=== PATIENT | female | born 1980 | race Caucasian/White ===

== ENCOUNTER 2020-11-10 01:31 | Inpatient (IN) | payer MEDICAID, SELFPAY ==
[2020-11-10] VITALS (44 sets, daily range): BP systolic 66–133; BP diastolic 34–83; PULSE 57–78; RESP 12–21; TEMP 36.4–36.9; O2SAT 93–100; BMI 47.7; BMI 24.9
--- NOTE | 2020-11-10 | ECG_ITS ---
Test Reason : CP Blood Pressure : / mmHG Vent. Rate : 064 BPM Atrial Rate : 064 BPM P-R Int : 186 ms QRS Dur : 074 ms QT Int : 442 ms P-R-T Axes : 037 024 035 degrees QTc Int : 455 ms Normal sinus rhythm Normal ECG When compared with ECG of 10-NOV-2020 02:50, No significant change was found Referred By: Ciaran Mcconnell Electronically Signed By:Marcos Maya
--- NOTE | 2020-11-10 02:46 | ECG_ITS ---
Test Reason : ETOH Blood Pressure : / mmHG Vent. Rate : 070 BPM Atrial Rate : 070 BPM P-R Int : 190 ms QRS Dur : 068 ms QT Int : 414 ms P-R-T Axes : 058 047 053 degrees QTc Int : 447 ms Normal sinus rhythm Normal ECG No previous ECGs available Referred By: Ciaran Mcconnell Electronically Signed By:WALTER REMY
--- NOTE | 2020-11-10 02:49 | ED_ITS ---
HPI - Psych General Chief Complaint: Psychiatric Symptoms Stated Complaint: ETOH Time Seen by Provider: 11/10/20 02:45 Source: patient and EMS Mode of arrival: EMS History of Present Illness HPI Narrative: Patient alcohol intoxication and made suicidal statements with questionable overdose on clonidine unknown dose unknown amount patient drowsy and sleepy on arrival very intoxicated MD complaint: suicidal ideation and feels depressed Related Data Allergies Allergy/AdvReac Type Severity Reaction Status Date / Time kj [KJ] Allergy Severe SWELLING Verified 11/10/20 03:07 Review of Systems Review of Systems: Yes Unobtainable due to mental status (Intoxicated) [facility] Social History Social History Alcohol intake: never Smoked in Last 30 Days: No Use of substances other than those prescribed or required for medical reasons: No Advance Directives: No Physical Exam Vital Signs: Vital Signs: Last Vital Signs Temp 98.1 F 11/10/20 02:00 Pulse 73 11/10/20 06:25 Resp 18 11/10/20 06:25 BP 109/63 11/10/20 06:25 Pulse Ox 96 11/10/20 06:25 Body Mass Index 24.9 Appearance: Alert. Oriented X2. No acute distress. Intoxicated crying in between Eyes: Pupils equal, round and reactive to light. ENT: Pharynx normal. Neck: Normal inspection. Neck supple. CVS: Normal heart rate and rhythm. Pulses normal. Respiratory: No respiratory distress. Breath sounds normal. Abdomen: Soft and nontender. Bowel sounds are present, no mass palpable, Skin: Skin warm and dry. Normal skin color. Normal skin turgor. Extremities: No lower extremity edema. Neuro: Oriented x2. No motor deficit. No sensory deficit. Psych: Alert but falling sleep often, crying in between feel depressed Course Reevaluation(s) Reevaluation #1: Patient on dopamine 10 mcg per minute blood pressure 125/71 heart rate 68 Time: 05:49 Reevaluation #2: Patient maintaining her blood pressure on 5 mcg of dopamine at 109/63 pulse rate 73 with slowly taper it off will get BHN consult Time: 06:29 MDM - Psych MDM Narrative Medical decision making narrative: Patient with alcohol intoxication overdosed on clonidine unknown amount patient alert awake following sleep often blood pressure still low last blood pressure was 84/37 mild in 10 mg was given and patient received 3 L of normal saline transient improvement placed on T rendelenburg position. Will start her on dopamine her heart rate is 68. Restraints Face to Face Assessment: Face to Face Assessment: Current Situation: After assessment of the patient, a review of the pertinent medical record and a discussion with nursing staff, I feel the patient requires a restrain intervention. Reaction To: [] Medical Condition: [] Behavioral State: [] Continued Need: [] Lab Data Attestation: I reviewed the patient's lab results. Result diagrams: 11/10/20 03:06 11/10/20 03:06 Labs: Lab Results 11/10/20 11/10/20 11/10/20 Range/Units 03:06 03:06 03:06 WBC 7.1 (4.8-10.8) X10*3/uL RBC 4.26 (4.20-5.50) X10*6/uL Hgb 13.1 (12.0-16.0) g/dl Hct 39.5 (37-47) % MCV 92.7 (80-98) fL MCH 30.8 (27.0-33.0) pg MCHC 33.2 (31.0-35.0) g/dl RDW 13.2 (11.0-16.0) % Plt Count 261 (160-400) X10*3/uL MPV 9.2 L (9.4-12.3) fL Immature Gran % (Auto) 0.3 (0.0-0.4) % Neut % (Auto) 43.6 L (45-73) % Lymph % (Auto) 48.7 H (20-40) % Mathews % (Auto) 6.3 (2-11) % Eos % (Auto) 0.8 (0-4) % Baso % (Auto) 0.3 (0-2) % Lymph # (Auto) 3.5 (1.2-4.9) X10*3/uL [place] # (Auto) 0.5 (0.1-1.2) X10*3/uL Eos # (Auto) 0.1 (0.0-0.4) X10*3/uL Baso # (Auto) 0.0 (0.0-0.2) X10*3/uL Abs Immat Gran (auto) 0.02 (0.00-0.03) X10*3/uL Absolute Neuts (auto) 3.1 (2.0-8.3) X10*3/uL Absolute Nucleated RBC 0.000 (0.0-0.012) X10*3/uL Nucleated RBC % (auto) 0.0 (0.0-0.2) /100WBC Sodium 143 (135-145) mmol/L Potassium 4.1 (3.3-5.1) mmol/l Chloride 114 H (96-108) mmol/L Carbon Dioxide 18 L (22-29) mmol/L Anion Gap 15 (12-20) BUN 6 L (9-16) mg/dL Creatinine 0.87 (0.5-1.4) mg/dL Estim Creat Clear Calc 118.1 Estimated GFR > 60 Random Glucose 120 H (60-115) mg/dL Calcium 8.2 L (8.4-10.2) mg/dL Magnesium (1.6-2.6) mg/dL Total Bilirubin 0.2 (0.0-1.0) mg/dL Direct Bilirubin < 0.2 (0.0-0.5) mg/dL AST 17 (5-31) U/L ALT 16 (0-31) U/L Alkaline Phosphatase 47 (39-117) U/L Total Protein 6.8 (6.5-8.0) g/dL Albumin 4.2 (3.5-5.0) g/dL Urine Color Urine Appearance Urine pH (5.0-8.0) Ur Specific [place] (1.005-1.025) Urine Protein (NEG-TRACE) MG/DL Urine Glucose (UA) (NEG) MG/DL Urine Ketones (NEG) MG/DL Urine Blood (NEG) Urine Nitrite (NEG) Ur Leukocyte Esterase (NEG) Urine RBC (0) /HPF Urine WBC (0-4) /HPF Ur Squamous Epith Cells /LPF Urine Bacteria /LPF Urine Test (NEGATIVE) Salicylates (15-30) mg/dL Urine Opiates Screen (Not Detect) Acetaminophen (<30) mcg/mL Ur Barbiturates Screen (Not Detect) Ur Phencyclidine Scrn (Not Detect) Ur Amphetamines Screen (Not Detect) U Benzodiazepines Scrn (Not Detect) Urine Cocaine Screen (Not Detect) U Marijuana (THC) Screen (Not Detect) Ethyl Alcohol 219 mg/dL 11/10/20 11/10/20 11/10/20 Range/Units 03:06 03:07 04:31 WBC (4.8-10.8) X10*3/uL RBC (4.20-5.50) X10*6/uL Hgb (12.0-16.0) g/dl Hct (37-47) % MCV (80-98) fL MCH (27.0-33.0) pg MCHC (31.0-35.0) g/dl RDW (11.0-16.0) % Plt Count (160-400) X10*3/uL MPV (9.4-12.3) fL Immature Gran % (Auto) (0.0-0.4) % Neut % (Auto) (45-73) % Lymph % (Auto) (20-40) % [place] % (Auto) (2-11) % Eos % (Auto) (0-4) % Baso % (Auto) (0-2) % Lymph # (Auto) (1.2-4.9) X10*3/uL [place] # (Auto) (0.1-1.2) X10*3/uL Eos # (Auto) (0.0-0.4) X10*3/uL Baso # (Auto) (0.0-0.2) X10*3/uL Abs Immat Gran (auto) (0.00-0.03) X10*3/uL Absolute Neuts (auto) (2.0-8.3) X10*3/uL Absolute Nucleated RBC (0.0-0.012) X10*3/uL Nucleated RBC % (auto) (0.0-0.2) /100WBC Sodium (135-145) mmol/L Potassium (3.3-5.1) mmol/l Chloride (96-108) mmol/L Carbon Dioxide (22-29) mmol/L Anion Gap (12-20) BUN (9-16) mg/dL Creatinine (0.5-1.4) mg/dL Estim Creat Clear Calc Estimated GFR Random Glucose (60-115) mg/dL Calcium (8.4-10.2) mg/dL Magnesium 2.2 (1.6-2.6) mg/dL Total Bilirubin (0.0-1.0) mg/dL Direct Bilirubin (0.0-0.5) mg/dL AST (5-31) U/L ALT (0-31) U/L Alkaline Phosphatase (39-117) U/L Total Protein (6.5-8.0) g/dL Albumin (3.5-5.0) g/dL Urine Color YELLOW Urine Appearance HAZY Urine pH 6.0 (5.0-8.0) Ur Specific [place] <= 1.005 (1.005-1.025) Urine Protein NEG (NEG-TRACE) MG/DL Urine Glucose (UA) NEG (NEG) MG/DL Urine Ketones NEG (NEG) MG/DL Urine Blood NEG (NEG) Urine Nitrite NEG (NEG) Ur Leukocyte Esterase TRACE H (NEG) Urine RBC 1-4 (0) /HPF Urine WBC 5-9 H (0-4) /HPF Ur Squamous Epith Cells 2+ /LPF Urine Bacteria 3+ /LPF Urine Test NEGATIVE (NEGATIVE) Salicylates < 5.0 L (15-30) mg/dL Urine Opiates Screen (Not Detect) Acetaminophen < 1 (<30) mcg/mL Ur Barbiturates Screen (Not Detect) Ur Phencyclidine Scrn (Not Detect) Ur Amphetamines Screen (Not Detect) U Benzodiazepines Scrn (Not Detect) Urine Cocaine Screen (Not Detect) U Marijuana (THC) Screen (Not Detect) Ethyl Alcohol mg/dL 11/10/20 Range/Units 04:31 WBC (4.8-10.8) X10*3/uL RBC (4.20-5.50) X10*6/uL Hgb (12.0-16.0) g/dl Hct (37-47) % MCV (80-98) fL MCH (27.0-33.0) pg MCHC (31.0-35.0) g/dl RDW (11.0-16.0) % Plt Count (160-400) X10*3/uL MPV (9.4-12.3) fL Immature Gran % (Auto) (0.0-0.4) % Neut % (Auto) (45-73) % Lymph % (Auto) (20-40) % [place] % (Auto) (2-11) % Eos % (Auto) (0-4) % Baso % (Auto) (0-2) % Lymph # (Auto) (1.2-4.9) X10*3/uL [place] # (Auto) (0.1-1.2) X10*3/uL Eos # (Auto) (0.0-0.4) X10*3/uL Baso # (Auto) (0.0-0.2) X10*3/uL Abs Immat Gran (auto) (0.00-0.03) X10*3/uL Absolute Neuts (auto) (2.0-8.3) X10*3/uL Absolute Nucleated RBC (0.0-0.012) X10*3/uL Nucleated RBC % (auto) (0.0-0.2) /100WBC Sodium (135-145) mmol/L Potassium (3.3-5.1) mmol/l Chloride (96-108) mmol/L Carbon Dioxide (22-29) mmol/L Anion Gap (12-20) BUN (9-16) mg/dL Creatinine (0.5-1.4) mg/dL Estim Creat Clear Calc Estimated GFR Random Glucose (60-115) mg/dL Calcium (8.4-10.2) mg/dL Magnesium (1.6-2.6) mg/dL Total Bilirubin (0.0-1.0) mg/dL Direct Bilirubin (0.0-0.5) mg/dL AST (5-31) U/L ALT (0-31) U/L Alkaline Phosphatase (39-117) U/L Total Protein (6.5-8.0) g/dL Albumin (3.5-5.0) g/dL Urine Color Urine Appearance Urine pH (5.0-8.0) Ur Specific [place] (1.005-1.025) Urine Protein (NEG-TRACE) MG/DL Urine Glucose (UA) (NEG) MG/DL Urine Ketones (NEG) MG/DL Urine Blood (NEG) Urine Nitrite (NEG) Ur Leukocyte Esterase (NEG) Urine RBC (0) /HPF Urine WBC (0-4) /HPF Ur Squamous Epith Cells /LPF Urine Bacteria /LPF Urine Test (NEGATIVE) Salicylates (15-30) mg/dL Urine Opiates Screen Not Detected (Not Detect) Acetaminophen (<30) mcg/mL Ur Barbiturates Screen POSITIVE H (Not Detect) Ur Phencyclidine Scrn Not Detected (Not Detect) Ur Amphetamines Screen Not Detected (Not Detect) U Benzodiazepines Scrn Not Detected (Not Detect) Urine Cocaine Screen Not Detected (Not Detect) U Marijuana (THC) Screen Not Detected (Not Detect) Ethyl Alcohol mg/dL ECG Data Attestation: I personally reviewed and interpreted this ECG as follows: Interpretation: Normal sinus rhythm heart rate 70 normal axis normal intervals normal QT interval no acute ST T wave changes impression normal EKG Critical Care Time Critical Care Time Critical Care Time: Yes Total Critical Care Time: 40 Attestation: Medical management Discharge Plan Discharge Clinical Impression: Depression Qualifiers: Depression Type: major depressive disorder Major depression recurrence: recurrent Active/Remission status: currently active Major depression episode severity: moderate Qualified Code(s): F33.1 - Major depressive disorder, recurrent, moderate Alcohol intoxication Qualifiers: Complication of substance-induced condition: uncomplicated Qualified Code(s): F10.920 - Alcohol use, unspecified with intoxication, uncomplicated Overdose Qualifiers: Encounter type: initial encounter Injury intent: undetermined intent Qualified Code(s): T50.904A - Poisoning by unspecified drugs, medicaments and biological substances, undetermined, initial encounter
[2020-11-10] MEDS: 0.9 % Sodium Chloride 1,000 ML 999 ML IVCONT ×3 (03:09→04:25)
--- NOTE | 2020-11-10 03:17 | PC.NURSE ---
Report received from Raj RN from pod. Pt transfferd from pod to main ed for cardiac monitoring via wc. Upon arrival to bed 8, pt wanted to use bathroom. unsteady gait on feet. Assisted pt to bed safely. VS taken. Hypotensive noted. SBP 80's. made aware. EKG, IV access, blood drawn for lab, and IVF started. NSR on the monitor. Pt crying, and stating that depressed. Denies SI/HI. Stated, Never drank before, today i drank apple vodka and had clonidine. Pt unsure how many pills she had. Pt keep asking to have clonidine. Called to family member for more story, but unable to reach. Left a voice mail for return call. safety measures in place.
[2020-11-10 03:27] LABS: Basophils Percent Auto 0.3 % (0-2); Eosinophils Absolute Auto 0.1 X10*3/uL (0.0-0.4); Eosinophils Percent Auto 0.8 % (0-4); Hematocrit 39.5 % (37-47); Hemoglobin 13.1 g/dl (12.0-16.0); Imm Gran Abs Auto 0.02 X10*3/uL (0.00-0.03); Imm Gran Pct Auto 0.3 % (0.0-0.4); Lymphocytes Absolute Auto 3.5 X10*3/uL (1.2-4.9); Lymphocytes Percent Auto 48.7 % (20-40); MANUAL DIFF FLAG NO; Mean Corpuscular HGB Conc 33.2 g/dl (31.0-35.0); Mean Corpuscular Hemoglobin 30.8 pg (27.0-33.0); Mean Corpuscular Volume 92.7 fL (80-98); Mean Platelet Volume 9.2 fL (9.4-12.3); Monocytes Absolute Auto 0.5 X10*3/uL (0.1-1.2); Monocytes Percent Auto 6.3 % (2-11); Neutrophils Absolute Auto 3.1 X10*3/uL (2.0-8.3); Neutrophils Percent Auto 43.6 % (45-73); Platelet Count 261 X10*3/uL (160-400); Red Blood Count 4.26 X10*6/uL (4.20-5.50); Red Cell Distribution Width 13.2 % (11.0-16.0); White Blood Count 7.1 X10*3/uL (4.8-10.8)
--- NOTE | 2020-11-10 03:34 | MHC.PIE ---
Hypotensive despite of 1 L of NS. BP 89/57. made aware. 2nd bag of NS started. pt currently sleeping well. skin wpd. rr even and unlabored. will continue to monitor.
[2020-11-10 03:48] LABS: Ethanol 219 mg/dL
[2020-11-10 03:52] LABS: Alanine Aminotransferase 16 U/L (0-31); Albumin Level 4.2 g/dL (3.5-5.0); Alkaline Phosphatase 47 U/L (39-117); Anion Gap 15 (12-20); Aspartate Amino Transferase 17 U/L (5-31); Bilirubin Direct < 0.2 mg/dL (0.0-0.5); Bilirubin Total 0.2 mg/dL (0.0-1.0); Blood Urea Nitrogen 6 mg/dL (9-16); Calcium 8.2 mg/dL (8.4-10.2); Carbon Dioxide 18 mmol/L (22-29); Chloride 114 mmol/L (96-108); Creatinine Clr Calc Pharmacy 118.1; Estimated Glomerular Filt Rate > 60; Glucose Random 120 mg/dL (60-115); Potassium 4.1 mmol/l (3.3-5.1); Sodium 143 mmol/L (135-145); Total Protein 6.8 g/dL (6.5-8.0)
[2020-11-10 03:53] LABS: Magnesium 2.2 mg/dL (1.6-2.6)
[2020-11-10 03:53] LABS: Acetaminophen LAB < 1 mcg/mL (<30)
[2020-11-10 03:58] LABS: Salicylate < 5.0 mg/dL (15-30)
--- NOTE | 2020-11-10 04:10 | PC.NURSE ---
Addendum entered by Kam uLna RN 11/10/20 04:23: per md, give 3 rd bag of iv fluid. Original Note: Hypotensive noted again. the lowest bp 80/47. md at bedside to assess pt.
--- NOTE | 2020-11-10 04:23 | PC.NURSE ---
ambulated to bathroom to collect urine sample via wc d/t unsteady gait, and 1 person assistance.
[2020-11-10] MEDS: Midodrine HCl 10 MG TABLET PO (04:27)
[2020-11-10 04:38] LABS: Glucose Urine UA NEG (NEG); Leukocyte Esterase Urine TRACE (NEG); Nitrite Urine NEG (NEG); Specific Gravity - Urine <= 1.005 (1.005-1.025); Urine Blood NEG (NEG); Urine Ketones NEG (NEG); Urine Protein NEG (NEG-TRACE)
[2020-11-10 04:40] LABS: Appearance Urine HAZY; Color Urine YELLOW
[2020-11-10 04:41] LABS: UPreg QC Valid YES; Urine Pregnancy NEGATIVE (NEGATIVE)
[2020-11-10 04:45] LABS: Bacteria Urine 3+ /LPF; Squamous Epithelial Cell Urine 2+ /LPF
[2020-11-10 05:00] LABS: Amphetamine Screen Urine Not Detected (Not Detect); Barbiturates, Urine POSITIVE (Not Detect); Benzodiazepines Screen Urine Not Detected (Not Detect); Cannabinoid Screen Urine Not Detected (Not Detect); Cocaine Screen Urine Not Detected (Not Detect); Opiate Screen Urine Not Detected (Not Detect); Phencyclidine Screen Urine Not Detected (Not Detect)
[2020-11-10] MEDS: DOPamine HCL/D5W 400 MG/250 ML PLAST..BAG 12.75 MG IVCONT ×2 (05:02→23:08)
[2020-11-10] MEDS: DOPamine HCL/D5W 400 MG/250 ML PLAST..BAG 24.38 MG IVCONT (05:02)
--- NOTE | 2020-11-10 05:08 | PC.NURSE ---
Addendum entered by Kam Luna RN 11/10/20 05:11: titrated to 10 mcg/kg/min at 0510. Original Note: Dopamine 400mg/250 ml hung at 0502 for hypotension. bp at 69/42 time of med started.
--- NOTE | 2020-11-10 05:32 | PC.NURSE ---
pt ambulated to bathroom to urinate. steady gait on feet. pt follows commands. DARSHANA. Called to poison control for guideline. per poison control. give narcan iv 1 mg then wait for 10 min. if pt still drowsy after 1st dose of narcan, increase dose x2 for every 10 min. md made aware. at this time dopamine rate is 15 mcg/kg/min. bp maintaining 117/58. will continue to monitor.
[2020-11-10 07:19] LABS: COVID-19 Test Negative (Negative)
--- NOTE | 2020-11-10 07:20 | PC.NURSE ---
pt insisntent and argumentative about walking the 10 feet to the bathroom, refused commode, staf w pt into the bathroom, c/o dizziness and sat on the floor, assisted back to bed now w nad
--- NOTE | 2020-11-10 11:38 | MHC.CARE ---
Pt will need BHN CRISIS Evaluation once medically stable.
--- NOTE | 2020-11-10 12:45 | P.HPCC_ITS ---
History of Present Illness Date of Service: 11/10/20 Chief Complaint: Suicide attempt with clonidine and alcohol 40-year-old female with history of major depression with suicide attempt now approaching greater than 12 hours utilizing clonidine and alcohol with a greater than 200 mg % alcohol level on arrival and persistent bradycardia and orthostatic hypotension requiring IV dopamine drip to maintain blood pressure and heart rate No history of withdrawal and the patient other than lethargy does not display any other [place]O[employer] [place] [employer] toxicity and both EKGs are within normal limits including normal QRS duration and QT intervals She has history of migraines and she thinks she has a history of seizure disorder takes Topamax and buspirone and bupropion but urine toxicology was positive for phenyl barbital that was neither given here in the hospital noted she admit to it at home But she fails to display any particular toxidrome other than what you would expect from clonidine She claims to have lost her Klonopin and not taken it for several days Review of Systems Review of Systems: Yes Unobtainable due to mental status PMFSH Past Medical History Medical History (Updated 11/10/20 @ 12:55 by Mina Galo MD) Seizure disorder Social History Social History Alcohol intake: never Smoked in Last 30 Days: No Use of substances other than those prescribed or required for medical reasons: No Advance Directives: No Meds Allergies Allergy/AdvReac Type Severity Reaction Status Date / Time kj [KJ] Allergy Severe SWELLING Verified 11/10/20 03:07 Home Medications Medication Instructions Recorded Confirmed Type Wellbutrin XL 450 mg PO DAILY 11/10/20 11/10/20 History buspirone mg PO BID 11/10/20 History [id number] cap PO QID PRN 11/10/20 History [Fioricet] clonazepam [Klonopin] 1 mg PO BID PRN 11/10/20 11/10/20 History fluoxetine 60 mg PO DAILY 11/10/20 11/10/20 History norethindrone (contraceptive) 0.35 mg PO DAILY 11/10/20 11/10/20 History pantoprazole 40 mg PO 11/10/20 History topiramate [Topamax] 11/10/20 History Physical Exam Vital Signs: Vital Signs: Last Vital Signs Temp 98.1 F 11/10/20 02:00 Pulse 72 11/10/20 11:01 Resp 18 11/10/20 08:00 BP 79/34 L 11/10/20 11:01 Pulse Ox 98 11/10/20 11:01 Body Mass Index 24.9 Very lethargic but easily arousable and appropriate and oriented and nonfocal neurologically and pupils are mid size and reactive to light bilaterally and muscular tone is normal bilaterally as well no evidence of dystonia Cardiac exam normal sinus rhythm with no neck vein distension and has good bilateral carotid upstrokes no murmurs and no gallops Chest is clear without adventitious sounds Abdomen is benign with good bowel sounds soft and nondistended and no organomegaly Skin is intact no peripheral edema no livedo Results Labs CBC and Chem 7: 11/10/20 03:06 11/10/20 03:06 Labs: Laboratory Results - last 24 hr 11/10/20 11/10/20 11/10/20 03:06 03:06 03:06 MCV 92.7 MCH 30.8 MCHC 33.2 RDW 13.2 Plt Count 261 MPV 9.2 L Immature Gran % (Auto) 0.3 Neut % (Auto) 43.6 L Lymph % (Auto) 48.7 H [place] % (Auto) 6.3 Eos % (Auto) 0.8 Baso % (Auto) 0.3 Lymph # (Auto) 3.5 [place] # (Auto) 0.5 Eos # (Auto) 0.1 Baso # (Auto) 0.0 Abs Immat Gran (auto) 0.02 Absolute Neuts (auto) 3.1 Absolute Nucleated RBC 0.000 Nucleated RBC % (auto) 0.0 Anion Gap 15 Estim Creat Clear Calc 118.1 Estimated GFR > 60 Random Glucose 120 H Calcium 8.2 L Magnesium Total Bilirubin 0.2 Direct Bilirubin < 0.2 AST 17 ALT 16 Alkaline Phosphatase 47 Total Protein 6.8 Albumin 4.2 Urine Color Urine Appearance Urine pH Ur Specific [place] Urine Protein Urine Glucose (UA) Urine Ketones Urine Blood Urine Nitrite Ur Leukocyte Esterase Urine RBC Urine WBC Ur Squamous Epith Cells Urine Bacteria Urine Test Salicylates Urine Opiates Screen Acetaminophen Ur Barbiturates Screen Ur Phencyclidine Scrn Ur Amphetamines Screen U Benzodiazepines Scrn Urine Cocaine Screen U Marijuana (THC) Screen Ethyl Alcohol 219 COVID-19 (ROSALINDA) COVID-19 Clin Com 11/10/20 11/10/20 11/10/20 03:06 03:07 04:31 MCV MCH MCHC RDW Plt Count MPV Immature Gran % (Auto) Neut % (Auto) Lymph % (Auto) [place] % (Auto) Eos % (Auto) Baso % (Auto) Lymph # (Auto) [place] # (Auto) Eos # (Auto) Baso # (Auto) Abs Immat Gran (auto) Absolute Neuts (auto) Absolute Nucleated RBC Nucleated RBC % (auto) Anion Gap Estim Creat Clear Calc Estimated GFR Random Glucose Calcium Magnesium 2.2 Total Bilirubin Direct Bilirubin AST ALT Alkaline Phosphatase Total Protein Albumin Urine Color YELLOW Urine Appearance HAZY Urine pH 6.0 Ur Specific [place] <= 1.005 Urine Protein NEG Urine Glucose (UA) NEG Urine Ketones NEG Urine Blood NEG Urine Nitrite NEG Ur Leukocyte Esterase TRACE H Urine RBC 1-4 Urine WBC 5-9 H Ur Squamous Epith Cells 2+ Urine Bacteria 3+ Urine Test NEGATIVE Salicylates < 5.0 L Urine Opiates Screen Acetaminophen < 1 Ur Barbiturates Screen Ur Phencyclidine Scrn Ur Amphetamines Screen U Benzodiazepines Scrn Urine Cocaine Screen U Marijuana (THC) Screen Ethyl Alcohol COVID-19 (ROSALINDA) COVID-[facility] 11/10/20 11/10/20 04:31 06:55 MCV MCH MCHC RDW Plt Count MPV Immature Gran % (Auto) Neut % (Auto) Lymph % (Auto) [place] % (Auto) Eos % (Auto) Baso % (Auto) Lymph # (Auto) [place] # (Auto) Eos # (Auto) Baso # (Auto) Abs Immat Gran (auto) Absolute Neuts (auto) Absolute Nucleated RBC Nucleated RBC % (auto) Anion Gap Estim Creat Clear Calc Estimated GFR Random Glucose Calcium Magnesium Total Bilirubin Direct Bilirubin AST ALT Alkaline Phosphatase Total Protein Albumin Urine Color Urine Appearance Urine pH Ur Specific [place] Urine Protein Urine Glucose (UA) Urine Ketones Urine Blood Urine Nitrite Ur Leukocyte Esterase Urine RBC Urine WBC Ur Squamous Epith Cells Urine Bacteria Urine Test Salicylates Urine Opiates Screen Not Detected Acetaminophen Ur Barbiturates Screen POSITIVE H Ur Phencyclidine Scrn Not Detected Ur Amphetamines Screen Not Detected U Benzodiazepines Scrn Not Detected Urine Cocaine Screen Not Detected U Marijuana (THC) Screen Not Detected Ethyl Alcohol COVID-19 (ROSALINDA) Negative COVID-[facility] See Note Assessment and Plan (1) Depression: Qualifiers: Active/Remission status: currently active Depression Type: major depressive disorder Major depression episode severity: moderate Major depression recurrence: recurrent Qualified Code(s): F33.1 - Major depressive disorder, recurrent, moderate Problem details: Continue to hydrate but due to the hyperchloremic affect which is iatrogenic from the saline I will switch her to Ringer's lactate Status: Acute (2) Alcohol intoxication: Qualifiers: Complication of substance-induced condition: uncomplicated Qualified Code(s): F10.920 - Alcohol use, unspecified with intoxication, uncomplicated Problem details: No history of withdrawal and I will place her on a very small dose of Ativan and watch for any signs of increased sympathetic activity or agitation Status: Acute (3) Overdose: Qualifiers: Encounter type: initial encounter Injury intent: undetermined intent Qualified Code(s): T50.904A - Poisoning by unspecified drugs, medicaments and biological substances, undetermined, initial encounter Problem details: She will need a 1 on 1 and because of suicide attempt Status: Acute Will continue on dopamine and will slowly try to wean as we now get into a time frame towards the end of the expected clonidine half life
--- NOTE | 2020-11-10 13:12 | MHC.CARE ---
51A CARE Team completed 51A . CARE Team contacted Zeferino BULLARD who reported during the incident Pts 3 yearold and 13 year old were home.
[2020-11-10] MEDS: Butalb/Acetamin/Caff 50/325/40 TABLET 1 TAB PO (13:29)
[2020-11-10] MEDS: Dextrose 5 % and Lactated Ring 1,000 ML 100 ML IVCONT ×2 (13:31→23:08)
--- NOTE | 2020-11-10 16:55 | MHC.CARE ---
CARE Team received phone call from [facility] regarding Analy 82 - CARE Team confirmed Mirian Treviño and Analy have the same demographics. CARE Team transferred call to ICU
[2020-11-10] MEDS: LORazepam 2 MG/ML VIAL 0.25 MG IVPUSH ×2 (17:59→20:54)
[2020-11-10] MEDS: ondansetron HCL 4 MG/2 ML VIAL IVPUSH (19:45)
[2020-11-11] VITALS (25 sets, daily range): BP systolic 92–115; BP diastolic 23–76; PULSE 55–79; RESP 11–20; TEMP 36.7–36.9; O2SAT 94–100; BMI 26.7
[2020-11-11 00:47] LABS: Glucose Urine UA NEG (NEG); Leukocyte Esterase Urine NEG (NEG); Nitrite Urine NEG (NEG); PH 7.5 (5.0-8.0); Specific Gravity - Urine 1.015 (1.005-1.025); Urine Blood NEG (NEG); Urine Ketones NEG (NEG); Urine Protein NEG (NEG-TRACE)
[2020-11-11 00:49] LABS: Appearance Urine CLEAR; Color Urine YELLOW
[2020-11-11] MEDS: ondansetron HCL 4 MG/2 ML VIAL IVPUSH ×3 (03:22→20:59)
[2020-11-11] MEDS: LORazepam 2 MG/ML VIAL 0.25 MG IVPUSH ×3 (03:24→17:47)
--- NOTE | 2020-11-11 05:20 | PC.NURSE ---
CARE ASSUMED 01:30...NAPPING INTERMITTANTLY...OOB TO COMMODE 1 ASSIST TO VOID...O3:30...AWAKE..ALERT...ORIENTED X3...FLAT AFFECT...C/O NAUSEA AND ANXIOUS...REQUESTED PRN ZOFRAN & ATIVAN...ZOFRAN GIVEN WITH RELIEF OF NAUSEA...ICU DEVOPS SOLUTIONS ARCHITECT VERBALLY STATED TO GIVE 6AM SCHEDULED ATIVAN DOSE EARLY SINCE 12AM DOSE ALSO GIVEN EARLIER PER HER PREVIOUS REQUEST ON 3-11 SHIFT...DOZING AFTERWARDS...CONTINUES DOPAMINE 5 MCG/KG/MIN...SBP >100...NSR/S.JULIO HR 54-60 ON DOPAMINE...RARE TRANSIENT DROPS OF HR TO 48 PER REPORT...1:1 SITTER REMAINS BEDSIDE
[2020-11-11 06:00] LABS: MANUAL DIFF FLAG NO
[2020-11-11 06:10] LABS: Basophils Percent Auto 0.3 % (0-2); Eosinophils Absolute Auto 0.2 X10*3/uL (0.0-0.4); Eosinophils Percent Auto 2.3 % (0-4); Hemoglobin 12.4 g/dl (12.0-16.0); Imm Gran Abs Auto 0.02 X10*3/uL (0.00-0.03); Imm Gran Pct Auto 0.3 % (0.0-0.4); Lymphocytes Absolute Auto 2.8 X10*3/uL (1.2-4.9); Lymphocytes Percent Auto 43.8 % (20-40); Mean Corpuscular HGB Conc 32.6 g/dl (31.0-35.0); Mean Corpuscular Hemoglobin 30.3 pg (27.0-33.0); Mean Corpuscular Volume 92.9 fL (80-98); Mean Platelet Volume 9.2 fL (9.4-12.3); Monocytes Absolute Auto 0.5 X10*3/uL (0.1-1.2); Monocytes Percent Auto 7.1 % (2-11); Neutrophils Percent Auto 46.2 % (45-73); Platelet Count 234 X10*3/uL (160-400); Red Blood Count 4.09 X10*6/uL (4.20-5.50); Red Cell Distribution Width 13.1 % (11.0-16.0); White Blood Count 6.5 X10*3/uL (4.8-10.8)
[2020-11-11 06:17] LABS: Base Excess VBG -5.1 mmol/L; HCO3 VBG 20 mmol/L; Oxygen Saturation VBG 84.3 %; PCO2 VBG 36 mmhg; PO2 VBG 47 mmhg; pH VBG 7.36 (7.32-7.43)
[2020-11-11 06:27] LABS: Anion Gap 12 (12-20); Blood Urea Nitrogen 5 mg/dL (9-16); Calcium 7.9 mg/dL (8.4-10.2); Carbon Dioxide 18 mmol/L (22-29); Chloride 112 mmol/L (96-108); Creatinine Clr Calc Pharmacy 104.6; Estimated Glomerular Filt Rate > 60; Glucose Random 120 mg/dL (60-115); Magnesium 1.9 mg/dL (1.6-2.6); Phosphorus 2.4 mg/dL (2.7-4.5); Potassium 3.6 mmol/l (3.3-5.1); Sodium 138 mmol/L (135-145)
[2020-11-11] MEDS: Dextrose 5 % and Lactated Ring 1,000 ML 100 ML IVCONT ×2 (09:45→20:16)
[2020-11-11] MEDS: Butalb/Acetamin/Caff 50/325/40 TABLET 1 TAB PO ×3 (12:22→21:03)
--- NOTE | 2020-11-11 13:02 | PC.NURSE ---
Per patient request, patient father (meliton) called by this RN and updated that patient was hospitalized and in the ICU. Patient wishes that Meliton could notify family in the area that patient is hospialized. Meliton to attempt to notify local family per patient request.
--- NOTE | 2020-11-11 14:42 | PC.NURSE ---
Pt drowsy, oriented to person, place, time, mildly weak, pupils 3mm PERRLA. 1:1 sitter remains at bedside. Dopamine running at 4mcg/kg/min, HR mostly 50-70 SBRAD/NSR, does occasionally dip down to 44bpm, usually with repositioning, SBP 89-111/ DBP 49-68, does complain of dizziness. MD aware and states to keep dopamine drip at current rate. Assisting pt when ambulating to commode, encouraged to sit and wait for a minute at edge of bed. Ferocet given for 8/10 headache, hot pack given. RR WNL SaO2 WNL on RA.
--- NOTE | 2020-11-11 15:02 | P.PNCC_ITS ---
Subjective Subjective Date of Service: 11/11/20 Interval History: Remains perfectly stable but still requires 4 micrograms/kilogram of IV dopamine to maintain pressure of 103/59 with mean of 72 and normal sinus rhythm at a rate of 70 Awake and alert and neurologically nonfocal Cardiac exam normal with normal S1 normal S2 normal QT interval and no neck vein distension Chest percusses equally it is clear with no adventitious sounds Abdomen benign with no organomegaly and good bowel sounds Skin intact Physical Exam Vital Signs: Vital Signs: Last Vital Signs Temp 98.1 F 11/11/20 12:00 Pulse 62 11/11/20 14:00 Resp 12 11/11/20 14:00 BP 102/60 11/11/20 14:00 Pulse Ox 97 11/11/20 14:00 Body Mass Index 26.7 Const: Other: Awakens easily and oriented x3 Nonfocal neurologic Cardiac exam normal with normal QT interval Metabolically normal Abdomen benign and now eating because she is more alert Chest clear Skin intact Objective Data Labs CBC & Chem 7: 11/11/20 05:30 11/11/20 05:30 Labs: Laboratory Results - last 24 hr 11/11/20 11/11/20 11/11/20 00:33 05:30 05:30 WBC 6.5 RBC 4.09 L Hgb 12.4 Hct 38.0 MCV 92.9 MCH 30.3 MCHC 32.6 RDW 13.1 Plt Count 234 MPV 9.2 L Immature Gran % (Auto) 0.3 Neut % (Auto) 46.2 Lymph % (Auto) 43.8 H [place] % (Auto) 7.1 Eos % (Auto) 2.3 Baso % (Auto) 0.3 Lymph # (Auto) 2.8 [place] # (Auto) 0.5 Eos # (Auto) 0.2 Baso # (Auto) 0.0 Abs Immat Gran (auto) 0.02 Absolute Neuts (auto) 3.0 Absolute Nucleated RBC 0.000 Nucleated RBC % (auto) 0.0 VBG pH VBG pCO2 VBG pO2 VBG HCO3 VBG O2 Saturation VBG Base Excess Sodium 138 Potassium 3.6 Chloride 112 H Carbon Dioxide 18 L Anion Gap 12 BUN 5 L Creatinine 0.65 Estim Creat Clear Calc 104.6 Estimated GFR > 60 Random Glucose 120 H Calcium 7.9 L Phosphorus 2.4 L Magnesium 1.9 Urine Color YELLOW Urine Appearance CLEAR Urine pH 7.5 Ur Specific [place] 1.015 Urine Protein NEG Urine Glucose (UA) NEG Urine Ketones NEG Urine Blood NEG Urine Nitrite NEG Ur Leukocyte Esterase NEG 11/11/20 05:30 WBC RBC Hgb Hct MCV MCH MCHC RDW Plt Count MPV Immature Gran % (Auto) Neut % (Auto) Lymph % (Auto) [place] % (Auto) Eos % (Auto) Baso % (Auto) Lymph # (Auto) [place] # (Auto) Eos # (Auto) Baso # (Auto) Abs Immat Gran (auto) Absolute Neuts (auto) Absolute Nucleated RBC Nucleated RBC % (auto) VBG pH 7.36 VBG pCO2 36 VBG pO2 47 VBG HCO3 20 VBG O2 Saturation 84.3 VBG Base Excess -5.1 Sodium Potassium Chloride Carbon Dioxide Anion Gap BUN Creatinine Estim Creat Clear Calc Estimated GFR Random Glucose Calcium Phosphorus Magnesium Urine Color Urine Appearance Urine pH Ur Specific [place] Urine Protein Urine Glucose (UA) Urine Ketones Urine Blood Urine Nitrite Ur Leukocyte Esterase Microbiology Microbiology Results: Microbiology 11/10/20 00:00 Urine clean catch - Clean Catch Midstream Urine Culture - Final Progress Note: A&P Assessment and plan (1) Depression: Problem details: Continue to hydrate but due to the hyperchloremic affect which is iatrogenic from the saline I will switch her to Ringer's lactate Status: Acute (2) Alcohol intoxication: Problem details: No history of withdrawal and I will place her on a very small dose of Ativan and watch for any signs of increased sympathetic activity or agitation Status: Acute (3) Overdose: Problem details: She will need a 1 on 1 and because of suicide attempt Status: Acute Assessment and Plan: Doing very well but not held here only because of continued dependence on dopamine and we may have an extended half life effect of clonidine up to 36 hours Time Spent With Patient Time: Total time spent is greater than 50% in coordination of care (as documented) at patient's floor/unit and/or counseling patient: Total time spent with greater than 50% in coordination of care (as documented) at patient's floor/unit and/or counseling patient:: 30
[2020-11-11] MEDS: DOPamine HCL/D5W 400 MG/250 ML PLAST..BAG 10.2 MG IVCONT (20:17)
[2020-11-11] MEDS: LORazepam 2 MG/ML VIAL 0.5 MG IVPUSH (23:04)
--- NOTE | 2020-11-11 23:40 | PC.NURSE ---
Dopamine titrated down as tolerated. Currently at 2 mcg/kg/min. Patient c/o anxiety refractory to scheduled ativan. Ativan dose increased by BASIN OPERATOR. PRN fioricet for migraine and zofran for nausea.
[2020-11-12] VITALS (16 sets, daily range): BP systolic 94–117; BP diastolic 52–85; PULSE 58–81; RESP 11–20; TEMP 36.1–36.9; O2SAT 95–100; BMI 30.8
[2020-11-12] MEDS: LORazepam 2 MG/ML VIAL 0.5 MG IVPUSH ×3 (05:46→17:55)
[2020-11-12] MEDS: Dextrose 5 % and Lactated Ring 1,000 ML 100 ML IVCONT ×3 (05:46→20:34)
[2020-11-12] MEDS: ondansetron HCL 4 MG/2 ML VIAL IVPUSH ×2 (05:46→11:15)
[2020-11-12 06:10] LABS: MANUAL DIFF FLAG NO
[2020-11-12 06:12] LABS: Basophils Percent Auto 0.3 % (0-2); Eosinophils Absolute Auto 0.1 X10*3/uL (0.0-0.4); Hemoglobin 12.6 g/dl (12.0-16.0); Imm Gran Abs Auto 0.01 X10*3/uL (0.00-0.03); Imm Gran Pct Auto 0.2 % (0.0-0.4); Lymphocytes Percent Auto 48.9 % (20-40); Mean Corpuscular HGB Conc 33.2 g/dl (31.0-35.0); Mean Corpuscular Hemoglobin 30.7 pg (27.0-33.0); Mean Corpuscular Volume 92.5 fL (80-98); Monocytes Absolute Auto 0.4 X10*3/uL (0.1-1.2); Neutrophils Absolute Auto 2.5 X10*3/uL (2.0-8.3); Neutrophils Percent Auto 41.6 % (45-73); Platelet Count 214 X10*3/uL (160-400); Red Blood Count 4.11 X10*6/uL (4.20-5.50); Red Cell Distribution Width 12.9 % (11.0-16.0); White Blood Count 6.1 X10*3/uL (4.8-10.8)
[2020-11-12 06:30] LABS: Base Excess VBG -2.2 mmol/L; HCO3 VBG 23 mmol/L; Oxygen Saturation VBG 83.3 %; PCO2 VBG 40 mmhg; PO2 VBG 45 mmhg; pH VBG 7.38 (7.32-7.43)
[2020-11-12 06:32] LABS: Albumin Level 3.6 g/dL (3.5-5.0)
[2020-11-12 06:40] LABS: Anion Gap 10 (12-20); Blood Urea Nitrogen 5 mg/dL (9-16); Calcium 7.8 mg/dL (8.4-10.2); Carbon Dioxide 22 mmol/L (22-29); Chloride 113 mmol/L (96-108); Creatinine Clr Calc Pharmacy 110.2; Estimated Glomerular Filt Rate > 60; Glucose Random 104 mg/dL (60-115); Magnesium 1.9 mg/dL (1.6-2.6); Phosphorus 2.3 mg/dL (2.7-4.5); Potassium 3.6 mmol/l (3.3-5.1); Sodium 141 mmol/L (135-145)
[2020-11-12] MEDS: Butalb/Acetamin/Caff 50/325/40 TABLET 1 TAB PO ×2 (09:50→17:58)
[2020-11-12] MEDS: Topiramate 25 MG TABLET PO (10:00)
[2020-11-12] MEDS: Topiramate 25 MG TABLET 50 MG PO (11:15)
--- NOTE | 2020-11-12 13:05 | P.PNCC_ITS ---
Subjective Subjective Date of Service: 11/12/20 Interval History: 40-year-old female major depression and suicidal ideation made a suicide attempt came in with alcohol level of 250 mg % and took an unknown quantity of clonidine had persistent hypotension and bradycardia and was dopamine dependent until about 2 hours ago when she was weaned off completely sustaining blood pressures of 100 systolic in means of 70 and metabolically has a mild hyperchloremic metabolic acidosis and that is iatrogenic from the saline that she received Background of seizure disorder and migraines and she uses Topamax for that currently on 50 mg but no signs of withdrawal issues she is completely off alcoh ol and her Xanax Physical Exam Vital Signs: Vital Signs: Last Vital Signs Temp 97.3 F 11/12/20 12:00 Pulse 65 11/12/20 12:00 Resp 14 11/12/20 12:00 BP 116/69 11/12/20 12:00 Pulse Ox 98 11/12/20 12:00 Body Mass Index 30.8 Const: Other: By exam oriented x3 and neurologically nonfocal Skin is intact no acrocyanosis no livedo Cardiac exam with no neck vein distension and good bilateral carotid upstrokes and no gallops or murmurs Chest clear with no adventitious sounds Abdomen benign no bruits no tenderness and no organomegaly Objective Data Labs CBC & Chem 7: 11/12/20 05:39 11/12/20 05:39 Labs: Laboratory Results - last 24 hr 11/12/20 11/12/20 11/12/20 05:39 05:39 05:39 WBC 6.1 RBC 4.11 L Hgb 12.6 Hct 38.0 MCV 92.5 MCH 30.7 MCHC 33.2 RDW 12.9 Plt Count 214 MPV 9.0 L Immature Gran % (Auto) 0.2 Neut % (Auto) 41.6 L Lymph % (Auto) 48.9 H [place] % (Auto) 7.0 Eos % (Auto) 2.0 Baso % (Auto) 0.3 Lymph # (Auto) 3.0 [place] # (Auto) 0.4 Eos # (Auto) 0.1 Baso # (Auto) 0.0 Abs Immat Gran (auto) 0.01 Absolute Neuts (auto) 2.5 Absolute Nucleated RBC 0.000 Nucleated RBC % (auto) 0.0 VBG pH 7.38 VBG pCO2 40 VBG pO2 45 VBG HCO3 23 VBG O2 Saturation 83.3 VBG Base Excess -2.2 Sodium Potassium Chloride Carbon Dioxide Anion Gap BUN Creatinine Estim Creat Clear Calc Estimated GFR Random Glucose Calcium Phosphorus Magnesium Albumin 3.6 11/12/20 05:39 WBC RBC Hgb Hct MCV MCH MCHC RDW Plt Count MPV Immature Gran % (Auto) Neut % (Auto) Lymph % (Auto) [place] % (Auto) Eos % (Auto) Baso % (Auto) Lymph # (Auto) [place] # (Auto) Eos # (Auto) Baso # (Auto) Abs Immat Gran (auto) Absolute Neuts (auto) Absolute Nucleated RBC Nucleated RBC % (auto) VBG pH VBG pCO2 VBG pO2 VBG HCO3 VBG O2 Saturation VBG Base Excess Sodium 141 Potassium 3.6 Chloride 113 H Carbon Dioxide 22 Anion Gap 10 L BUN 5 L Creatinine 0.63 Estim Creat Clear Calc 110.2 Estimated GFR > 60 Random Glucose 104 Calcium 7.8 L Phosphorus 2.3 L Magnesium 1.9 Albumin Microbiology Microbiology Results: Microbiology 11/10/20 00:00 Urine clean catch - Clean Catch Midstream Urine Culture - Final Progress Note: A&P Assessment and plan (1) Depression: Problem details: Continue to hydrate but due to the hyperchloremic affect which is iatrogenic from the saline I will switch her to Ringer's lactate Status: Acute (2) Alcohol intoxication: Problem details: No history of withdrawal and I will place her on a very small dose of Ativan and watch for any signs of increased sympathetic activity or agitation Status: Acute (3) Overdose: Problem details: She will need a 1 on 1 and because of suicide attempt Status: Acute (4) Hyperchloremic metabolic acidosis: Status: Acute Assessment and Plan: So finally off of dopamine and will maintain Ringer's lactate as her fluid as her hyperchloremic metabolic acidosis resolves in and if she sustains comfortable blood pressure and heart rate by tomorrow she should be medically cleared to go to Behavioral Health Time Spent With Patient Time: Total time spent is greater than 50% in coordination of care (as documented) at patient's floor/unit and/or counseling patient: Total time spent with greater than 50% in coordination of care (as documented) at patient's floor/unit and/or counseling patient:: 30
[2020-11-12] MEDS: 0.9 % Sodium Chloride Flush 3 ML SYRINGE IVFLUSH ×2 (16:22)
--- NOTE | 2020-11-12 19:26 | PC.NURSE ---
AFEBRILE, VSS. N BEDSIDE FOR EVAL SINCE PT IS MEDICALLY CLEARED. BED SEARCH IN PROGRESS PER N. PT CALLED FAMILY AND AFTER PHONE CALL PT WAS NOTICEABLY UPSET, [facility] CALLED BY THIS RN FOR PT TO SPEAK WITH N. PT APPEARED MORE CALM AFTER SPEAKING TO N. SITTER CONTINUES TO BE BEDSIDE. PERSON TO DROP OFF PHONE TO SECURITY FOR PT USE.
[2020-11-12] MEDS: clonazePAM 1 MG TABLET PO (19:55)
--- NOTE | 2020-11-12 21:36 | PC.NURSE ---
PT TRANSFERRED TO M/[facility] AT APPROX 1999 VIA WHEELCHAIR. PT A&OX4. VSS. SKIN INTACT. MEDICATED PER EMAR. AWARE OF PLAN OF CARE. 1:1 SITTER AT BEDSIDE FOR SAFETY. DENIES CONCERNS ATT.
[2020-11-13] MEDS: LORazepam 2 MG/ML VIAL 0.5 MG IVPUSH ×2 (00:55→06:23)
[2020-11-13 03:10] VITALS: RESP 16
[2020-11-13] MEDS: Dextrose 5 % and Lactated Ring 1,000 ML 100 ML IVCONT (06:24)
[2020-11-13 06:53] VITALS: BP 111/68; PULSE 65; RESP 18; TEMP 36.4; O2SAT 96
[2020-11-13 07:13] LABS: Anion Gap 11 (12-20); Blood Urea Nitrogen 5 mg/dL (9-16); Calcium 7.8 mg/dL (8.4-10.2); Carbon Dioxide 23 mmol/L (22-29); Chloride 112 mmol/L (96-108); Estimated Glomerular Filt Rate > 60; Glucose Random 94 mg/dL (60-115); Magnesium 1.9 mg/dL (1.6-2.6); Potassium 3.6 mmol/l (3.3-5.1); Sodium 142 mmol/L (135-145)
[2020-11-13] MEDS: 0.9 % Sodium Chloride Flush 3 ML SYRINGE IVFLUSH ×2 (08:02→17:09)
--- NOTE | 2020-11-13 09:34 | MHC.CM.PN ---
CASE MANAGEMENT ATTEMPTED TO MEET WITH PATIENT WHO IS ASLEEP AND NOT EASILY AROUSABLE SITTER STATES THAT PATIENT ATE BREAKFAST ABOUT AN HOUR AGO AND THEN FELL ASLEEP. CASE MANAGEMENT NAMES ON WHITE BOARD. CONTACT CARD FOR THIS GRAIN ORIGINATION SPECIALIST LEFT ON BEDSIDE TABLE CALL TO ROHINI FITCH ([phone]) TO ATTEMPT DEMOGRAPHIC AND PCP INFO; HOWEVER, NO ANSWER THIS GRAIN ORIGINATION SPECIALIST TO REVISIT TODAY
[2020-11-13] MEDS: Topiramate 25 MG TABLET 50 MG PO (10:43)
[2020-11-13] MEDS: FLUoxetine HCl 20 MG CAPSULE 60 MG PO (10:43)
[2020-11-13] MEDS: clonazePAM 1 MG TABLET PO ×3 (10:45→18:55)
[2020-11-13 11:04] VITALS: BP 112/64; PULSE 82; RESP 19; TEMP 36.5; O2SAT 99
--- NOTE | 2020-11-13 11:21 | MHC.CM.PN ---
PER PHYSICIAN ROUNDS, PATIENT IS MEDICALLY CLEARED AND READY FOR INPATIENT PSYCH EVALUATION. UNIT AND PATIENT AWARE.
--- NOTE | 2020-11-13 11:41 | MHC.CM.PN ---
CALL TO [facility] ([phone]) ACCORDING TO RYAN, PATIENT IS CURRENTLY AN INPATIENT PSYCHIATRIC BED SEARCH ( OF 11/12/2020) RYAN GIVES THIS SMOOTH STUCCO RESURFACER THE INPATIENT BED SEARCH CONTACT NUMBER OF [phone] ACCORDING TO ROLAND, PATIENT IS STILL A BED SEARCH. PATIENT AND HOSPITALIST MADE AWARE.
--- NOTE | 2020-11-13 11:47 | MHC.CM.PN ---
PATIENT WAS LIVING WITH HER BOYFRIEND/FATHER OF 2 YEAR OLD SON. SHE IS ACTIVE WITH DCF. PATIENT IS WILLING TO GO TO INPATIENT PSYCH TREATMENT AND IS AWARE OF THE BED SEARCH. SHE IS INDEPENDENT WITH AMBULATION AND ADLS. SHE DOES HAVE MENTAL HEALTH COUNSELING SERVICES. PCP IS DR BOYER IN [place], [place]. UPDATE MADE IN QUICK TASK OF [employer].
[2020-11-13 15:01] VITALS: BMI 30.8
--- NOTE | 2020-11-13 15:13 | HO.PM.IMPN ---
Subjective Subjective Date of Service: 11/13/20 Interval History: Denies dizziness or chest pain. Denies anxiety. Constitutional Constitutional: Denies fever(s) Cardiovascular Cardiovascular: Reports no additional cardiovascular complaints Physical Exam Vital Signs: Vital Signs: Last Vital Signs Temp 97.7 F 11/13/20 11:04 Pulse 82 11/13/20 11:04 Resp 19 11/13/20 11:04 BP 112/64 11/13/20 11:04 Pulse Ox 99 11/13/20 11:04 Body Mass Index 30.8 Gen: in no acute distress HEENT: sclera anicteric, moist mucus membranes Neck: supple Lungs: clear to auscultation bilaterally Heart: regular rate and rhythm, no murmurs Abd: soft, non-tender, non-distended Ext: no edema Skin: warm/well-perfused Neuro: alert and oriented x3, no focal findings Psych: appropriate affect Objective Data Current Medications Generic Name Dose Route Start Last Admin Trade Name Freq PRN Reason Stop Dose Admin Acetaminophen/Butalbital/Caffeine 1 tab 11/11/20 11:54 11/12/20 17:58 Butalb/Acetamin/Caff 50/325/40 Tablet PO 1 tab Q4H PRN Administration Headache Clonazepam 1 mg 11/12/20 18:43 11/13/20 10:45 Clonazepam 1 Mg Tablet PO 1 mg BID PRN Administration Anxiety Fluoxetine HCl 60 mg 11/13/20 09:00 11/13/20 10:43 Fluoxetine Hcl 20 Mg Capsule PO 60 mg DAILY SAÚL Administration Sodium Chloride 3 ml 11/12/20 16:00 11/13/20 08:02 0.9 % Sodium Chloride Flush 3 Ml Syringe IVFLUSH 3 ml QSHIFT SAÚL Administration Sodium Chloride 3 ml 11/12/20 16:00 11/13/20 08:02 0.9 % Sodium Chloride Flush 3 Ml Syringe IVFLUSH Not Given QSHIFT SAÚL Topiramate 50 mg 11/12/20 10:15 11/13/20 10:43 Topiramate 25 Mg Tablet PO 50 mg DAILY ASÚL Administration Labs CBC & Chem 7: 11/12/20 05:39 11/13/20 06:16 Labs: Laboratory Results - last 24 hr 11/13/20 06:16 Sodium 142 Potassium 3.6 Chloride 112 H Carbon Dioxide 23 Anion Gap 11 L BUN 5 L Creatinine 0.62 Estim Creat Clear Calc 112.0 Estimated GFR > 60 Random Glucose 94 Calcium 7.8 L Phosphorus 3.0 Magnesium 1.9 Microbiology Microbiology Results: Microbiology 11/10/20 00:00 Urine clean catch - Clean Catch Midstream Urine Culture - Final Assessment and Plan (1) Overdose: Problem details: She will need a 1 on 1 and because of suicide attempt Status: Acute (2) Hyperchloremic metabolic acidosis: Status: Acute Assessment and Plan: hospital d#4 40yo F admitted to ICU for dopamine infusion after intentional clonidine overdose, EtOH intoxication - continue 1:1 - medically cleared for [facility]- currently bed search - continue clonazepam, fluoxetine - no signs of EtOH withdrawal - d/c IV fluids
[2020-11-13 16:00] VITALS: BP 110/73; PULSE 68; RESP 20; TEMP 36.1; O2SAT 98
[2020-11-13 16:25] LABS: COVID-19 Test Negative (Negative); IDNOW Serial# 9DD0AD1C
[2020-11-13] MEDS: Butalb/Acetamin/Caff 50/325/40 TABLET 1 TAB PO (17:08)
[2020-11-13 20:00] VITALS: BP 105/68; PULSE 81; RESP 18; TEMP 36.4; O2SAT 97
[2020-11-13] MEDS: Melatonin 3 MG TABLET PO (20:06)
[2020-11-13] MEDS: busPIRone HCl 10 MG TABLET 30 MG PO (20:06)
[2020-11-13] MEDS: Topiramate 100 MG TABLET 150 MG PO (20:06)
[2020-11-13] MEDS: ondansetron HCL 4 MG/2 ML VIAL IVPUSH (21:48)
[2020-11-13 23:58] VITALS: BP 99/45; PULSE 77; RESP 18; TEMP 36.8; O2SAT 99
[2020-11-14] MEDS: 0.9 % Sodium Chloride Flush 3 ML SYRINGE IVFLUSH ×4 (00:34→15:20)
[2020-11-14 04:00] VITALS: BP 96/57; PULSE 72; RESP 20; TEMP 35.9
[2020-11-14 05:11] VITALS: BMI 30.7
[2020-11-14] MEDS: ondansetron HCL 4 MG/2 ML VIAL IVPUSH (05:26)
[2020-11-14 07:20] VITALS: BP 111/65; PULSE 64; RESP 15; TEMP 36.1; O2SAT 98
[2020-11-14] MEDS: FLUoxetine HCl 20 MG CAPSULE 60 MG PO (08:51)
[2020-11-14] MEDS: buPROPion HCl XL 300 MG TAB.ER.24H PO (08:51)
[2020-11-14] MEDS: Topiramate 100 MG TABLET PO (08:51)
[2020-11-14] MEDS: busPIRone HCl 10 MG TABLET 30 MG PO (08:51)
--- NOTE | 2020-11-14 10:47 | P.DS_ITS ---
DS: Providers Provider Date of admission: 11/10/20 12:36 Primary care physician: Ariana Child MD, [facility], [address] [place] [address], [place] [address] Consults: 11/10/20 06:32 Consult to Crisis Stat Reason for consultation: Overdose Has provider been notified: Yes DS: Diagnosis Discharge Diagnosis (1) Clonidine overdose: Status: Acute (2) Suicidal overdose: Status: Acute (3) Alcohol intoxication: Status: Acute (4) Depression: Status: Acute DS: Medications Discharge Medications Home Medications: Home Medications Medication Instructions Recorded Confirmed Wellbutrin XL 300 mg PO DAILY 11/10/20 11/13/20 buspirone 30 mg PO BID 11/10/20 11/13/20 [id number] 1 cap PO QID PRN 11/10/20 11/13/20 [Fioricet] clonazepam [Klonopin] 1 mg PO BID PRN 11/10/20 11/10/20 fluoxetine 60 mg PO DAILY 11/10/20 11/13/20 pantoprazole 40 mg PO DAILY 11/10/20 11/13/20 topiramate [Topamax] 100 mg PO DAILY 11/10/20 11/13/20 acyclovir 400 mg PO BEDTIME 11/13/20 11/13/20 selenium 200 mcg PO BID 11/13/20 11/13/20 topiramate [Topamax] 150 mg PO BEDTIME 11/13/20 11/13/20 DS: Summary Hospital Course Hospital Course: from admission history and physical by tank charger Mina Galo, 11/10/20: 40-year-old female with history of major depression with suicide attempt now approaching greater than 12 hours utilizing clonidine and alcohol with a greater than 200 mg % alcohol level on arrival and persistent bradycardia and orthostatic hypotension requiring IV dopamine drip to maintain blood pressure a nd heart rate No history of withdrawal and the patient other than lethargy does not display any other RA[employer]ROAD [employer] toxicity and both EKGs are within normal limits including normal QRS duration and QT intervals She has history of migraines and she thinks she has a history of seizure disorder takes Topamax and buspirone and bupropion but urine toxicology was positive for phenyl barbital that was neither given here in the hospital noted she admit to it at home But she fails to display any particular toxidrome other than what you would expect from clonidine She claims to have lost her Klonopin and not taken it for several days The patient was admitted to the ICU for dopamine infusion. She was weaned off of the dopamine infusion and stepped down to the medical-surgical floor with 1:1 sitter. She did not have any signs of alcohol withdrawal. She was medically cleared for transfer to inpatient psychiatry to address her underlying mood disorder. Time Spent with Patient Time attestation: Total time spent providing and/or coordinating discharge services: 35 Physical Exam Vital Signs: Vital Signs: Last Vital Signs Temp 97.0 F 11/14/20 07:20 Pulse 64 11/14/20 07:20 Resp 15 11/14/20 07:20 BP 111/65 11/14/20 07:20 Pulse Ox 98 11/14/20 07:20 Body Mass Index 30.7 Gen: in no acute distress HEENT: sclera anicteric, moist mucus membranes Neck: supple Lungs: clear to auscultation bilaterally Heart: regular rate and rhythm, no murmurs Abd: soft, non-tender, non-distended Ext: no edema Skin: warm/well-perfused Neuro: alert and oriented x3, no focal findings Psych: restricted affect DS: Data Data Completed and Pending Labs on day of discharge: Laboratory Results WBC 6.1 X10*3/uL (4.8-10.8) 11/12/20 05:39 RBC 4.11 X10*6/uL (4.20-5.50) L 11/12/20 05:39 Hgb 12.6 g/dl (12.0-16.0) 11/12/20 05:39 Hct 38.0 % (37-47) 11/12/20 05:39 MCV 92.5 fL (80-98) 11/12/20 05:39 MCH 30.7 pg (27.0-33.0) 11/12/20 05:39 MCHC 33.2 g/dl (31.0-35.0) 11/12/20 05:39 RDW 12.9 % (11.0-16.0) 11/12/20 05:39 Plt Count 214 X10*3/uL (160-400) 11/12/20 05:39 MPV 9.0 fL (9.4-12.3) L 11/12/20 05:39 Immature Gran % (Auto) 0.2 % (0.0-0.4) 11/12/20 05:39 Neut % (Auto) 41.6 % (45-73) L 11/12/20 05:39 Lymph % (Auto) 48.9 % (20-40) H 11/12/20 05:39 [place] % (Auto) 7.0 % (2-11) 11/12/20 05:39 Eos % (Auto) 2.0 % (0-4) 11/12/20 05:39 Baso % (Auto) 0.3 % (0-2) 11/12/20 05:39 Lymph # (Auto) 3.0 X10*3/uL (1.2-4.9) 11/12/20 05:39 [place] # (Auto) 0.4 X10*3/uL (0.1-1.2) 11/12/20 05:39 Eos # (Auto) 0.1 X10*3/uL (0.0-0.4) 11/12/20 05:39 Baso # (Auto) 0.0 X10*3/uL (0.0-0.2) 11/12/20 05:39 Abs Immat Gran (auto) 0.01 X10*3/uL (0.00-0.03) 11/12/20 05:39 Absolute Neuts (auto) 2.5 X10*3/uL (2.0-8.3) 11/12/20 05:39 Absolute Nucleated RBC 0.000 X10*3/uL (0.0-0.012) 11/12/20 05:39 Nucleated RBC % (auto) 0.0 /100WBC (0.0-0.2) 11/12/20 05:39 VBG pH 7.38 (7.32-7.43) 11/12/20 05:39 VBG pCO2 40 mmhg 11/12/20 05:39 VBG pO2 45 mmhg 11/12/20 05:39 VBG HCO3 23 mmol/L 11/12/20 05:39 VBG O2 Saturation 83.3 % 11/12/20 05:39 VBG Base Excess -2.2 mmol/L 11/12/20 05:39 Sodium 142 mmol/L (135-145) 11/13/20 06:16 Potassium 3.6 mmol/l (3.3-5.1) 11/13/20 06:16 Chloride 112 mmol/L (96-108) H 11/13/20 06:16 Carbon Dioxide 23 mmol/L (22-29) 11/13/20 06:16 Anion Gap 11 (12-20) L 11/13/20 06:16 BUN 5 mg/dL (9-16) L 11/13/20 06:16 Creatinine 0.62 mg/dL (0.5-1.4) 11/13/20 06:16 Estim Creat Clear Calc 112.0 11/13/20 06:16 Estimated GFR > 60 11/13/20 06:16 Random Glucose 94 mg/dL (60-115) 11/13/20 06:16 Calcium 7.8 mg/dL (8.4-10.2) L 11/13/20 06:16 Phosphorus 3.0 mg/dL (2.7-4.5) 11/13/20 06:16 Magnesium 1.9 mg/dL (1.6-2.6) 11/13/20 06:16 Total Bilirubin 0.2 mg/dL (0.0-1.0) 11/10/20 03:06 Direct Bilirubin < 0.2 mg/dL (0.0-0.5) 11/10/20 03:06 AST 17 U/L (5-31) 11/10/20 03:06 ALT 16 U/L (0-31) 11/10/20 03:06 Alkaline Phosphatase 47 U/L (39-117) 11/10/20 03:06 Total Protein 6.8 g/dL (6.5-8.0) 11/10/20 03:06 Albumin 3.6 g/dL (3.5-5.0) 11/12/20 05:39 Urine Color YELLOW 11/11/20 00:33 Urine Appearance CLEAR 11/11/20 00:33 Urine pH 7.5 (5.0-8.0) 11/11/20 00:33 Ur Specific [place] 1.015 (1.005-1.025) 11/11/20 00:33 Urine Protein NEG MG/DL (NEG-TRACE) 11/11/20 00:33 Urine Glucose (UA) NEG MG/DL (NEG) 11/11/20 00:33 Urine Ketones NEG MG/DL (NEG) 11/11/20 00:33 Urine Blood NEG (NEG) 11/11/20 00:33 Urine Nitrite NEG (NEG) 11/11/20 00:33 Ur Leukocyte Esterase NEG (NEG) 11/11/20 00:33 Urine RBC 1-4 /HPF (0) 11/10/20 04:31 Urine WBC 5-9 /HPF (0-4) H 11/10/20 04:31 Ur Squamous Epith Cells 2+ /LPF 11/10/20 04:31 Urine Bacteria 3+ /LPF 11/10/20 04:31 Urine Test NEGATIVE (NEGATIVE) 11/10/20 04:31 Salicylates < 5.0 mg/dL (15-30) L 11/10/20 03:07 Urine Opiates Screen Not Detected (Not Detect) 11/10/20 04:31 Acetaminophen < 1 mcg/mL (<30) 11/10/20 03:07 Ur Barbiturates Screen POSITIVE (Not Detect) H 11/10/20 04:31 Ur Phencyclidine Scrn Not Detected (Not Detect) 11/10/20 04:31 Ur Amphetamines Screen Not Detected (Not Detect) 11/10/20 04:31 U Benzodiazepines Scrn Not Detected (Not Detect) 11/10/20 04:31 Urine Cocaine Screen Not Detected (Not Detect) 11/10/20 04:31 U Marijuana (THC) Screen Not Detected (Not Detect) 11/10/20 04:31 Ethyl Alcohol 219 mg/dL 11/10/20 03:06 COVID-19 (ROSALINDA) Negative (Negative) 11/13/20 15:56 COVID-19 Clin Com See Note 11/13/20 15:56 Discharge Plan Discharge Anticipated Discharge Date/Time: 11/14/20 10:34 Disposition: Xfer Psychiatric Hosp Referrals: Psychiatry,C [Physician] - Ariana Child MD [Physician] - Discharge Medications: Continued buspirone 30 mg Tablet 30 mg PO BID RF: 0 vehycvuuxl-eksuualwggwfh-wgwr [Fioricet] 50-300-40 mg Capsule 1 cap PO QID PRN (Reason: Headache) RF: 0 Wellbutrin XL 300 mg PO DAILY RF: 0 clonazepam [Klonopin] 1 mg Tablet 1 mg PO BID PRN (Reason: Anxiety) RF: 0 fluoxetine 60 mg Tablet 60 mg PO DAILY RF: 0 pantoprazole 40 mg Tablet,Delayed Release (Dr/Ec) 40 mg PO DAILY RF: 0 topiramate [Topamax] 50 mg Tablet 100 mg PO DAILY RF: 0 acyclovir 400 mg Tablet 400 mg PO BEDTIME RF: 0 topiramate [Topamax] 100 mg Tablet 150 mg PO BEDTIME RF: 0 selenium 200 mcg Capsule 200 mcg PO BID RF: 0 Discharge Orders: Discharge Order (Routine); Ordered 11/14/20 Ordered By: Heriberto Calhoun Patient Instructions: Depression (DC) Visit Report Forms: Patient Portal Discharge page Care Plan Goals: improvement in mood Health Concerns: depression/anxiety/suicidality resulting in intentional clonidine overdose Plan of Treatment: medically cleared for transfer to inpatient psychiatry for further management
--- NOTE | 2020-11-14 10:57 | MHC.CM.PN ---
PATIENT IS DISCHARGED [place] [facility] [place] AWARE OF PLAN
[2020-11-14] MEDS: clonazePAM 1 MG TABLET PO (11:11)
[2020-11-14] MEDS: Butalb/Acetamin/Caff 50/325/40 TABLET 1 TAB PO (14:25)
[2020-11-14 16:00] VITALS: BP 110/69; PULSE 83; RESP 18; TEMP 35.9; O2SAT 99
--- NOTE | 2020-11-14 16:23 | MHC.CARE ---
1300 Spoke to patient about the plan for admission to , she stated she is voluntary and will sign herself in, at this time was eating lunch and said she did not want to do any paperwork
== END 2020-11-14 17:13 | DRG 812 ==
LOC: HO.ED 11:29 → HO.ICU 14:09 → HO.S3 11-12 19:51
PROVIDERS: Physician Assistant; Registered Nurse Community Health; Admitting Provider Internal Medicine Cardiovascular Disease; Emergency Provider Internal Medicine; PCP Internal Medicine; Visit Provider Family Medicine
DX: T46.5X2A Poisoning by other antihypertensive drugs, intentional self-harm, initial encounter (principal); E87.2 Acidosis; R45.851 Suicidal ideations; F10.929 Alcohol use, unspecified with intoxication, unspecified; Y90.8 Blood alcohol level of 240 mg/100 ml or more; F33.1 Major depressive disorder, recurrent, moderate; Y92.9 Unspecified place or not applicable; Z20.828 Contact with and (suspected) exposure to other viral communicable diseases; Z88.5 Allergy status to narcotic agent; Z79.899 Other long term (current) drug therapy
CPT/HCPCS: 36415; 80048; 80076; 80307; 80320; 81001; 81003; 81025; 82040; 82803; 83735; 84100; 85025; 87086; 87635; 93005; 96360; 96361; 99285; 99291; G0480; J1265; J2060; J2405

== ENCOUNTER 2020-11-14 16:55 | Inpatient (IN) | payer OTHER, MEDICAID, SELFPAY ==
[2020-11-14 18:00] VITALS: BP 106/66; PULSE 79; TEMP 36.3
[2020-11-14 18:39] VITALS: BMI 29.0
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
[2020-11-14] MEDS: busPIRone HCl 10 MG TABLET 30 MG PO (21:25)
[2020-11-14] MEDS: clonazePAM 1 MG TABLET PO (21:25)
[2020-11-14] MEDS: hydrOXYzine HCL 25 MG TABLET PO (21:28)
[2020-11-14] MEDS: Topiramate 25 MG TABLET 150 MG PO (21:30)
[2020-11-14] MEDS: traZODone HCL 50 MG TABLET PO (22:27)
--- NOTE | 2020-11-15 | US_ITS ---
EXAMINATION: US VENOUS WITH DOPPLER UPPER EXTREMITY, RIGHT CLINICAL INFORMATION: Right arm edema, swelling and pain COMPARISON: None TECHNIQUE: Ultrasound of the upper extremity is performed using compression sonography and color and pulse Doppler flow with assessment of augmentation of flow. There is also imaging and Doppler assessment of the jugular and subclavian veins. Spectral analysis with color-flow imaging is performed. FINDINGS: There is noncompressible thrombus seen in the right basilic vein in the region of the antecubital fossa presumably the site of a recent IV. Exam is otherwise unremarkable without evidence of DVT. Respiratory variation, normal compression, and augmented flow are noted throughout the upper extremity including the axillary, brachial, cubital, and radial and ulnar veins. There is normal flow in the internal jugular and subclavian veins. There is no visible deep or superficial thrombophlebitis. US/US venous duplex UE RT IMPRESSION: No DVT demonstrated in the right upper extremity. Focal noncompressible thrombus seen in the right basilic vein (a superficial vein) in the region of the antecubital fossa.
[2020-11-15 06:00] VITALS: BP 98/52; PULSE 104; TEMP 36.3
[2020-11-15] MEDS: Omeprazole 20 MG CAPSULE.DR PO (08:33)
[2020-11-15] MEDS: buPROPion HCl XL 300 MG TAB.ER.24H PO (08:34)
[2020-11-15] MEDS: FLUoxetine HCl 20 MG CAPSULE 60 MG PO (08:34)
[2020-11-15] MEDS: busPIRone HCl 10 MG TABLET 30 MG PO ×2 (08:34→21:12)
[2020-11-15] MEDS: Topiramate 25 MG TABLET 50 MG PO (08:35)
[2020-11-15] MEDS: clonazePAM 1 MG TABLET PO ×2 (12:11→19:52)
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
[2020-11-15 18:00] VITALS: BP 117/62; PULSE 85; TEMP 36.3
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
[2020-11-15] MEDS: hydrOXYzine HCL 25 MG TABLET PO (19:54)
[2020-11-15 20:44] LABS: Thyroid Stimulating Hormone 0.52 uIU/mL (0.32-4.0)
[2020-11-15 21:11] LABS: Folate 9.3 ng/mL (> or = 4.0); Vitamin B12 285 pg/mL (200-900)
[2020-11-15] MEDS: Melatonin 3 MG TABLET PO (21:12)
[2020-11-15] MEDS: Topiramate 25 MG TABLET 150 MG PO (21:12)
[2020-11-15] MEDS: Acyclovir 200 MG CAPSULE 400 MG PO (21:12)
[2020-11-15] MEDS: traZODone HCL 50 MG TABLET PO (21:15)
--- NOTE | 2020-11-15 23:22 | PC.NURSE ---
Patient was given the opportunity to leave a voice mail with DCF and the number to return the call to her. Patient also reported that she has a telephone therapy appointment with her therapist 11/16/2020 which was passed on in report.
[2020-11-16] MEDS: FLUoxetine HCl 20 MG CAPSULE 60 MG PO (09:04)
[2020-11-16] MEDS: buPROPion HCl XL 300 MG TAB.ER.24H PO (09:05)
[2020-11-16] MEDS: busPIRone HCl 10 MG TABLET 30 MG PO ×2 (09:05→20:13)
[2020-11-16] MEDS: Topiramate 100 MG TABLET PO (09:06)
[2020-11-16] MEDS: Omeprazole 20 MG CAPSULE.DR PO (09:06)
[2020-11-16] MEDS: clonazePAM 1 MG TABLET PO ×2 (13:41→18:35)
[2020-11-16 16:55] VITALS: BP 116/77; PULSE 87; TEMP 36.8
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
[2020-11-16] MEDS: Topiramate 25 MG TABLET 150 MG PO (20:14)
[2020-11-16] MEDS: Melatonin 3 MG TABLET PO (20:14)
[2020-11-16] MEDS: Acyclovir 200 MG CAPSULE 400 MG PO (20:14)
[2020-11-16] MEDS: traZODone HCL 50 MG TABLET PO (20:19)
[2020-11-17] MEDS: Topiramate 100 MG TABLET PO (08:40)
[2020-11-17] MEDS: Omeprazole 20 MG CAPSULE.DR PO (08:40)
[2020-11-17] MEDS: buPROPion HCl XL 300 MG TAB.ER.24H PO (08:41)
[2020-11-17] MEDS: busPIRone HCl 10 MG TABLET 30 MG PO ×2 (08:41→21:06)
[2020-11-17] MEDS: FLUoxetine HCl 20 MG CAPSULE 60 MG PO (08:41)
[2020-11-17] MEDS: clonazePAM 1 MG TABLET PO ×2 (11:13→18:12)
[2020-11-17] MEDS: risperiDONE 0.25 MG TABLET PO ×3 (13:58→22:08)
--- NOTE | 2020-11-17 19:16 | P.PNPSI_ITS ---
Subjective Subjective Date of Service: 11/17/20 Reason For Visit: clonidine and alcohol overdose/suicide attempt Interim History: Discussed that current med regime was working. She was working on ADHD sx with her team as sx had not been managed. Review of Strattera-pt will consider. Unfortunately [facility] pharmacy does not carry this. Risperdal prn given for grounding when dissociative. Medication Compliance: Yes Side effects from medications: No Attending Groups: Intermittent Review of Systems Review of Systems Yes all other systems are reviewed and are negative Mental Status Exam Mental Status Exam Patient Appearance: Appropriate Patient Orientation: Person, Place, Time and Situation Level of Consciousness: Alert Patient Behavior: Appropriate and Talkative Mood Description: Anxious Affect Description: Anxious Patient Cognition Impaired: No Speech Pattern: Spontaneous Speech Memory Description: Intact Hallucinations: None Delusions: Not Present Thought Process: Intact Thought Content: positive for Intact Depressive Symptoms: Increased Anxiety, Feelings of Worthlessness, Hopelessness, Unhappiness and Increased Fatigue Judgement: Good Diagnostics Vital Signs (24Hr): Body Mass Index 29.0 Labs Labs: Laboratory Results - last 48 hr 11/15/20 11/15/20 19:47 19:48 Vitamin B12 285 25-OH Vitamin D Total 19.0 Folate 9.3 TSH 0.52 Imaging Radiology Impressions: ITS Impressions Venous Duplex 11/15/20 00:00 IMPRESSION: No DVT demonstrated in the right upper extremity. Focal noncompressible thrombus seen in the right basilic vein (a superficial vein) in the region of the antecubital fossa. Medications Medications Current Medications Generic Name Dose Route Start Last Admin Trade Name Freq PRN Reason Stop Dose Admin Acetaminophen 650 mg 11/14/20 19:57 Acetaminophen 325 Mg Tablet PO Q6H PRN Headache/Pain Mild Scale (1-3) Acetaminophen/Butalbital/Caffeine 1 tab 11/14/20 19:57 Butalb/Acetamin/Caff 50/325/40 Tablet PO Q4H PRN Headache Acyclovir 400 mg 11/14/20 21:00 11/16/20 20:14 Acyclovir 200 Mg Capsule PO 400 mg BEDTIME SAÚL Administration Al Hydroxide/Mg Hydroxide 30 ml 11/14/20 19:57 Magnesium Hydrox/Alum Hydrox 30 Ml Oral.Susp PO Q6H PRN Heartburn/Nausea Bupropion HCl 300 mg 11/15/20 09:00 11/17/20 08:41 Bupropion Hcl Xl 300 Mg Tab.Er.24h PO 300 mg DAILY SAÚL Administration Buspirone HCl 30 mg 11/14/20 21:00 11/17/20 08:41 Buspirone Hcl 10 Mg Tablet PO 30 mg BID ASÚL Administration Clonazepam 1 mg 11/14/20 19:57 11/17/20 18:12 Clonazepam 1 Mg Tablet PO 1 mg BID PRN Administration Anxiety Fluoxetine HCl 60 mg 11/15/20 09:00 11/17/20 08:41 Fluoxetine Hcl 20 Mg Capsule PO 60 mg DAILY SAÚL Administration Hydroxyzine HCl 25 mg 11/14/20 19:57 11/15/20 19:54 Hydroxyzine Hcl 25 Mg Tablet PO 25 mg BEDTIME PRN Administration Anxiety Ibuprofen 400 mg 11/15/20 19:17 Ibuprofen 400 Mg Tablet PO Q6H PRN pain Magnesium Hydroxide 30 ml 11/14/20 19:57 Milk Of Magnesia 30 Ml Oral.Susp PO DAILY PRN Constipation Melatonin 3 mg 11/14/20 21:00 11/16/20 20:14 Melatonin 3 Mg Tablet PO 3 mg BEDTIME SAÚL Administration Omeprazole 20 mg 11/15/20 09:00 11/17/20 08:40 Omeprazole 20 Mg Capsule.Dr PO 20 mg DAILY SAÚL Administration Risperidone 0.25 mg 11/17/20 10:59 11/17/20 18:12 Risperidone 0.25 Mg Tablet PO 0.25 mg Q4H PRN Administration ptsd sx,dissociation Topiramate 150 mg 11/14/20 21:00 11/16/20 20:14 Topiramate 25 Mg Tablet PO 150 mg BEDTIME SAÚL Administration Topiramate 100 mg 11/16/20 09:00 11/17/20 08:40 Topiramate 100 Mg Tablet PO 100 mg DAILY SAÚL Administration Trazodone HCl 50 mg 11/14/20 19:57 11/16/20 20:19 Trazodone Hcl 50 Mg Tablet PO 50 mg BEDTIME PRN Administration Insomnia Allergies Allergies Allergy/AdvReac Type Severity Reaction Status Date / Time kj [KJ] Allergy Severe SWELLING Verified 11/10/20 03:07 codeine Allergy Itching Verified 11/14/20 22:21 Assessment & Plan Assessment & Plan (1) PTSD (post-traumatic stress disorder): Status: Acute Code(s): F43.10 - Post-traumatic stress disorder, unspecified Assessment and Plan: Continue current regime Risperdal prn for grounding, dissociative episodes (2) Severe recurrent major depression: Qualifiers: Psychotic features: without psychotic features Qualified Code(s): F33.2 - Major depressive disorder, recurrent severe without psychotic features Status: Acute Code(s): F33.2 - Major depressive disorder, recurrent severe without psychotic features (3) Alcohol abuse: Status: Acute Code(s): F10.10 - Alcohol abuse, uncomplicated Assessment and Plan: Pt willing to work with DCF for a treatment plan acceptable to re-establish custody. Greater than 50% of the session was spent on counseling and/or coordination of care
[2020-11-17] MEDS: Topiramate 25 MG TABLET 150 MG PO (21:06)
[2020-11-17] MEDS: Acyclovir 200 MG CAPSULE 400 MG PO (21:06)
[2020-11-17] MEDS: hydrOXYzine HCL 25 MG TABLET PO (21:09)
[2020-11-17 21:15] VITALS: BP 116/67; PULSE 109; TEMP 36.8
[2020-11-17] MEDS: traZODone HCL 50 MG TABLET PO (22:07)
[2020-11-18 06:00] VITALS: BP 91/55; PULSE 71; TEMP 36.4
[2020-11-18] MEDS: busPIRone HCl 10 MG TABLET 30 MG PO ×2 (09:31→20:31)
[2020-11-18] MEDS: Topiramate 100 MG TABLET PO (09:31)
[2020-11-18] MEDS: buPROPion HCl XL 300 MG TAB.ER.24H PO (09:32)
[2020-11-18] MEDS: FLUoxetine HCl 20 MG CAPSULE 60 MG PO (09:32)
[2020-11-18] MEDS: Omeprazole 20 MG CAPSULE.DR PO (09:32)
[2020-11-18] MEDS: risperiDONE 0.25 MG TABLET PO (12:23)
[2020-11-18] MEDS: clonazePAM 1 MG TABLET PO (14:06)
[2020-11-18 18:00] VITALS: BP 102/67; PULSE 101; RESP 16; TEMP 37.1
[2020-11-18] MEDS: Butalb/Acetamin/Caff 50/325/40 TABLET 1 TAB PO (20:32)
[2020-11-18] MEDS: Topiramate 25 MG TABLET 150 MG PO (20:33)
[2020-11-18] MEDS: Melatonin 3 MG TABLET PO (20:33)
[2020-11-18] MEDS: Acyclovir 200 MG CAPSULE 400 MG PO (20:33)
--- NOTE | 2020-11-18 22:13 | HO.PSYCHPN ---
Subjective Subjective Date of Service: 11/19/20 Reason For Visit: clonidine and alcohol overdose/suicide attempt Interim History: pt reports that she's feeling much better and in better mood; she says all SI has fully resolved and she is very grateful she's alive; she talked of her spiritual beliefs and that she is again hopeful. Pt reports continued struggles with anxiety and is not sure that Rispderal, just added as a prn, is helping much. She agrees to continue with it for now. Medication Compliance: Yes Side effects from medications: No Attending Groups: Yes Mental Status Exam Mental Status Exam Patient Appearance: Well Grooomed Patient Orientation: Person, Place, Time and Situation Level of Consciousness: Awake and Appropriate Patient Behavior: Appropriate Mood Description: Happy and Anxious Affect Description: Calm and Appropriate Ability to Follow Directions: Good Speech Pattern: Clear and Appropriate Hallucinations: None Delusions: Not Present Thought Process: Intact, Goal Oriented and Linear Thought Content: positive for Intact Judgement: Fair Diagnostics Vital Signs (24Hr): Vital Signs - 24 hr 11/18/20 06:00 11/18/20 18:00 Temperature 97.6 F 98.8 F Pulse Rate 71 101 H Respiratory Rate 16 Blood Pressure 91/55 L 102/67 Body Mass Index 29.0 Imaging Radiology Impressions: ITS Impressions Venous Duplex 11/15/20 00:00 IMPRESSION: No DVT demonstrated in the right upper extremity. Focal noncompressible thrombus seen in the right basilic vein (a superficial vein) in the region of the antecubital fossa. Medications Medications Current Medications Generic Name Dose Route Start Last Admin Trade Name Freq PRN Reason Stop Dose Admin Acetaminophen 650 mg 11/14/20 19:57 Acetaminophen 325 Mg Tablet PO Q6H PRN Headache/Pain Mild Scale (1-3) Acetaminophen/Butalbital/Caffeine 1 tab 11/14/20 19:57 11/18/20 20:32 Butalb/Acetamin/Caff 50/325/40 Tablet PO 1 tab Q4H PRN Administration Headache Acyclovir 400 mg 11/14/20 21:00 11/18/20 20:33 Acyclovir 200 Mg Capsule PO 400 mg BEDTIME SAÚL Administration Al Hydroxide/Mg Hydroxide 30 ml 11/14/20 19:57 Magnesium Hydrox/Alum Hydrox 30 Ml Oral.Susp PO Q6H PRN Heartburn/Nausea Bupropion HCl 300 mg 11/15/20 09:00 11/18/20 09:32 Bupropion Hcl Xl 300 Mg Tab.Er.24h PO 300 mg DAILY SAÚL Administration Buspirone HCl 30 mg 11/14/20 21:00 11/18/20 20:31 Buspirone Hcl 10 Mg Tablet PO 30 mg BID SAÚL Administration Clonazepam 1 mg 11/14/20 19:57 11/18/20 14:06 Clonazepam 1 Mg Tablet PO 1 mg BID PRN Administration Anxiety Fluoxetine HCl 60 mg 11/15/20 09:00 11/18/20 09:32 Fluoxetine Hcl 20 Mg Capsule PO 60 mg DAILY SAÚL Administration Hydroxyzine HCl 25 mg 11/14/20 19:57 11/17/20 21:09 Hydroxyzine Hcl 25 Mg Tablet PO 25 mg BEDTIME PRN Administration Anxiety Ibuprofen 400 mg 11/15/20 19:17 Ibuprofen 400 Mg Tablet PO Q6H PRN pain Magnesium Hydroxide 30 ml 11/14/20 19:57 Milk Of Magnesia 30 Ml Oral.Susp PO DAILY PRN Constipation Melatonin 3 mg 11/14/20 21:00 11/18/20 20:33 Melatonin 3 Mg Tablet PO 3 mg BEDTIME SAÚL Administration Omeprazole 20 mg 11/15/20 09:00 11/18/20 09:32 Omeprazole 20 Mg Capsule.Dr PO 20 mg DAILY SAÚL Administration Risperidone 0.25 mg 11/17/20 10:59 11/18/20 12:23 Risperidone 0.25 Mg Tablet PO 0.25 mg Q4H PRN Administration ptsd sx,dissociation Topiramate 150 mg 11/14/20 21:00 11/18/20 20:33 Topiramate 25 Mg Tablet PO 150 mg BEDTIME SAÚL Administration Topiramate 100 mg 11/16/20 09:00 11/18/20 09:31 Topiramate 100 Mg Tablet PO 100 mg DAILY SAÚL Administration Trazodone HCl 50 mg 11/14/20 19:57 11/17/20 22:07 Trazodone Hcl 50 Mg Tablet PO 50 mg BEDTIME PRN Administration Insomnia Allergies Allergies Allergy/AdvReac Type Severity Reaction Status Date / Time kj [KJ] Allergy Severe SWELLING Verified 11/10/20 03:07 codeine Allergy Itching Verified 11/14/20 22:21 Assessment & Plan (1) PTSD (post-traumatic stress disorder): Assessment and Plan: Continue current regime Risperdal prn for grounding, dissociative episodes (2) Severe recurrent major depression: (3) Alcohol abuse: Assessment and Plan: Pt willing to work with DCF for a treatment plan acceptable to re-establish custody. Greater than 50% of the session was spent on counseling and/or coordination of care
[2020-11-18] MEDS: hydrOXYzine HCL 25 MG TABLET PO (23:07)
[2020-11-19] MEDS: traZODone HCL 50 MG TABLET PO (00:29)
[2020-11-19 06:55] VITALS: BP 98/57; PULSE 84; RESP 16; TEMP 36.3; O2SAT 97
[2020-11-19] MEDS: buPROPion HCl XL 300 MG TAB.ER.24H PO (08:59)
[2020-11-19] MEDS: FLUoxetine HCl 20 MG CAPSULE 60 MG PO (08:59)
[2020-11-19] MEDS: Omeprazole 20 MG CAPSULE.DR PO (08:59)
[2020-11-19] MEDS: busPIRone HCl 10 MG TABLET 30 MG PO ×2 (08:59→22:50)
[2020-11-19] MEDS: Topiramate 100 MG TABLET PO (09:00)
[2020-11-19] MEDS: clonazePAM 1 MG TABLET PO ×2 (11:11→19:44)
[2020-11-19] MEDS: Butalb/Acetamin/Caff 50/325/40 TABLET 1 TAB PO ×2 (17:50→22:53)
[2020-11-19] MEDS: risperiDONE 0.25 MG TABLET PO ×2 (17:50→22:51)
[2020-11-19 17:57] VITALS: BP 125/82; PULSE 108; TEMP 37.1
[2020-11-19] MEDS: hydrOXYzine HCL 25 MG TABLET PO (19:44)
[2020-11-19] MEDS: Acyclovir 200 MG CAPSULE 400 MG PO (22:50)
[2020-11-19] MEDS: Topiramate 25 MG TABLET 150 MG PO (22:51)
--- NOTE | 2020-11-19 23:56 | P.PNPSI_ITS ---
Subjective Subjective Date of Service: 11/19/20 Reason For Visit: clonidine and alcohol overdose/suicide attempt Interim History: Pt reports she continues to do well; she took risperdal again and wonders if it should be at a higher dose. Consumer Affairs Manager helped patient understand it would not be he same effect as a benzo to which she was comparing it. Pt was curious about other options for anxiety and filing writer discussed clonidine, propranolol; She agrees to discuss this more with primary team. Medication Compliance: Yes Side effects from medications: No Attending Groups: Yes Mental Status Exam Mental Status Exam Narrative: Patient Appearance: Well Grooomed Patient Orientation: Person, Place, Time and Situation Level of Consciousness: Awake and Appropriate Patient Behavior: Appropriate Mood Description: Happy and Anxious Affect Description: Calm and Appropriate Ability to Follow Directions: Good Speech Pattern: Clear and Appropriate Hallucinations: None Delusions: Not Present Thought Process: Intact, Goal Oriented and Linear Thought Content: positive for Intact Judgement: Fair Diagnostics Vital Signs (24Hr): Vital Signs - 24 hr 11/19/20 06:55 11/19/20 17:57 Temperature 97.4 F 98.7 F Pulse Rate 84 108 H Respiratory Rate 16 Blood Pressure 98/57 L 125/82 Pulse Oximetry 97 Body Mass Index 29.0 Imaging Radiology Impressions: ITS Impressions Venous Duplex 11/15/20 00:00 IMPRESSION: No DVT demonstrated in the right upper extremity. Focal noncompressible thrombus seen in the right basilic vein (a superficial vein) in the region of the antecubital fossa. Medications Medications Current Medications Generic Name Dose Route Start Last Admin Trade Name Freq PRN Reason Stop Dose Admin Acetaminophen 650 mg 11/14/20 19:57 Acetaminophen 325 Mg Tablet PO Q6H PRN Headache/Pain Mild Scale (1-3) Acetaminophen/Butalbital/Caffeine 1 tab 11/14/20 19:57 11/19/20 22:53 Butalb/Acetamin/Caff 50/325/40 Tablet PO 1 tab Q4H PRN Administration Headache Acyclovir 400 mg 11/14/20 21:00 11/19/20 22:50 Acyclovir 200 Mg Capsule PO 400 mg BEDTIME SAÚL Administration Al Hydroxide/Mg Hydroxide 30 ml 11/14/20 19:57 Magnesium Hydrox/Alum Hydrox 30 Ml Oral.Susp PO Q6H PRN Heartburn/Nausea Bupropion HCl 300 mg 11/15/20 09:00 11/19/20 08:59 Bupropion Hcl Xl 300 Mg Tab.Er.24h PO 300 mg DAILY SAÚL Administration Buspirone HCl 30 mg 11/14/20 21:00 11/19/20 22:50 Buspirone Hcl 10 Mg Tablet PO 30 mg BID SAÚL Administration Clonazepam 1 mg 11/19/20 19:56 Clonazepam 1 Mg Tablet PO BID PRN Anxiety Fluoxetine HCl 60 mg 11/15/20 09:00 11/19/20 08:59 Fluoxetine Hcl 20 Mg Capsule PO 60 mg DAILY SAÚL Administration Hydroxyzine HCl 25 mg 11/14/20 19:57 11/19/20 19:44 Hydroxyzine Hcl 25 Mg Tablet PO 25 mg BEDTIME PRN Administration Anxiety Ibuprofen 400 mg 11/15/20 19:17 Ibuprofen 400 Mg Tablet PO Q6H PRN pain Magnesium Hydroxide 30 ml 11/14/20 19:57 Milk Of Magnesia 30 Ml Oral.Susp PO DAILY PRN Constipation Melatonin 3 mg 11/14/20 21:00 11/19/20 22:51 Melatonin 3 Mg Tablet PO Not Given BEDTIME SAÚL Omeprazole 20 mg 11/15/20 09:00 11/19/20 08:59 Omeprazole 20 Mg Capsule.Dr PO 20 mg DAILY SAÚL Administration Risperidone 0.25 mg 11/17/20 10:59 11/19/20 22:51 Risperidone 0.25 Mg Tablet PO 0.25 mg Q4H PRN Administration ptsd sx,dissociation Topiramate 150 mg 11/14/20 21:00 11/19/20 22:51 Topiramate 25 Mg Tablet PO 150 mg BEDTIME SAÚL Administration Topiramate 100 mg 11/16/20 09:00 11/19/20 09:00 Topiramate 100 Mg Tablet PO 100 mg DAILY SAÚL Administration Trazodone HCl 50 mg 11/14/20 19:57 11/19/20 00:29 Trazodone Hcl 50 Mg Tablet PO 50 mg BEDTIME PRN Administration Insomnia Allergies Allergies Allergy/AdvReac Type Severity Reaction Status Date / Time kj [KJ] Allergy Severe SWELLING Verified 11/10/20 03:07 codeine Allergy Itching Verified 11/14/20 22:21 Assessment & Plan (1) PTSD (post-traumatic stress disorder): Assessment and Plan: pt stable; no SI Continue current regime Risperdal prn for grounding, dissociative episodes (2) Severe recurrent major depression: (3) Alcohol abuse: Assessment and Plan: will discuss options for anxiety with primary team Pt willing to work with DCF for a treatment plan acceptable to re-establish custody. Greater than 50% of the session was spent on counseling and/or coordination of care
[2020-11-20] MEDS: Melatonin 3 MG TABLET PO ×2 (00:29→20:56)
[2020-11-20] MEDS: clonazePAM 1 MG TABLET PO ×2 (00:30→21:03)
[2020-11-20 06:30] VITALS: BP 108/59; PULSE 86; RESP 16; TEMP 36.8; O2SAT 95
[2020-11-20] MEDS: busPIRone HCl 10 MG TABLET 30 MG PO ×2 (09:29→20:56)
[2020-11-20] MEDS: FLUoxetine HCl 20 MG CAPSULE 60 MG PO (09:30)
[2020-11-20] MEDS: buPROPion HCl XL 300 MG TAB.ER.24H PO (09:31)
[2020-11-20] MEDS: Topiramate 100 MG TABLET PO (09:31)
[2020-11-20] MEDS: Omeprazole 20 MG CAPSULE.DR PO (09:31)
[2020-11-20] MEDS: Butalb/Acetamin/Caff 50/325/40 TABLET 1 TAB PO ×2 (10:04→16:29)
[2020-11-20] MEDS: risperiDONE 0.25 MG TABLET PO (10:04)
[2020-11-20 18:00] VITALS: BP 147/105; PULSE 97; TEMP 36.5
[2020-11-20] MEDS: QUEtiapine Fumarate 25 MG TABLET PO (18:59)
[2020-11-20] MEDS: Topiramate 25 MG TABLET 150 MG PO (20:55)
[2020-11-20] MEDS: Acyclovir 200 MG CAPSULE 400 MG PO (20:56)
--- NOTE | 2020-11-20 21:41 | P.PNPSI_ITS ---
Subjective Subjective Date of Service: 11/20/20 Reason For Visit: clonidine and alcohol overdose/suicide attempt Subjective Notes: Conditional Voluntary Interim History: Reviewing her suicide attempt. Taking complete responsiblity. Open to learning different coping mechanisms. Reading DBT literature. Discussed alcohol use pattern. She reports 1-2 instances every 4-6 months, usually precipitated by a negative event. Discussed used of prn Risperdal-she feels she needs something with more sedative power but clarifying. Discussed low dose Seroquel. Letter drafted and sent to court requesting extension as pt needs to retain an family law attorney. Medication Compliance: Yes Side effects from medications: No Attending Groups: Intermittent Review of Systems Review of Systems Yes all other systems are reviewed and are negative (denies current issues) Mental Status Exam Mental Status Exam Patient Appearance: Appropriate Patient Orientation: Person, Place, Time and Situation Level of Consciousness: Alert Patient Behavior: Appropriate Affect Description: Depressed Patient Cognition Impaired: No Ability to Follow Directions: Good Speech Pattern: Spontaneous Speech Memory Description: Intact Hallucinations: None Delusions: Not Present Thought Process: Intact Thought Content: positive for Intact Depressive Symptoms: Increased Anxiety and Low Self Esteem (remorse) Judgement: Good Diagnostics Vital Signs (24Hr): Vital Signs - 24 hr 11/20/20 06:30 11/20/20 18:00 Temperature 98.3 F 97.7 F Pulse Rate 86 97 Respiratory Rate 16 Blood Pressure 108/59 L 147/105 H Pulse Oximetry 95 Body Mass Index 29.0 Imaging Radiology Impressions: ITS Impressions Venous Duplex 11/15/20 00:00 IMPRESSION: No DVT demonstrated in the right upper extremity. Focal noncompressible thrombus seen in the right basilic vein (a superficial vein) in the region of the antecubital fossa. Medications Medications Current Medications Generic Name Dose Route Start Last Admin Trade Name Freq PRN Reason Stop Dose Admin Acetaminophen 650 mg 11/14/20 19:57 Acetaminophen 325 Mg Tablet PO Q6H PRN Headache/Pain Mild Scale (1-3) Acetaminophen/Butalbital/Caffeine 1 tab 11/14/20 19:57 11/20/20 16:29 Butalb/Acetamin/Caff 50/325/40 Tablet PO 1 tab Q4H PRN Administration Headache Acyclovir 400 mg 11/14/20 21:00 11/20/20 20:56 Acyclovir 200 Mg Capsule PO 400 mg BEDTIME SAÚL Administration Al Hydroxide/Mg Hydroxide 30 ml 11/14/20 19:57 Magnesium Hydrox/Alum Hydrox 30 Ml Oral.Susp PO Q6H PRN Heartburn/Nausea Bupropion HCl 300 mg 11/15/20 09:00 11/20/20 09:31 Bupropion Hcl Xl 300 Mg Tab.Er.24h PO 300 mg DAILY SAÚL Administration Buspirone HCl 30 mg 11/14/20 21:00 11/20/20 20:56 Buspirone Hcl 10 Mg Tablet PO 30 mg BID SAÚL Administration Clonazepam 1 mg 11/19/20 19:56 11/20/20 21:03 Clonazepam 1 Mg Tablet PO 1 mg BID PRN Administration Anxiety Fluoxetine HCl 60 mg 11/15/20 09:00 11/20/20 09:30 Fluoxetine Hcl 20 Mg Capsule PO 60 mg DAILY SAÚL Administration Hydroxyzine HCl 25 mg 11/14/20 19:57 11/19/20 19:44 Hydroxyzine Hcl 25 Mg Tablet PO 25 mg BEDTIME PRN Administration Anxiety Ibuprofen 400 mg 11/15/20 19:17 Ibuprofen 400 Mg Tablet PO Q6H PRN pain Magnesium Hydroxide 30 ml 11/14/20 19:57 Milk Of Magnesia 30 Ml Oral.Susp PO DAILY PRN Constipation Melatonin 3 mg 11/14/20 21:00 11/20/20 20:56 Melatonin 3 Mg Tablet PO 3 mg BEDTIME SAÚL Administration Omeprazole 20 mg 11/15/20 09:00 11/20/20 09:31 Omeprazole 20 Mg Capsule.Dr PO 20 mg DAILY SAÚL Administration Quetiapine Fumarate 25 mg 11/20/20 18:39 11/20/20 18:59 Quetiapine Fumarate 25 Mg Tablet PO 25 mg BID PRN Administration ptsd, dissociative symptoms Topiramate 150 mg 11/14/20 21:00 11/20/20 20:55 Topiramate 25 Mg Tablet PO 150 mg BEDTIME SAÚL Administration Topiramate 100 mg 11/16/20 09:00 11/20/20 09:31 Topiramate 100 Mg Tablet PO 100 mg DAILY SAÚL Administration Trazodone HCl 50 mg 11/14/20 19:57 11/19/20 00:29 Trazodone Hcl 50 Mg Tablet PO 50 mg BEDTIME PRN Administration Insomnia Allergies Allergies Allergy/AdvReac Type Severity Reaction Status Date / Time kj [KJ] Allergy Severe SWELLING Verified 11/10/20 03:07 codeine Allergy Itching Verified 11/14/20 22:21 Assessment & Plan Assessment & Plan (1) Alcohol abuse: Status: Acute Code(s): F10.10 - Alcohol abuse, uncomplicated (2) Severe recurrent major depression: Qualifiers: Psychotic features: without psychotic features Qualified Code(s): F33.2 - Major depressive disorder, recurrent severe without psychotic features Status: Acute Code(s): F33.2 - Major depressive disorder, recurrent severe without psychotic features (3) PTSD (post-traumatic stress disorder): Status: Acute Code(s): F43.10 - Post-traumatic stress disorder, unspecified Assessment and Plan: -Discontinue Risperdal -Seroquel 25 mg bid prn PTSD sx, dissociative sx. Greater than 50% of the session was spent on counseling and/or coordination of care
[2020-11-21] MEDS: QUEtiapine Fumarate 25 MG TABLET PO ×2 (00:03→13:15)
[2020-11-21] MEDS: Butalb/Acetamin/Caff 50/325/40 TABLET 1 TAB PO ×2 (00:03→15:07)
[2020-11-21] MEDS: hydrOXYzine HCL 25 MG TABLET PO (00:04)
[2020-11-21 06:25] VITALS: BP 106/70; PULSE 86; RESP 18; TEMP 36.4; O2SAT 98
[2020-11-21] MEDS: busPIRone HCl 10 MG TABLET 30 MG PO ×2 (08:38→20:09)
[2020-11-21] MEDS: Omeprazole 20 MG CAPSULE.DR PO (08:38)
[2020-11-21] MEDS: buPROPion HCl XL 300 MG TAB.ER.24H PO (08:38)
[2020-11-21] MEDS: Topiramate 100 MG TABLET PO (08:38)
[2020-11-21] MEDS: FLUoxetine HCl 20 MG CAPSULE 60 MG PO (08:38)
[2020-11-21 08:46] LABS: Estimated Average Glucose 97 mg/dL
[2020-11-21 08:59] LABS: Cholesterol 185 mg/dL; Glucose Fasting 98 mg/dL (60-99); HDL Cholesterol 45 mg/dL; LDL Cholesterol Calculated 122 mg/dl; Triglycerides 91 mg/dL
[2020-11-21] MEDS: clonazePAM 1 MG TABLET PO ×2 (11:06→18:11)
--- NOTE | 2020-11-21 16:01 | HO.PSYCHPN ---
Subjective Subjective Date of Service: 11/22/20 Reason For Visit: clonidine and alcohol overdose/suicide attempt Subjective Notes: Conditional Voluntary Interim History: Pt reviewing court documents delivered by the dye and chemical coordinator's dept last week. Considering [facility] program for follow up. Medication Compliance: Yes Side effects from medications: No Attending Groups: Intermittent Review of Systems Review of Systems Yes all other systems are reviewed and are negative Psychiatric: Reports anxiety, Reports depression and Reports irritability Mental Status Exam Mental Status Exam Patient Appearance: Appropriate Patient Orientation: Person, Place, Time and Situation Level of Consciousness: Alert Patient Behavior: Cooperative Mood Description: Anxious Affect Description: Constricted Patient Cognition Impaired: No Ability to Follow Directions: Good Speech Pattern: Spontaneous Speech Memory Description: Intact Hallucinations: None Delusions: Not Present Thought Process: Intact Thought Content: positive for Intact Depressive Symptoms: Increased Anxiety, Increased Irritability, Feelings of Worthlessness, Feelings of Guilt and Low Self Esteem Judgement: Good Diagnostics Vital Signs (24Hr): Vital Signs - 24 hr 11/20/20 18:00 11/21/20 06:25 Temperature 97.7 F 97.5 F Pulse Rate 97 86 Respiratory Rate 18 Blood Pressure 147/105 H 106/70 Pulse Oximetry 98 Body Mass Index 29.0 Labs Labs: Laboratory Results - last 48 hr 11/21/20 11/21/20 07:51 07:51 Fasting Glucose 98 Estimat Average Glucose 97 Hemoglobin A1c % 5.0 Triglycerides 91 Cholesterol 185 LDL Cholesterol, Calc 122 HDL Cholesterol 45 Imaging Radiology Impressions: ITS Impressions Venous Duplex 11/15/20 00:00 IMPRESSION: No DVT demonstrated in the right upper extremity. Focal noncompressible thrombus seen in the right basilic vein (a superficial vein) in the region of the antecubital fossa. Medications Medications Current Medications Generic Name Dose Route Start Last Admin Trade Name Freq PRN Reason Stop Dose Admin Acetaminophen 650 mg 11/14/20 19:57 Acetaminophen 325 Mg Tablet PO Q6H PRN Headache/Pain Mild Scale (1-3) Acetaminophen/Butalbital/Caffeine 1 tab 11/14/20 19:57 11/21/20 15:07 Butalb/Acetamin/Caff 50/325/40 Tablet PO 1 tab Q4H PRN Administration Headache Acyclovir 400 mg 11/14/20 21:00 11/20/20 20:56 Acyclovir 200 Mg Capsule PO 400 mg BEDTIME SAÚL Administration Al Hydroxide/Mg Hydroxide 30 ml 11/14/20 19:57 Magnesium Hydrox/Alum Hydrox 30 Ml Oral.Susp PO Q6H PRN Heartburn/Nausea Bupropion HCl 300 mg 11/15/20 09:00 11/21/20 08:38 Bupropion Hcl Xl 300 Mg Tab.Er.24h PO 300 mg DAILY SAÚL Administration Buspirone HCl 30 mg 11/14/20 21:00 11/21/20 08:38 Buspirone Hcl 10 Mg Tablet PO 30 mg BID SAÚL Administration Clonazepam 1 mg 11/19/20 19:56 11/21/20 11:06 Clonazepam 1 Mg Tablet PO 1 mg BID PRN Administration Anxiety Fluoxetine HCl 60 mg 11/15/20 09:00 11/21/20 08:38 Fluoxetine Hcl 20 Mg Capsule PO 60 mg DAILY SAÚL Administration Hydroxyzine HCl 25 mg 11/14/20 19:57 11/21/20 00:04 Hydroxyzine Hcl 25 Mg Tablet PO 25 mg BEDTIME PRN Administration Anxiety Ibuprofen 400 mg 11/15/20 19:17 Ibuprofen 400 Mg Tablet PO Q6H PRN pain Magnesium Hydroxide 30 ml 11/14/20 19:57 Milk Of Magnesia 30 Ml Oral.Susp PO DAILY PRN Constipation Melatonin 3 mg 11/14/20 21:00 11/20/20 20:56 Melatonin 3 Mg Tablet PO 3 mg BEDTIME SAÚL Administration Omeprazole 20 mg 11/15/20 09:00 11/21/20 08:38 Omeprazole 20 Mg Capsule.Dr PO 20 mg DAILY SAÚL Administration Quetiapine Fumarate 25 mg 11/20/20 18:39 11/21/20 13:15 Quetiapine Fumarate 25 Mg Tablet PO 25 mg BID PRN Administration ptsd, dissociative symptoms Topiramate 150 mg 11/14/20 21:00 11/20/20 20:55 Topiramate 25 Mg Tablet PO 150 mg BEDTIME SAÚL Administration Topiramate 100 mg 11/16/20 09:00 11/21/20 08:38 Topiramate 100 Mg Tablet PO 100 mg DAILY SAÚL Administration Trazodone HCl 50 mg 11/14/20 19:57 11/19/20 00:29 Trazodone Hcl 50 Mg Tablet PO 50 mg BEDTIME PRN Administration Insomnia Allergies Allergies Allergy/AdvReac Type Severity Reaction Status Date / Time kj [KJ] Allergy Severe SWELLING Verified 11/10/20 03:07 codeine Allergy Itching Verified 11/14/20 22:21 Assessment & Plan Assessment & Plan (1) Alcohol abuse: Status: Acute Code(s): F10.10 - Alcohol abuse, uncomplicated Assessment and Plan: -Pt looking at [facility] for admission to meet [facility] requirements (2) Severe recurrent major depression: Qualifiers: Psychotic features: without psychotic features Qualified Code(s): F33.2 - Major depressive disorder, recurrent severe without psychotic features Status: Acute Code(s): F33.2 - Major depressive disorder, recurrent severe without psychotic features Assessment and Plan: -Continue current regime. (3) PTSD (post-traumatic stress disorder): Status: Acute Code(s): F43.10 - Post-traumatic stress disorder, unspecified Assessment and Plan: -Seroquel prn for grounding -Suggested pt participate in DBT in out patient. Greater than 50% of the session was spent on counseling and/or coordination of care
[2020-11-21 18:00] VITALS: BP 126/70; PULSE 98; TEMP 36.9
[2020-11-21] MEDS: QUEtiapine Fumarate 50 MG TABLET PO (19:30)
[2020-11-21] MEDS: Loperamide HCl 2 MG CAPSULE 4 MG PO (19:30)
[2020-11-21] MEDS: Acyclovir 200 MG CAPSULE 400 MG PO (20:09)
[2020-11-21] MEDS: Topiramate 25 MG TABLET 150 MG PO (20:09)
[2020-11-21] MEDS: Melatonin 3 MG TABLET PO (20:09)
[2020-11-22 06:10] VITALS: BP 105/73; PULSE 109; RESP 18; TEMP 36.1; O2SAT 99
[2020-11-22] MEDS: Loperamide HCl 2 MG CAPSULE 4 MG PO ×2 (06:54→17:54)
[2020-11-22] MEDS: Omeprazole 20 MG CAPSULE.DR PO (08:31)
[2020-11-22] MEDS: busPIRone HCl 10 MG TABLET 30 MG PO ×2 (08:32→20:39)
[2020-11-22] MEDS: FLUoxetine HCl 20 MG CAPSULE 60 MG PO (08:32)
[2020-11-22] MEDS: buPROPion HCl XL 300 MG TAB.ER.24H PO (08:33)
[2020-11-22] MEDS: Topiramate 100 MG TABLET PO (08:33)
[2020-11-22] MEDS: clonazePAM 1 MG TABLET PO ×2 (11:15→18:09)
[2020-11-22] MEDS: QUEtiapine Fumarate 50 MG TABLET PO ×2 (14:17→18:08)
--- NOTE | 2020-11-22 15:25 | HO.PSYCHPN ---
Subjective Subjective Date of Service: 11/22/20 Reason For Visit: clonidine and alcohol overdose/suicide attempt Subjective Notes: Conditional Voluntary Interim History: Pt discussing discharge. She plans to attend program in [place] per [facility] recommendations. Focus for pt is on having her children back together and is willing to work to achieve that as it is the most important for her she states.Several stressors due to conflict with partner, restraining order, custody questions. She reports she has not hired an contracts attorney yet. Focused on mood sx. Anxiety last evening, Seroquel increase. Pt does not want to continue Seroquel after hospitalization. Review of options-Lamictal, Trileptal, Risperdal. Pt wanting to return to Adderall, Vyvanse as it is what she has known to work. 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 Will initiate Lamictal. Discussed how helpful Clonidine was and expresses remorse for OD on Clonidine as it was one of the most helpful agents. Discussed working with out pt team in the future to plan a re-establishment dose with dispensing plan. 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 She will not taper again without out pt team input. Reflecting upon the impact of her traumatic experience, how it has guided her life and decisions. Medication Compliance: Yes Side effects from medications: No Attending Groups: Intermittent Review of Systems Gastrointestinal: Reports diarrhea Comments: using Immodium for IBS sx. Musculoskeletal: Reports neck pain (reports due to stress.) Psychiatric: Reports anxiety, Reports depression and Reports difficulty concentrating Mental Status Exam Mental Status Exam Patient Appearance: Appropriate Patient Orientation: Person, Place, Time and Situation Level of Consciousness: Alert Patient Behavior: Appropriate, Talkative, Cooperative, Anxious and Fearful Mood Description: Anxious, Nervous and Apprehensive Affect Description: Constricted and Anxious Patient Cognition Impaired: No Ability to Follow Directions: Good Speech Pattern: Spontaneous Speech Memory Description: Intact Hallucinations: None Delusions: Not Present Thought Process: Intact Thought Content: positive for Intact Depressive Symptoms: Increased Anxiety, Muscle Tension, Unhappiness and Difficulty Concentrating Judgement: Good Diagnostics Vital Signs (24Hr): Vital Signs - 24 hr 11/21/20 18:00 11/22/20 06:10 Temperature 98.4 F 96.9 F Pulse Rate 98 109 H Respiratory Rate 18 Blood Pressure 126/70 105/73 Pulse Oximetry 99 Body Mass Index 29.0 Labs Labs: Laboratory Results - last 48 hr 11/21/20 11/21/20 07:51 07:51 Fasting Glucose 98 Estimat Average Glucose 97 Hemoglobin A1c % 5.0 Triglycerides 91 Cholesterol 185 LDL Cholesterol, Calc 122 HDL Cholesterol 45 Imaging Radiology Impressions: ITS Impressions Venous Duplex 11/15/20 00:00 IMPRESSION: No DVT demonstrated in the right upper extremity. Focal noncompressible thrombus seen in the right basilic vein (a superficial vein) in the region of the antecubital fossa. Medications Medications Current Medications Generic Name Dose Route Start Last Admin Trade Name Freq PRN Reason Stop Dose Admin Acetaminophen 650 mg 11/14/20 19:57 Acetaminophen 325 Mg Tablet PO Q6H PRN Headache/Pain Mild Scale (1-3) Acetaminophen/Butalbital/Caffeine 1 tab 11/14/20 19:57 11/21/20 15:07 Butalb/Acetamin/Caff 50/325/40 Tablet PO 1 tab Q4H PRN Administration Headache Acyclovir 400 mg 11/14/20 21:00 11/21/20 20:09 Acyclovir 200 Mg Capsule PO 400 mg BEDTIME SAÚL Administration Al Hydroxide/Mg Hydroxide 30 ml 11/14/20 19:57 Magnesium Hydrox/Alum Hydrox 30 Ml Oral.Susp PO Q6H PRN Heartburn/Nausea Bupropion HCl 300 mg 11/15/20 09:00 11/22/20 08:33 Bupropion Hcl Xl 300 Mg Tab.Er.24h PO 300 mg DAILY SAÚL Administration Buspirone HCl 30 mg 11/14/20 21:00 11/22/20 08:32 Buspirone Hcl 10 Mg Tablet PO 30 mg BID SAÚL Administration Clonazepam 1 mg 11/19/20 19:56 11/22/20 11:15 Clonazepam 1 Mg Tablet PO 1 mg BID PRN Administration Anxiety Fluoxetine HCl 60 mg 11/15/20 09:00 11/22/20 08:32 Fluoxetine Hcl 20 Mg Capsule PO 60 mg DAILY SAÚL Administration Hydroxyzine HCl 25 mg 11/14/20 19:57 11/21/20 00:04 Hydroxyzine Hcl 25 Mg Tablet PO 25 mg BEDTIME PRN Administration Anxiety Ibuprofen 400 mg 11/15/20 19:17 Ibuprofen 400 Mg Tablet PO Q6H PRN pain Lamotrigine 25 mg 11/22/20 21:00 Lamotrigine 25 Mg Tablet PO BEDTIME SAÚL Loperamide HCl 4 mg 11/21/20 19:12 11/22/20 06:54 Loperamide Hcl 2 Mg Capsule PO 4 mg Q6H PRN Administration Diarrhea Magnesium Hydroxide 30 ml 11/14/20 19:57 Milk Of Magnesia 30 Ml Oral.Susp PO DAILY PRN Constipation Melatonin 3 mg 11/14/20 21:00 11/21/20 20:09 Melatonin 3 Mg Tablet PO 3 mg BEDTIME SAÚL Administration Omeprazole 20 mg 11/15/20 09:00 11/22/20 08:31 Omeprazole 20 Mg Capsule.Dr PO 20 mg DAILY SAÚL Administration Quetiapine Fumarate 50 mg 11/22/20 13:34 11/22/20 14:17 Quetiapine Fumarate 50 Mg Tablet PO 50 mg BID PRN Administration ptsd, dissociative symptoms Topiramate 150 mg 11/14/20 21:00 11/21/20 20:09 Topiramate 25 Mg Tablet PO 150 mg BEDTIME SAÚL Administration Topiramate 100 mg 11/16/20 09:00 11/22/20 08:33 Topiramate 100 Mg Tablet PO 100 mg DAILY SAÚL Administration Trazodone HCl 50 mg 11/14/20 19:57 11/19/20 00:29 Trazodone Hcl 50 Mg Tablet PO 50 mg BEDTIME PRN Administration Insomnia Trolamine Salicylate 1 appl 11/21/20 19:20 Trolamine Salicylate 10 % Cream 85 Gm Tube TOPICAL BID PRN neck pain Protocol Allergies Allergies Allergy/AdvReac Type Severity Reaction Status Date / Time kj [KJ] Allergy Severe SWELLING Verified 11/10/20 03:07 codeine Allergy Itching Verified 11/14/20 22:21 Assessment & Plan Assessment & Plan (1) Severe recurrent major depression: Qualifiers: Psychotic features: without psychotic features Qualified Code(s): F33.2 - Major depressive disorder, recurrent severe without psychotic features Status: Acute Code(s): F33.2 - Major depressive disorder, recurrent severe without psychotic features Assessment and Plan: -Reports some improvement with Prozac returning to 60 mg along with Wellbutrin. (2) PTSD (post-traumatic stress disorder): Status: Acute Code(s): F43.10 - Post-traumatic stress disorder, unspecified Assessment and Plan: -Increase Seroquel to 50 mg prn -Lamictal 25 mg daily Greater than 50% of the session was spent on counseling and/or coordination of care
[2020-11-22] MEDS: Butalb/Acetamin/Caff 50/325/40 TABLET 1 TAB PO (16:46)
--- NOTE | 2020-11-22 16:50 | PC.NURSE ---
REPORTS RECEIVING A CALL FROM [facility]G [facility]NER, DID NOT ACCEPT CALL STEP SON ,ASHLEY, HAS A RESTRAINING ORDER ON HER. PHONE CALL MADE PATIENT UNCONFORTABLE.
[2020-11-22 17:18] VITALS: BP 112/67; PULSE 88; TEMP 36.4
[2020-11-22] MEDS: Trolamine Salicylate 10 % Cream 85 GM TUBE 1 APPL TOPICAL (17:53)
[2020-11-22] MEDS: Topiramate 25 MG TABLET 150 MG PO (20:39)
[2020-11-22] MEDS: traZODone HCL 50 MG TABLET PO (20:40)
[2020-11-22] MEDS: lamoTRIgine 25 MG TABLET PO (20:40)
[2020-11-22] MEDS: Acyclovir 200 MG CAPSULE 400 MG PO (20:40)
[2020-11-22] MEDS: Melatonin 3 MG TABLET PO (20:40)
[2020-11-23 06:35] VITALS: BP 88/54; PULSE 70; RESP 16; TEMP 36.7; O2SAT 96
[2020-11-23] MEDS: busPIRone HCl 10 MG TABLET 30 MG PO (09:33)
[2020-11-23] MEDS: buPROPion HCl XL 300 MG TAB.ER.24H PO (09:34)
[2020-11-23] MEDS: Omeprazole 20 MG CAPSULE.DR PO (09:34)
[2020-11-23] MEDS: Topiramate 100 MG TABLET PO (09:34)
[2020-11-23] MEDS: FLUoxetine HCl 20 MG CAPSULE 60 MG PO (09:34)
[2020-11-23] MEDS: Cholecalciferol (Vitamin D3) 25 MCG TABLET PO (09:35)
--- NOTE | 2020-11-23 12:48 | PM.EVENT ---
Event Note Date of Service: 11/23/20 Event Note: Compress Engineer was called by pt's pharmacy, [facility] [phone] regarding her Prozac. She has a 40 mg prescription waiting for her and 20 mg prescription is too soon to fill. As a result, we will cancel the prescription TW sent and work with the previous prescription.
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
== END 2020-11-23 11:27 | disposition home or self-care (01) | DRG 751 ==
PROVIDERS: Clinical Nurse Specialist Psychiatric/Mental Health, Adult; Admitting Provider Psychiatry & Neurology Psychiatry; Visit Provider Psychiatry & Neurology Psychiatry
DX: F33.2 Major depressive disorder, recurrent severe without psychotic features (principal); R45.851 Suicidal ideations; I80.9 Phlebitis and thrombophlebitis of unspecified site; F10.10 Alcohol abuse, uncomplicated; G40.909 Epilepsy, unspecified, not intractable, without status epilepticus; F43.10 Post-traumatic stress disorder, unspecified; F90.9 Attention-deficit hyperactivity disorder, unspecified type; Z87.891 Personal history of nicotine dependence; Z79.899 Other long term (current) drug therapy; Z91.5 Personal history of self-harm
CPT/HCPCS: 36415; 80061; 82306; 82607; 82746; 82947; 83036; 84443; 90792; 93971; 99231; 99232; 99238

== ENCOUNTER 2023-07-22 18:44 | Inpatient (IN) | payer OTHER, SELFPAY ==
--- NOTE | ~2023-07-22 | XR_ITS ---
EXAMINATION: Lumbar spine, sacrum and coccyx x-rays CLINICAL INFORMATION: Pain. Fall down stairs. COMPARISON: None. TECHNIQUE: 5 views of the lumbar spine and 3 views of the sacrum and coccyx FINDINGS: Lumbar spine: There is mild curvature of the lower lumbar spine to the right. Bone alignment is otherwise normal. No fracture or dislocation. Disc spaces are normal. There is mild facet arthritis of the lower lumbar spine. Sacrum and coccyx: No fracture or dislocation. The sacroiliac joints are normal. XR/XR lumbar spine 4V min IMPRESSION: No fracture or dislocation. Mild facet arthritis of the lower lumbar spine.
--- NOTE | ~2023-07-22 | XR_ITS ---
EXAMINATION: Lumbar spine, sacrum and coccyx x-rays CLINICAL INFORMATION: Pain. Fall down stairs. COMPARISON: None. TECHNIQUE: 5 views of the lumbar spine and 3 views of the sacrum and coccyx FINDINGS: Lumbar spine: There is mild curvature of the lower lumbar spine to the right. Bone alignment is otherwise normal. No fracture or dislocation. Disc spaces are normal. There is mild facet arthritis of the lower lumbar spine. Sacrum and coccyx: No fracture or dislocation. The sacroiliac joints are normal. XR/XR sacrum coccyx min 2V IMPRESSION: No fracture or dislocation. Mild facet arthritis of the lower lumbar spine.
--- NOTE | 2023-07-22 19:23 | PC.NURSE ---
Skin check completed with this fiction and nonfiction writer prose and Liudmila Pendleton RN. No contraband found or acute skin issues. EKG electrodes removed. Healing rash posterior neck/back in which pt reports completing a course of abx.
[2023-07-22] MEDS: hydrOXYzine HCL 25 MG TABLET PO (20:21)
[2023-07-22] MEDS: clonazePAM 1 MG TABLET PO (20:21)
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
[2023-07-22 21:52] LABS: Troponin-I High Sensitivity < 2.7 ng/L (<3.5-17.0)
[2023-07-22] MEDS: TiZANidine HCL 4 MG TABLET PO (23:10)
[2023-07-22] MEDS: OLANZapine 5 MG TABLET PO (23:11)
[2023-07-22] MEDS: Ketorolac Tromethamine 15 MG/ML VIAL IM (23:12)
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
[2023-07-23 06:00] VITALS: BP 122/78; PULSE 64; RESP 18
[2023-07-23] MEDS: Famotidine 20 MG TABLET PO ×2 (08:23→20:15)
[2023-07-23] MEDS: Lidocaine 4 % Patch ADH..PATCH 1 PATCH TRANSDERMA (08:24)
[2023-07-23] MEDS: FLUoxetine HCl 20 MG CAPSULE 40 MG PO (09:54)
[2023-07-23] MEDS: Gabapentin 300 MG CAPSULE PO ×2 (14:07→20:14)
[2023-07-23] MEDS: clonazePAM 0.5 MG TABLET PO ×2 (14:07→21:39)
[2023-07-23] MEDS: TiZANidine HCL 4 MG TABLET PO ×2 (14:07→21:39)
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
[2023-07-23 18:00] VITALS: BP 124/68; PULSE 68; RESP 16; TEMP 36.4
[2023-07-23] MEDS: Ketorolac Tromethamine 15 MG/ML VIAL IM (21:27)
[2023-07-24 07:45] VITALS: BP 140/77; PULSE 59; RESP 16; TEMP 36.3; O2SAT 97
[2023-07-24] MEDS: FLUoxetine HCl 20 MG CAPSULE 40 MG PO (08:24)
[2023-07-24] MEDS: Famotidine 20 MG TABLET PO (08:24)
[2023-07-24] MEDS: buPROPion HCl XL 300 MG TAB.ER.24H PO (08:24)
[2023-07-24] MEDS: Gabapentin 300 MG CAPSULE PO ×2 (08:25→14:01)
[2023-07-24] MEDS: Lidocaine 4 % Patch ADH..PATCH 1 PATCH TRANSDERMA (08:26)
[2023-07-24] MEDS: TiZANidine HCL 4 MG TABLET PO (08:33)
[2023-07-24 08:59] LABS: Estimated Average Glucose 97 mg/dL
[2023-07-24 09:51] LABS: Alanine Aminotransferase 28 U/L (0-31); Albumin Level 3.7 g/dL (3.5-5.0); Alkaline Phosphatase 66 U/L (39-117); Anion Gap 12 (12-20); Aspartate Amino Transferase 20 U/L (5-31); Bilirubin Total 0.2 mg/dL (0.0-1.0); Blood Urea Nitrogen 10 mg/dL (9-16); Carbon Dioxide 27 mmol/L (22-29); Chloride 107 mmol/L (96-108); Cholesterol 143 mg/dL (<200); Estimated Glomerular Filt Rate > 60; Glucose Random 95 mg/dL (60-115); HDL Cholesterol 32 mg/dL (>40); LDL Cholesterol Calculated 65 mg/dL (<100); Potassium 4.3 mmol/L (3.3-5.1); Sodium 142 mmol/L (135-145); Total Protein 6.3 g/dL (6.5-8.0); Triglycerides 233 mg/dL (<150)
[2023-07-24 10:18] LABS: Thyroid Stimulating Hormone 0.46 uIU/mL (0.32-4.0)
[2023-07-24 10:28] LABS: Folate 5.3 ng/mL (> or = 4.0); Vitamin B12 > 2000 pg/mL (200-900)
[2023-07-24] MEDS: clonazePAM 0.5 MG TABLET PO (12:08)
[2023-07-24] MEDS: Ketorolac Tromethamine 15 MG/ML VIAL IM (12:18)
[2023-07-24] MEDS: OLANZapine 5 MG TABLET PO (14:02)
[2023-07-24 18:00] VITALS: RESP 16
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
[2023-07-25 08:00] VITALS: BP 157/82; PULSE 79; RESP 18; TEMP 36.9; O2SAT 98
[2023-07-25] MEDS: FLUoxetine HCl 20 MG CAPSULE 40 MG PO (09:15)
[2023-07-25] MEDS: Famotidine 20 MG TABLET PO (09:15)
[2023-07-25] MEDS: buPROPion HCl XL 300 MG TAB.ER.24H PO (09:15)
[2023-07-25] MEDS: Lidocaine 4 % Patch ADH..PATCH 1 PATCH TRANSDERMA (09:16)
[2023-07-25] MEDS: Gabapentin 300 MG CAPSULE PO ×3 (09:16→20:34)
[2023-07-25] MEDS: Milk of Magnesia 30 ML ORAL.SUSP PO (09:25)
[2023-07-25] MEDS: clonazePAM 1 MG TABLET PO ×3 (09:25→20:36)
[2023-07-25] MEDS: Ketorolac Tromethamine 15 MG/ML VIAL IM ×2 (11:43→20:42)
[2023-07-25] MEDS: TiZANidine HCL 4 MG TABLET PO ×2 (11:48→20:35)
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
[2023-07-25] MEDS: OLANZapine 5 MG TABLET PO (15:08)
[2023-07-25 18:00] VITALS: BP 139/84; PULSE 98; TEMP 37.1; O2SAT 97
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
[2023-07-26 08:33] VITALS: BP 146/79; PULSE 86; RESP 16; TEMP 36.9; O2SAT 98
[2023-07-26] MEDS: buPROPion HCl XL 300 MG TAB.ER.24H PO (08:44)
[2023-07-26] MEDS: Gabapentin 300 MG CAPSULE PO ×3 (08:44→20:47)
[2023-07-26] MEDS: FLUoxetine HCl 20 MG CAPSULE 40 MG PO (08:44)
[2023-07-26] MEDS: Lidocaine 4 % Patch ADH..PATCH 1 PATCH TRANSDERMA (08:46)
[2023-07-26] MEDS: Nicotine Polacrilex Lozenge 4 MG LOZENGE BUCCAL ×5 (10:22→23:04)
[2023-07-26] MEDS: clonazePAM 1 MG TABLET PO ×3 (11:37→20:47)
[2023-07-26] MEDS: TiZANidine HCL 4 MG TABLET PO ×3 (11:37→20:47)
[2023-07-26] MEDS: Nicotine Polacrilex 2 MG GUM 4 MG BUCCAL ×2 (11:38→14:33)
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
[2023-07-26] MEDS: Amphetamine Mixed Salts 10 MG TABLET PO (14:31)
[2023-07-26] MEDS: Ketorolac Tromethamine 15 MG/ML VIAL IM (17:56)
[2023-07-26] MEDS: OLANZapine 5 MG TABLET PO ×2 (17:59→20:47)
[2023-07-26 20:36] VITALS: BP 109/55; PULSE 84; TEMP 36.1
[2023-07-26] MEDS: hydrOXYzine HCL 25 MG TABLET PO (20:47)
[2023-07-26] MEDS: traZODone HCL 50 MG TABLET PO (23:46)
[2023-07-27] MEDS: Ketorolac Tromethamine 15 MG/ML VIAL IM (03:50)
[2023-07-27] MEDS: TiZANidine HCL 4 MG TABLET PO ×3 (03:51→21:27)
[2023-07-27] MEDS: Nicotine Polacrilex Lozenge 4 MG LOZENGE BUCCAL ×3 (04:37→12:22)
[2023-07-27 07:58] VITALS: BP 114/73; PULSE 92; RESP 16; TEMP 36.4; O2SAT 98
[2023-07-27] MEDS: buPROPion HCl XL 300 MG TAB.ER.24H PO (08:01)
[2023-07-27] MEDS: FLUoxetine HCl 20 MG CAPSULE 40 MG PO (08:01)
[2023-07-27] MEDS: Dextroamphetamine/Amphetamine XR 5 MG CAP.ER.24H 15 MG PO (08:02)
[2023-07-27] MEDS: Nicotine Polacrilex 2 MG GUM 4 MG BUCCAL (09:28)
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
[2023-07-27] MEDS: OLANZapine 5 MG TABLET PO ×2 (12:16→21:27)
[2023-07-27] MEDS: Acetaminophen 325 MG TABLET 650 MG PO (12:16)
[2023-07-27] MEDS: clonazePAM 1 MG TABLET PO ×2 (12:19→21:24)
[2023-07-27] MEDS: Gabapentin 300 MG CAPSULE PO ×2 (15:32→21:21)
[2023-07-27 20:03] VITALS: BP 143/77; PULSE 77; RESP 18; TEMP 36.4; O2SAT 97
[2023-07-27] MEDS: cloNIDine HCL 0.1 MG TABLET PO (23:39)
[2023-07-28] MEDS: Nicotine Polacrilex Lozenge 4 MG LOZENGE BUCCAL ×4 (05:42→15:09)
[2023-07-28 07:50] VITALS: BP 117/64; PULSE 91; RESP 16; TEMP 36.1; O2SAT 100
[2023-07-28] MEDS: buPROPion HCl XL 300 MG TAB.ER.24H PO (08:13)
[2023-07-28] MEDS: Gabapentin 300 MG CAPSULE PO ×3 (08:13→20:36)
[2023-07-28] MEDS: Dextroamphetamine/Amphetamine XR 5 MG CAP.ER.24H 15 MG PO (08:14)
[2023-07-28] MEDS: FLUoxetine HCl 20 MG CAPSULE 40 MG PO (08:18)
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
[2023-07-28] MEDS: Nicotine Polacrilex 2 MG GUM 4 MG BUCCAL ×2 (09:30→13:35)
--- NOTE | 2023-07-28 09:36 | HO.PSYCHPN ---
Subjective Subjective Date of Service: 07/28/23 Reason For Visit: Posttraumatic Stress Disorder, Obsessive Compulsiv Interim History: Met with patient; discussed with team; reviewed notes Patient reports feeling much better. Depression has abated and no SI. She says she feels much more calm, able to articulate her thoughts and even as taking a writing out her feelings again. Patient says that her thoughts are no longer spinning. Patient still struggles with self-deprecating thoughts however is able to challenge them with reality testing and is overall feeling better about her doses and choices. She plans to go to a [facility] tomorrow feeling good about disposition plan. Patient asks if gabapentin can be moved p.r.n. because she does not use it that often but it does help with anxiety and intermittent pain. Says PTSD is much better with clonidine at bedtime and now no nightmares. Patient asked if she can remain on Adderall extended release saying it works better than Vyvanse. Looking for to discharge Discuss troubles with clonazepam and patient says she tries hard to take it sparingly Diagnostics Vital Signs (24Hr): Vital Signs - 24 hr 07/27/23 20:03 07/28/23 07:50 Temperature 97.5 F 97 F Pulse Rate 77 91 Respiratory Rate 18 16 Blood Pressure 143/77 H 117/64 Pulse Oximetry 97 100 Oxygen Delivery Method Room Air Room Air Labs 07/24/23 07:52 Imaging Radiology Impressions: ITS Impressions Lumbar Spine X-Ray 07/25/23 14:46 IMPRESSION: No fracture or dislocation. Mild facet arthritis of the lower lumbar spine. Sacrum and Coccyx X-Ray 07/25/23 14:46 IMPRESSION: No fracture or dislocation. Mild facet arthritis of the lower lumbar spine. Medications Medications Current Medications Acetaminophen (Acetaminophen 325 Mg Tablet) 650 mg PO Q6H PRN PRN Reason: Headache/Pain Mild Scale (1-3) Last Admin: 07/27/23 12:16 Dose: 650 mg Al Hydroxide/Mg Hydroxide (Magnesium Hydrox/Alum Hydrox 30 Ml Oral.Susp) 30 ml PO Q6H PRN PRN Reason: Heartburn/Nausea Amphetamine/Dextroamphetamine (Dextroamphetamine/Amphetamine Xr 5 Mg Cap.Er.24h) 15 mg PO DAILY SAÚL Last Admin: 07/28/23 08:14 Dose: 15 mg Benzocaine (Throat Lozenge, Medicated Lozenge) 1 lozenge MUCOUS MEM Q2H PRN PRN Reason: Sore Throat Bupropion HCl (Bupropion Hcl Xl 300 Mg Tab.Er.24h) [address] [facility] Last Admin: 07/28/23 08:13 Dose: 300 mg Clonazepam (Clonazepam 1 Mg Tablet) 1 mg PO TID PRN PRN Reason: anxiety Last Admin: 07/27/23 21:24 Dose: 1 mg Clonidine HCl (Clonidine Hcl 0.1 Mg Tablet) 0.1 mg PO BEDTIME PRN; Protocol PRN Reason: Sleep Last Admin: 07/27/23 23:39 Dose: 0.1 mg Fluoxetine HCl (Fluoxetine Hcl 20 Mg Capsule) [address] [facility] Last Admin: 07/28/23 08:18 Dose: 40 mg Gabapentin (Gabapentin 300 Mg Capsule) [address] [facility] Last Admin: 07/28/23 08:13 Dose: 300 mg Hydroxyzine HCl (Hydroxyzine Hcl 25 Mg Tablet) 25 mg PO Q6H PRN PRN Reason: Anxiety/rash Last Admin: 07/26/23 20:47 Dose: 25 mg Lidocaine (Lidocaine 4 % Patch Adh..Patch) [address] [facility]; Protocol Last Admin: 07/27/23 08:06 Dose: Not Given Magnesium Hydroxide (Milk Of Magnesia 30 Ml Oral.Susp) 30 ml PO DAILY PRN PRN Reason: Constipation Last Admin: 07/25/23 09:25 Dose: 30 ml Multi-Ingred Medicated Throat [place] (Throat [place], Medicated 177 Ml Bottle) 1 spray MUCOUS MEM Q2H PRN PRN Reason: Sore Throat Nicotine (Nicotine 21 Mg Patch.Td24) 21 mg TRANSDERMA DAILY PRN PRN Reason: smoking cessation Nicotine Polacrilex (Nicotine Polacrilex 2 Mg Gum) 4 mg BUCCAL Q2H PRN PRN Reason: Nicotine Cravings Last Admin: 07/28/23 09:30 Dose: 4 mg Nicotine Polacrilex (Nicotine Polacrilex Lozenge 4 Mg Lozenge) 4 mg BUCCAL Q2H PRN PRN Reason: Nicotine Cravings Last Admin: 07/28/23 08:18 Dose: 4 mg Olanzapine (Olanzapine 5 Mg Tablet) 5 mg PO TID PRN PRN Reason: agitation Last Admin: 07/27/23 21:27 Dose: 5 mg Tizanidine HCl (Tizanidine Hcl 4 Mg Tablet) 4 mg PO TID PRN PRN Reason: muscle spasm Last Admin: 07/27/23 21:27 Dose: 4 mg Trazodone HCl (Trazodone Hcl 50 Mg Tablet) 50 mg PO BEDTIME MRX1 PRN PRN Reason: Insomnia Last Admin: 07/26/23 23:46 Dose: 50 mg Allergies Allergies Allergy/AdvReac Type Severity Reaction Status Date / Time kj [KJ] Allergy Severe SWELLING Verified 12/11/21 11:19 codeine Allergy Itching Verified 12/11/21 11:19 Assessment & Plan Assessment & Plan (1) Screen for STD (sexually transmitted disease): Status: Acute Code(s): Z11.3 - Encounter for screening for infections with a predominantly sexual mode of transmission Assessment and Plan: Urine test done in the office was negative. STD screening tests including BV panel for trichomonas and GC/CT collected, in addition serology for HIV, RPR, Hep b s Ag, HepC Ab ordered. Discussed with the patient the normal findings on pelvic exam with no evidence of abrasions lacerations on any abnormal lesions. Instructions given the patient to schedule a follow-up appointment for repeat serology screen in 6 months for possible false negatives. Plan Hospital course 07/28Patient reports feeling much better. Depression has abated and no SI. She says she feels much more calm, able to articulate her thoughts and even as taking a writing out her feelings again. Patient says that her thoughts are no longer spinning. Patient still struggles with self-deprecating thoughts however is able to challenge them with reality testing and is overall feeling better about her doses and choices. She plans to go to a [facility] tomorrow feeling good about disposition plan. Patient asks if gabapentin can be moved p.r.n. because she does not use it that often but it does help with anxiety and intermittent pain. Says PTSD is much better with clonidine at bedtime and now no nightmares. Patient asked if she can remain on Adderall extended release saying it works better than Vyvanse. Looking for to discharge -team agrees the patient is not in imminent risk for harm to self or others and appropriate for discharge to the community. Plan: Continue current medication regimen (except make gabapentin p.r.n.) STD/hep labs still pending Plan is for discharge to [facility] Patient educated on: diagnosis, medication risk/benefits, substance abuse, therapeutic strategies and medical condition Informed Consent: understands Reason for continued inpatient stay Substantial Risk for: stable for discharge Time Spent With Patient Time: Total time managing care of this patient today ____ minutes.
[2023-07-28 10:41] LABS: CT PCR NOT DETECTED (Not Detect.); NG PCR NOT DETECTED (Not Detect.)
[2023-07-28] MEDS: TiZANidine HCL 4 MG TABLET PO (16:12)
[2023-07-28] MEDS: clonazePAM 1 MG TABLET PO ×2 (16:12→22:07)
[2023-07-28 18:31] VITALS: BP 119/61; PULSE 123; RESP 18; TEMP 36.3; O2SAT 98
[2023-07-28] MEDS: hydrOXYzine HCL 25 MG TABLET PO (20:33)
[2023-07-28] MEDS: OLANZapine 5 MG TABLET PO (20:33)
[2023-07-28] MEDS: traZODone HCL 50 MG TABLET PO (20:34)
[2023-07-28] MEDS: cloNIDine HCL 0.1 MG TABLET PO (20:34)
[2023-07-28] MEDS: Acetaminophen 325 MG TABLET 650 MG PO (22:07)
[2023-07-29] MEDS: TiZANidine HCL 4 MG TABLET PO (01:07)
[2023-07-29] MEDS: Magnesium Hydrox/Alum Hydrox 30 ML ORAL.SUSP PO (01:08)
[2023-07-29] MEDS: hydrOXYzine HCL 25 MG TABLET PO (03:00)
[2023-07-29 04:47] LABS: Syphilis Screen Nonreactive (Nonreactive)
[2023-07-29 04:56] LABS: HBsAGNum1 0.33 S/CO (0.00-0.99); HIV AB/AG Nonreactive (Nonreactive); HIV Num 1 0.05 S/CO (0.00-0.99); Hepatitis B Surface Antigen Negative (Negative)
[2023-07-29 05:00] LABS: ~HepC Num1 0.09 S/CO (0.00-0.79); ~Hepatitis C Antibody Nonreactive (Nonreactive)
[2023-07-29] MEDS: Nicotine Polacrilex 2 MG GUM 4 MG BUCCAL (06:36)
[2023-07-29 08:26] VITALS: BP 133/87; PULSE 93; RESP 16; TEMP 36.5; O2SAT 98
[2023-07-29] MEDS: FLUoxetine HCl 20 MG CAPSULE 40 MG PO (08:41)
[2023-07-29] MEDS: buPROPion HCl XL 300 MG TAB.ER.24H PO (08:41)
[2023-07-29] MEDS: Nicotine Polacrilex Lozenge 4 MG LOZENGE BUCCAL (08:47)
[2023-07-29] MEDS: Dextroamphetamine/Amphetamine XR 5 MG CAP.ER.24H 15 MG PO (08:57)
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
[2023-07-29 10:20] LABS: BV Int Neg Control Negative (Negative); BV Int Pos Control Positive (Positive)
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
[2023-07-29] MEDS: Gabapentin 300 MG CAPSULE PO (10:57)
[2023-07-29] MEDS: metroNIDAZOLE 500 MG TABLET PO (10:57)
== END 2023-07-29 11:00 | disposition home or self-care (01) | DRG 753 ==
PROVIDERS: Obstetrics & Gynecology; Admitting Provider Psychiatry & Neurology Psychiatry; PCP Internal Medicine; Visit Provider Clinical Nurse Specialist Psychiatric/Mental Health, Adult
DX: F31.9 Bipolar disorder, unspecified (principal); G40.909 Epilepsy, unspecified, not intractable, without status epilepticus; F17.210 Nicotine dependence, cigarettes, uncomplicated; F43.12 Post-traumatic stress disorder, chronic; M62.838 Other muscle spasm; Z71.6 Tobacco abuse counseling; F90.9 Attention-deficit hyperactivity disorder, unspecified type; R21 Rash and other nonspecific skin eruption; Z59.00 Homelessness unspecified; Z79.899 Other long term (current) drug therapy
CPT/HCPCS: 0353U; 36415; 72110; 72220; 80053; 80061; 82607; 82746; 83036; 84443; 84484; 86780; 86803; 87070; 87147; 87340; 87389; 87480; 87510; 87660; J1885

== ENCOUNTER → 2023-07-22 18:44 | Outpatient (BNV) | payer MEDICAID, SELFPAY | PROVIDERS: Admitting Provider Psychiatry & Neurology Psychiatry; PCP Internal Medicine; Visit Provider Physician Assistant | DX: L50.9 Urticaria, unspecified (principal) | CPT/HCPCS: 99221 ==

== ENCOUNTER → 2023-07-22 18:44 | Outpatient (BNV) | payer OTHER, SELFPAY | PROVIDERS: Admitting Provider Psychiatry & Neurology Psychiatry; PCP Internal Medicine; Visit Provider Clinical Nurse Specialist Psychiatric/Mental Health, Adult | DX: F43.11 Post-traumatic stress disorder, acute (principal); F31.9 Bipolar disorder, unspecified; Z11.3 Encounter for screening for infections with a predominantly sexual mode of transmission | CPT/HCPCS: 99231; 99232; 99233 ==

== ENCOUNTER → 2023-07-22 18:44 | Outpatient (BNV) | payer MEDICAID, SELFPAY | PROVIDERS: Admitting Provider Psychiatry & Neurology Psychiatry; PCP Internal Medicine; Visit Provider Obstetrics & Gynecology | DX: Z11.3 Encounter for screening for infections with a predominantly sexual mode of transmission (principal) | CPT/HCPCS: 99222 ==

== ENCOUNTER 2024-08-08 18:26 | Emergency (ER) | payer MEDICAID, SELFPAY ==
--- NOTE | ~2024-08-08 | XR_ITS ---
EXAMINATION: XR SHOULDER, LEFT CLINICAL INFORMATION: Fall. Pain. COMPARISON: None available. TECHNIQUE: AP external rotation, Grashey, scapular Y, and axillary views of the left shoulder. FINDINGS: The bones and soft tissues are normal. No fracture. Glenohumeral and acromioclavicular alignment is anatomic with normal joint space. No abnormal soft tissue calcifications. XR/XR shoulder LT min 2V IMPRESSION: No significant abnormality seen. Electronically signed by: Johnathan Brock MD 08/09/2024 01:43 AM EDT
--- NOTE | ~2024-08-08 | XR_ITS ---
EXAMINATION: XR CERVICAL SPINE CLINICAL INFORMATION: Fall. Pain. COMPARISON: None available. TECHNIQUE: 3 views of the cervical spine were obtained. FINDINGS: There is straightening of the expected cervical spine curvature. There is mild to moderate C5-6 and C6-7 disc degenerative change with loss of disc space, endplate change and osteophyte formation. The bone mineralization is normal. There is no evidence for fracture. The soft tissues are unremarkable. The visualized upper lung jauregui are clear. XR/XR cervical spine 3V IMPRESSION: 1. No evidence for fracture. 2. Mild to moderate degenerative change at C5-6 and C6-7. Electronically signed by: Johnathan Brock MD 08/09/2024 02:56 AM EDT RP
[2024-08-08 18:57] VITALS: BP 119/71; PULSE 88; RESP 18; TEMP 36.5; O2SAT 100; BMI 25.2
[2024-08-08 19:19] LABS: MANUAL DIFF FLAG NO
[2024-08-08 19:21] LABS: Appearance Urine Clear; Color Urine Yellow; Glucose Urine UA Negative (Negative); Leukocyte Esterase Urine Small (1+) (Negative); Nitrite Urine Negative (Negative); PH 5.5 (5.0-9.0); Specific Gravity - Urine 1.025 (1.005-1.025); UMIC TRIGGER UACC YES; Urine Blood Trace (Negative); Urine Ketones 80 mg/dL (Negative); Urine Protein 30 (1+) mg/dL (Neg-Trace)
[2024-08-08 19:22] LABS: Basophils Percent Auto 0.3 % (0-2); Eosinophils Percent Auto 0.3 % (0-4); Hematocrit 41.1 % (37.0-47.0); Hemoglobin 13.7 g/dl (12.0-16.0); Imm Gran Abs Auto 0.02 X10*3/uL (0.00-0.03); Imm Gran Pct Auto 0.3 % (0.0-0.4); Lymphocytes Absolute Auto 2.7 X10*3/uL (1.2-4.9); Lymphocytes Percent Auto 36.6 % (20-40); Mean Corpuscular HGB Conc 33.3 g/dl (31.0-35.0); Mean Corpuscular Hemoglobin 30.7 pg (27.0-33.0); Mean Corpuscular Volume 92.2 fL (80.0-98.0); Mean Platelet Volume 8.9 fL (9.4-12.3); Monocytes Absolute Auto 0.5 X10*3/uL (0.1-1.2); Monocytes Percent Auto 7.2 % (2-11); Neutrophils Absolute Auto 4.1 x10*3/uL (2.0-8.3); Neutrophils Percent Auto 55.3 % (45-73); Platelet Count 296 X10*3/uL (160-400); Red Blood Count 4.46 X10*6/uL (4.20-5.50); Red Cell Distribution Width 13.3 % (11.0-16.0); White Blood Count 7.3 X10*3/uL (4.8-10.8)
[2024-08-08 19:31] LABS: Amphetamine Screen Urine POSITIVE (Not Detect); Barbiturates, Urine Not Detected (Not Detect); Benzodiazepines Screen Urine Not Detected (Not Detect); Buprenorphine Scr Not Detected (Not Detect); Cannabinoid Screen Urine POSITIVE (Not Detect); Cocaine Screen Urine Not Detected (Not Detect); Fentanyl, urine Not Detected (Not Detect); Methadone Screen, Urine Not Detected (Not Detect); Opiate Screen Urine Not Detected (Not Detect); Oxycodone Screen Urine Not Detected (Not Detect); Phencyclidine Screen Urine Not Detected (Not Detect)
[2024-08-08 19:32] LABS: Alanine Aminotransferase 12 U/L (0-31); Albumin Level 5.1 g/dL (3.5-5.0); Alkaline Phosphatase 68 U/L (39-117); Anion Gap 18 (12-20); Aspartate Amino Transferase 13 U/L (5-31); Bilirubin Total 0.4 mg/dL (0.0-1.0); Blood Urea Nitrogen 12 mg/dL (9-16); Calcium 9.7 mg/dL (8.4-10.2); Carbon Dioxide 19 mmol/L (22-29); Chloride 106 mmol/L (96-108); Creatinine Clr Calc Pharmacy 71.2; Estimated Glomerular Filt Rate > 60; Glucose Random 64 mg/dL (60-115); Potassium 3.8 mmol/L (3.3-5.1); Sodium 139 mmol/L (135-145); Total Protein 8.4 g/dL (6.5-8.0)
[2024-08-08 19:35] LABS: UPreg QC Valid YES; Urine Pregnancy NEGATIVE (NEGATIVE)
[2024-08-08 19:54] LABS: Bacteria Urine None Seen (None Seen); Hyaline Casts Urine >20 /LPF (0-2); UACC Culture Trigger YES; WBC Urine 21-50 /HPF (0-5)
--- NOTE | 2024-08-09 00:48 | ED_ITS ---
HPI - General Adult General Chief complaint: General Medical Stated complaint: seizure 08/04, hasn't felt right since Time Seen by Provider: 08/09/24 00:48 Source: patient Mode of arrival: ambulatory Limitations: no limitations History of Present Illness ED Provider: gege AYALA narrative: Patient With history of bipolar disorder PTSD depression and seizure disorder comes here as she been having seizures off and on for last few days patient apparently was discharged from [facility] 1 week ago prior to that patient was at [facility] and some how Topamax was not given at time of discharge in [facility] patient is started on Topamax at this time patient was taking 75 mg twice daily prior to that patient was taking 200 mg twice daily patient claims that 3 days ago patient was sitting in the car and started having the seizure activity was incontinent also she fell once when she had a seizure she was not sure how many days ago and since then having the pain in the left side of the neck and shoulder patient's could not come to the hospital after seizure says that her aunt and dad not giving her medications but today she took 200 mg of Topamax Related Data Previous Rx's ?Medication ?Instructions ?Recorded acetaminophen 325 mg tablet 650 mg (2 x 325 mg) PO Q6H PRN 07/29/23 Headache/Pain Mild Scale (1-3) #0 tabs aluminum-magnesium hydroxide 200 30 ml PO Q6H PRN Heartburn/Nausea 07/29/23 mg-200 mg/5 mL oral suspension #0 mL (MAG-AL) bupropion HCl 300 mg 24 hr tablet, 300 mg PO DAILY 30 days #30 tabs 07/29/23 extended release clonazepam 1 mg tablet 1 mg PO TID PRN anxiety/panic 30 07/29/23 days #90 tabs clonidine HCl 0.1 mg tablet 0.1 mg PO BEDTIME Sleep 30 days 07/29/23 #30 tabs dextroamphetamine-amphetamine ER 15 mg PO DAILY 30 days #30 caps 07/29/23 15 mg 24hr capsule,extend release fluoxetine 40 mg capsule 40 mg PO DAILY 30 days #30 caps 07/29/23 gabapentin 300 mg capsule 300 mg PO TID PRN 07/29/23 anxiety/neuropathic pain 30 days #90 caps hydroxyzine HCl 25 mg tablet 25 mg PO Q6H PRN anxiety 30 days 09/19/23 #60 tabs lidocaine 4 % topical patch 1 patch transdermal DAILY PRN pain 07/29/23 (Lidocaine Pain Relief) 30 days #30 ea magnesium hydroxide 400 mg/5 mL 30 ml PO DAILY PRN Constipation #0 07/29/23 oral suspension (Milk of Magnesia) mL metronidazole 500 mg tablet 500 mg PO BID 7 days #13 tabs 07/29/23 nicotine (polacrilex) 4 mg buccal 4 mg buccal Q2H PRN Nicotine 07/29/23 lozenge Cravings 30 days #108 ea olanzapine 5 mg tablet 5 mg PO DAILY PRN agitation 30 07/29/23 days #30 tabs tizanidine 4 mg tablet 4 mg PO TID PRN muscle spasm 30 07/29/23 days #90 tabs lisdexamfetamine 30 mg capsule 30 mg PO DAILY #30 caps 08/27/23 (Vyvanse) Allergies Allergy/AdvReac Type Severity Reaction Status Date / Time kj [KJ] Allergy Severe SWELLING Verified 08/08/24 18:58 codeine Allergy Itching Verified 08/08/24 18:58 Latex, Natural Rubber Allergy Rash Verified 08/08/24 18:58 Review of Systems 2 Review of Systems: Yes all other systems are reviewed and are negative PMFSH Past Medical History Medical History Polysubstance use disorder Bipolar disorder Alcohol abuse Alcohol abuse Seizure disorder ADHD Severe recurrent major depression PTSD (post-traumatic stress disorder) Migraine IBS (irritable bowel syndrome) Suicidal overdose Clonidine overdose Overdose Alcohol intoxication Depression Surgical History H/O tubal ligation Social History Social History Household Members: None Household Members Other:: Boyfriend Housing: Homeless Do you presently have visiting nurse or other home services: No (Pt expressed wanting to have a visting nurse administer meds) Alcohol intake: never Comment: sleeping Patient Tobacco Use Status: Current everyday Tobacco user Tobacco use type: Smokeless Tobacco Years Smoked: 5-10 years Smoked in Last 30 Days: No e-Cigarette/Vaping Use: Currently Using Second Hand Smoke Exposure: No Use of substances other than those prescribed or required for medical reasons: No Substance Use Type: Marijuana Advance Directives: No Advance Directives Information Provided: Yes Do you have a plan to hurt others: No Plan Patient : No service: No Current occupational status: unemployed Sexual orientation: Straight/Heterosexual Physical Exam ED Vital Signs: Vital Signs - 24 hr 08/08/24 18:57 08/09/24 01:38 Temperature 97.7 F 97.2 F Pulse Rate 88 70 Respiratory Rate 18 18 Blood Pressure 119/71 98/55 L Pulse Oximetry 100 98 Oxygen Delivery Method Room Air Room Air BMI result Body Mass Index 25.2 Appearance: Alert. Oriented X3. No acute distress. Eyes: PERRLA, No Nystagmus ENT: Pharynx normal. Oral Mucosa moist no tongue bite Neck: Normal inspection. Neck supple. Left side tenderness no midline tenderness tenderness diffuse on the left shoulder without any deformity CVS: Normal heart rate and rhythm. Pulses normal. Respiratory: No respiratory distress. Equal air entry bilateral, no wheezing/rales/rhonchi Abdomen: Soft and nontender. Bowel sounds are present, no mass palpable, no CVA tenderness Skin: Skin warm and dry. Normal skin color. Normal skin turgor. Extremities: No lower extremity edema. No calf tenderness Neuro: Oriented X 3. No motor deficit. Medical Decision Making Medical Decision Making [facility] Narrative: Patient with multiple complaints including pain in the left shoulder and neck after seizure episode which happened 3 days ago of the complaining of seeking help from crisis for depression and home situation UA showed WBCs with hyaline cast, no bacteria likely contaminated will check Topamax level as she took her medicine today get crisis evaluation for her depression patient is medically cleared for care team evaluation Lab Data [facility] Lab Attestation statement: I reviewed the patient's lab results. 08/08/24 19:12 08/08/24 19:12 Labs: Lab Results 08/08/24 Range/Units 19:12 WBC 7.3 (4.8-10.8) X10*3/uL RBC 4.46 (4.20-5.50) X10*6/uL Hgb 13.7 (12.0-16.0) g/dl Hct 41.1 (37.0-47.0) % MCV 92.2 (80.0-98.0) fL MCH 30.7 (27.0-33.0) pg MCHC 33.3 (31.0-35.0) g/dl RDW 13.3 (11.0-16.0) % Plt Count 296 (160-400) X10*3/uL MPV 8.9 L (9.4-12.3) fL Immature Gran % (Auto) 0.3 (0.0-0.4) % Neut % (Auto) 55.3 (45-73) % Lymph % (Auto) 36.6 (20-40) % [place] % (Auto) 7.2 (2-11) % Eos % (Auto) 0.3 (0-4) % Baso % (Auto) 0.3 (0-2) % Lymph # (Auto) 2.7 (1.2-4.9) X10*3/uL [place] # (Auto) 0.5 (0.1-1.2) X10*3/uL Eos # (Auto) 0.0 (0.0-0.4) X10*3/uL Baso # (Auto) 0.0 (0.0-0.2) X10*3/uL Abs Immat Gran (auto) 0.02 (0.00-0.03) X10*3/uL Absolute Neuts (auto) 4.1 (2.0-8.3) x10*3/uL Absolute Nucleated RBC 0.000 (0.0-0.012) X10*3/uL Nucleated RBC % (auto) 0.0 (0.0-0.2) /100WBC Sodium 139 (135-145) mmol/L Potassium 3.8 (3.3-5.1) mmol/L Chloride 106 (96-108) mmol/L Carbon Dioxide 19 L (22-29) mmol/L Anion Gap 18 (12-20) BUN 12 (9-16) mg/dL Creatinine 0.85 (0.5-1.4) mg/dL Estim Creat Clear Calc 71.2 Estimated GFR > 60 Random Glucose 64 (60-115) mg/dL Calcium 9.7 D (8.4-10.2) mg/dL Total Bilirubin 0.4 (0.0-1.0) mg/dL AST 13 (5-31) U/L ALT 12 (0-31) U/L Alkaline Phosphatase 68 (39-117) U/L Total Protein 8.4 H (6.5-8.0) g/dL Albumin 5.1 H (3.5-5.0) g/dL Urine Color Yellow Urine Appearance Clear Urine pH 5.5 (5.0-9.0) Ur Specific [place] 1.025 (1.005-1.025) Urine Protein 30 (1+) H (Neg-Trace) mg/dL Urine Glucose (UA) Negative (Negative) mg/dL Urine Ketones 80 (Negative) mg/dL Urine Blood Trace H (Negative) Urine Nitrite Negative (Negative) Ur Leukocyte Esterase Small (1+) H (Negative) Urine RBC 3-5 H (0-2) /HPF Urine WBC 21-50 H (0-5) /HPF Ur Squamous Epith Cells 3-5 (0-2) /HPF Urine Bacteria None Seen (None Seen) Hyaline Casts >20 (0-2) /LPF Urine Test NEGATIVE (NEGATIVE) Urine Opiates Screen Not Detected (Not Detect) Ur Buprenorphine Scrn Not Detected (Not Detect) ng/mL Ur Oxycodone Screen Not Detected (Not Detect) ng/mL Urine Methadone Screen Not Detected (Not Detect) ng/mL Urine Fentanyl Screen Not Detected (Not Detect) Ur Barbiturates Screen Not Detected (Not Detect) Ur Phencyclidine Scrn Not Detected (Not Detect) Ur Amphetamines Screen POSITIVE H (Not Detect) U Benzodiazepines Scrn Not Detected (Not Detect) Urine Cocaine Screen Not Detected (Not Detect) U Marijuana (THC) Screen POSITIVE H (Not Detect) Independent Interpretation I performed an independent interpretation of an: Plain X-Ray Interpretation: Negative left shoulder and cervical spine x-ray Discharge Plan Discharge Clinical Impression: Seizure disorder Severe recurrent major depression Qualifiers: Psychotic features: without psychotic features Qualified Code(s): F33.2 - Major depressive disorder, recurrent severe without psychotic features Patient Disposition: Still a Patient Prescriptions: No Action nicotine (polacrilex) 4 mg Lozenge 4 mg buccal Q2H PRN (Reason: Nicotine Cravings) 30 Days Qty: 108 1RF tizanidine 4 mg Tablet 4 mg PO TID PRN (Reason: muscle spasm) 30 Days Qty: 90 1RF clonidine HCl 0.1 mg Tablet 0.1 mg PO BEDTIME 30 Days Qty: 30 1RF Protocol: Hold for SBP< HOLD for SBP < : 90 bupropion HCl 300 mg Tablet Extended Release 24 Hr 300 mg PO DAILY 30 Days Qty: 30 1RF clonazepam 1 mg Tablet 1 mg PO TID PRN (Reason: anxiety/panic) 30 Days Qty: 90 0RF fluoxetine 40 mg capsule 40 mg PO DAILY 30 Days Qty: 30 1RF gabapentin 300 mg Capsule 300 mg PO TID PRN (Reason: anxiety/neuropathic pain) 30 Days Qty: 90 1RF acetaminophen 325 mg Tablet 650 mg PO Q6H PRN (Reason: Headache/Pain Mild Scale (1-3)) Qty: 0 0RF dextroamphetamine-amphetamine 15 mg capsule,extended release 24hr 15 mg PO DAILY 30 Days Qty: 30 0RF Rx Instructions: Partial Fill upon patient request. hydroxyzine HCl 25 mg Tablet 25 mg PO Q6H PRN (Reason: anxiety) 30 Days Qty: 60 1RF olanzapine 5 mg Tablet 5 mg PO DAILY PRN (Reason: agitation) 30 Days Qty: 30 1RF lidocaine [Lidocaine Pain Relief] 4 % Adhesive Patch,Medicated 1 patch transdermal DAILY PRN (Reason: pain) 30 Days Qty: 30 1RF Protocol: Apply to: Apply to: neck Rx Instructions: apply to painful area magnesium hydroxide [Milk of Magnesia] 400 mg/5 mL Suspension 30 ml PO DAILY PRN (Reason: Constipation) Qty: 0 0RF MAG-AL 200-200 mg/5 mL Suspension 30 ml PO Q6H PRN (Reason: Heartburn/Nausea) Qty: 0 0RF metronidazole 500 mg tablet 500 mg PO BID 7 Days Qty: 13 0RF lisdexamfetamine [Vyvanse] 30 mg capsule 30 mg PO DAILY Qty: 30 0RF Rx Instructions: Partial Fill upon patient request. Print Language: Macedonian
[2024-08-09 01:38] VITALS: BP 98/55; PULSE 70; RESP 18; TEMP 36.2; O2SAT 98
--- NOTE | 2024-08-09 02:31 | PC.NURSE ---
[facility] sent to lab, it is a send out for results.
[2024-08-09 04:00] VITALS: BP 131/68; PULSE 73; RESP 16; TEMP 36.4; O2SAT 99
--- NOTE | 2024-08-09 04:17 | MHC.EDTECH ---
Security called to assist with exchange engineer,patient placed in crisis attire,all belongings placed in the closet before pod shelf/C4,all medications went to pharmacy.
--- NOTE | 2024-08-09 04:28 | MHC.EDTECH ---
Vitals taken,pt asked this tech for anxiety medication,provider/RN made aware
[2024-08-09] MEDS: clonazePAM 1 MG TABLET PO (04:33)
--- NOTE | 2024-08-09 08:37 | PC.NURSE ---
Resumed care of pt at 0700. Pt resting quietly on stretcher, a/ox4, respirations even and unlabored, no increased wob/sob noted, pt states no pain at this time. CARE team at bedside doing assessment with pt. Pt updated on plan of care, call slater within reach, all needs met at this time.
--- NOTE | 2024-08-09 11:18 | MHC.CARE ---
Referral faxed to [facility].
--- NOTE | 2024-08-09 12:57 | PC.NURSE ---
Assumed care of patient 1240, patient is calm and cooperative, laying down on couch in BH 7. [facility] called for nurse to nurse, completed with this RN
[2024-08-09 16:09] VITALS: BP 99/63; PULSE 83; RESP 14; TEMP 36.8; O2SAT 98
[2024-08-18 21:59] LABS: Topiramate 4.1 mcg/mL (see note)
== END 2024-08-09 16:12 | disposition admitted as inpatient to this hospital (09) ==
PROVIDERS: Emergency Provider Internal Medicine; PCP Nurse Practitioner Gerontology
DX: G40.909 Epilepsy, unspecified, not intractable, without status epilepticus (principal); F33.2 Major depressive disorder, recurrent severe without psychotic features; M54.2 Cervicalgia; Z79.899 Other long term (current) drug therapy
CPT/HCPCS: 36415; 72040; 73030; 80053; 80201; 80307; 81001; 81025; 85025; 87086; 99284; S9485

== ENCOUNTER 2024-12-01 21:29 | Emergency (ER) | payer MEDICAID, SELFPAY ==
[2024-12-01 21:32] VITALS: BP 108/69; PULSE 90; RESP 18; TEMP 36.5; O2SAT 100; BMI 23.6
[2024-12-01 21:59] LABS: MANUAL DIFF FLAG NO
[2024-12-01 22:03] LABS: Basophils Percent Auto 0.3 % (0-2); Eosinophils Percent Auto 0.5 % (0-4); Hemoglobin 12.9 g/dl (12.0-16.0); Imm Gran Abs Auto 0.02 X10*3/uL (0.00-0.03); Imm Gran Pct Auto 0.3 % (0.0-0.4); Lymphocytes Absolute Auto 2.4 X10*3/uL (1.2-4.9); Lymphocytes Percent Auto 39.2 % (20-40); Mean Corpuscular HGB Conc 34.9 g/dl (31.0-35.0); Mean Corpuscular Hemoglobin 31.7 pg (27.0-33.0); Mean Corpuscular Volume 90.9 fL (80.0-98.0); Mean Platelet Volume 9.6 fL (9.4-12.3); Monocytes Absolute Auto 0.7 X10*3/uL (0.1-1.2); Monocytes Percent Auto 10.7 % (2-11); Platelet Count 402 X10*3/uL (160-400); Red Blood Count 4.07 X10*6/uL (4.20-5.50); Red Cell Distribution Width 14.1 % (11.0-16.0); White Blood Count 6.2 X10*3/uL (4.8-10.8)
[2024-12-01 22:22] LABS: IDNOW Serial# 6674DD1D; Strep A Nucleic Acid Negative (Negative)
[2024-12-01 22:23] LABS: Alanine Aminotransferase 22 U/L (0-31); Albumin Level 4.2 g/dL (3.5-5.0); Alkaline Phosphatase 67 U/L (39-117); Anion Gap 7 (12-20); Aspartate Amino Transferase 21 U/L (5-31); Bilirubin Total 0.4 mg/dL (0.0-1.0); Blood Urea Nitrogen 7 mg/dL (9-16); Calcium 9.4 mg/dL (8.4-10.2); Carbon Dioxide 23 mmol/L (22-29); Chloride 113 mmol/L (96-108); Creatinine Clr Calc Pharmacy 79.3; Estimated Glomerular Filt Rate > 60; Glucose Fasting 79 mg/dL (60-99); Potassium 3.1 mmol/L (3.3-5.1); Sodium 140 mmol/L (135-145); Total Protein 7.1 g/dL (6.5-8.0)
[2024-12-01 22:43] LABS: Influenza A PCR NEGATIVE (Negative); Influenza B PCR NEGATIVE (Negative); Resp Syncy Virus RNA Qual PCR NEGATIVE (Negative); SARS COV2 PCR INHOUSE NEGATIVE (Negative)
--- NOTE | 2024-12-01 23:41 | ED_ITS ---
HPI - General Adult General Chief complaint: Skin/Abscess/Foreign Body Stated complaint: Face rash/swelling Time Seen by Provider: 12/01/24 23:41 History of Present Illness ED Provider: Ashley AYALA narrative: the patient is a 44-year-old woman who has some skin excoriation near the right chin which she believes is an infection and has been present I believe for about 2 days. The patient is very rambling historian and it was difficult to get very exact details because of her tendency to almost instantaneously make tangential comments about her past medical history. She describes having had a lot of problems with MRSA infections over the last year and having received a lot of treatment from [facility]. As best as I can gather she has had some skin excoriation near the right chin for about 2 days. She also says that she feels like she has a lot of swelling and discomfort on the right side of her neck and face generally. Related Data Previous Rx's ?Medication ?Instructions ?Recorded acetaminophen 325 mg tablet 650 mg (2 x 325 mg) PO Q6H PRN 07/29/23 Headache/Pain Mild Scale (1-3) #0 tabs aluminum-magnesium hydroxide 200 30 ml PO Q6H PRN Heartburn/Nausea 07/29/23 mg-200 mg/5 mL oral suspension #0 mL (MAG-AL) bupropion HCl 300 mg 24 hr tablet, 300 mg PO DAILY 30 days #30 tabs 07/29/23 extended release clonazepam 1 mg tablet 1 mg PO TID PRN anxiety/panic 30 07/29/23 days #90 tabs clonidine HCl 0.1 mg tablet 0.1 mg PO BEDTIME Sleep 30 days 07/29/23 #30 tabs dextroamphetamine-amphetamine ER 15 mg PO DAILY 30 days #30 caps 07/29/23 15 mg 24hr capsule,extend release fluoxetine 40 mg capsule 40 mg PO DAILY 30 days #30 caps 07/29/23 gabapentin 300 mg capsule 300 mg PO TID PRN 07/29/23 anxiety/neuropathic pain 30 days #90 caps hydroxyzine HCl 25 mg tablet 25 mg PO Q6H PRN anxiety 30 days 07/29/23 #60 tabs lidocaine 4 % topical patch 1 patch transdermal DAILY PRN pain 07/29/23 (Lidocaine Pain Relief) 30 days #30 ea magnesium hydroxide 400 mg/5 mL 30 ml PO DAILY PRN Constipation #0 07/29/23 oral suspension (Milk of Magnesia) mL metronidazole 500 mg tablet 500 mg PO BID 7 days #13 tabs 07/29/23 nicotine (polacrilex) 4 mg buccal 4 mg buccal Q2H PRN Nicotine 07/29/23 lozenge Cravings 30 days #108 ea olanzapine 5 mg tablet 5 mg PO DAILY PRN agitation 30 07/29/23 days #30 tabs tizanidine 4 mg tablet 4 mg PO TID PRN muscle spasm 30 07/29/23 days #90 tabs lisdexamfetamine 30 mg capsule 30 mg PO DAILY #30 caps 08/27/23 (Vyvanse) doxycycline monohydrate 100 mg 100 mg PO BID #14 caps 12/02/24 capsule omeprazole 40 mg capsule,delayed 40 mg PO DAILY #30 caps 12/02/24 release ondansetron 4 mg disintegrating 4 mg PO Q6H PRN nausea and 12/02/24 tablet vomiting #10 tabs Allergies Allergy/AdvReac Type Severity Reaction Status Date / Time kj [KJ] Allergy Severe SWELLING Verified 12/01/24 21:35 codeine Allergy Itching Verified 12/01/24 21:35 Latex, Natural Rubber Allergy Rash Verified 12/01/24 21:35 Review of Systems 2 Review of Systems: Yes all other systems are reviewed and are negative PMFSH Past Medical History Medical History Polysubstance use disorder Bipolar disorder Alcohol abuse Alcohol abuse Seizure disorder ADHD Severe recurrent major depression PTSD (post-traumatic stress disorder) Migraine IBS (irritable bowel syndrome) Suicidal overdose Clonidine overdose Overdose Alcohol intoxication Depression Surgical History H/O tubal ligation Social History Social History Household Members: None Household Members Other:: Boyfriend Housing: Homeless Do you presently have visiting nurse or other home services: No (Pt expressed wanting to have a visting nurse administer meds) Alcohol intake: never Comment: sleeping Patient Tobacco Use Status: Current everyday Tobacco user Tobacco use type: Smokeless Tobacco Years Smoked: 5-10 years e-Cigarette/Vaping Use: Currently Using Second Hand Smoke Exposure: No Substance Use Type: Marijuana Advance Directives: No Advance Directives Information Provided: Yes Do you have a plan to hurt others: No Plan service: No Current occupational status: unemployed Sexual orientation: Straight/Heterosexual Physical Exam ED Vital Signs: Vital Signs - 24 hr 12/01/24 21:32 12/02/24 00:58 Temperature 97.7 F 97.7 F Pulse Rate 90 90 Respiratory Rate 18 18 Blood Pressure 108/69 108/69 Pulse Oximetry 100 100 Oxygen Delivery Method Room Air Room Air BMI result Body Mass Index 23.6 Const Other: The patient is a 44-year-old woman who is awake and alert. She has some excoriation to the skin of the right chin but otherwise looks as though she is quite healthy. She does not seem ill or in distress otherwise. HENMT Other: There is a patch of excoriated skin about 3 cm x 2 cm near the right chin. The remainder of the facial exam is quite unremarkable. The face is symmetrical. There is no soft tissue swelling to the right side of the face or the neck. There is no intraoral swelling. She does not seem to have any discomfort with excursion of the jaw. The right external ear appears entirely normal. Eyes Other: Pupils are round equal, conjunctivae are clear, eyelids are normal. Neck Other: There is no swelling to the right side of the patient's neck. The patient is moving her neck easily and appropriately. Resp Effort & Inspection: normal respiratory effort Auscultation: clear to auscultation bilaterally Cardio Rate: regular rate Rhythm: regular rhythm Heart sounds: S1 normal heart sound present and S2 normal heart sound present Skin Other: There is a 3 cm x 2 cm patch of excoriated skin on the right side of the patient's chin. The borders of this area are quite distinct. The skin is otherwise unremarkable. Neuro Other: The patient was awake and alert. She was very rambling and disorganized historian but she did not seem disoriented or confused. Cranial nerves are intact. She moves her extremities normally and appropriately. She does not seem to have a focal neurological deficit. Extrem Other: No peripheral edema Medications Administered Discontinued Medications Generic Name Dose Route Start Last Admin Trade Name Freq PRN Reason Stop Dose Admin Doxycycline Monohydrate 100 mg 12/02/24 00:15 12/02/24 00:55 Doxycycline Monohydrate 100 Mg Capsule PO 12/02/24 00:16 100 mg ONCE ONE Administration Ondansetron HCl 4 mg 12/02/24 00:15 12/02/24 00:55 Ondansetron Odt 4 Mg Tab.Arthur BRYAN 12/02/24 00:16 4 mg ONCE ONE Administration Medical Decision Making Medical Decision Making [facility] Narrative: the patient is a 44-year-old woman who presents because of a skin lesion on her right chin that I believe has been there for about 2 days although the patient is a very nonspecific, Tangential, and rambling historian which made details hard to pin down. patient does not appear acutely ill or toxic in anyway. She describes having had a lot of problems with MRSA infections in the past. I will therefore prescribed doxycycline. I also spoke to her about using mupirocin. She says that she has me pros but she finds it causes too much discomfort for her to want to use. the patient seem to perseverate about the possibility of some kind deeper infections in her face or her neck. Clinically I did not appreciate any concerning findings to suggest any sort of deep space infection. She has a normal white count and differential. She has an undetectable CRP. She has a negative strep test. I do not think additional investigations are indicated. She was advised follow-up with her PCP. Lab Data 12/01/24 21:53 12/01/24 21:53 Labs: Lab Results 12/01/24 Range/Units 21:53 WBC 6.2 (4.8-10.8) X10*3/uL RBC 4.07 L (4.20-5.50) X10*6/uL Hgb 12.9 (12.0-16.0) g/dl Hct 37.0 (37.0-47.0) % MCV 90.9 (80.0-98.0) fL MCH 31.7 (27.0-33.0) pg MCHC 34.9 (31.0-35.0) g/dl RDW 14.1 (11.0-16.0) % Plt Count 402 H D (160-400) X10*3/uL MPV 9.6 (9.4-12.3) fL Immature Gran % (Auto) 0.3 (0.0-0.4) % Neut % (Auto) 49.0 (45-73) % Lymph % (Auto) 39.2 (20-40) % Cataño % (Auto) 10.7 (2-11) % Eos % (Auto) 0.5 (0-4) % Baso % (Auto) 0.3 (0-2) % Lymph # (Auto) 2.4 (1.2-4.9) X10*3/uL Cataño # (Auto) 0.7 (0.1-1.2) X10*3/uL Eos # (Auto) 0.0 (0.0-0.4) X10*3/uL Baso # (Auto) 0.0 (0.0-0.2) X10*3/uL Abs Immat Gran (auto) 0.02 (0.00-0.03) X10*3/uL Absolute Neuts (auto) 3.0 (2.0-8.3) x10*3/uL Absolute Nucleated RBC 0.000 (0.0-0.012) X10*3/uL Nucleated RBC % (auto) 0.0 (0.0-0.2) /100WBC Sodium 140 (135-145) mmol/L Potassium 3.1 L (3.3-5.1) mmol/L Chloride 113 H (96-108) mmol/L Carbon Dioxide 23 (22-29) mmol/L Anion Gap 7 L (12-20) BUN 7 L (9-16) mg/dL Creatinine 0.69 (0.5-1.4) mg/dL Estim Creat Clear Calc 79.3 Estimated GFR > 60 Fasting Glucose 79 (60-99) mg/dL Calcium 9.4 (8.4-10.2) mg/dL Total Bilirubin 0.4 (0.0-1.0) mg/dL AST 21 (5-31) U/L ALT 22 (0-31) U/L Alkaline Phosphatase 67 (39-117) U/L C-Reactive Protein < 0.10 (< or = 0.50) mg/dL Total Protein 7.1 (6.5-8.0) g/dL Albumin 4.2 (3.5-5.0) g/dL Influenza Type A (PCR) NEGATIVE (Negative) Influenza Type B (PCR) NEGATIVE (Negative) RSV RNA Qual (PCR) NEGATIVE (Negative) SARS-CoV-2 RNA (RT-PCR) NEGATIVE (Negative) S. pyogenes GrpA SUDHEER Negative (Negative) Discharge Plan Discharge Clinical Impression: Facial infection Patient Disposition: Home, Self-Care Additional Instructions: Your blood testing today is very reassuring. There is no suggestion of any deep infection. You have been started on a course of doxycycline as an antibiotic for the lesion on your chin. I have also sent a prescription for omeprazole as an acid reducing medication pharmacy. Prescriptions: New doxycycline monohydrate 100 mg capsule 100 mg PO BID Qty: 14 0RF omeprazole 40 mg capsule,delayed release(DR/EC) 40 mg PO DAILY Qty: 30 0RF ondansetron 4 mg tablet,disintegrating 4 mg PO Q6H PRN (Reason: nausea and vomiting) Qty: 10 0RF No Action nicotine (polacrilex) 4 mg Lozenge 4 mg buccal Q2H PRN (Reason: Nicotine Cravings) 30 Days Qty: 108 1RF tizanidine 4 mg Tablet 4 mg PO TID PRN (Reason: muscle spasm) 30 Days Qty: 90 1RF clonidine HCl 0.1 mg Tablet 0.1 mg PO BEDTIME 30 Days Qty: 30 1RF Protocol: Hold for SBP< HOLD for SBP < : 90 bupropion HCl 300 mg Tablet Extended Release 24 Hr 300 mg PO DAILY 30 Days Qty: 30 1RF clonazepam 1 mg Tablet 1 mg PO TID PRN (Reason: anxiety/panic) 30 Days Qty: 90 0RF fluoxetine 40 mg capsule 40 mg PO DAILY 30 Days Qty: 30 1RF gabapentin 300 mg Capsule 300 mg PO TID PRN (Reason: anxiety/neuropathic pain) 30 Days Qty: 90 1RF acetaminophen 325 mg Tablet 650 mg PO Q6H PRN (Reason: Headache/Pain Mild Scale (1-3)) Qty: 0 0RF dextroamphetamine-amphetamine 15 mg capsule,extended release 24hr 15 mg PO DAILY 30 Days Qty: 30 0RF Rx Instructions: Partial Fill upon patient request. hydroxyzine HCl 25 mg Tablet 25 mg PO Q6H PRN (Reason: anxiety) 30 Days Qty: 60 1RF olanzapine 5 mg Tablet 5 mg PO DAILY PRN (Reason: agitation) 30 Days Qty: 30 1RF lidocaine [Lidocaine Pain Relief] 4 % Adhesive Patch,Medicated 1 patch transdermal DAILY PRN (Reason: pain) 30 Days Qty: 30 1RF Protocol: Apply to: Apply to: neck Rx Instructions: apply to painful area magnesium hydroxide [Milk of Magnesia] 400 mg/5 mL Suspension 30 ml PO DAILY PRN (Reason: Constipation) Qty: 0 0RF MAG-AL 200-200 mg/5 mL Suspension 30 ml PO Q6H PRN (Reason: Heartburn/Nausea) Qty: 0 0RF metronidazole 500 mg tablet 500 mg PO BID 7 Days Qty: 13 0RF lisdexamfetamine [Vyvanse] 30 mg capsule 30 mg PO DAILY Qty: 30 0RF Rx Instructions: Partial Fill upon patient request. Referrals: Dana Mcdonald NP [Primary Care Provider] - (facial infection) Interventions: ED Discharge Assessment Last Done: 12/02/24 00:58 Discharge Date/Time: 12/02/24 01:01 Print Language: Gambian
[2024-12-02 00:04] LABS: C Reactive Protein < 0.10 mg/dL (< or = 0.50)
[2024-12-02] MEDS: Ondansetron ODT 4 MG TAB.RAPDIS TRANSLINGU (00:55)
[2024-12-02] MEDS: Doxycycline Monohydrate 100 MG CAPSULE PO (00:55)
[2024-12-02 00:58] VITALS: BP 108/69; PULSE 90; RESP 18; TEMP 36.5; O2SAT 100
== END 2024-12-02 01:01 | disposition home or self-care (01) ==
PROVIDERS: Emergency Provider Emergency Medicine; PCP Nurse Practitioner Gerontology
DX: L02.01 Cutaneous abscess of face (principal); Z03.818 Encounter for observation for suspected exposure to other biological agents ruled out
CPT/HCPCS: 0241U; 80053; 85025; 86140; 87651; 99283

== ENCOUNTER 2024-12-16 16:53 | Inpatient (IN) | payer OTHER, SELFPAY ==
[2024-12-16 05:26] VITALS: BP 116/62; PULSE 87; RESP 16; TEMP 36.9; O2SAT 98
--- NOTE | 2024-12-16 18:34 | PC.NURSE ---
pt refuses flu vaccine or NRT at this time
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
[2024-12-16 18:49] VITALS: BMI 23.0
[2024-12-16 19:36] VITALS: BP 109/66; PULSE 95; RESP 16; TEMP 36.6; O2SAT 100
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
--- NOTE | 2024-12-17 05:22 | PC.NURSE ---
TW assumed care of the patient at 1930 12/16/24. Patient noted to be withdrawn, sleepy. She was able to sign YUE and belongings notification. She said she wanted to make sure her medications were ordered. TW reviewed medications listed from [facility] ED as well as medications patient said she normally takes. Patient insisted that she has been compliant with medications, but since she has been staying with her father he has not allowed her to take her medications. Medications listed as per [facility] ED and patient report. Danelle Pete, superannuation funds manager provider notified. Orders received, patient will remain on 15 minute safety checks. Patient denied SI, HI, AVH, just very tired .
[2024-12-17 08:28] VITALS: BP 92/61; PULSE 80; TEMP 36.4; O2SAT 100
[2024-12-17] MEDS: FLUoxetine HCl 20 MG CAPSULE 60 MG PO (09:05)
[2024-12-17] MEDS: Cholecalciferol (Vitamin D3) 10 MCG TABLET 20 MCG PO (09:05)
[2024-12-17] MEDS: Loratadine 10 MG TABLET PO (09:06)
[2024-12-17] MEDS: clonazePAM 1 MG TABLET PO ×2 (09:09→22:08)
[2024-12-17 09:55] LABS: Alanine Aminotransferase 26 U/L (0-31); Albumin Level 3.9 g/dL (3.5-5.0); Alkaline Phosphatase 70 U/L (39-117); Anion Gap 8 (12-20); Aspartate Amino Transferase 21 U/L (5-31); Bilirubin Total 0.2 mg/dL (0.0-1.0); Blood Urea Nitrogen 10 mg/dL (9-16); Calcium 8.5 mg/dL (8.4-10.2); Carbon Dioxide 19 mmol/L (22-29); Chloride 117 mmol/L (96-108); Cholesterol 127 mg/dL (<200); Creatinine Clr Calc Pharmacy 88.2; Estimated Glomerular Filt Rate > 60; Glucose Random 85 mg/dL (60-115); HDL Cholesterol 34 mg/dL (>40); LDL Cholesterol Calculated 63 mg/dL (<100); Magnesium 2.2 mg/dL (1.6-2.6); Potassium 3.9 mmol/L (3.3-5.1); Sodium 140 mmol/L (135-145); Total Protein 6.8 g/dL (6.5-8.0); Triglycerides 152 mg/dL (<150)
[2024-12-17 10:05] LABS: Estimated Average Glucose 100 mg/dL; Hemoglobin A1c % 5.1 % (<6.0); Total Hemoglobin (HGBA1C) 3319.2524 umol/L
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
[2024-12-17 10:11] LABS: Free T4 (Free Thyroxine) 0.87 ng/dL (0.71-1.85); Thyroid Stimulating Hormone 0.19 uIU/mL (0.32-4.0)
[2024-12-17 10:23] LABS: Folate 2.8 ng/mL (> or = 4.0); Vitamin B12 359 pg/mL (200-900)
[2024-12-17] MEDS: hydrOXYzine HCL 25 MG TABLET PO ×2 (13:01→22:08)
[2024-12-17 20:00] VITALS: BP 108/56; PULSE 65; RESP 98; TEMP 36.6; O2SAT 98
[2024-12-17] MEDS: Topiramate 100 MG TABLET 200 MG PO (23:07)
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
[2024-12-18 08:43] VITALS: BP 98/54; PULSE 75; TEMP 36.7; O2SAT 99
[2024-12-18] MEDS: Fluticasone Propionate Nasal 16 GM SPRAY 1 SPRAY NOSTRIL-B (09:08)
[2024-12-18] MEDS: valACYclovir HCL 1,000 MG TABLET 1000 MG PO (09:08)
[2024-12-18] MEDS: Cholecalciferol (Vitamin D3) 10 MCG TABLET 20 MCG PO (09:08)
[2024-12-18] MEDS: Topiramate 100 MG TABLET 200 MG PO ×2 (09:08→20:33)
[2024-12-18] MEDS: Loratadine 10 MG TABLET PO (09:08)
[2024-12-18 19:35] VITALS: BP 90/51; PULSE 82; RESP 18; TEMP 36.6; O2SAT 99
[2024-12-18] MEDS: clonazePAM 1 MG TABLET PO (20:33)
[2024-12-18] MEDS: hydrOXYzine HCL 25 MG TABLET PO (20:33)
[2024-12-19] MEDS: OLANZapine 5 MG TABLET PO (00:02)
[2024-12-19] MEDS: Fluticasone Propionate Nasal 16 GM SPRAY 1 SPRAY NOSTRIL-B (08:52)
[2024-12-19] MEDS: valACYclovir HCL 1,000 MG TABLET 1000 MG PO (08:52)
[2024-12-19] MEDS: Cholecalciferol (Vitamin D3) 10 MCG TABLET 20 MCG PO (08:52)
[2024-12-19] MEDS: Loratadine 10 MG TABLET PO (08:52)
[2024-12-19] MEDS: Topiramate 100 MG TABLET 200 MG PO ×2 (08:52→20:40)
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
[2024-12-19] MEDS: clonazePAM 1 MG TABLET PO ×2 (16:04→21:00)
[2024-12-19] MEDS: Acetaminophen 325 MG TABLET 650 MG PO (16:04)
[2024-12-19 20:00] VITALS: BP 161/54; PULSE 79; RESP 15; TEMP 36.4; O2SAT 99
[2024-12-19] MEDS: hydrOXYzine HCL 25 MG TABLET PO (20:40)
[2024-12-19] MEDS: Ibuprofen 600 MG TABLET PO (21:17)
[2024-12-20 08:00] VITALS: BP 97/50; PULSE 76; RESP 16; TEMP 36.4; O2SAT 98
[2024-12-20] MEDS: Topiramate 100 MG TABLET 200 MG PO ×2 (08:42→22:06)
[2024-12-20] MEDS: Loratadine 10 MG TABLET PO (08:43)
[2024-12-20] MEDS: Ibuprofen 600 MG TABLET PO ×2 (08:43→14:47)
[2024-12-20] MEDS: Cholecalciferol (Vitamin D3) 10 MCG TABLET 20 MCG PO (08:43)
[2024-12-20] MEDS: valACYclovir HCL 1,000 MG TABLET 1000 MG PO (08:44)
[2024-12-20] MEDS: hydrOXYzine HCL 25 MG TABLET PO ×2 (08:44→22:05)
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
[2024-12-20] MEDS: clonazePAM 1 MG TABLET PO ×2 (12:45→22:06)
[2024-12-20] MEDS: Dextroamphetamine/Amphetamine XR 10 MG CAP.ER.24H 30 MG PO (14:47)
[2024-12-20] MEDS: Nicotine Polacrilex 2 MG GUM 4 MG BUCCAL (15:10)
[2024-12-20] MEDS: Nicotine Polacrilex Lozenge 4 MG LOZENGE BUCCAL ×3 (18:36→23:19)
[2024-12-20 20:00] VITALS: BP 111/61; PULSE 105; TEMP 36.4; O2SAT 100
[2024-12-20] MEDS: OLANZapine 5 MG TABLET PO (22:05)
[2024-12-21] MEDS: Ibuprofen 600 MG TABLET PO ×2 (04:32→16:48)
[2024-12-21] MEDS: Nicotine Polacrilex Lozenge 4 MG LOZENGE BUCCAL ×5 (04:32→21:56)
[2024-12-21] MEDS: hydrOXYzine HCL 25 MG TABLET PO ×2 (05:50→21:05)
--- NOTE | 2024-12-21 06:12 | HE.NUR.EV ---
Status Change: Pt reports rash to nose and chin pt believes to be from eating lemon ice, excoriation and scratches noted to nose, forehead, chin. On assessment skin appears to have been peeled on bridge of nose. No other areas affected, no s/s of allergic reaction, hives, welts, or rash noted. Pt denies scratchy throat, SOB, CP, dizziness, weakness, N/V. Pt reports itching only to selected areas. Immediate Actions Taken: Pt given Hydroxyzine 25 mg PRN, one on one discussion, education on s/s provided, asked HAALT?, offered non-medication related options for itching, provided distraction and breathing techniques. Further Monitoring and Treatment: Continue to monitor for S/S of allergic reaction, itching, swelling, rash, SOB, CP, dizziness, or weakness. Monitor VS.
[2024-12-21 08:16] VITALS: BP 110/60; PULSE 56; TEMP 37; O2SAT 100
[2024-12-21] MEDS: Dextroamphetamine/Amphetamine XR 10 MG CAP.ER.24H 30 MG PO (08:29)
[2024-12-21] MEDS: Loratadine 10 MG TABLET PO (08:29)
[2024-12-21] MEDS: Topiramate 100 MG TABLET 200 MG PO ×2 (08:29→21:21)
[2024-12-21] MEDS: Cholecalciferol (Vitamin D3) 10 MCG TABLET 20 MCG PO (08:29)
[2024-12-21] MEDS: valACYclovir HCL 1,000 MG TABLET 1000 MG PO (08:29)
[2024-12-21] MEDS: Nicotine 21 MG PATCH.TD24 TRANSDERMA (08:29)
[2024-12-21] MEDS: Fluticasone Propionate Nasal 16 GM SPRAY 1 SPRAY NOSTRIL-B (09:00)
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
[2024-12-21] MEDS: OLANZapine 5 MG TABLET PO ×5 (12:44→21:14)
--- NOTE | 2024-12-21 13:18 | PC.NURSE ---
Pt signed a three day notice which will be up Friday12/24/24.
[2024-12-21] MEDS: Butalb/Acetamin/Caff 50/325/40 TABLET 1 TAB PO (18:40)
[2024-12-21] MEDS: clonazePAM 1 MG TABLET PO ×2 (18:41→21:05)
[2024-12-21 20:00] VITALS: BP 125/94; PULSE 119; RESP 16; TEMP 36.9; O2SAT 98
[2024-12-22 08:00] VITALS: BP 103/68; PULSE 114; RESP 16; TEMP 36.8; O2SAT 99
[2024-12-22] MEDS: Cholecalciferol (Vitamin D3) 10 MCG TABLET 20 MCG PO (08:36)
[2024-12-22] MEDS: Loratadine 10 MG TABLET PO (08:37)
[2024-12-22] MEDS: Dextroamphetamine/Amphetamine XR 10 MG CAP.ER.24H 30 MG PO (08:37)
[2024-12-22] MEDS: OLANZapine 5 MG TABLET PO ×3 (08:37→21:01)
[2024-12-22] MEDS: Topiramate 100 MG TABLET 200 MG PO ×2 (08:37→21:01)
[2024-12-22] MEDS: valACYclovir HCL 1,000 MG TABLET 1000 MG PO (08:37)
[2024-12-22] MEDS: Nicotine 21 MG PATCH.TD24 TRANSDERMA (09:03)
[2024-12-22] MEDS: Nicotine Polacrilex Lozenge 4 MG LOZENGE BUCCAL ×5 (09:03→21:01)
[2024-12-22] MEDS: Fluticasone Propionate Nasal 16 GM SPRAY 1 SPRAY NOSTRIL-B (09:03)
[2024-12-22] MEDS: Acetaminophen 325 MG TABLET 650 MG PO ×2 (09:04→18:09)
[2024-12-22] MEDS: clonazePAM 1 MG TABLET PO ×2 (18:08→23:23)
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
[2024-12-22] MEDS: Butalb/Acetamin/Caff 50/325/40 TABLET 1 TAB PO (21:01)
[2024-12-22] MEDS: OLANZapine 10 MG TABLET PO (21:01)
[2024-12-22] MEDS: hydrOXYzine HCL 25 MG TABLET PO (23:23)
[2024-12-23 08:37] VITALS: BP 115/71; PULSE 97; TEMP 36.8; O2SAT 99
[2024-12-23] MEDS: Fluticasone Propionate Nasal 16 GM SPRAY 1 SPRAY NOSTRIL-B (09:37)
[2024-12-23] MEDS: Dextroamphetamine/Amphetamine XR 10 MG CAP.ER.24H 30 MG PO (09:38)
[2024-12-23] MEDS: Nicotine 21 MG PATCH.TD24 TRANSDERMA (09:38)
[2024-12-23] MEDS: Cholecalciferol (Vitamin D3) 10 MCG TABLET 20 MCG PO (09:38)
[2024-12-23] MEDS: valACYclovir HCL 1,000 MG TABLET 1000 MG PO (09:38)
[2024-12-23] MEDS: OLANZapine 5 MG TABLET PO ×2 (09:39→21:41)
[2024-12-23] MEDS: Loratadine 10 MG TABLET PO (09:39)
[2024-12-23] MEDS: Topiramate 100 MG TABLET 200 MG PO ×2 (09:39→21:42)
[2024-12-23] MEDS: Nicotine Polacrilex Lozenge 4 MG LOZENGE BUCCAL ×4 (09:46→20:47)
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
[2024-12-23 14:39] VITALS: BMI 24.7
[2024-12-23 15:50] VITALS: BMI 24.7
[2024-12-23 20:00] VITALS: BP 119/73; PULSE 100; RESP 16; TEMP 36.9; O2SAT 100
[2024-12-23] MEDS: clonazePAM 1 MG TABLET PO (21:41)
[2024-12-23] MEDS: hydrOXYzine HCL 25 MG TABLET PO (21:42)
[2024-12-23] MEDS: OLANZapine 10 MG TABLET PO (21:51)
[2024-12-24] MEDS: OLANZapine 5 MG TABLET PO (00:57)
[2024-12-24] MEDS: Nicotine Polacrilex Lozenge 4 MG LOZENGE BUCCAL ×3 (00:57→11:56)
[2024-12-24] MEDS: clonazePAM 1 MG TABLET PO (00:57)
[2024-12-24] MEDS: Ibuprofen 600 MG TABLET PO (02:33)
[2024-12-24 08:00] VITALS: BP 87/50; PULSE 100; TEMP 36.3; O2SAT 98
[2024-12-24 08:22] VITALS: BP 104/70
[2024-12-24] MEDS: Nicotine 21 MG PATCH.TD24 TRANSDERMA (08:55)
[2024-12-24] MEDS: Fluticasone Propionate Nasal 16 GM SPRAY 1 SPRAY NOSTRIL-B (08:56)
[2024-12-24] MEDS: Dextroamphetamine/Amphetamine XR 10 MG CAP.ER.24H 30 MG PO (08:56)
[2024-12-24] MEDS: Topiramate 100 MG TABLET 200 MG PO (08:57)
[2024-12-24] MEDS: valACYclovir HCL 1,000 MG TABLET 1000 MG PO (08:57)
[2024-12-24] MEDS: Cholecalciferol (Vitamin D3) 10 MCG TABLET 20 MCG PO (08:57)
[2024-12-24] MEDS: Loratadine 10 MG TABLET PO (08:57)
--- NOTE | 2024-12-24 10:37 | PM.PSYDC ---
DS: Providers Provider Date of admission: 12/16/24 16:53 Primary care physician: Unknown Physician Consults: 12/16/24 18:06 Consult to Hospitalist Routine Comment: Consulting Provider: [facility] Hospitalists Reason For Exam: Transfer pt DS: Diagnosis Discharge Diagnosis (1) Psychosis: Status: Acute (2) PTSD (post-traumatic stress disorder): Status: Acute (3) Severe recurrent major depression: Status: Acute (4) Bipolar disorder: Status: Acute DS: Medications Discharge Medications Home Medications: Home Medications ?Medication ?Instructions ?Recorded ?Confirmed Topamax 200 mg PO BID 12/16/24 12/16/24 Valtrex 1,000 mg PO DAILY 12/16/24 12/16/24 dextroamphetamine-amphetamine ER 30 mg PO DAILY 12/16/24 12/16/24 15 mg 24hr capsule,extend release fluoxetine 40 mg capsule 60 mg PO DAILY 12/16/24 12/16/24 Previous Rx's ?Medication ?Instructions ?Recorded acetaminophen 325 mg tablet 650 mg (2 x 325 mg) PO Q6H PRN 07/29/23 Headache/Pain Mild Scale (1-3) #0 tabs bupropion HCl 300 mg 24 hr tablet, 300 mg PO DAILY 30 days #30 tabs 07/29/23 extended release clonazepam 1 mg tablet 1 mg PO TID PRN anxiety/panic 30 07/29/23 days #90 tabs clonidine HCl 0.1 mg tablet 0.1 mg PO BEDTIME Sleep 30 days 07/29/23 #30 tabs gabapentin 300 mg capsule 300 mg PO TID PRN 07/29/23 anxiety/neuropathic pain 30 days #90 caps hydroxyzine HCl 25 mg tablet 25 mg PO Q6H PRN anxiety 30 days 07/29/23 #60 tabs lidocaine 4 % topical patch 1 patch transdermal DAILY PRN pain 07/29/23 (Lidocaine Pain Relief) 30 days #30 ea nicotine (polacrilex) 4 mg buccal 4 mg buccal Q2H PRN Nicotine 07/29/23 lozenge Cravings 30 days #108 ea tizanidine 4 mg tablet 4 mg PO TID PRN muscle spasm 30 07/29/23 days #90 tabs omeprazole 40 mg capsule,delayed 40 mg PO DAILY #30 caps 12/02/24 release ondansetron 4 mg disintegrating 4 mg PO Q6H PRN nausea and 12/02/24 tablet vomiting #10 tabs cholecalciferol (vitamin D3) 10 20 mcg (2 x 10 mcg (400 unit)) PO 12/24/24 mcg (400 unit) tablet (Vitamin D3) DAILY #30 tabs fluticasone propionate 50 1 spray intranasal DAILY #1 inhaler 12/24/24 mcg/actuation nasal spray,suspension loratadine 10 mg tablet 10 mg PO DAILY #0 tabs 12/24/24 olanzapine 5 mg tablet 5 mg PO BID #60 tabs 12/24/24 Data Data Completed and Pending Completed studies during hospitalization [Text1]: 12/17/24 09:18 Sodium 140 Potassium 3.9 D Chloride 117 H Carbon Dioxide 19 L Anion Gap 8 L BUN 10 Creatinine 0.62 Estim Creat Clear Calc 88.2 Estimated GFR > 60 Random Glucose 85 Estimat Average Glucose 100 Hemoglobin A1c % 5.1 Calcium 8.5 D Magnesium 2.2 Total Bilirubin 0.2 AST 21 ALT 26 Alkaline Phosphatase 70 Total Protein 6.8 Albumin 3.9 Triglycerides 152 H Cholesterol 127 LDL Cholesterol, Calc 63 HDL Cholesterol 34 L Vitamin B12 359 Folate 2.8 L TSH 0.19 L Free T4 0.87 DS: Summary Time Spent with Patient Time attestation: Total time managing care of this patient today ____ minutes. Discharge Plan Discharge Anticipated Discharge Date/Time: 12/24/24 07:00 Patient Disposition: Xfer Other Discharge Diagnosis: PTSD Bipolar Disorder Referrals: [facility] ([facility]): INSPECTING SUPERVISOR [Other] - 1 Week (You can call the above number 24/7 with any urgent needs or to request services and may also walk-in at the above address anytime Friday-Friday 8am-8pm or Sat & Sun 9am-5pm. ) [facility] ([facility]): CHD [Other] - 1 Week (You can call the above number 24/7 with any urgent needs or to request services and may also walk-in at the above address anytime Friday-Friday 8am-8pm or Sat & Sun 9am-5pm. ) Recovery Support Navigator (RSN): Pramod Lam ([facility]) [Other] - 1 Week (Call Pramod as needed for support and assistance with obtaining services or resources) Discharge Medications: New olanzapine 5 mg Tablet 5 mg PO BID Qty: 60 0RF fluticasone propionate 50 mcg/actuation [place],Suspension 1 spray intranasal DAILY Qty: 1 0RF loratadine 10 mg Tablet 10 mg PO DAILY Qty: 0 0RF cholecalciferol (vitamin D3) [Vitamin D3] 10 mcg (400 unit) Tablet 20 mcg PO DAILY Qty: 30 0RF Continued nicotine (polacrilex) 4 mg Lozenge 4 mg buccal Q2H PRN (Reason: Nicotine Cravings) 30 Days Qty: 108 1RF tizanidine 4 mg Tablet 4 mg PO TID PRN (Reason: muscle spasm) 30 Days Qty: 90 1RF clonidine HCl 0.1 mg Tablet 0.1 mg PO BEDTIME 30 Days Qty: 30 1RF Protocol: Hold for SBP< HOLD for SBP < : 90 bupropion HCl 300 mg Tablet Extended Release 24 Hr 300 mg PO DAILY 30 Days Qty: 30 1RF clonazepam 1 mg Tablet 1 mg PO TID PRN (Reason: anxiety/panic) 30 Days Qty: 90 0RF gabapentin 300 mg Capsule 300 mg PO TID PRN (Reason: anxiety/neuropathic pain) 30 Days Qty: 90 1RF acetaminophen 325 mg Tablet 650 mg PO Q6H PRN (Reason: Headache/Pain Mild Scale (1-3)) Qty: 0 0RF hydroxyzine HCl 25 mg Tablet 25 mg PO Q6H PRN (Reason: anxiety) 30 Days Qty: 60 1RF lidocaine [Lidocaine Pain Relief] 4 % Adhesive Patch,Medicated 1 patch transdermal DAILY PRN (Reason: pain) 30 Days Qty: 30 1RF Protocol: Apply to: Apply to: neck Rx Instructions: apply to painful area omeprazole 40 mg capsule,delayed release(DR/EC) 40 mg PO DAILY Qty: 30 0RF ondansetron 4 mg tablet,disintegrating 4 mg PO Q6H PRN (Reason: nausea and vomiting) Qty: 10 0RF dextroamphetamine-amphetamine 15 mg capsule,extended release 24hr 30 mg PO DAILY Rx Instructions: Partial Fill upon patient request. fluoxetine 40 mg capsule 60 mg PO DAILY Topamax 200 mg 200 mg PO BID Valtrex 1,000 mg PO DAILY Discontinued olanzapine 5 mg Tablet 5 mg PO DAILY PRN (Reason: agitation) 30 Days Qty: 30 1RF magnesium hydroxide [Milk of Magnesia] 400 mg/5 mL Suspension 30 ml PO DAILY PRN (Reason: Constipation) Qty: 0 0RF MAG-AL 200-200 mg/5 mL Suspension 30 ml PO Q6H PRN (Reason: Heartburn/Nausea) Qty: 0 0RF metronidazole 500 mg tablet 500 mg PO BID 7 Days Qty: 13 0RF lisdexamfetamine [Vyvanse] 30 mg capsule 30 mg PO DAILY Qty: 30 0RF Rx Instructions: Partial Fill upon patient request. doxycycline monohydrate 100 mg capsule 100 mg PO BID Qty: 14 0RF Discharge Orders: Discharge Order (Routine); Ordered 12/24/24 Ordered By: Ena Pete Diet: Advance to usual diet Activity on Discharge: As tolerated Stand Alone Forms: Patient Portal Discharge page, Community Support Print Language: Montenegrin Care Plan Goals: Mood and Behavioral Stabilization Health Concerns: Mood and Behavioral Stabilization Plan of Treatment: Attend scheduled appointments Take medications as directed Assessment: Discharge on a three day notice of intent
== END 2024-12-24 11:55 | disposition other institution (70) | DRG 753 ==
PROVIDERS: Admitting Provider Clinical Nurse Specialist Psychiatric/Mental Health, Adult; Visit Provider Clinical Nurse Specialist Psychiatric/Mental Health, Adult
DX: F31.9 Bipolar disorder, unspecified (principal); R45.851 Suicidal ideations; G81.91 Hemiplegia, unspecified affecting right dominant side; F43.10 Post-traumatic stress disorder, unspecified; F90.9 Attention-deficit hyperactivity disorder, unspecified type; K21.9 Gastro-esophageal reflux disease without esophagitis; S12.9XXS Fracture of neck, unspecified, sequela; V86 Occupant of special all-terrain or other off-road motor vehicle, injured in transport accident; Z79.899 Other long term (current) drug therapy
CPT/HCPCS: 36415; 80053; 80061; 82607; 82746; 83036; 83735; 84439; 84443

== ENCOUNTER → 2024-12-16 16:53 | Outpatient (BNV) | payer OTHER, SELFPAY | PROVIDERS: Admitting Provider Clinical Nurse Specialist Psychiatric/Mental Health, Adult; Visit Provider Psychiatry & Neurology Psychiatry | DX: F31.4 Bipolar disorder, current episode depressed, severe, without psychotic features (principal); F29 Unspecified psychosis not due to a substance or known physiological condition; F43.11 Post-traumatic stress disorder, acute | CPT/HCPCS: 99232 ==

== ENCOUNTER → 2024-12-16 16:53 | Outpatient (BNV) | payer MEDICAID, SELFPAY | PROVIDERS: Admitting Provider Clinical Nurse Specialist Psychiatric/Mental Health, Adult; Visit Provider Student in an Organized Health Care Education/Training Program | DX: Z00.8 Encounter for other general examination (principal) | CPT/HCPCS: 99222 ==

== ENCOUNTER 2024-12-27 16:42 | Inpatient (IN) | payer MEDICAID, OTHER, SELFPAY ==
[2024-12-27 16:49] VITALS: BP 118/78; PULSE 88; O2SAT 97
--- NOTE | 2024-12-27 16:57 | PC.NURSE ---
Call received from [facility] (contact) [place] [phone] who states pt here for clearance to [facility]. Cocaine and carack abuse/opioid/etoh use and telling staff she is SI without plan.
[2024-12-27 17:19] VITALS: BP 110/76; PULSE 93; RESP 16; TEMP 37.3; O2SAT 95; BMI 23.8
[2024-12-27 17:23] VITALS: RESP 16
--- NOTE | 2024-12-27 17:25 | PC.NURSE ---
Pt changed over at this time, calm and cooperative, no apparent distress
--- OUTSIDE RECORDS SUMMARY | 2024-12-27 18:02 | XMS_ITS | Data Portability ---
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 cover with valtrex. May need suppressiv e therapy in the future. She is also going to follow up with wound care. Attention deficit hyperactivity disorder 235159996 F90.9 Misa Ibarra is now prescribin g, I will call and touch base with her. Multiple joint pain 3564 8005 M25.50 Will get labs for systemic cause. [id number] Dana Mcdonald NP Main Office [address] [place] [address],[address] [place] [address] 08/20/2024 10:15:05 08/20/2024 11:15:06 Attention deficit hyperactivity disorder 387279241 F90.9 Misa Ibarra is now prescribin g, I will call and touch base with her. Will arrange for lock box for meds. Traumatic brain injury 588420837 S06.0X0S Discussed Saqib referral for Luisa to become ANIME DESIGNER given Sugey's continued need for help with ADLs and meds. Seizure disorder 4273073 02 G40.909 Will refer to neurology at [facility] that she is living in [facility]. Lesion of skin of face 1277610592 06 L98.9 Will try to arrange for prompt derm eval. [id number] Dana Mcdonald NP Main Office [address],[address] [place] [address] 09/17/2024 10:24:49 09/17/2024 11:55:35 Multiple joint pain 70942992 M25.50 Labs reordered to a lab closer to where she is currently living. Saqib coming tomorrow. Recurrent urinary tract infection N39.0 Will refer to [facility]. Seizure disorder 5612716 02 G40.909 Neuro pending. Methicilli n resistant Staphylococcus aureus infection 209737066 A49.02 ID managing. [id number] Dana Mcdonald NP Main Office [address],[address] [place] [address] 10/22/2024 10:21:13 10/22/2024 10:58:33 Seasonal allergic rhinitis 148819498 J30.2 Refill flonase. Seasonal allergy 3186727 04 J30.2 Seizure disorder 0694979 02 G40.909 Neuro pending. Recurrent urinary tract infection N39.0 Urology scheduled for next month. Herpes simplex 11792138 B00.9 Health Concerns Section Related Observation LastModified by Organization Detai ls LastModified Time None Recorded Concern Status LastModified by Organization Details LastModified Time None Recorded Advance Directives Directive None Recorded Payers Encounter Date Sequence Insurance Name Policy Number Policy Garcia Covered Member ID Garcia Member ID Guarantor Name 06/15/2024 1 [place] [facility] Sugeyvinny Treviño [id number] Sugey Treviño 07/16/2024 1 [place] [facility] Sugey S Kamila [id number] Sugey Treviño 08/20/2024 1 [place] [facility] Sugey S Kamila [id number] Sugey Treviño 09/17/2024 1 [place] [facility] Sugey Cherelle Treviño [id number] Sugey Treviño 10/22/2024 1 [place] [facility] Sugey Treviño [id number] Sugey Treviño Notes Date Note Type Note Provider Name and Address Organization Details Recorded Time 06/15/2024 text/html pt here to pick remover medications Dana Mcdonald NP [address] [facility],[address], [place], [address], [facility] 06/16/2024 09:10:07 07/16/2024 text/html Here in follow u p.1. Misa Ibarra is now prescribing her medication, there is some confusion about filling it, looks like it was filled for 3 days for 6 tablets.2. She states the skin infection has returned. She has open sores to her nose, scalp, breast.3. She has a lot of joint pain and stiffness. She is using tylenol and ibuprofen around the clock. She has a history of bleeding ulcers so NSAIDs are contraindicated.4. 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 Dana Mcdonald NP [address] [facility],[address], [place], [address], [facility] 07/16/2024 15:45:39 08/20/2024 text/html Video visit to ritchie thornton up after hospitalization last month at [facility]. After discharge she went to stay with her father but that environment was not good for Sugey, her family is not supportive. She is now living with a long time, close friend, Luisa Villalta and plans to stay there for the time being. Luisa is willing to become Sugey's ANIME DESIGNER as she has been needing a lot of assistance with ADLs, primarily dressing, bathing, med administration. Sugey was scheduled to see [facility] in June but was hospitalized during the appointment so never made it. She is now living in [place] but reports while she was at her father's post discharge she had another seizure. She is on topiramate but still having seizures. She was supposed to start a PHP after discharge but her transportation was unavailable and therefore never started. She is not interested in this right now. She is still struggling with the open ulcerations of her skin to her face and trunk. She has been on antibiotics and antivirals without any improvement. Needs derm. She has a lot of pain when this rash flares and had used low dose oxycodone in the past with good effect. She reports Misa Ibarra is uncomfortable with her adderall dosing. She tells me Misa wants me to prescribe it. She has a follow up with her on 09/14 but would like us to communicate to figure out the prescriber issue. She requests a lockbox script for meds, the pharmacy told her to have us write a script and send it to them. Dana Mcdonald NP [address] [facility], [place], [address], [place] - [facility] 09/02/2024 08:01:49 09/17/2024 text/html Video visit to ritchie thornton up:1. Saw ID and they started her on bactroban to the inside of the nose and doxycyline for each flare up. They want to follow up in 3 months. She states she has done the bactroban to the nose for years. He also prescribed chlorhexidine but insurance would not cover that. Wound care recommended a topical doxycyline but she did not prescribe it.2. She is having bilateral ankle swelling, fluid build up in her neck and her eyes. I ordered labs in relation to this but they have not been done yet. She is now living closer to the [facility] so may need the orders sent to another lab.3. She would like to see urology for recurrent UTIs, she would like to go to [place].4. Saqib is coming today. Dana Mcdonald NP 1 [facility] [address], [place], [address], [facility] - [facility] 09/17/2024 11:25:50 10/22/2024 text/html Routine follow u p. She tells me she has not seen her skin this clear in a very long time, she is very pleased.I got a message from her wound care provider about nummular eczema. She needs a refill on claritin at a higher dose, 3 tablets per day.She needs a flonase refill.Her urology appointment is 11/16/24.Her neuro appointment is also in November but she was not sure of the exact date. Dana Mcdonald NP 1 [facility], [place], [address], [place] [facility] 10/22/2024 11:14:54 OBGyn Episode No OBEpisode recorded.
--- OUTSIDE RECORDS SUMMARY | 2024-12-27 18:02 | XMS_ITS | Continuity of Care Document ---
Author Organization [facility] Address [address] [place] [address]- Care Team Providers Care Offset Platemaker Name Role Phone Mateusz BURROUGHS, Ariana A Primary Care Physician Encounter [facility] Date(s): 09/06/24 - 12/24/24 [facility] [address] [place] [id number] Attending Physician: Se Rahman MD Admitting Physician: Se Rahman MD Referring Physician: Ariana Child MD Encounter Type: Pre-OutPatient One Time Allergies, Adverse Reactions, Alerts Substance Criticality Severity Reaction Reaction Severity Status codeine 1 Unable to assess criticality Persistent Mild Hives Active morphine blisters on stomach blisters on chest Active Macrobid N&V - Nausea and vomiting Active Other Food Allergy 2 Pedro Active 1reaction- hives,itching, n/v 2mangos Immunizations Given and Recorded Vaccine Date Status Refusal Reason SARS-CoV-2 (COVID-19) mRNA BNT-162b2 vac 03/31/21 Recorded SARS-CoV-2 (COVID-19) mRNA BNT-162b2 vac 03/10/21 Recorded influenza virus vaccine, inactivated 11/08/18 Give n influenza virus vaccine, inactivated 1, 2 11/01/06 Given tetanus/diphtheria/pertussis, acel(Tdap) 08/20/18 Recorded Pneumococcal Vaccine (oldterm) 3, 4 11/01/06 Given 1Result Comment: lot & exp [id number] 11/02/06 2Admin Note: Administered 3Result Comment: lot & exp [id number] 4Admin Note: Administered Medications acetaminophen 500 mg oral tablet 2 tablet = 1,000 mg, By Mouth, Every 6 hours Start Date: 06/22/24 Status: Ordered Repeat number: 1 acyclovir 400 mg oral tablet 1 tablet = 400 mg, By Mouth, 2 times a day, PRN as needed Start Date: 06/22/24 Status: Ordered Repeat number: 1 Adderall XR 30 mg oral capsule, extended release 1 capsule = 30 mg, By Mouth, Daily in AM Start Date: 06/22/24 Status: Ordered Repeat number: 1 chlorhexidine 4% topical liquid See Instructions, 1 application daily in the shower for 5 days every month for 6 months., # 237 mL,0 Refills, Soft Stop, 09/06/24 11:31:00 AM EDT, Liquid, [id number], Partial fill upon patient request if the prescription is for a schedule II opioid drug., 1 application daily in the shower for 5 days every month for 6 months., 158, cm, 09/06/24 10:56:00 EDT, Height, 67, kg, 07/24/24 8:32:00 EDT, Dry Weight Start Date: 09/06/24 Status: Ordered Quantity: 237.0 Unit: mL Repeat number: 1 FLUoxetine 60 mg oral tablet = 60 mg, By Mouth, Daily, # 30 tablet, 0 Refills, Maintenance, 02/17/24 12:02:00 PM EDT, Tablet, [id number], Partial fill upon patient request if the prescription is for a schedule II opioid drug., 158, cm, 02/17/24 9:44:00 EDT, Height, 80.6, kg, 02/07/24 11:18:00 EDT, Dry Weight Start Date: 02/17/24 Status: Ordered Quantity: 30.0 Unit: tablet Repeat number: 1 fluticasone 50 mcg/inh nasal spray INSTILL 1 SPRAY INTO EACH NOSTRIL EVERY DAY Start Date: 06/22/24 Status: Ordered Repeat number: 1 Hibiclens 4% soap APPLY TOPICALLY TO AFFECTED AREAS IN SHOWER ONCE DAILY Start Date: 06/22/24 Status: Ordered Repeat number: 1 KlonoPIN 2 mg oral tablet 1 tablet = 2 mg, By Mouth, 2 times a day, 0 Refills, Maintenance, 09/06/24 11:00:00 AM EDT, Tablet,Partial fill upon patient request if the prescription is for a schedule II opioid drug. Start Date: 09/06/24 Status: Ordered Repeat number: 1 loratadine 10 mg oral tablet 10 mg, 1, tablet, By Mouth, Daily Start Date: 06/22/24 Status: Ordered Repeat number: 1 LORazepam 1 mg oral tablet 1 tablet = 1 mg, By Mouth, 3 times a day, PRN as needed Start Date: 06/22/24 Status: Ordered Repeat number: 1 ondansetron 4 mg oral tablet, disintegrating place 1 tablet under the tongue every 8 hours if needed for nausea Start Date: 06/22/24 Status: Ordered Repeat number: 1 pantoprazole 40 mg oral delayed release tablet 1 tablet = 40 mg, By Mouth, Daily, 0 Refills, Maintenance, 06/30/23 3:57:00 PM EDT Start Date: 06/30/23 Status: Ordered Repeat number: 1 SUMAtriptan 100 mg oral tablet 1 tablet = 100 mg, By Mouth, Daily, PRN as needed for migraine headache Start Date: 06/22/24 Status: Ordered Repeat number: 1 topiramate 200 mg oral tablet 1 tablet = 200 mg, By Mouth, 2 times a day Start Date: 06/22/24 Status: Ordered Repeat number: 1 VITAMIN D3 25 MCG (1,000 UNIT) VITAMIN D3 25 MCG (1,000 UNIT), take 1 capsule by mouth once daily Start Date: 06/22/24 Status: Ordered Repeat number: 1 Problem List Condition Confirmation Course Effective Dates Status H ealth Status Informant ADHD Confirmed Active Cocaine use Confirmed Active COVID-19 1 Confirmed 07/16/22 Active Depressive disorder Confirmed Active Depression Confirmed Active History of depression Confirmed Active Intervertebral disc prolapse 2 Confirmed Active IBS (irritable bowel syndrome) Confirmed Active Migraine Confirmed Active Advanced maternal age in multigravida Confirmed Active Medication overdose Confirmed Active Petit mal status Confirmed Active Frequent UTI Confirmed Active 1Problem added by Discern Expert 2in her neck summer 2019 Social History Social History Type Response Smoking Status Never (less than 100 in lifetime) entered on: 03/20/22 Sex Sex Representation Female (finding) Patient Care team information Care Team Personnel Name: Rema Landers RN Position: [facility] RN Member Role: Primary Care Nurse Name: Rhea Landaverde RN Position: S RN Member Role: Primary Care Nurse Name: Charleen Penny RN Position: [facility] RN Member Role: Primary Care Nurse Name: Barbie Euceda RN Position: [facility] RN Member Role: Primary Care Nurse Name: Sandi Grajeda RN Position: [facility] RN Member Role: Primary Care Nurse Name: Sandi Rooney RN Position: [facility] RN Member Role: Primary Care Nurse Name: Meron Alexander RN Position: [facility] SN RN Member Role: Primary Care Nurse Name: Thu Mederos RN Position: [facility] RN Member Role: Primary Care Nurse Name: Tolu Spence RN Position: [facility] RN Member Role: Primary Care Nurse Name: Hilda Bustillos RN Position: [facility] RN Member Role: Primary Care Nurse Name: Keesha Vallejo LPN Position: [facility] RN Member Role: Primary Care Nurse Name: Randa Dutta RN Position: [facility] RN Member Role: Primary Care Nurse Name: Aracelis Garcia RN Position: [facility] ED RN W/OE and Tasks Member Role: Primary Care Nurse Name: Ken Freire RN Position: [facility] RN Member Role: Primary Care Nurse Name: Meron Rodriguez RN Position: [facility] ED RN W/OE and Tasks Member Role: Primary Care Nurse Name: Radha Bello RN Position: [facility] RN Member Role: Primary Care Nurse Name: Kelly Garsia RN Position: [facility] RN Member Role: Primary Care Nurse Name: Flaca Leach RN Position: [facility] RN Member Role: Primary Care Nurse Name: Skylar Alba RN Position: [facility] RN Member Role: Primary Care Nurse Name: Ariana Child MD Position: Reference Physician Member Role: PCP Address: [address] [place] [address]- Telecom: Name: Fawad Alanis RN Position: S RN Member Role: Primary Care Nurse Name: Isi Babb RN Position: S RN Member Role: Primary Care Nurse Care Team Related Persons Name: KAYE POWERS Name: JONAS CONNER Name: ANG CONNER Name: EZEQUIEL CONNER Name: WAYNE STOREY Name: ROHINI PEREZ Name: ANNABEL PEREZ Name: DONALD CROSS Name: AZIZA FAY Name: REBECA SEGAL Name: HAMMAD DOUGLASS Name: BETHANY ROBERSON Insurance Providers Guarantor name: CORTEZ VASQUES Health Plan Information #: 1 Payer: [employer] Member Number: [id number] Policy Number: NA Group Number: NA Health Plan Information #: 2 Payer: [employer] Member Number: [id number] Policy Number: NA Group Number: NA
--- OUTSIDE RECORDS SUMMARY | 2024-12-27 18:02 | XMS_ITS | Continuity of Care Document ---
Author Organization [facility] Address [facility] [place] [address]- Care Team Providers Care Construction Job Cost Estimator Name Role Phone Mateusz BURROUGHS, Ariana A Primary Care Physician Encounter [facility] [place] Date(s): 11/24/24 - 12/24/24 [facility] [address] [place] [id number] Attending Physician: Wong, Kaleb Admitting Physician: Admtr, Kaleb Referring Physician: Admtr, Ar8 Encounter Type: Triage Allergies, Adverse Reactions, Alerts Substance Criticality Severity Reaction Reaction Severity Status codeine 1 Unable to assess criticality Persistent Mild Hives Active morphine blisters on stomach blisters on chest Active Macrobid N&V - Nausea and vomiting Active Other Food Allergy 2 [place] Active 1reaction- hives,itching, n/v 2mangos Immunizations Given and Recorded Vaccine Date Status Refusal Reason SARS-CoV-2 (COVID-19) mRNA BNT-162b2 vac 03/31/21 Recorded SARS-CoV-2 (COVID-19) mRNA BNT-162b2 vac 03/10/21 Recorded influenza virus vaccine, inactivated 12/30/18 Give n influenza virus vaccine, inactivated 1, 2 11/01/06 Given tetanus/diphtheria/pertussis, acel(Tdap) 08/20/18 Recorded Pneumococcal Vaccine (oldterm) 3, 4 11/01/06 Given 1Result Comment: lot & exp [id number] 11/02/06 2Admin Note: Administered 3Result Comment: lot & exp [id number] 4Admin Note: Administered Medications acetaminophen 500 mg [...] Soft Stop, 09/06/24 11:31:00 AM EDT, Liquid, [facility], Partial fill upon patient [...] Maintenance, 02/17/24 12:02:00 PM EDT, Tablet, [facility][id number], Partial fill upon patient request if the [...] Team Personnel Name: Rema Landers RN Position: [facility] RN Member Role: Primary Care Nurse Name: Rhea Landaverde RN Position: S RN Member Role: Primary Care Nurse Name: Charleen Penny RN Position: [facility] RN Member Role: Primary Care Nurse Name: Barbie Euceda RN Position: [facility] RN Member Role: Primary Care Nurse Name: Sandi Grajeda RN Position: [facility] RN Member Role: Primary Care Nurse Name: Sandi Rooney RN Position: [facility] RN Member Role: Primary Care Nurse Name: Meron Alexander RN Position: [facility] SN RN Member Role: Primary Care Nurse Name: Thu Mederos RN Position: [facility] RN Member Role: Primary Care Nurse Name: Tolu Spence RN Position: [facility] RN Member Role: Primary Care Nurse Name: Hilda Bustillos RN Position: [facility] RN Member Role: Primary Care Nurse Name: Keesha Valeljo LPN Position: [facility] RN Member Role: Primary Care Nurse Name: Randa Dutta RN Position: [facility] RN Member Role: Primary Care Nurse Name: Aracelis Garcia RN Position: [facility] ED RN W/OE and Tasks Member Role: Primary Care Nurse Name: Ken Freire RN Position: [facility] RN Member Role: Primary Care Nurse Name: Meron Rodirguez RN Position: [facility] ED RN W/OE and Tasks Member Role: Primary Care Nurse Name: Radha Bello RN Position: [facility] RN Member Role: Primary Care Nurse Name: Kelly Garsia RN Position: [facility] RN Member Role: Primary Care Nurse Name: Flaca Leach RN Position: [facility] RN Member Role: Primary Care Nurse Name: Skylar Alba RN Position: [facility] RN Member Role: Primary Care Nurse Name: Ariana Child MD Position: Reference Physician Member Role: PCP Address: [address] [place] [id number] Telecom: Name: Fawad Alanis RN Position: S RN Member Role: Primary Care Nurse Name: Isi Babb RN Position: S RN Member Role: Primary Care Nurse Care Team Related Persons Name: KAYE POWERS Name: JONAS CONNER Name: ANG CONNER Name: EZEQUIEL CONNER Name: WAYNE STOERY Name: ROHINI PEREZ Name: ANNABEL PEREZ Name: DONALD CROSS Name: AZIZA FAY Name: REBECA SEGAL Name: HAMMAD DOUGLASS Name: BETHANY ROBERSON Insurance Providers Guarantor name: [facility] Information #: 1 Payer: [facility] Member Number: NA Policy Number: NA Group Number: NA
--- NOTE | 2024-12-27 18:17 | ED_ITS ---
HPI - General Adult General Chief complaint: Psychiatric Symptoms Stated complaint: substance abuse treatment Time Seen by Provider: 12/27/24 17:21 Source: patient, RN notes reviewed and old records reviewed Mode of arrival: EMS Limitations: no limitations History of Present Illness ED Provider: Shankar AYALA narrative: 44-year-old female with a past medical history significant for major depressive disorder, psychosis, PTSD, bipolar disorder, migraine history presents for evaluation of depression with suicidal ideation. The patient was admitted here on 12/16/2024 for bipolar disorder and discharged 3 days ago. She reports that she was not been able to be compliant with the medications because ?[facility] has them and my dad has them locked up. She states that she has smoked with the medications that she was able to take The patient reports that she was depressed and having suicidal ideation because her dog was given to a cousin of hers since she was homeless The patient reports that she has a history of overdose on pills She states that she has a plan for SI but does not go into detail about her plan today She complains of facial pain and has a rash that has been worked up by Dermatology as well as Infectious Disease. She states that she has been treated for impetigo, eczema and MRSA in the past but her rash remains. She has no fevers or chills. No other complaints or concerns at this time Related Data Home Medications ?Medication ?Instructions ?Recorded ?Confirmed Topamax 200 mg PO BID 12/16/24 12/16/24 Valtrex 1,000 mg PO DAILY 12/16/24 12/16/24 dextroamphetamine-amphetamine ER 30 mg PO DAILY 12/16/24 12/16/24 15 mg 24hr capsule,extend release fluoxetine 40 mg capsule 60 mg PO DAILY 12/16/24 12/16/24 Previous Rx's ?Medication ?Instructions ?Recorded acetaminophen 325 mg tablet 650 mg (2 x 325 mg) PO Q6H PRN 07/29/23 Headache/Pain Mild Scale (1-3) #0 tabs bupropion HCl 300 mg 24 hr tablet, 300 mg PO DAILY 30 days #30 tabs 07/29/23 extended release clonazepam 1 mg tablet 1 mg PO TID PRN anxiety/panic 30 07/29/23 days #90 tabs clonidine HCl 0.1 mg tablet 0.1 mg PO BEDTIME Sleep 30 days 07/29/23 #30 tabs gabapentin 300 mg capsule 300 mg PO TID PRN 07/29/23 anxiety/neuropathic pain 30 days #90 caps hydroxyzine HCl 25 mg tablet 25 mg PO Q6H PRN anxiety 30 days 07/29/23 #60 tabs lidocaine 4 % topical patch 1 patch transdermal DAILY PRN pain 07/29/23 (Lidocaine Pain Relief) 30 days #30 ea nicotine (polacrilex) 4 mg buccal 4 mg buccal Q2H PRN Nicotine 07/29/23 lozenge Cravings 30 days #108 ea tizanidine 4 mg tablet 4 mg PO TID PRN muscle spasm 30 07/29/23 days #90 tabs omeprazole 40 mg capsule,delayed 40 mg PO DAILY #30 caps 12/02/24 release ondansetron 4 mg disintegrating 4 mg PO Q6H PRN nausea and 12/02/24 tablet vomiting #10 tabs cholecalciferol (vitamin D3) 10 20 mcg (2 x 10 mcg (400 unit)) PO 12/24/24 mcg (400 unit) tablet (Vitamin D3) DAILY #30 tabs fluticasone propionate 50 1 spray intranasal DAILY #1 inhaler 12/24/24 mcg/actuation nasal spray,suspension loratadine 10 mg tablet 10 mg PO DAILY #0 tabs 12/24/24 olanzapine 5 mg tablet 5 mg PO BID #60 tabs 12/24/24 Allergies Allergy/AdvReac Type Severity Reaction Status Date / Time kj [KJ] Allergy Severe SWELLING Verified 12/27/24 17:23 codeine Allergy Itching Verified 12/27/24 17:23 Latex, Natural Rubber Allergy Rash Verified 12/27/24 17:23 Review of Systems 2 Constitutional: Constitutional: Denies body ache(s), Denies chills, Denies fever(s) and Denies headache(s) ENT: Denies headache(s) Cardiovascular: Cardiovascular: Denies dyspnea Respiratory: Respiratory: Denies cough and Denies dyspnea Gastrointestinal: Gastrointestinal: Denies abdominal pain Integumentary/Breasts: Skin/Breast: Reports rash, Reports sores and Reports wounds Neurologic: Denies headache(s) [facility] Past Medical History Medical History Polysubstance use disorder Bipolar disorder Alcohol abuse Alcohol abuse Seizure disorder ADHD Severe recurrent major depression PTSD (post-traumatic stress disorder) Migraine IBS (irritable bowel syndrome) Suicidal overdose Clonidine overdose Overdose Alcohol intoxication Depression Surgical History H/O tubal ligation Social History Social History Household Members: Family Household Members Other:: father Housing: Homeless Do you presently have visiting nurse or other home services: No Alcohol intake: current Alcohol intake frequency: 3 or more drinks per day Alcohol type: hard liquor Comment: sleeping Patient Tobacco Use Status: Former Tobacco user Tobacco use type: Smokeless Tobacco Years Smoked: 5-10 years Smoked in Last 30 Days: Yes e-Cigarette/Vaping Use: Currently Using Second Hand Smoke Exposure: Yes Use of substances other than those prescribed or required for medical reasons: No Substance Use Type: Amphetamines and Marijuana Advance Directives: No Advance Directives Information Provided: No Patient : No service: No Current occupational status: unemployed Sexual orientation: Straight/Heterosexual Physical Exam ED Vital Signs: Vital Signs - 24 hr 12/27/24 17:19 12/27/24 17:23 12/27/24 23:35 Temperature 99.2 F 99.2 F Pulse Rate 93 93 Respiratory Rate 16 16 16 Blood Pressure 110/76 110/76 Pulse Oximetry 95 Oxygen Delivery Method Room Air 12/28/24 06:14 12/28/24 06:23 Temperature 98.0 F 98.0 F Pulse Rate 65 65 Respiratory Rate 16 16 Blood Pressure 97/62 97/62 Pulse Oximetry 99 Oxygen Delivery Method Room Air BMI result Body Mass Index 23.8 Const General: healthy appearing, comfortable, no acute distress, alert and awake Nutritional Appearance: well nourished Orientation/consciousness: patient oriented x3 HENMT Head: Yes normocephalic and Yes atraumatic Eyes Eyelids: Yes eyelids normal Conjunctivae: conjunctivae normal Sclerae: sclerae normal Corneas: corneas normal Pupils: Equal, round and reactive pupils present EOM: EOMs intact bilaterally Neck Neck: Yes full ROM Resp Effort & Inspection: normal respiratory effort, able to speak in complete sentences and not labored Skin Other: Patient has a blotchy erythematous rash to her chin and right side of her cheek. No significant edema, no deep wounds or tunneling wounds. There is no drainage from the wounds. She has similar lesions to her right hand/wrist General skin exam: elasticity normal Neuro General: patient oriented x3 Cranial nerves: Yes Equal, round and reactive pupils present and Yes Bilaterally intact EOM present Cognition (Neuro): normal cognition Extrem Other: Moving all extremities well without any obvious deformities Course Reevaluation(s) Reevaluation #1: Received a call from the lab, the patient had a critical glucose of 49. I went to re-evaluate the patient, she was sleeping but awakens to verbal stimuli. We informed her that her glucose was low. She reports that she ate an entire 18 [place] before coming to the hospital. She was not interested in eating or drinking anything else but agreed to drink some apple juice. We will recheck her sugar in 15 minutes. The patient was awake, alert and oriented and did not have any symptoms of hypoglycemia. She is not a known diabetic. We will continue to follow up with a glucose Time: 19:17 Reevaluation #2: 12/28/2024 at 08:11 hours,Dr. Negro Edmondson's note: Start physician observation 44-year-old female sent in from [facility] for depression and alcohol withdrawal. Patient was denied SI/HI but did complain of anxiety. Patient has been evaluated by the care team and is in in-patient bed search. Patient was been in the emergency department for 15 hours.Patient will remain in the emergency department [facility] until disposition can be determined or until patient's symptoms improve over time. Time: 08:11 Medications Administered Discontinued Medications Generic Name Dose Route Start Last Admin Trade Name Freq PRN Reason Stop Dose Admin Acetaminophen 975 mg 12/27/24 23:39 12/27/24 23:57 Acetaminophen 325 Mg Tablet PO 12/27/24 23:40 975 mg ONCE ONE Administration Ibuprofen 600 mg 12/27/24 18:04 12/27/24 18:50 Ibuprofen 600 Mg Tablet PO 12/27/24 18:05 600 mg ONCE ONE Administration Lorazepam 1 mg 12/27/24 18:17 12/27/24 18:50 Lorazepam 1 Mg Tablet PO 12/27/24 18:18 1 mg ONCE ONE Administration Medical Decision Making Medical Decision Making MDM Narrative: 44-year-old female presents for evaluation depression with suicidal ideation. She also complains of a rash to her face has been present for years in his previously been worked up. She reports that she has been she had doxycycline and mupirocin recently without any improvement. Her rash does appear consistent with impetigo, but she is not septic, not consistent with cellulitis. She was given a course of doxycycline at the end of October, it is unclear if she completed this course or not. We will check basic labs, urinalysis but the patient's vital signs are stable. If medically cleared the patient will be referred to the care team. The patient reports that she feels like she was withdrawing from alcohol. She states her last drink was yesterday to me but reports nursing staff that it was 2 days ago. Her vital signs are stable, she was not hypotensive, tachycardic, diaphoretic, restless or nauseous. Feels not have any objective findings of significant alcohol withdrawal. Differential Diagnosis Differential Diagnoses: The differential diagnosis associated with the presentation includes Depression with suicidal ideation Bipolar disorder Mood disorder Impetigo Eczema Lab Data 12/27/24 18:32 12/27/24 18:32 Labs: Lab Results 12/27/24 12/27/24 12/27/24 Range/Units 18:32 19:32 21:07 WBC 6.1 (4.8-10.8) X10*3/uL RBC 3.75 L (4.20-5.50) X10*6/uL Hgb 11.8 L (12.0-16.0) g/dl Hct 35.5 L (37.0-47.0) % MCV 94.7 (80.0-98.0) fL MCH 31.5 (27.0-33.0) pg MCHC 33.2 (31.0-35.0) g/dl RDW 14.5 (11.0-16.0) % Plt Count 323 (160-400) X10*3/uL MPV 9.1 L (9.4-12.3) fL Immature Gran % (Auto) 0.2 (0.0-0.4) % Neut % (Auto) 44.1 L (45-73) % Lymph % (Auto) 44.8 H (20-40) % [place] % (Auto) 9.7 (2-11) % Eos % (Auto) 1.0 (0-4) % Baso % (Auto) 0.2 (0-2) % Lymph # (Auto) 2.7 (1.2-4.9) X10*3/uL [place] # (Auto) 0.6 (0.1-1.2) X10*3/uL Eos # (Auto) 0.1 (0.0-0.4) X10*3/uL Baso # (Auto) 0.0 (0.0-0.2) X10*3/uL Abs Immat Gran (auto) 0.01 (0.00-0.03) X10*3/uL Absolute Neuts (auto) 2.7 (2.0-8.3) x10*3/uL Absolute Nucleated RBC 0.000 (0.0-0.012) X10*3/uL Nucleated RBC % (auto) 0.0 (0.0-0.2) /100WBC Sodium 145 (135-145) mmol/L Potassium 3.3 (3.3-5.1) mmol/L Chloride 115 H (96-108) mmol/L Carbon Dioxide 23 (22-29) mmol/L Anion Gap 10 L (12-20) BUN 13 (9-16) mg/dL Creatinine 0.71 (0.5-1.4) mg/dL Estim Creat Clear Calc 80.8 Estimated GFR > 60 POC Glucose 105 91 (60-115) mg/dL Random Glucose 49 L* (60-115) mg/dL Calcium 8.4 (8.4-10.2) mg/dL Total Bilirubin 0.2 (0.0-1.0) mg/dL AST 20 (5-31) U/L ALT 19 (0-31) U/L Alkaline Phosphatase 74 (39-117) U/L Total Protein 7.1 (6.5-8.0) g/dL Albumin 4.0 (3.5-5.0) g/dL Urine Color Yellow Urine Appearance Hazy Urine pH 7.0 (5.0-9.0) Ur Specific [place] 1.020 (1.005-1.025) Urine Protein Negative (Neg-Trace) mg/dL Urine Glucose (UA) Negative (Negative) mg/dL Urine Ketones Trace (Negative) mg/dL Urine Blood Negative (Negative) Urine Nitrite Negative (Negative) Ur Leukocyte Esterase Negative (Negative) Urine Test NEGATIVE (NEGATIVE) Salicylates < 5.0 L (15-30) mg/dL Urine Opiates Screen Not Detected (Not Detect) Ur Buprenorphine Scrn Not Detected (Not Detect) ng/mL Ur Oxycodone Screen Not Detected (Not Detect) ng/mL Urine Methadone Screen Not Detected (Not Detect) ng/mL Urine Fentanyl Screen Not Detected (Not Detect) Acetaminophen < 3 (<30) mcg/mL Ur Barbiturates Screen Not Detected (Not Detect) Ur Phencyclidine Scrn Not Detected (Not Detect) Ur Amphetamines Screen POSITIVE H (Not Detect) U Benzodiazepines Scrn Not Detected (Not Detect) Urine Cocaine Screen POSITIVE H (Not Detect) U Marijuana (THC) Screen Not Detected (Not Detect) Ethyl Alcohol < 10 mg/dL Discharge Plan Discharge Clinical Impression: Depression with suicidal ideation Prescriptions: No Action nicotine (polacrilex) 4 mg Lozenge 4 mg buccal Q2H PRN (Reason: Nicotine Cravings) 30 Days Qty: 108 1RF tizanidine 4 mg Tablet 4 mg PO TID PRN (Reason: muscle spasm) 30 Days Qty: 90 1RF clonidine HCl 0.1 mg Tablet 0.1 mg PO BEDTIME 30 Days Qty: 30 1RF Protocol: Hold for SBP< HOLD for SBP < : 90 bupropion HCl 300 mg Tablet Extended Release 24 Hr 300 mg PO DAILY 30 Days Qty: 30 1RF clonazepam 1 mg Tablet 1 mg PO TID PRN (Reason: anxiety/panic) 30 Days Qty: 90 0RF gabapentin 300 mg Capsule 300 mg PO TID PRN (Reason: anxiety/neuropathic pain) 30 Days Qty: 90 1RF acetaminophen 325 mg Tablet 650 mg PO Q6H PRN (Reason: Headache/Pain Mild Scale (1-3)) Qty: 0 0RF hydroxyzine HCl 25 mg Tablet 25 mg PO Q6H PRN (Reason: anxiety) 30 Days Qty: 60 1RF lidocaine [Lidocaine Pain Relief] 4 % Adhesive Patch,Medicated 1 patch transdermal DAILY PRN (Reason: pain) 30 Days Qty: 30 1RF Protocol: Apply to: Apply to: neck Rx Instructions: apply to painful area omeprazole 40 mg capsule,delayed release(DR/EC) 40 mg PO DAILY Qty: 30 0RF ondansetron 4 mg tablet,disintegrating 4 mg PO Q6H PRN (Reason: nausea and vomiting) Qty: 10 0RF dextroamphetamine-amphetamine 15 mg capsule,extended release 24hr 30 mg PO DAILY Rx Instructions: Partial Fill upon patient request. fluoxetine 40 mg capsule 60 mg PO DAILY Topamax 200 mg 200 mg PO BID Valtrex 1,000 mg PO DAILY olanzapine 5 mg Tablet 5 mg PO BID Qty: 60 0RF fluticasone propionate 50 mcg/actuation [place],Suspension 1 spray intranasal DAILY Qty: 1 0RF loratadine 10 mg Tablet 10 mg PO DAILY Qty: 0 0RF cholecalciferol (vitamin D3) [Vitamin D3] 10 mcg (400 unit) Tablet 20 mcg PO DAILY Qty: 30 0RF Interventions: [place]-Suicide Risk Severity Scale Last Done: 12/27/24 17:24 Print Language: Latvian
[2024-12-27 18:39] LABS: MANUAL DIFF FLAG NO
[2024-12-27 18:44] LABS: Basophils Percent Auto 0.2 % (0-2); Eosinophils Absolute Auto 0.1 X10*3/uL (0.0-0.4); Hematocrit 35.5 % (37.0-47.0); Hemoglobin 11.8 g/dl (12.0-16.0); Imm Gran Abs Auto 0.01 X10*3/uL (0.00-0.03); Imm Gran Pct Auto 0.2 % (0.0-0.4); Lymphocytes Absolute Auto 2.7 X10*3/uL (1.2-4.9); Lymphocytes Percent Auto 44.8 % (20-40); Mean Corpuscular HGB Conc 33.2 g/dl (31.0-35.0); Mean Corpuscular Hemoglobin 31.5 pg (27.0-33.0); Mean Corpuscular Volume 94.7 fL (80.0-98.0); Mean Platelet Volume 9.1 fL (9.4-12.3); Monocytes Absolute Auto 0.6 X10*3/uL (0.1-1.2); Monocytes Percent Auto 9.7 % (2-11); Neutrophils Absolute Auto 2.7 x10*3/uL (2.0-8.3); Neutrophils Percent Auto 44.1 % (45-73); Platelet Count 323 X10*3/uL (160-400); Red Blood Count 3.75 X10*6/uL (4.20-5.50); Red Cell Distribution Width 14.5 % (11.0-16.0); White Blood Count 6.1 X10*3/uL (4.8-10.8)
[2024-12-27 18:45] LABS: UPreg QC Valid YES; Urine Pregnancy NEGATIVE (NEGATIVE)
[2024-12-27] MEDS: Ibuprofen 600 MG TABLET PO (18:50)
[2024-12-27] MEDS: LORazepam 1 MG TABLET PO (18:50)
[2024-12-27 18:54] LABS: Amphetamine Screen Urine POSITIVE (Not Detect); Barbiturates, Urine Not Detected (Not Detect); Benzodiazepines Screen Urine Not Detected (Not Detect); Buprenorphine Scr Not Detected (Not Detect); Cannabinoid Screen Urine Not Detected (Not Detect); Cocaine Screen Urine POSITIVE (Not Detect); Fentanyl, urine Not Detected (Not Detect); Methadone Screen, Urine Not Detected (Not Detect); Opiate Screen Urine Not Detected (Not Detect); Oxycodone Screen Urine Not Detected (Not Detect); Phencyclidine Screen Urine Not Detected (Not Detect)
[2024-12-27 19:07] LABS: Alanine Aminotransferase 19 U/L (0-31); Alkaline Phosphatase 74 U/L (39-117); Anion Gap 10 (12-20); Aspartate Amino Transferase 20 U/L (5-31); Bilirubin Total 0.2 mg/dL (0.0-1.0); Blood Urea Nitrogen 13 mg/dL (9-16); Calcium 8.4 mg/dL (8.4-10.2); Carbon Dioxide 23 mmol/L (22-29); Chloride 115 mmol/L (96-108); Creatinine Clr Calc Pharmacy 80.8; Estimated Glomerular Filt Rate > 60; Ethanol < 10 mg/dL; Glucose Random 49 mg/dL (60-115); Potassium 3.3 mmol/L (3.3-5.1); Sodium 145 mmol/L (135-145); Total Protein 7.1 g/dL (6.5-8.0)
--- NOTE | 2024-12-27 19:08 | PC.NURSE ---
provider stated pt glucose is 49 and at this time we are feeding the pt. provider Pa is in the pt room at this time. pt states she just had a sandwhich. plan to recheck in 15 glucose per provider
[2024-12-27 19:20] LABS: Appearance Urine Hazy; Color Urine Yellow; Glucose Urine UA Negative (Negative); Leukocyte Esterase Urine Negative (Negative); Nitrite Urine Negative (Negative); Urine Blood Negative (Negative); Urine Ketones Trace mg/dL (Negative); Urine Protein Negative (Neg-Trace)
[2024-12-27 19:31] LABS: Acetaminophen LAB < 3 mcg/mL (<30); Salicylate < 5.0 mg/dL (15-30)
--- NOTE | 2024-12-27 19:33 | PC.NURSE ---
pt glucose rechecked and is 105. pt zaccedkings at bedside has not eaten it yet. pt offered other foods. pt wants crackers and jello. will recheck in one hour.
[2024-12-27 19:39] LABS: Glucose, Whole Blood 105 mg/dL (60-115)
--- NOTE | 2024-12-27 21:07 | PC.NURSE ---
pt poc rechecked and was 91. pt not eating a lot. pt had a juice crackers and jello. pt upset she was woken up for poc but teaching done to ensure she doesnt bottom out.
[2024-12-27 21:11] LABS: Glucose, Whole Blood 91 mg/dL (60-115)
--- NOTE | 2024-12-27 21:45 | PC.NURSE ---
pt sleeping and will address med rec when pt is awake.
[2024-12-27 23:35] VITALS: BP 110/76; PULSE 93; RESP 16; TEMP 37.3
--- NOTE | 2024-12-27 23:37 | PC.NURSE ---
pt is awake unable to recall all her meds to complete med rec. pt has 7/10 facial pain, ice pack given and provider made aware
[2024-12-27] MEDS: Acetaminophen 325 MG TABLET 975 MG PO (23:57)
--- NOTE | 2024-12-28 | ECG_ITS ---
Test Reason : 9 Blood Pressure : */* mmHG Vent. Rate : 76 BPM Atrial Rate : 76 BPM P-R Int : 136 ms QRS Dur : 72 ms QT Int : 392 ms P-R-T Axes : 21 44 41 degrees QTcB Int : 441 ms Normal sinus rhythm Normal ECG When compared with ECG of 10-Nov-2020 11:54, No significant change was found Referred By: Donta Freeman Electronically Signed By: WALTER REMY
[2024-12-28 06:14] VITALS: BP 97/62; PULSE 65; RESP 16; TEMP 36.7
--- NOTE | 2024-12-28 06:15 | PC.NURSE ---
pt was medicated with tylenol and it allowed the pt to sleep thur the night. pt was also given a ice pack that assisted pt in her comfort level.
[2024-12-28 06:23] VITALS: BP 97/62; PULSE 65; RESP 16; TEMP 36.7; O2SAT 99
--- NOTE | 2024-12-28 08:00 | PC.NURSE ---
Assumed care of patient at 0645, patient appears to be in no apparent distress, sleeping, respirations even and unlabored. Continue plan of care for inpatient bedsearch
--- NOTE | 2024-12-28 13:12 | PHA.MEDREC ---
Pharmacy Consult ? Medication Reconciliation Pharmacy has reviewed the medication reconciliation completed by nursing. Claims match.
[2024-12-28 13:50] VITALS: BP 114/74; PULSE 89; TEMP 36.8; O2SAT 100
[2024-12-28 14:54] VITALS: BMI 24.6
[2024-12-28] MEDS: Acetaminophen 325 MG TABLET 650 MG PO ×2 (15:36→22:29)
[2024-12-28] MEDS: OLANZapine 5 MG TABLET PO ×2 (15:38→22:29)
[2024-12-28] MEDS: NeoMY/Polymyx/Bacit/Ointment 14 GM Tube TOPICAL ×2 (16:49→22:24)
[2024-12-28] MEDS: clonazePAM 1 MG TABLET PO ×2 (17:40→22:28)
[2024-12-28] MEDS: hydrOXYzine HCL 25 MG TABLET PO (18:21)
--- NOTE | 2024-12-28 18:45 | PC.ADMIT ---
Ms. Sugey Treviño is a 44 year old female who was admitted to [facility] at 13:50 on a [address] for suicidal ideation and depression. Safety/ skin check was done and was unremarkable except for several excoriated spots on her face that she reported are very painful.. She reports being suicidal without a plan or intent but denies HI or AVH. The patient discharged last week from to her cousin's home and reportedly decompensated quickly. She did sign a CV. Cooperative with admission process. Speech is linear although she was extremely talkative when first admitted. Since settling in, she is less talkative and speech is now within normal limits. It is worth noting that yesterday at approximately 18:30 while in the pod she had a hypoglycemic episode with a Blood glucose of 49.
[2024-12-28 20:00] VITALS: BP 107/64; BP 113/76; PULSE 88; TEMP 36.9; O2SAT 98
[2024-12-28] MEDS: Topiramate 100 MG TABLET 200 MG PO (22:22)
[2024-12-29] MEDS: Omeprazole 40 MG CAPSULE.DR PO (06:35)
[2024-12-29 08:00] VITALS: BP 92/52; PULSE 92; TEMP 36.4; O2SAT 98
[2024-12-29] MEDS: Topiramate 100 MG TABLET 200 MG PO ×2 (08:34→20:34)
[2024-12-29] MEDS: Acetaminophen 325 MG TABLET 650 MG PO ×3 (08:34→23:07)
[2024-12-29] MEDS: Loratadine 10 MG TABLET PO (08:34)
[2024-12-29] MEDS: Cholecalciferol (Vitamin D3) 10 MCG TABLET 20 MCG PO (08:34)
[2024-12-29] MEDS: NeoMY/Polymyx/Bacit/Ointment 14 GM Tube TOPICAL ×3 (08:35→23:08)
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
[2024-12-29] MEDS: Nicotine Polacrilex 2 MG GUM 4 MG BUCCAL (10:36)
[2024-12-29] MEDS: Nicotine Polacrilex Lozenge 4 MG LOZENGE BUCCAL ×2 (12:01→16:03)
[2024-12-29] MEDS: valACYclovir HCL 1,000 MG TABLET 1000 MG PO (12:01)
[2024-12-29] MEDS: clonazePAM 1 MG TABLET PO ×2 (12:01→20:34)
[2024-12-29] MEDS: OLANZapine 5 MG TABLET PO ×2 (16:03→20:34)
[2024-12-29] MEDS: risperiDONE 0.5 MG TABLET PO (16:06)
[2024-12-29] MEDS: Nicotine 21 MG PATCH.TD24 TRANSDERMA (16:07)
[2024-12-29] MEDS: Milk of Magnesia 30 ML ORAL.SUSP PO (18:14)
[2024-12-29] MEDS: hydrOXYzine HCL 25 MG TABLET PO (18:16)
[2024-12-29 20:00] VITALS: BP 121/76; PULSE 89; TEMP 36.8; O2SAT 100
[2024-12-29] MEDS: risperiDONE 2 MG TABLET PO (20:35)
[2024-12-30] MEDS: Magnesium Hydrox/Alum Hydrox 30 ML ORAL.SUSP PO (05:35)
[2024-12-30] MEDS: Omeprazole 40 MG CAPSULE.DR PO (07:00)
[2024-12-30 08:00] VITALS: BP 110/73; PULSE 106; TEMP 36.7; O2SAT 96
[2024-12-30] MEDS: Cholecalciferol (Vitamin D3) 10 MCG TABLET 20 MCG PO (08:29)
[2024-12-30] MEDS: Acetaminophen 325 MG TABLET 650 MG PO (08:29)
[2024-12-30] MEDS: Topiramate 100 MG TABLET 200 MG PO ×2 (08:29→20:43)
[2024-12-30] MEDS: valACYclovir HCL 1,000 MG TABLET 1000 MG PO (08:29)
[2024-12-30] MEDS: Nicotine 21 MG PATCH.TD24 TRANSDERMA (08:29)
[2024-12-30] MEDS: Dextroamphetamine/Amphetamine XR 10 MG CAP.ER.24H 30 MG PO (08:29)
[2024-12-30] MEDS: Loratadine 10 MG TABLET PO (08:30)
[2024-12-30] MEDS: Nicotine Polacrilex Lozenge 4 MG LOZENGE BUCCAL ×6 (08:31→22:42)
[2024-12-30] MEDS: NeoMY/Polymyx/Bacit/Ointment 14 GM Tube TOPICAL (08:35)
[2024-12-30] MEDS: risperiDONE 1 MG TABLET PO (09:18)
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
[2024-12-30] MEDS: Ondansetron ODT 4 MG TAB.RAPDIS TRANSLINGU (17:54)
[2024-12-30] MEDS: clonazePAM 1 MG TABLET PO (17:54)
[2024-12-30 20:00] VITALS: BP 110/61; PULSE 117; TEMP 36.5; O2SAT 97
[2024-12-30] MEDS: risperiDONE 2 MG TABLET PO (20:43)
[2024-12-30] MEDS: Milk of Magnesia 30 ML ORAL.SUSP PO (21:02)
[2024-12-31] MEDS: Omeprazole 40 MG CAPSULE.DR PO (06:44)
[2024-12-31] MEDS: Nicotine Polacrilex Lozenge 4 MG LOZENGE BUCCAL ×7 (06:46→23:18)
[2024-12-31 08:00] VITALS: BP 118/57; PULSE 102; RESP 16; TEMP 36.4; O2SAT 98
[2024-12-31] MEDS: Nicotine 14 MG PATCH.TD24 TRANSDERMA (09:29)
[2024-12-31] MEDS: valACYclovir HCL 1,000 MG TABLET 1000 MG PO (09:30)
[2024-12-31] MEDS: Topiramate 100 MG TABLET 200 MG PO ×2 (09:30→20:40)
[2024-12-31] MEDS: Dextroamphetamine/Amphetamine XR 10 MG CAP.ER.24H 30 MG PO ×2 (09:31→13:26)
[2024-12-31] MEDS: Cholecalciferol (Vitamin D3) 10 MCG TABLET 20 MCG PO (09:31)
[2024-12-31] MEDS: Loratadine 10 MG TABLET PO (09:31)
[2024-12-31] MEDS: Acetaminophen 325 MG TABLET 650 MG PO ×2 (09:31→17:34)
[2024-12-31] MEDS: Ondansetron ODT 4 MG TAB.RAPDIS TRANSLINGU (10:24)
[2024-12-31 10:43] LABS: Glucose, Whole Blood 82 mg/dL (60-115)
[2024-12-31] MEDS: risperiDONE 1 MG TABLET PO (10:46)
[2024-12-31] MEDS: clonazePAM 1 MG TABLET PO ×2 (10:46→17:34)
[2024-12-31] MEDS: Loperamide HCl 2 MG CAPSULE PO (11:40)
[2024-12-31] MEDS: NeoMY/Polymyx/Bacit/Ointment 14 GM Tube TOPICAL (13:26)
[2024-12-31] MEDS: FLUoxetine HCl 20 MG CAPSULE PO (13:26)
[2024-12-31 19:46] VITALS: BP 125/76; PULSE 102; RESP 16; TEMP 36.9; O2SAT 100
[2024-12-31] MEDS: risperiDONE 2 MG TABLET PO (20:40)
[2024-12-31] MEDS: hydrOXYzine HCL 25 MG TABLET PO (20:40)
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
[2025-01-01] MEDS: Ondansetron ODT 4 MG TAB.RAPDIS TRANSLINGU ×2 (00:42→10:13)
[2025-01-01] MEDS: Loperamide HCl 2 MG CAPSULE PO ×2 (00:42→08:54)
[2025-01-01] MEDS: clonazePAM 1 MG TABLET PO ×2 (00:42→21:05)
[2025-01-01] MEDS: Nicotine Polacrilex Lozenge 4 MG LOZENGE BUCCAL ×7 (01:55→21:05)
[2025-01-01 08:00] VITALS: BP 115/67; PULSE 127; RESP 16; TEMP 36.4; O2SAT 99
[2025-01-01] MEDS: Cholecalciferol (Vitamin D3) 10 MCG TABLET 20 MCG PO (08:40)
[2025-01-01] MEDS: Omeprazole 40 MG CAPSULE.DR PO (08:40)
[2025-01-01] MEDS: valACYclovir HCL 1,000 MG TABLET 1000 MG PO (08:40)
[2025-01-01] MEDS: Loratadine 10 MG TABLET PO (08:40)
[2025-01-01] MEDS: FLUoxetine HCl 20 MG CAPSULE PO (08:40)
[2025-01-01] MEDS: Dextroamphetamine/Amphetamine XR 10 MG CAP.ER.24H 30 MG PO ×2 (08:40→13:16)
[2025-01-01] MEDS: Topiramate 100 MG TABLET 200 MG PO ×2 (08:40→21:04)
[2025-01-01] MEDS: Acetaminophen 325 MG TABLET 650 MG PO (08:41)
[2025-01-01] MEDS: Nicotine 14 MG PATCH.TD24 TRANSDERMA (08:42)
[2025-01-01] MEDS: NeoMY/Polymyx/Bacit/Ointment 14 GM Tube TOPICAL (08:53)
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
--- NOTE | 2025-01-01 12:37 | MHC.RECOVRN ---
AUDIT-C Brief Intervention Pt had positive screen for unhealthy alcohol use on admission, subsequently met with t/w to discuss alcohol use and recovery supports/options. This selling underwriter met with patient to discuss current alcohol use and concerns related to increased risk of alcohol related problems.? Pt reports h/o binge drinking but currently only drinks what I have money for and to deal with my mental health Discussed how alcohol use has impacted health, including negative impact on mental health including the SI she experiences when drinking Withdrawal History: None reported Treatment History:None reported Supports:?Denies any supports other than treatment providers. Discussed risk reduction strategies including drinking below the recommended limit. Provided pt with written resources including information on inpatient and outpatient treatment, [facility], harm reduction, and recovery coaching. Pt plans to focus on improving her mental health in order to decrease her alcohol consumption. Pt provided with t/w contact information if questions or concerns arise. Denies other questions or concerns at this time.
[2025-01-01] MEDS: FLUoxetine HCl 20 MG CAPSULE 40 MG PO (13:16)
[2025-01-01 15:05] LABS: CDiff Gene PCR NEGATIVE (Negative)
[2025-01-01] MEDS: Loperamide HCl 2 MG CAPSULE 4 MG PO ×2 (15:28→21:34)
[2025-01-01 15:31] LABS: Adenovirus F 40/41 Not Detected (Not Detect.); Astrovirus Not Detected (Not Detect.); Campylobacter Not Detected (Not Detect.); Cryptosporidium Not Detected (Not Detect.); Cyclospora cayetanensis Not Detected (Not Detect.); E. coli EAEC Not Detected (Not Detect.); E. coli EPEC Not Detected (Not Detect.); E. coli ETEC Not Detected (Not Detect.); E. coli STEC Not Detected (Not Detect.); Entamoeba histolytica Not Detected (Not Detect.); Giardia lamblia Not Detected (Not Detect.); Norovirus GI/GII Not Detected (Not Detect.); Plesiomonas shigelloides Not Detected (Not Detect.); Rotavirus A Not Detected (Not Detect.); Salmonella Not Detected (Not Detect.); Sapovirus Not Detected (Not Detect.); Shigella sp./EIEC Not Detected (Not Detect.); Vibrio Not Detected (Not Detect.); Vibrio Cholerae Not Detected (Not Detect.); Yersinia enterocolitica Not Detected (Not Detect.)
[2025-01-01 19:51] VITALS: BP 123/62; PULSE 87; TEMP 36.3; O2SAT 98
[2025-01-01] MEDS: risperiDONE 3 MG TABLET PO (21:05)
[2025-01-01] MEDS: hydrOXYzine HCL 25 MG TABLET PO (21:05)
[2025-01-01] MEDS: Ondansetron ODT 8 MG TAB.RAPDIS TRANSLINGU (21:34)
[2025-01-01] MEDS: traZODone HCL 50 MG TABLET PO (21:59)
[2025-01-02 08:00] VITALS: BP 117/75; PULSE 115; RESP 18; TEMP 36.6; O2SAT 99
[2025-01-02] MEDS: valACYclovir HCL 1,000 MG TABLET 1000 MG PO (08:31)
[2025-01-02] MEDS: Dextroamphetamine/Amphetamine XR 10 MG CAP.ER.24H 30 MG PO ×2 (08:31→12:17)
[2025-01-02] MEDS: FLUoxetine HCl 20 MG CAPSULE 60 MG PO (08:31)
[2025-01-02] MEDS: Cholecalciferol (Vitamin D3) 10 MCG TABLET 20 MCG PO (08:31)
[2025-01-02] MEDS: Loperamide HCl 2 MG CAPSULE 4 MG PO ×2 (08:31→22:04)
[2025-01-02] MEDS: Loratadine 10 MG TABLET PO (08:31)
[2025-01-02] MEDS: Topiramate 100 MG TABLET 200 MG PO ×2 (08:32→21:20)
[2025-01-02] MEDS: Omeprazole 40 MG CAPSULE.DR PO (08:32)
[2025-01-02] MEDS: Nicotine 14 MG PATCH.TD24 TRANSDERMA (08:32)
[2025-01-02] MEDS: Nicotine Polacrilex Lozenge 4 MG LOZENGE BUCCAL ×6 (08:32→21:30)
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
--- NOTE | 2025-01-02 10:20 | MHC.RECOVRN ---
Met with pt in [id number] to follow up and provide support.? Pt awake, alert, easily engages in conversation. She had questions ready re: the information I left her yesterday. Also provided her with additional harm reduction information and Community resources. Encouraged pt. to F/U with [facility] for ongoing CM services to assist with her action plans r/t mental health and addiction Discussed IOP Pt unable to express any specific needs for recovery support at this time. Has multiple resources. Pt denies other concerns at this time.? T/w available as needed.
[2025-01-02] MEDS: Acetaminophen 325 MG TABLET 650 MG PO (16:56)
[2025-01-02 19:53] VITALS: BP 104/66; PULSE 97; RESP 15; TEMP 37.1; O2SAT 99
[2025-01-02] MEDS: risperiDONE 3 MG TABLET PO (21:20)
[2025-01-02] MEDS: clonazePAM 1 MG TABLET PO (21:20)
[2025-01-02] MEDS: traZODone HCL 50 MG TABLET PO (21:20)
[2025-01-02] MEDS: hydrOXYzine HCL 25 MG TABLET PO (21:30)
[2025-01-02] MEDS: Ibuprofen 600 MG TABLET PO (21:58)
[2025-01-02] MEDS: Ondansetron ODT 8 MG TAB.RAPDIS TRANSLINGU (22:04)
[2025-01-03] MEDS: traZODone HCL 50 MG TABLET PO ×2 (00:24→20:06)
[2025-01-03] MEDS: clonazePAM 1 MG TABLET PO ×2 (00:24→18:48)
[2025-01-03] MEDS: Nicotine Polacrilex Lozenge 4 MG LOZENGE BUCCAL ×4 (00:26→19:42)
[2025-01-03] MEDS: Acetaminophen 325 MG TABLET 650 MG PO (02:34)
[2025-01-03] MEDS: hydrOXYzine HCL 25 MG TABLET PO ×2 (02:35→20:05)
[2025-01-03] MEDS: Omeprazole 40 MG CAPSULE.DR PO (07:05)
[2025-01-03 08:00] VITALS: BP 112/65; PULSE 106; RESP 18; TEMP 36.9; O2SAT 99
[2025-01-03] MEDS: Dextroamphetamine/Amphetamine XR 10 MG CAP.ER.24H 30 MG PO (11:53)
[2025-01-03] MEDS: Topiramate 100 MG TABLET 200 MG PO ×2 (11:53→20:06)
[2025-01-03] MEDS: FLUoxetine HCl 20 MG CAPSULE 60 MG PO (11:54)
[2025-01-03] MEDS: Cholecalciferol (Vitamin D3) 10 MCG TABLET 20 MCG PO (11:54)
[2025-01-03] MEDS: Loperamide HCl 2 MG CAPSULE 4 MG PO ×2 (11:54→20:03)
[2025-01-03] MEDS: Loratadine 10 MG TABLET PO (11:54)
[2025-01-03] MEDS: valACYclovir HCL 1,000 MG TABLET 1000 MG PO (11:54)
[2025-01-03] MEDS: Nicotine 14 MG PATCH.TD24 TRANSDERMA (12:00)
[2025-01-03] MEDS: Ondansetron ODT 8 MG TAB.RAPDIS TRANSLINGU (14:41)
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
[2025-01-03 19:54] LABS: MANUAL DIFF FLAG NO
[2025-01-03 19:58] LABS: Basophils Percent Auto 0.3 % (0-2); Eosinophils Absolute Auto 0.2 X10*3/uL (0.0-0.4); Eosinophils Percent Auto 1.7 % (0-4); Hematocrit 38.2 % (37.0-47.0); Hemoglobin 12.3 g/dl (12.0-16.0); Imm Gran Abs Auto 0.04 X10*3/uL (0.00-0.03); Imm Gran Pct Auto 0.4 % (0.0-0.4); Lymphocytes Absolute Auto 1.9 X10*3/uL (1.2-4.9); Lymphocytes Percent Auto 18.9 % (20-40); Mean Corpuscular HGB Conc 32.2 g/dl (31.0-35.0); Mean Corpuscular Hemoglobin 30.3 pg (27.0-33.0); Mean Corpuscular Volume 94.1 fL (80.0-98.0); Mean Platelet Volume 9.4 fL (9.4-12.3); Monocytes Absolute Auto 0.9 X10*3/uL (0.1-1.2); Monocytes Percent Auto 8.7 % (2-11); Neutrophils Absolute Auto 6.9 x10*3/uL (2.0-8.3); Platelet Count 364 X10*3/uL (160-400); Red Blood Count 4.06 X10*6/uL (4.20-5.50); Red Cell Distribution Width 14.1 % (11.0-16.0); White Blood Count 9.8 X10*3/uL (4.8-10.8)
[2025-01-03 20:00] VITALS: BP 134/67; PULSE 101; TEMP 36.6; O2SAT 100
[2025-01-03] MEDS: risperiDONE 3 MG TABLET PO (20:05)
[2025-01-03] MEDS: Ibuprofen 600 MG TABLET PO (20:06)
[2025-01-03 20:23] LABS: Albumin Level 4.3 g/dL (3.5-5.0); Alkaline Phosphatase 107 U/L (39-117); Anion Gap 13 (12-20); Aspartate Amino Transferase 15 U/L (5-31); Bilirubin Total 0.2 mg/dL (0.0-1.0); Blood Urea Nitrogen 14 mg/dL (9-16); Calcium 8.9 mg/dL (8.4-10.2); Carbon Dioxide 21 mmol/L (22-29); Chloride 108 mmol/L (96-108); Creatinine Clr Calc Pharmacy 97.5; Estimated Glomerular Filt Rate > 60; Glucose Random 90 mg/dL (60-115); Potassium 3.5 mmol/L (3.3-5.1); Sodium 138 mmol/L (135-145); Total Protein 7.8 g/dL (6.5-8.0)
[2025-01-03 20:35] LABS: Alanine Aminotransferase 31 U/L (0-31)
[2025-01-04] MEDS: Omeprazole 40 MG CAPSULE.DR PO (07:24)
[2025-01-04] MEDS: Loperamide HCl 2 MG CAPSULE 4 MG PO ×2 (07:31→17:46)
[2025-01-04 08:00] VITALS: BP 104/57; PULSE 98; RESP 18; TEMP 36.4; O2SAT 98
[2025-01-04] MEDS: valACYclovir HCL 1,000 MG TABLET 1000 MG PO (08:32)
[2025-01-04] MEDS: Loratadine 10 MG TABLET PO (08:32)
[2025-01-04] MEDS: Dextroamphetamine/Amphetamine XR 10 MG CAP.ER.24H 30 MG PO ×2 (08:32→12:42)
[2025-01-04] MEDS: Nicotine Polacrilex Lozenge 4 MG LOZENGE BUCCAL ×6 (08:32→20:47)
[2025-01-04] MEDS: Topiramate 100 MG TABLET 200 MG PO ×2 (08:32→20:47)
[2025-01-04] MEDS: Cholecalciferol (Vitamin D3) 10 MCG TABLET 20 MCG PO (08:33)
[2025-01-04] MEDS: FLUoxetine HCl 20 MG CAPSULE 60 MG PO (08:33)
[2025-01-04] MEDS: Nicotine 14 MG PATCH.TD24 TRANSDERMA (08:33)
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
[2025-01-04] MEDS: Ondansetron ODT 8 MG TAB.RAPDIS TRANSLINGU (13:57)
[2025-01-04 20:00] VITALS: BP 102/61; PULSE 97; RESP 16; TEMP 36.7; O2SAT 100
[2025-01-04] MEDS: risperiDONE 3 MG TABLET PO (20:47)
[2025-01-04] MEDS: hydrOXYzine HCL 25 MG TABLET PO (20:47)
[2025-01-05 08:00] VITALS: BP 107/63; PULSE 101; RESP 16; TEMP 36.6; O2SAT 100
[2025-01-05] MEDS: Topiramate 100 MG TABLET 200 MG PO ×2 (08:27→20:51)
[2025-01-05] MEDS: FLUoxetine HCl 20 MG CAPSULE 60 MG PO (08:27)
[2025-01-05] MEDS: Omeprazole 40 MG CAPSULE.DR PO (08:27)
[2025-01-05] MEDS: Dextroamphetamine/Amphetamine XR 10 MG CAP.ER.24H 30 MG PO ×2 (08:27→12:40)
[2025-01-05] MEDS: Cholecalciferol (Vitamin D3) 10 MCG TABLET 20 MCG PO (08:27)
[2025-01-05] MEDS: valACYclovir HCL 1,000 MG TABLET 1000 MG PO (08:28)
[2025-01-05] MEDS: Loratadine 10 MG TABLET PO (08:28)
[2025-01-05] MEDS: Nicotine Polacrilex Lozenge 4 MG LOZENGE BUCCAL ×7 (08:28→23:00)
[2025-01-05] MEDS: Fluticasone Propionate Nasal 16 GM SPRAY 1 SPRAY NOSTRIL-B (08:59)
[2025-01-05] MEDS: Ibuprofen 600 MG TABLET PO (09:00)
[2025-01-05] MEDS: Nicotine 14 MG PATCH.TD24 TRANSDERMA (09:01)
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
[2025-01-05] MEDS: clonazePAM 1 MG TABLET PO (18:52)
[2025-01-05 20:00] VITALS: BP 104/63; PULSE 95; RESP 16; TEMP 36.9; O2SAT 95
[2025-01-05] MEDS: risperiDONE 3 MG TABLET PO (20:51)
[2025-01-05] MEDS: hydrOXYzine HCL 25 MG TABLET PO (21:00)
[2025-01-05] MEDS: Ondansetron ODT 8 MG TAB.RAPDIS TRANSLINGU (21:00)
[2025-01-05] MEDS: Acetaminophen 325 MG TABLET 650 MG PO (21:00)
[2025-01-05] MEDS: traZODone HCL 50 MG TABLET PO (23:00)
[2025-01-06] MEDS: Omeprazole 40 MG CAPSULE.DR PO (06:23)
[2025-01-06] MEDS: Dextroamphetamine/Amphetamine XR 10 MG CAP.ER.24H 30 MG PO ×2 (06:23→12:10)
[2025-01-06] MEDS: Nicotine Polacrilex Lozenge 4 MG LOZENGE BUCCAL ×7 (06:26→20:54)
[2025-01-06 07:00] VITALS: BMI 25.4
[2025-01-06 08:00] VITALS: BP 103/60; PULSE 95; TEMP 36.6; O2SAT 99
[2025-01-06] MEDS: FLUoxetine HCl 20 MG CAPSULE 60 MG PO (08:43)
[2025-01-06] MEDS: Topiramate 100 MG TABLET 200 MG PO ×2 (08:43→22:33)
[2025-01-06] MEDS: Loratadine 10 MG TABLET PO (08:43)
[2025-01-06] MEDS: valACYclovir HCL 1,000 MG TABLET 1000 MG PO (08:43)
[2025-01-06] MEDS: Cholecalciferol (Vitamin D3) 10 MCG TABLET 20 MCG PO (08:43)
[2025-01-06] MEDS: Ibuprofen 600 MG TABLET PO ×2 (08:49→22:38)
[2025-01-06] MEDS: Fluticasone Propionate Nasal 16 GM SPRAY 1 SPRAY NOSTRIL-B (08:50)
[2025-01-06] MEDS: Nicotine 14 MG PATCH.TD24 TRANSDERMA (09:11)
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
[2025-01-06] MEDS: Amphetamine Mixed Salts 10 MG TABLET PO (15:30)
[2025-01-06 19:52] VITALS: BP 126/67; PULSE 103; TEMP 36.9; O2SAT 99
[2025-01-06] MEDS: risperiDONE 3 MG TABLET PO (22:32)
[2025-01-06] MEDS: clonazePAM 1 MG TABLET PO (22:38)
[2025-01-07] MEDS: Dextroamphetamine/Amphetamine XR 10 MG CAP.ER.24H 30 MG PO ×2 (06:20→12:48)
[2025-01-07] MEDS: Omeprazole 40 MG CAPSULE.DR PO (06:21)
[2025-01-07] MEDS: Nicotine Polacrilex Lozenge 4 MG LOZENGE BUCCAL ×3 (06:23→12:22)
[2025-01-07 08:15] VITALS: BP 100/59; PULSE 97; RESP 16; TEMP 36.9; O2SAT 100
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
[2025-01-07] MEDS: Loratadine 10 MG TABLET PO (09:18)
[2025-01-07] MEDS: Cholecalciferol (Vitamin D3) 10 MCG TABLET 20 MCG PO (09:18)
[2025-01-07] MEDS: Topiramate 100 MG TABLET 200 MG PO (09:18)
[2025-01-07] MEDS: FLUoxetine HCl 20 MG CAPSULE 60 MG PO (09:18)
[2025-01-07] MEDS: valACYclovir HCL 1,000 MG TABLET 1000 MG PO (09:18)
[2025-01-07] MEDS: Fluticasone Propionate Nasal 16 GM SPRAY 1 SPRAY NOSTRIL-B (09:19)
[2025-01-07] MEDS: Nicotine 14 MG PATCH.TD24 TRANSDERMA (12:22)
== END 2025-01-07 13:25 | disposition home or self-care (01) | DRG 753 ==
LOC: HO.ED 12-28 08:11 → HO.PM5 12-28 12:49
PROVIDERS: Emergency Medicine; Physician Assistant; Admitting Provider Psychiatry & Neurology Psychiatry; Emergency Provider Emergency Medicine Emergency Medical Services; Visit Provider Psychiatry & Neurology Psychiatry
DX: F31.9 Bipolar disorder, unspecified (principal); R45.851 Suicidal ideations; G40.909 Epilepsy, unspecified, not intractable, without status epilepticus; F43.10 Post-traumatic stress disorder, unspecified; F17.210 Nicotine dependence, cigarettes, uncomplicated; Z71.6 Tobacco abuse counseling; F90.9 Attention-deficit hyperactivity disorder, unspecified type; Z87.820 Personal history of traumatic brain injury; Z59.02 Unsheltered homelessness
CPT/HCPCS: 36415; 80053; 80143; 80179; 80307; 81003; 81025; 82947; 85025; 87493; 87507; 93005; 99285; S9485

== ENCOUNTER 2024-12-28 12:08 | Outpatient (BNV) | payer MEDICAID, SELFPAY | END 2024-12-28 15:13 | PROVIDERS: Admitting Provider Psychiatry & Neurology Psychiatry; Emergency Provider Emergency Medicine Emergency Medical Services; Visit Provider Internal Medicine | DX: Z13.6 Encounter for screening for cardiovascular disorders (principal) | CPT/HCPCS: 93010 ==

== ENCOUNTER → 2024-12-28 12:08 | Outpatient (BNV) | payer OTHER, SELFPAY | PROVIDERS: Admitting Provider Psychiatry & Neurology Psychiatry; Emergency Provider Emergency Medicine Emergency Medical Services; Visit Provider Psychiatry & Neurology Psychiatry | DX: F31.9 Bipolar disorder, unspecified (principal); F43.10 Post-traumatic stress disorder, unspecified; S06.9XAA Unspecified intracranial injury with loss of consciousness status unknown, initial encounter; F90.9 Attention-deficit hyperactivity disorder, unspecified type; G43.909 Migraine, unspecified, not intractable, without status migrainosus; G40.909 Epilepsy, unspecified, not intractable, without status epilepticus | CPT/HCPCS: 99232 ==

== ENCOUNTER 2025-01-31 13:55 | Inpatient (IN) | payer MEDICAID, OTHER, SELFPAY ==
--- NOTE | ~2025-01-31 | CT_ITS ---
CLINICAL HISTORY: trauma CT maxillofacial without contrast Comparison: None Findings: No acute fractures. Temporomandibular joints are intact. Mild mucosal thickening of the bilateral maxillary sinus. Unremarkable orbital contents. Visualized intracranial contents are within normal limits. No foreign bodies. IMPRESSION: No evidence of acute facial bone fracture. This document has been electronically signed by: Oskar Lowe MD on 01/31/2025 17:40:13
--- NOTE | ~2025-01-31 | CT_ITS ---
CLINICAL HISTORY: trauma CT cervical spine without contrast Comparison: None Findings: Reversal of the cervical lordosis with mild degenerative changes. No acute fractures or dislocations. Visualized intracranial contents are unremarkable. No cervical fluid collections or masses. No consolidation or effusion at the lung apices. IMPRESSION: No acute findings. This document has been electronically signed by: Oskar Lowe MD on 01/31/2025 18:20:23
--- NOTE | ~2025-01-31 | CT_ITS ---
CLINICAL HISTORY: trauma CT head without contrast Comparison: None Findings: No intra-axial mass, midline shift, hydrocephalus, or acute hemorrhage. No significant atrophy-like change or white matter disease. The visualized paranasal sinuses and mastoid air cells are normal. The orbits are within normal limits. No skull fracture. IMPRESSION: 1. No acute intracranial findings. This document has been electronically signed by: Oskar Lowe MD on 01/31/2025 17:35:55
[2025-01-31 14:11] VITALS: BP 122/84; BP 130/70; PULSE 73; PULSE 87; RESP 16; TEMP 35.9; O2SAT 100; O2SAT 97; BMI 26.4
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
[2025-01-31 14:47] LABS: MANUAL DIFF FLAG NO
[2025-01-31 14:48] LABS: Basophils Percent Auto 0.3 % (0-2); Eosinophils Absolute Auto 0.1 X10*3/uL (0.0-0.4); Eosinophils Percent Auto 0.7 % (0-4); Hematocrit 39.3 % (37.0-47.0); Imm Gran Abs Auto 0.02 X10*3/uL (0.00-0.03); Imm Gran Pct Auto 0.3 % (0.0-0.4); Lymphocytes Absolute Auto 2.2 X10*3/uL (1.2-4.9); Lymphocytes Percent Auto 30.2 % (20-40); Mean Corpuscular HGB Conc 33.1 g/dl (31.0-35.0); Mean Corpuscular Hemoglobin 30.7 pg (27.0-33.0); Mean Corpuscular Volume 92.9 fL (80.0-98.0); Mean Platelet Volume 9.4 fL (9.4-12.3); Monocytes Absolute Auto 0.4 X10*3/uL (0.1-1.2); Monocytes Percent Auto 5.3 % (2-11); Neutrophils Absolute Auto 4.6 x10*3/uL (2.0-8.3); Neutrophils Percent Auto 63.2 % (45-73); Platelet Count 326 X10*3/uL (160-400); Red Blood Count 4.23 X10*6/uL (4.20-5.50); Red Cell Distribution Width 13.8 % (11.0-16.0); White Blood Count 7.3 X10*3/uL (4.8-10.8)
[2025-01-31 15:02] LABS: Amphetamine Screen Urine POSITIVE (Not Detect); Barbiturates, Urine Not Detected (Not Detect); Benzodiazepines Screen Urine Not Detected (Not Detect); Buprenorphine Scr Not Detected (Not Detect); Cannabinoid Screen Urine Not Detected (Not Detect); Cocaine Screen Urine Not Detected (Not Detect); Ethanol < 10 mg/dL; Fentanyl, urine Not Detected (Not Detect); Methadone Screen, Urine Not Detected (Not Detect); Opiate Screen Urine POSITIVE (Not Detect); Oxycodone Screen Urine Not Detected (Not Detect); Phencyclidine Screen Urine Not Detected (Not Detect)
[2025-01-31 15:09] LABS: Alanine Aminotransferase 17 U/L (0-31); Albumin Level 4.4 g/dL (3.5-5.0); Alkaline Phosphatase 65 U/L (39-117); Anion Gap 13 (12-20); Aspartate Amino Transferase 20 U/L (5-31); Bilirubin Total 0.2 mg/dL (0.0-1.0); Blood Urea Nitrogen 10 mg/dL (9-16); Calcium 8.8 mg/dL (8.4-10.2); Carbon Dioxide 21 mmol/L (22-29); Chloride 110 mmol/L (96-108); Creatinine Clr Calc Pharmacy 89.7; Estimated Glomerular Filt Rate > 60; Glucose Random 94 mg/dL (60-115); Magnesium 2.1 mg/dL (1.6-2.6); Potassium 3.9 mmol/L (3.3-5.1); Sodium 140 mmol/L (135-145); Total Protein 7.5 g/dL (6.5-8.0)
[2025-01-31 15:10] LABS: HCG Quantitative < 2 mIU/mL
[2025-01-31 15:17] VITALS: PULSE 87; RESP 16; TEMP 37; O2SAT 100
--- NOTE | 2025-01-31 15:52 | MHC.EDTECH ---
Patients belongings wet up on arrival. Clothes currently in wash.
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
--- NOTE | 2025-01-31 18:13 | PC.NURSE ---
Dr. Edmondson at Pts bedside for eval. Verbal order received to add on U/A. Lab contacted, spoke with Teresa who reports enough spec available for testing. Lab order placed---awaiting results. Per Dr. Edmondson, no SA exam at this time. Will treat Pt for Chlamydia and Gonorrhea: --will treat for Trichomoniasis first with Metronidazole. --6 hours later will add Ceftriaxone 500mg IM and Azythromycin 2g PO to avoid GI side effects. Awaiting orders to be entered.
[2025-01-31 18:20] LABS: Appearance Urine Cloudy; Color Urine Yellow; Glucose Urine UA Negative (Negative); Leukocyte Esterase Urine Negative (Negative); Nitrite Urine Negative (Negative); PH 5.5 (5.0-9.0); Urine Blood Negative (Negative); Urine Ketones Negative (Negative); Urine Protein Negative (Neg-Trace)
[2025-01-31 18:31] LABS: Bacteria Urine Trace (None Seen); Calcium Oxalate Crystals Urine Present; Hyaline Casts Urine 0-2 /LPF (0-2); RBC Urine 0-2 /HPF (0-2); WBC Urine 0-5 /HPF (0-5)
[2025-01-31] MEDS: Azithromycin 500 MG TABLET 1000 MG PO (20:09)
[2025-01-31] MEDS: metroNIDAZOLE 500 MG TABLET 2000 MG PO (20:09)
[2025-01-31] MEDS: cefTRIAXone sodium 500 MG, Lidocaine HCl 1 % MPF 1 ML IM (20:10)
[2025-01-31] MEDS: clonazePAM 1 MG TABLET PO (20:36)
[2025-01-31] MEDS: Butalb/Acetamin/Caff 50/325/40 TABLET 1 TAB PO (23:10)
--- NOTE | 2025-02-01 | ECG_ITS ---
Test Reason : rule out prolonged qtc Blood Pressure : */* mmHG Vent. Rate : 79 BPM Atrial Rate : 79 BPM P-R Int : 144 ms QRS Dur : 72 ms QT Int : 398 ms P-R-T Axes : 22 36 43 degrees QTcB Int : 456 ms Normal sinus rhythm Normal ECG When compared with ECG of 28-Dec-2024 15:13, No significant change was found Referred By: Negro Edmondson Electronically Signed By: RUPERTO HUDSON MD
[2025-02-01 01:25] VITALS: RESP 16
[2025-02-01] MEDS: risperiDONE 3 MG TABLET PO ×2 (01:39→21:19)
--- NOTE | 2025-02-01 01:40 | PC.NURSE ---
pt unable to sleep. pt has tried doodling and ice chips, pt has started to pick at her arms, pt is calm and cooperative.
[2025-02-01 02:03] VITALS: BP 118/79; PULSE 82; RESP 16; TEMP 36.6; O2SAT 100
--- NOTE | 2025-02-01 08:38 | PC.NURSE ---
Assumed care of patient at 0645, patient appears to be in no apparent distress this am, ambulating around BH pod, calm and cooperative, speaking with other patients. Patient is aware of plan of care for IPLOC
[2025-02-01] MEDS: Loratadine 10 MG TABLET PO (09:36)
[2025-02-01] MEDS: FLUoxetine HCl 20 MG CAPSULE 60 MG PO (09:36)
[2025-02-01] MEDS: Topiramate 100 MG TABLET 200 MG PO ×2 (09:36→21:20)
[2025-02-01] MEDS: Omeprazole 40 MG CAPSULE.DR PO (09:36)
--- NOTE | 2025-02-01 10:08 | PHA.MEDREC ---
Pharmacy Consult ? Medication Reconciliation Pharmacy has reviewed the medication reconciliation done by RN. Omitted from list was Trazodone and Olanzapine, confirmed with patient she is still on trazodone but patient was unsure about the olanzapine. Claims do not show current history of valacyclovir however patient picks this up from [facility], called pharmacy and they confirmed patient picked up last on 12/30/2024,
[2025-02-01] MEDS: Cholecalciferol (Vitamin D3) 10 MCG TABLET 20 MCG PO (10:16)
[2025-02-01] MEDS: valACYclovir HCL 1,000 MG TABLET 1000 MG PO (10:16)
[2025-02-01] MEDS: Dextroamphetamine/Amphetamine XR 10 MG CAP.ER.24H 30 MG PO ×2 (10:20→14:19)
--- NOTE | 2025-02-01 10:23 | PC.NURSE ---
adderall administered early due to patient missing morning medication
[2025-02-01] MEDS: Nicotine Polacrilex 2 MG GUM BUCCAL (11:58)
[2025-02-01] MEDS: Ibuprofen 600 MG TABLET PO (14:19)
[2025-02-01] MEDS: Nicotine Polacrilex 2 MG GUM 4 MG BUCCAL ×2 (14:52→16:56)
[2025-02-01] MEDS: Nicotine 21 MG PATCH.TD24 TRANSDERMA (14:52)
[2025-02-01 15:17] VITALS: BMI 24.3
[2025-02-01 15:18] VITALS: BP 130/81; PULSE 102; RESP 18; TEMP 37.4; O2SAT 100
[2025-02-01] MEDS: Amphetamine Mixed Salts 10 MG TABLET PO (16:32)
[2025-02-01 16:52] LABS: Alanine Aminotransferase 16 U/L (0-31); Albumin Level 4.4 g/dL (3.5-5.0); Alkaline Phosphatase 67 U/L (39-117); Anion Gap 10 (12-20); Aspartate Amino Transferase 19 U/L (5-31); Bilirubin Total 0.2 mg/dL (0.0-1.0); Blood Urea Nitrogen 14 mg/dL (9-16); Calcium 9.5 mg/dL (8.4-10.2); Carbon Dioxide 23 mmol/L (22-29); Chloride 112 mmol/L (96-108); Creatinine Clr Calc Pharmacy 73.4; Estimated Glomerular Filt Rate > 60; Glucose Random 66 mg/dL (60-115); Potassium 4.1 mmol/L (3.3-5.1); Sodium 141 mmol/L (135-145); Total Protein 7.3 g/dL (6.5-8.0)
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
[2025-02-01 19:27] VITALS: BP 121/80; PULSE 89; TEMP 36.7; O2SAT 100
[2025-02-01] MEDS: traZODone HCL 50 MG TABLET PO ×2 (21:20→22:41)
[2025-02-01] MEDS: clonazePAM 1 MG TABLET PO (21:24)
[2025-02-02] MEDS: Acetaminophen 325 MG TABLET 650 MG PO ×2 (03:53→23:38)
[2025-02-02] MEDS: hydrOXYzine HCL 25 MG TABLET PO (03:54)
[2025-02-02] MEDS: Nicotine Polacrilex 2 MG GUM BUCCAL (05:37)
[2025-02-02] MEDS: Omeprazole 40 MG CAPSULE.DR PO (06:19)
[2025-02-02] MEDS: Dextroamphetamine/Amphetamine XR 10 MG CAP.ER.24H 30 MG PO ×2 (06:19→12:28)
[2025-02-02 07:53] VITALS: BP 111/66; PULSE 104; TEMP 36.4; O2SAT 100
[2025-02-02] MEDS: Loratadine 10 MG TABLET PO (08:08)
[2025-02-02] MEDS: FLUoxetine HCl 20 MG CAPSULE 60 MG PO (08:08)
[2025-02-02] MEDS: Topiramate 100 MG TABLET 200 MG PO ×2 (08:08→22:54)
[2025-02-02] MEDS: valACYclovir HCL 1,000 MG TABLET 1000 MG PO (08:09)
[2025-02-02] MEDS: Cholecalciferol (Vitamin D3) 10 MCG TABLET 20 MCG PO (08:09)
[2025-02-02] MEDS: Nicotine Polacrilex 2 MG GUM 4 MG BUCCAL ×4 (08:24→17:35)
[2025-02-02] MEDS: Nicotine 21 MG PATCH.TD24 TRANSDERMA (08:24)
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
[2025-02-02] MEDS: Amphetamine Mixed Salts 10 MG TABLET PO (15:12)
[2025-02-02 20:00] VITALS: BP 131/80; PULSE 97; TEMP 36.9; O2SAT 100
[2025-02-02] MEDS: Nicotine Polacrilex Lozenge 4 MG LOZENGE BUCCAL ×2 (21:08→23:40)
[2025-02-02 21:41] LABS: Bacterial Vaginosis PCR NEGATIVE (Negative); Candida Group PCR DETECTED (Not Detect); Candida glab krusei PCR NOT DETECTED (Not Detect); Trichomonas vaginalis PCR NOT DETECTED (Not Detect)
[2025-02-02] MEDS: risperiDONE 3 MG TABLET PO (22:54)
[2025-02-02] MEDS: Fluticasone Propionate Nasal 16 GM SPRAY 1 SPRAY NOSTRIL-B (22:54)
[2025-02-02] MEDS: clonazePAM 1 MG TABLET PO (22:59)
[2025-02-03 06:02] LABS: CT PCR NOT DETECTED (Not Detect.); NG PCR NOT DETECTED (Not Detect.)
[2025-02-03] MEDS: Dextroamphetamine/Amphetamine XR 10 MG CAP.ER.24H 30 MG PO ×2 (06:23→12:12)
[2025-02-03] MEDS: Omeprazole 40 MG CAPSULE.DR PO (06:24)
[2025-02-03 07:00] VITALS: BMI 25.1
[2025-02-03 08:38] VITALS: BP 101/59; PULSE 113; TEMP 36.3; O2SAT 100
[2025-02-03] MEDS: Fluticasone Propionate Nasal 16 GM SPRAY 1 SPRAY NOSTRIL-B (08:42)
[2025-02-03] MEDS: Nicotine 21 MG PATCH.TD24 TRANSDERMA (08:43)
[2025-02-03] MEDS: Loratadine 10 MG TABLET PO (08:43)
[2025-02-03] MEDS: Topiramate 100 MG TABLET 200 MG PO ×2 (08:43→21:14)
[2025-02-03] MEDS: valACYclovir HCL 1,000 MG TABLET 1000 MG PO (08:44)
[2025-02-03] MEDS: FLUoxetine HCl 20 MG CAPSULE 60 MG PO (08:44)
[2025-02-03] MEDS: Cholecalciferol (Vitamin D3) 10 MCG TABLET 20 MCG PO (08:44)
[2025-02-03] MEDS: Nicotine Polacrilex Lozenge 4 MG LOZENGE BUCCAL ×3 (11:33→21:21)
--- NOTE | 2025-02-03 11:34 | MHC.RECOVRN ---
AUDIT-C Brief Intervention Pt had positive screen for unhealthy alcohol use on admission, subsequently met with t/w to discuss alcohol use and recovery supports/options. This clinical writer met with patient to discuss current alcohol use and concerns related to increased risk of alcohol related problems.? Pt reports 1 pint- 1 liter a few times a week since August. Discussed how alcohol use has impacted health, including negative impact on mental health. Withdrawal History: denies hx withdrawal seizures Treatment History: [facility]ulkarn[facility] Avanzando Supports:?new continuous improvement coachSandra Discussed risk reduction strategies including drinking below the recommended limit. Provided pt with written resources including information on inpatient and outpatient treatment, CARLOS, harm reduction, and recovery coaching. Pt declines CARLOS or appt for CARLOS. Pt plans to continue inpatient treatment and continue working with continuous improvement coach and to transfer to [facility]. Pt provided with t/w contact information if questions or concerns arise. Denies other questions or concerns at this time.?
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
[2025-02-03] MEDS: Amphetamine Mixed Salts 10 MG TABLET PO (15:31)
[2025-02-03] MEDS: Acetaminophen 325 MG TABLET 650 MG PO (15:33)
[2025-02-03] MEDS: Nicotine Polacrilex 2 MG GUM BUCCAL (15:33)
[2025-02-03 20:47] VITALS: BP 113/73; PULSE 88; RESP 16; TEMP 36.4; O2SAT 100
[2025-02-03] MEDS: Cyclobenzaprine HCl 10 MG TABLET PO (21:12)
[2025-02-03] MEDS: risperiDONE 3 MG TABLET PO (21:13)
[2025-02-03] MEDS: clonazePAM 1 MG TABLET PO (21:20)
[2025-02-04] MEDS: Omeprazole 40 MG CAPSULE.DR PO (07:15)
[2025-02-04] MEDS: Dextroamphetamine/Amphetamine XR 10 MG CAP.ER.24H 30 MG PO ×2 (07:15→12:49)
[2025-02-04 07:58] VITALS: BP 108/65; PULSE 93; RESP 16; TEMP 36.1; O2SAT 99
[2025-02-04] MEDS: Cholecalciferol (Vitamin D3) 10 MCG TABLET 20 MCG PO (09:33)
[2025-02-04] MEDS: Loratadine 10 MG TABLET PO (09:33)
[2025-02-04] MEDS: Topiramate 100 MG TABLET 200 MG PO ×2 (09:33→21:57)
[2025-02-04] MEDS: valACYclovir HCL 1,000 MG TABLET 1000 MG PO (09:33)
[2025-02-04] MEDS: FLUoxetine HCl 20 MG CAPSULE 60 MG PO (09:33)
[2025-02-04] MEDS: Nicotine 21 MG PATCH.TD24 TRANSDERMA (09:34)
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
[2025-02-04] MEDS: Fluticasone Propionate Nasal 16 GM SPRAY 1 SPRAY NOSTRIL-B (09:53)
[2025-02-04] MEDS: Nicotine Polacrilex Lozenge 4 MG LOZENGE BUCCAL ×5 (09:54→23:19)
[2025-02-04] MEDS: Nicotine Polacrilex 2 MG GUM BUCCAL (11:18)
[2025-02-04] MEDS: Amphetamine Mixed Salts 10 MG TABLET PO (15:05)
[2025-02-04] MEDS: Mineral Oil/Petrolatum,White 106 GM Tube 1 APPL TOPICAL (17:54)
[2025-02-04] MEDS: clonazePAM 1 MG TABLET PO ×2 (18:54→23:22)
[2025-02-04 20:00] VITALS: BP 144/80; PULSE 98; RESP 16; TEMP 36.4; O2SAT 100
[2025-02-04] MEDS: Cyclobenzaprine HCl 10 MG TABLET PO (21:00)
[2025-02-04] MEDS: Fluconazole 150 MG TABLET PO (21:57)
[2025-02-04] MEDS: risperiDONE 3 MG TABLET PO (21:58)
[2025-02-05] MEDS: Omeprazole 40 MG CAPSULE.DR PO (06:45)
[2025-02-05] MEDS: Dextroamphetamine/Amphetamine XR 10 MG CAP.ER.24H 30 MG PO ×2 (06:45→12:03)
[2025-02-05] MEDS: Nicotine Polacrilex Lozenge 4 MG LOZENGE BUCCAL ×5 (06:58→19:47)
[2025-02-05 07:59] VITALS: BP 102/65; PULSE 108; RESP 16; TEMP 36.4; O2SAT 100
[2025-02-05] MEDS: valACYclovir HCL 1,000 MG TABLET 1000 MG PO (08:44)
[2025-02-05] MEDS: Cholecalciferol (Vitamin D3) 10 MCG TABLET 20 MCG PO (08:44)
[2025-02-05] MEDS: Topiramate 100 MG TABLET 200 MG PO ×2 (08:44→21:11)
[2025-02-05] MEDS: FLUoxetine HCl 20 MG CAPSULE 60 MG PO (08:44)
[2025-02-05] MEDS: Loratadine 10 MG TABLET PO (08:44)
[2025-02-05] MEDS: Fluticasone Propionate Nasal 16 GM SPRAY 1 SPRAY NOSTRIL-B (08:49)
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
[2025-02-05] MEDS: Nicotine 21 MG PATCH.TD24 TRANSDERMA (10:05)
[2025-02-05] MEDS: Amphetamine Mixed Salts 10 MG TABLET PO (15:41)
[2025-02-05] MEDS: clonazePAM 1 MG TABLET PO (18:04)
[2025-02-05] MEDS: Cyclobenzaprine HCl 10 MG TABLET PO (18:04)
[2025-02-05] MEDS: Acetaminophen 325 MG TABLET 650 MG PO (19:46)
[2025-02-05 20:00] VITALS: BP 113/60; PULSE 95; RESP 20; TEMP 36.9; O2SAT 100
[2025-02-05] MEDS: risperiDONE 3 MG TABLET PO (21:11)
[2025-02-05] MEDS: traZODone HCL 50 MG TABLET PO (21:12)
[2025-02-05] MEDS: hydrOXYzine HCL 25 MG TABLET PO (21:13)
[2025-02-06] MEDS: Dextroamphetamine/Amphetamine XR 10 MG CAP.ER.24H 30 MG PO (06:50)
[2025-02-06] MEDS: Omeprazole 40 MG CAPSULE.DR PO (06:50)
[2025-02-06] MEDS: FLUoxetine HCl 20 MG CAPSULE 60 MG PO (08:56)
[2025-02-06] MEDS: Loratadine 10 MG TABLET PO (08:56)
[2025-02-06] MEDS: Topiramate 100 MG TABLET 200 MG PO ×2 (08:56→20:31)
[2025-02-06] MEDS: valACYclovir HCL 1,000 MG TABLET 1000 MG PO (08:56)
[2025-02-06] MEDS: Cholecalciferol (Vitamin D3) 10 MCG TABLET 20 MCG PO (08:56)
[2025-02-06] MEDS: Nicotine 21 MG PATCH.TD24 TRANSDERMA (08:57)
[2025-02-06] MEDS: Fluticasone Propionate Nasal 16 GM SPRAY 1 SPRAY NOSTRIL-B (09:00)
[2025-02-06] MEDS: Nicotine Polacrilex Lozenge 4 MG LOZENGE BUCCAL ×5 (09:00→18:53)
[2025-02-06 09:09] VITALS: BP 112/65; PULSE 105; RESP 18; TEMP 36.6; O2SAT 100
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
[2025-02-06] MEDS: Dextroamphetamine/Amphetamine XR 10 MG CAP.ER.24H 20 MG PO (13:01)
[2025-02-06] MEDS: Amphetamine Mixed Salts 10 MG TABLET PO ×2 (13:24→15:25)
[2025-02-06] MEDS: Cyclobenzaprine HCl 10 MG TABLET PO (18:52)
[2025-02-06] MEDS: clonazePAM 1 MG TABLET PO (18:53)
[2025-02-06 20:00] VITALS: BP 108/65; PULSE 99; RESP 18; O2SAT 99
[2025-02-06] MEDS: traZODone HCL 50 MG TABLET PO (20:31)
[2025-02-06] MEDS: risperiDONE 3 MG TABLET PO (20:31)
[2025-02-06] MEDS: hydrOXYzine HCL 25 MG TABLET PO (20:31)
[2025-02-07 08:00] VITALS: BP 108/60; PULSE 80; TEMP 36.7; O2SAT 97
[2025-02-07] MEDS: Nicotine 21 MG PATCH.TD24 TRANSDERMA (08:43)
[2025-02-07] MEDS: Fluticasone Propionate Nasal 16 GM SPRAY 1 SPRAY NOSTRIL-B (08:44)
[2025-02-07] MEDS: Topiramate 100 MG TABLET 200 MG PO ×2 (08:45→20:52)
[2025-02-07] MEDS: Cholecalciferol (Vitamin D3) 10 MCG TABLET 20 MCG PO (08:45)
[2025-02-07] MEDS: Omeprazole 40 MG CAPSULE.DR PO (08:45)
[2025-02-07] MEDS: Loratadine 10 MG TABLET PO (08:45)
[2025-02-07] MEDS: FLUoxetine HCl 20 MG CAPSULE 60 MG PO (08:45)
[2025-02-07] MEDS: valACYclovir HCL 1,000 MG TABLET 1000 MG PO (08:45)
[2025-02-07] MEDS: Dextroamphetamine/Amphetamine XR 10 MG CAP.ER.24H 30 MG PO ×2 (08:55→13:13)
[2025-02-07] MEDS: Nicotine Polacrilex Lozenge 4 MG LOZENGE BUCCAL ×6 (08:56→20:52)
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
[2025-02-07] MEDS: Amphetamine Mixed Salts 10 MG TABLET PO (15:34)
[2025-02-07] MEDS: Acetaminophen 325 MG TABLET 650 MG PO (15:35)
[2025-02-07 19:47] VITALS: BP 115/64; PULSE 85; TEMP 36.9; O2SAT 100
[2025-02-07] MEDS: clonazePAM 1 MG TABLET PO (20:52)
[2025-02-07] MEDS: risperiDONE 3 MG TABLET PO (20:52)
[2025-02-07] MEDS: hydrOXYzine HCL 25 MG TABLET PO (20:52)
[2025-02-07] MEDS: traZODone HCL 50 MG TABLET PO (20:52)
[2025-02-07] MEDS: Cyclobenzaprine HCl 10 MG TABLET PO (20:55)
[2025-02-08] MEDS: Omeprazole 40 MG CAPSULE.DR PO (06:28)
[2025-02-08] MEDS: Dextroamphetamine/Amphetamine XR 10 MG CAP.ER.24H 30 MG PO ×2 (06:28→12:56)
[2025-02-08 08:35] VITALS: BP 89/57; PULSE 76; RESP 16; TEMP 36.6; O2SAT 98
[2025-02-08] MEDS: Loratadine 10 MG TABLET PO (08:39)
[2025-02-08] MEDS: Fluticasone Propionate Nasal 16 GM SPRAY 1 SPRAY NOSTRIL-B (08:39)
[2025-02-08] MEDS: Topiramate 100 MG TABLET 200 MG PO ×2 (08:39→20:38)
[2025-02-08] MEDS: FLUoxetine HCl 20 MG CAPSULE 60 MG PO (08:39)
[2025-02-08] MEDS: Nicotine 21 MG PATCH.TD24 TRANSDERMA (08:39)
[2025-02-08] MEDS: valACYclovir HCL 1,000 MG TABLET 1000 MG PO (08:39)
[2025-02-08] MEDS: Cholecalciferol (Vitamin D3) 10 MCG TABLET 20 MCG PO (08:39)
[2025-02-08] MEDS: Nicotine Polacrilex Lozenge 4 MG LOZENGE BUCCAL ×6 (08:43→20:46)
[2025-02-08] MEDS: Mineral Oil/Petrolatum,White 106 GM Tube 1 APPL TOPICAL (10:49)
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
[2025-02-08] MEDS: Acetaminophen 325 MG TABLET 650 MG PO ×2 (12:58→20:45)
[2025-02-08] MEDS: Amphetamine Mixed Salts 10 MG TABLET 30 MG PO (15:07)
[2025-02-08 20:00] VITALS: BP 116/60; PULSE 91; RESP 16; TEMP 36.6; O2SAT 97
[2025-02-08] MEDS: risperiDONE 3 MG TABLET PO (20:38)
[2025-02-08] MEDS: clonazePAM 1 MG TABLET PO (20:44)
[2025-02-08] MEDS: traZODone HCL 50 MG TABLET PO (20:44)
[2025-02-08] MEDS: hydrOXYzine HCL 25 MG TABLET PO (20:45)
[2025-02-09] MEDS: Dextroamphetamine/Amphetamine XR 10 MG CAP.ER.24H 30 MG PO ×2 (06:44→12:22)
[2025-02-09] MEDS: Omeprazole 40 MG CAPSULE.DR PO (06:45)
[2025-02-09 08:00] VITALS: BP 89/54; PULSE 78; TEMP 36.4; O2SAT 99
[2025-02-09] MEDS: FLUoxetine HCl 20 MG CAPSULE 60 MG PO (09:19)
[2025-02-09] MEDS: Loratadine 10 MG TABLET PO (09:20)
[2025-02-09] MEDS: Topiramate 100 MG TABLET 200 MG PO (09:20)
[2025-02-09] MEDS: Cholecalciferol (Vitamin D3) 10 MCG TABLET 20 MCG PO (09:20)
[2025-02-09] MEDS: valACYclovir HCL 1,000 MG TABLET 1000 MG PO (09:20)
[2025-02-09] MEDS: Nicotine 21 MG PATCH.TD24 TRANSDERMA (09:21)
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
[2025-02-09] MEDS: Mineral Oil/Petrolatum,White 106 GM Tube 1 APPL TOPICAL (10:11)
[2025-02-09] MEDS: Acetaminophen 325 MG TABLET 650 MG PO (10:12)
[2025-02-09] MEDS: Nicotine Polacrilex Lozenge 4 MG LOZENGE BUCCAL ×2 (10:12→12:22)
[2025-02-09] MEDS: Fluticasone Propionate Nasal 16 GM SPRAY 1 SPRAY NOSTRIL-B (10:12)
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
[2025-02-09] MEDS: Naloxone HCl Nasal TAKE HOME 4 MG SPRAY 8 MG NOSTRILALT (14:57)
== END 2025-02-09 14:57 | disposition home or self-care (01) | DRG 753 ==
LOC: HO.ED 22:00 → HO.PM5 02-01 14:30
PROVIDERS: Physician Assistant Medical; Admitting Provider Psychiatry & Neurology Psychiatry; Emergency Provider Emergency Medicine Emergency Medical Services; Visit Provider Psychiatry & Neurology Psychiatry
DX: F31.9 Bipolar disorder, unspecified (principal); R45.851 Suicidal ideations; F17.210 Nicotine dependence, cigarettes, uncomplicated; F90.9 Attention-deficit hyperactivity disorder, unspecified type; F43.10 Post-traumatic stress disorder, unspecified; Z59.02 Unsheltered homelessness; Z71.6 Tobacco abuse counseling; Z79.51 Long term (current) use of inhaled steroids; Z79.899 Other long term (current) drug therapy
CPT/HCPCS: 36415; 70450; 70486; 72125; 80053; 80307; 81001; 81515; 83735; 84702; 85025; 87491; 87591; 93005; 99285; J0696; J2003; S9485

== ENCOUNTER → 2025-01-31 14:14 | Outpatient (BNV) | payer MEDICAID, SELFPAY | PROVIDERS: Emergency Provider Emergency Medicine Emergency Medical Services; Visit Provider Nuclear Medicine | DX: S19.9XXA Unspecified injury of neck, initial encounter (principal); S09.90XA Unspecified injury of head, initial encounter | CPT/HCPCS: 70450; 70486; 72125 ==

== ENCOUNTER → 2025-02-01 12:42 | Outpatient (BNV) | payer MEDICAID, SELFPAY | PROVIDERS: Admitting Provider Psychiatry & Neurology Psychiatry; Emergency Provider Emergency Medicine Emergency Medical Services; Visit Provider Internal Medicine Cardiovascular Disease | DX: Z13.6 Encounter for screening for cardiovascular disorders (principal) | CPT/HCPCS: 93010 ==

== ENCOUNTER → 2025-02-01 14:20 | Outpatient (BNV) | payer OTHER, SELFPAY | PROVIDERS: Admitting Provider Psychiatry & Neurology Psychiatry; Emergency Provider Emergency Medicine Emergency Medical Services; Visit Provider Psychiatry & Neurology Psychiatry | DX: F31.4 Bipolar disorder, current episode depressed, severe, without psychotic features (principal); F43.11 Post-traumatic stress disorder, acute; F90.9 Attention-deficit hyperactivity disorder, unspecified type | CPT/HCPCS: 99232 ==

== ENCOUNTER 2025-03-11 18:18 | Inpatient (IN) | payer OTHER, SELFPAY ==
[2025-03-11 18:26] VITALS: BP 154/98; PULSE 81; O2SAT 97
[2025-03-11 19:10] VITALS: BP 118/76; PULSE 74; RESP 16; TEMP 36.8; O2SAT 99; BMI 26.4
--- NOTE | 2025-03-11 19:22 | PC.NURSE ---
patient appears to remain at rest appears in no distress rsting in bed.
[2025-03-11 19:59] LABS: MANUAL DIFF FLAG NO
[2025-03-11 20:05] LABS: Appearance Urine Clear; Color Urine Yellow; Glucose Urine UA Negative (Negative); Leukocyte Esterase Urine Moderate (2+) (Negative); Nitrite Urine Negative (Negative); PH 6.5 (5.0-9.0); Specific Gravity - Urine 1.015 (1.005-1.025); UMIC TRIGGER UACC YES; UPreg QC Valid YES; Urine Blood Negative (Negative); Urine Ketones Negative (Negative); Urine Pregnancy NEGATIVE (NEGATIVE); Urine Protein Negative (Neg-Trace)
[2025-03-11 20:07] LABS: Bacteria Urine Trace (None Seen); Basophils Percent Auto 0.1 % (0-2); Eosinophils Absolute Auto 0.1 X10*3/uL (0.0-0.4); Hematocrit 36.1 % (37.0-47.0); Hemoglobin 11.9 g/dl (12.0-16.0); Hyaline Casts Urine 0-2 /LPF (0-2); Imm Gran Abs Auto 0.02 X10*3/uL (0.00-0.03); Imm Gran Pct Auto 0.3 % (0.0-0.4); Lymphocytes Absolute Auto 3.1 X10*3/uL (1.2-4.9); Lymphocytes Percent Auto 43.5 % (20-40); Mean Corpuscular Hemoglobin 29.3 pg (27.0-33.0); Mean Corpuscular Volume 88.9 fL (80.0-98.0); Mean Platelet Volume 8.9 fL (9.4-12.3); Monocytes Absolute Auto 0.6 X10*3/uL (0.1-1.2); Monocytes Percent Auto 9.1 % (2-11); Neutrophils Absolute Auto 3.2 x10*3/uL (2.0-8.3); Platelet Count 336 X10*3/uL (160-400); RBC Urine 0-2 /HPF (0-2); Red Blood Count 4.06 X10*6/uL (4.20-5.50); Red Cell Distribution Width 13.8 % (11.0-16.0); Squamous Epithelial Cell Urine 0-2 /HPF (0-2); UACC Culture Trigger YES; WBC Urine 21-50 /HPF (0-5)
--- NOTE | 2025-03-11 20:09 | PC.NURSE ---
patient seemed very agitated and theres an unkown cause t/w had spoken to her about her pharmacy patient came out and started swearing at t/w.
[2025-03-11 20:15] LABS: Acetaminophen LAB < 3 mcg/mL (<30); Alanine Aminotransferase 17 U/L (0-31); Albumin Level 4.4 g/dL (3.5-5.0); Alkaline Phosphatase 62 U/L (39-117); Anion Gap 12 (12-20); Aspartate Amino Transferase 20 U/L (5-31); Bilirubin Total 0.4 mg/dL (0.0-1.0); Blood Urea Nitrogen 6 mg/dL (9-16); Carbon Dioxide 25 mmol/L (22-29); Chloride 107 mmol/L (96-108); Creatinine Clr Calc Pharmacy 86.3; Estimated Glomerular Filt Rate > 60; Ethanol < 10 mg/dL; Glucose Random 100 mg/dL (60-115); Salicylate < 5.0 mg/dL (15-30); Sodium 140 mmol/L (135-145); Total Protein 7.3 g/dL (6.5-8.0)
[2025-03-11 20:18] LABS: Amphetamine Screen Urine POSITIVE (Not Detect); Barbiturates, Urine Not Detected (Not Detect); Benzodiazepines Screen Urine Not Detected (Not Detect); Buprenorphine Scr Not Detected (Not Detect); Cannabinoid Screen Urine Not Detected (Not Detect); Cocaine Screen Urine Not Detected (Not Detect); Fentanyl, urine Not Detected (Not Detect); Methadone Screen, Urine Not Detected (Not Detect); Opiate Screen Urine Not Detected (Not Detect); Oxycodone Screen Urine Not Detected (Not Detect); Phencyclidine Screen Urine Not Detected (Not Detect)
--- NOTE | 2025-03-11 21:17 | PC.NURSE ---
soon after t/w asked client about medications patient came out and started swearing at and insulting staff, it seemd unclear to t/w why client was agitated clients pharmacy is closed at this time. faxed older med list to pharmacy.
--- NOTE | 2025-03-11 23:38 | PC.NURSE ---
This policy writer assumed care of this Pt at 2300. Pt appears to be sleeping, equal, non labored respirations. Plan of care on going.
--- NOTE | 2025-03-12 00:36 | PC.NURSE ---
Med rec done. Pt able to verbalize home meds from list provided from [facility].
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
[2025-03-12] MEDS: Acetaminophen 325 MG TABLET 650 MG PO (01:46)
[2025-03-12] MEDS: clonazePAM 1 MG TABLET PO ×3 (01:47→20:11)
[2025-03-12] MEDS: Dextroamphetamine/Amphetamine XR 10 MG CAP.ER.24H 30 MG PO ×2 (06:19→12:25)
[2025-03-12 06:20] VITALS: BP 101/61; PULSE 83; RESP 20; TEMP 37; O2SAT 98
[2025-03-12] MEDS: Ibuprofen 800 MG TABLET PO ×2 (07:21→17:37)
--- NOTE | 2025-03-12 07:34 | PC.NURSE ---
Assumed care of patient at 0645, patient appears to be in no apparent distress this am, calm and cooperative, reporting lower jaw pain. Pt medicated with 800mg Ibuprofen. Now requesting nicotine replacement therapy. Dr. Devine made aware. Continue plan of care for dual dx bedsearch
[2025-03-12] MEDS: FLUoxetine HCl 20 MG CAPSULE PO (08:43)
[2025-03-12] MEDS: Nicotine Polacrilex Lozenge 4 MG LOZENGE BUCCAL ×4 (08:43→20:11)
[2025-03-12] MEDS: valACYclovir HCL 1,000 MG TABLET 1000 MG PO (08:44)
[2025-03-12] MEDS: Loratadine 10 MG TABLET PO (08:44)
[2025-03-12] MEDS: Topiramate 100 MG TABLET 200 MG PO ×2 (08:44→20:00)
--- NOTE | 2025-03-12 11:58 | PHA.MEDREC ---
Pharmacy Consult ? Medication Reconciliation Pharmacy has completed the medication reconciliation. UTILIZED CLAIMS HISTORY, LIST FROM [facility], AND CONFIRMED WITH PATIENT DOSING ON HOME MEDICATIONS. OVERNIGHT NURSING INPUT INCORRECT DOSE OF FLUOXETINE. HOME LIST UPDATED AND PROVIDER NOTIFIED.
[2025-03-12] MEDS: Nicotine 21 MG PATCH.TD24 TRANSDERMA (12:25)
--- NOTE | 2025-03-12 12:38 | PC.NURSE ---
pt reporting she is having auras, requesting Sumatriptan made aware via tiger text, no response at this time
[2025-03-12] MEDS: SUMAtriptan succinate 50 MG TABLET PO (13:38)
[2025-03-12] MEDS: Amphetamine Mixed Salts 10 MG TABLET 30 MG PO (16:22)
[2025-03-12 17:49] VITALS: BP 120/77; PULSE 91; RESP 18; TEMP 37; O2SAT 100
--- NOTE | 2025-03-12 19:24 | PC.NURSE ---
pt had relatively uneventful day, occasionally reporting jaw pain managed with Ibuprofen. pt remains inpatient level of care at this time
[2025-03-12] MEDS: traZODone HCL 50 MG TABLET PO (20:00)
[2025-03-12] MEDS: risperiDONE 2 MG TABLET PO (20:00)
[2025-03-12 21:14] VITALS: RESP 16
[2025-03-13 06:28] VITALS: BP 94/60; PULSE 87; RESP 16; TEMP 37.2; O2SAT 98
[2025-03-13] MEDS: Dextroamphetamine/Amphetamine XR 10 MG CAP.ER.24H 30 MG PO ×2 (06:35→13:00)
--- NOTE | 2025-03-13 06:38 | PC.NURSE ---
pt has 8/10 pain to her chin from a old injury. wound is scabbed over and pt states motrin helps with her inflamation.
[2025-03-13] MEDS: Loratadine 10 MG TABLET PO (08:33)
[2025-03-13] MEDS: valACYclovir HCL 1,000 MG TABLET 1000 MG PO (08:33)
[2025-03-13] MEDS: Topiramate 100 MG TABLET 200 MG PO ×2 (08:33→20:09)
[2025-03-13] MEDS: Ibuprofen 400 MG TABLET PO (08:34)
[2025-03-13] MEDS: FLUoxetine HCl 20 MG CAPSULE 60 MG PO (08:34)
[2025-03-13] MEDS: Cholecalciferol (Vitamin D3) 10 MCG TABLET 20 MCG PO (08:35)
[2025-03-13] MEDS: clonazePAM 1 MG TABLET PO ×2 (11:11→20:08)
[2025-03-13] MEDS: Amphetamine Mixed Salts 10 MG TABLET 30 MG PO (16:50)
[2025-03-13] MEDS: Acetaminophen 325 MG TABLET 650 MG PO (16:54)
[2025-03-13] MEDS: Nicotine 21 MG PATCH.TD24 TRANSDERMA (18:02)
[2025-03-13] MEDS: Nicotine Polacrilex Lozenge 4 MG LOZENGE BUCCAL ×2 (18:04→20:08)
[2025-03-13 20:08] VITALS: BP 110/71; PULSE 89; RESP 18; TEMP 36.6; O2SAT 100
[2025-03-13] MEDS: risperiDONE 2 MG TABLET PO (20:08)
[2025-03-13] MEDS: Ibuprofen 600 MG TABLET PO (20:08)
[2025-03-13] MEDS: traZODone HCL 50 MG TABLET PO (20:09)
--- NOTE | 2025-03-14 | ECG_ITS ---
Test Reason : pysch Blood Pressure : */* mmHG Vent. Rate : 94 BPM Atrial Rate : 94 BPM P-R Int : 162 ms QRS Dur : 72 ms QT Int : 370 ms P-R-T Axes : 54 32 50 degrees QTcB Int : 462 ms Normal sinus rhythm Cannot rule out Anterior infarct , age undetermined Abnormal ECG When compared with ECG of 01-Feb-2025 12:42, No significant change was found Referred By: Esthela Naranjo Electronically Signed By: WALTER REMY
--- NOTE | 2025-03-14 05:52 | PC.NURSE ---
Patient slept through the night, no distress observed/reported, 15 minutes safety check, no behavior and safety concerns, meds and meals compliant, disposition per care team is section-12 inpatient bed search
[2025-03-14 06:02] VITALS: RESP 16
[2025-03-14] MEDS: Dextroamphetamine/Amphetamine XR 10 MG CAP.ER.24H 30 MG PO ×2 (06:18→11:55)
[2025-03-14] MEDS: Ibuprofen 600 MG TABLET PO (06:32)
[2025-03-14] MEDS: Nicotine Polacrilex Lozenge 4 MG LOZENGE BUCCAL ×6 (06:33→20:50)
[2025-03-14 07:04] VITALS: BP 94/53; PULSE 82; RESP 13; TEMP 36.6; O2SAT 99
[2025-03-14 07:09] VITALS: BP 84/56
[2025-03-14] MEDS: valACYclovir HCL 1,000 MG TABLET 1000 MG PO (09:05)
[2025-03-14] MEDS: Loratadine 10 MG TABLET PO (09:07)
[2025-03-14] MEDS: Acetaminophen 325 MG TABLET 650 MG PO ×2 (09:08→22:35)
[2025-03-14] MEDS: Topiramate 100 MG TABLET 200 MG PO ×2 (09:21→22:36)
[2025-03-14] MEDS: FLUoxetine HCl 20 MG CAPSULE 60 MG PO (09:21)
[2025-03-14 09:25] VITALS: BP 97/62; PULSE 86; RESP 18; O2SAT 98
[2025-03-14] MEDS: Cholecalciferol (Vitamin D3) 10 MCG TABLET 20 MCG PO ×2 (10:18→10:20)
[2025-03-14] MEDS: Ibuprofen 800 MG TABLET PO (10:18)
[2025-03-14] MEDS: Nicotine 21 MG PATCH.TD24 TRANSDERMA (13:06)
[2025-03-14] MEDS: clonazePAM 1 MG TABLET PO ×2 (13:45→23:48)
[2025-03-14 15:00] VITALS: BP 114/61; PULSE 94; RESP 18; TEMP 36.3; O2SAT 99
[2025-03-14 15:12] VITALS: BMI 27.7
[2025-03-14] MEDS: Amphetamine Mixed Salts 10 MG TABLET 30 MG PO (15:59)
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
[2025-03-14 20:00] VITALS: BP 119/69; PULSE 77; TEMP 36.8; O2SAT 99
[2025-03-14] MEDS: traZODone HCL 50 MG TABLET PO (22:34)
[2025-03-14] MEDS: hydrOXYzine HCL 25 MG TABLET PO (22:36)
[2025-03-14] MEDS: risperiDONE 2 MG TABLET PO (22:36)
[2025-03-14] MEDS: Nicotine Polacrilex 2 MG GUM 4 MG BUCCAL (22:48)
[2025-03-15] MEDS: Dextroamphetamine/Amphetamine XR 10 MG CAP.ER.24H 30 MG PO ×2 (06:51→12:13)
[2025-03-15 08:00] VITALS: BP 92/52; PULSE 80; TEMP 36.6; O2SAT 98
[2025-03-15 08:23] LABS: Estimated Average Glucose 103 mg/dL; Hemoglobin A1C 112.9206 umol/L; Hemoglobin A1c % 5.2 % (<6.0); Total Hemoglobin (HGBA1C) 3338.1606 umol/L
[2025-03-15 08:29] LABS: Cholesterol 186 mg/dL (<200); HDL Cholesterol 50 mg/dL (>40); LDL Cholesterol Calculated 86 mg/dL (<100); Magnesium 2.2 mg/dL (1.6-2.6); Triglycerides 250 mg/dL (<150)
[2025-03-15 08:43] LABS: Free T4 (Free Thyroxine) 0.99 ng/dL (0.71-1.85); Thyroid Stimulating Hormone 1.52 uIU/mL (0.32-4.0)
[2025-03-15] MEDS: valACYclovir HCL 1,000 MG TABLET 1000 MG PO (08:46)
[2025-03-15] MEDS: Topiramate 100 MG TABLET 200 MG PO ×2 (08:46→20:53)
[2025-03-15] MEDS: Loratadine 10 MG TABLET PO (08:47)
[2025-03-15] MEDS: Cholecalciferol (Vitamin D3) 10 MCG TABLET 20 MCG PO (08:47)
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
[2025-03-15 08:58] LABS: Folate 11.4 ng/mL (> or = 4.0); Vitamin B12 393 pg/mL (200-900)
[2025-03-15] MEDS: Nicotine Polacrilex Lozenge 4 MG LOZENGE BUCCAL ×4 (09:23→20:55)
[2025-03-15] MEDS: Nicotine 21 MG PATCH.TD24 TRANSDERMA (11:23)
[2025-03-15] MEDS: FLUoxetine HCl 20 MG CAPSULE 60 MG PO (11:24)
[2025-03-15] MEDS: Folic Acid 1 MG TABLET PO (11:24)
[2025-03-15] MEDS: hydrOXYzine HCL 25 MG TABLET PO (13:38)
[2025-03-15] MEDS: Acetaminophen 325 MG TABLET 650 MG PO ×2 (13:38→20:54)
[2025-03-15] MEDS: Amphetamine Mixed Salts 10 MG TABLET 30 MG PO (15:13)
[2025-03-15] MEDS: Cyanocobalamin (Vitamin B-12) 100 MCG TABLET PO (15:13)
[2025-03-15] MEDS: Mineral Oil/Petrolatum,White 106 GM Tube 1 APPL TOPICAL (15:17)
[2025-03-15 20:00] VITALS: BP 111/66; PULSE 58; RESP 14; TEMP 36.6; O2SAT 100
[2025-03-15] MEDS: risperiDONE 2 MG TABLET PO (20:53)
[2025-03-15] MEDS: clonazePAM 1 MG TABLET PO (20:53)
[2025-03-15] MEDS: traZODone HCL 50 MG TABLET PO (20:54)
[2025-03-16] MEDS: Dextroamphetamine/Amphetamine XR 10 MG CAP.ER.24H 30 MG PO ×2 (06:46→12:10)
[2025-03-16] MEDS: Nicotine Polacrilex Lozenge 4 MG LOZENGE BUCCAL ×6 (06:51→21:36)
[2025-03-16 08:56] VITALS: BP 102/59; PULSE 88; TEMP 36.4; O2SAT 99
[2025-03-16] MEDS: Topiramate 100 MG TABLET 200 MG PO ×2 (09:32→21:30)
[2025-03-16] MEDS: Loratadine 10 MG TABLET PO (09:32)
[2025-03-16] MEDS: FLUoxetine HCl 20 MG CAPSULE 60 MG PO (09:32)
[2025-03-16] MEDS: valACYclovir HCL 1,000 MG TABLET 1000 MG PO (09:32)
[2025-03-16] MEDS: Folic Acid 1 MG TABLET PO (09:33)
[2025-03-16] MEDS: Cholecalciferol (Vitamin D3) 10 MCG TABLET 20 MCG PO (09:33)
[2025-03-16] MEDS: Cyanocobalamin (Vitamin B-12) 100 MCG TABLET PO (09:33)
[2025-03-16] MEDS: Nicotine 21 MG PATCH.TD24 TRANSDERMA (09:33)
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
[2025-03-16] MEDS: Amphetamine Mixed Salts 10 MG TABLET 30 MG PO (15:22)
[2025-03-16] MEDS: Acetaminophen 325 MG TABLET 650 MG PO ×2 (15:23→21:31)
[2025-03-16 20:00] VITALS: RESP 16
[2025-03-16] MEDS: traZODone HCL 50 MG TABLET PO (21:31)
[2025-03-16] MEDS: risperiDONE 2 MG TABLET 4 MG PO (21:31)
[2025-03-16] MEDS: clonazePAM 1 MG TABLET PO (21:32)
[2025-03-16] MEDS: hydrOXYzine HCL 25 MG TABLET PO (21:32)
[2025-03-17 07:00] VITALS: BMI 27.9
[2025-03-17 08:00] VITALS: BP 80/50; PULSE 80; TEMP 36.4; O2SAT 98
[2025-03-17 08:14] VITALS: BP 98/54
[2025-03-17] MEDS: Nicotine Polacrilex Lozenge 4 MG LOZENGE BUCCAL ×5 (08:30→20:40)
[2025-03-17] MEDS: Cholecalciferol (Vitamin D3) 10 MCG TABLET 20 MCG PO (08:30)
[2025-03-17] MEDS: valACYclovir HCL 1,000 MG TABLET 1000 MG PO (08:30)
[2025-03-17] MEDS: FLUoxetine HCl 20 MG CAPSULE 60 MG PO (08:30)
[2025-03-17] MEDS: Nicotine 21 MG PATCH.TD24 TRANSDERMA (08:30)
[2025-03-17] MEDS: Folic Acid 1 MG TABLET PO (08:31)
[2025-03-17] MEDS: Loratadine 10 MG TABLET PO (08:31)
[2025-03-17] MEDS: Cyanocobalamin (Vitamin B-12) 100 MCG TABLET PO (08:31)
[2025-03-17] MEDS: Topiramate 100 MG TABLET 200 MG PO ×2 (08:31→21:40)
[2025-03-17] MEDS: Dextroamphetamine/Amphetamine XR 10 MG CAP.ER.24H 30 MG PO ×2 (08:40→12:16)
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
[2025-03-17] MEDS: Naltrexone HCl 50 MG TABLET 25 MG PO (12:43)
[2025-03-17] MEDS: Amphetamine Mixed Salts 10 MG TABLET 30 MG PO (15:08)
[2025-03-17 19:45] VITALS: BP 102/64; PULSE 101; RESP 16; TEMP 36.3; O2SAT 100
[2025-03-17] MEDS: clonazePAM 1 MG TABLET PO (20:40)
[2025-03-17] MEDS: Acetaminophen 325 MG TABLET 650 MG PO (20:40)
[2025-03-17] MEDS: traZODone HCL 50 MG TABLET PO (21:39)
[2025-03-17] MEDS: risperiDONE 2 MG TABLET 4 MG PO (21:39)
[2025-03-17] MEDS: hydrOXYzine HCL 25 MG TABLET PO (21:39)
[2025-03-17] MEDS: Ibuprofen 800 MG TABLET PO (21:40)
[2025-03-18] MEDS: Dextroamphetamine/Amphetamine XR 10 MG CAP.ER.24H 30 MG PO ×2 (07:35→12:40)
[2025-03-18 08:00] VITALS: BP 102/55; PULSE 72; TEMP 36.8; O2SAT 99
[2025-03-18] MEDS: Loratadine 10 MG TABLET PO (09:02)
[2025-03-18] MEDS: Nicotine 21 MG PATCH.TD24 TRANSDERMA (09:02)
[2025-03-18] MEDS: Naltrexone HCl 50 MG TABLET 25 MG PO (09:03)
[2025-03-18] MEDS: valACYclovir HCL 1,000 MG TABLET 1000 MG PO (09:04)
[2025-03-18] MEDS: Topiramate 100 MG TABLET 200 MG PO ×2 (09:04→20:56)
[2025-03-18] MEDS: Nicotine Polacrilex Lozenge 4 MG LOZENGE BUCCAL ×3 (09:04→20:59)
[2025-03-18] MEDS: Folic Acid 1 MG TABLET PO (09:04)
[2025-03-18] MEDS: Cholecalciferol (Vitamin D3) 10 MCG TABLET 20 MCG PO (09:04)
[2025-03-18] MEDS: Cyanocobalamin (Vitamin B-12) 100 MCG TABLET PO (09:04)
[2025-03-18] MEDS: FLUoxetine HCl 20 MG CAPSULE 60 MG PO (09:04)
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
[2025-03-18] MEDS: Amphetamine Mixed Salts 10 MG TABLET 30 MG PO (15:07)
[2025-03-18 20:00] VITALS: BP 119/82; PULSE 100; TEMP 37.4; O2SAT 100
[2025-03-18] MEDS: risperiDONE 2 MG TABLET 4 MG PO (20:56)
[2025-03-18] MEDS: Ibuprofen 800 MG TABLET PO (20:57)
[2025-03-18] MEDS: traZODone HCL 50 MG TABLET PO (20:57)
[2025-03-18] MEDS: hydrOXYzine HCL 25 MG TABLET PO (21:02)
[2025-03-18] MEDS: clonazePAM 1 MG TABLET PO (21:02)
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
[2025-03-19] MEDS: Dextroamphetamine/Amphetamine XR 10 MG CAP.ER.24H 30 MG PO ×2 (07:34→12:01)
[2025-03-19 08:00] VITALS: BP 113/58; PULSE 87; RESP 18; TEMP 36.8; O2SAT 100
[2025-03-19] MEDS: Loratadine 10 MG TABLET PO (08:34)
[2025-03-19] MEDS: Naltrexone HCl 50 MG TABLET 25 MG PO (08:34)
[2025-03-19] MEDS: Cholecalciferol (Vitamin D3) 10 MCG TABLET 20 MCG PO (08:34)
[2025-03-19] MEDS: Cyanocobalamin (Vitamin B-12) 100 MCG TABLET PO (08:34)
[2025-03-19] MEDS: Folic Acid 1 MG TABLET PO (08:34)
[2025-03-19] MEDS: valACYclovir HCL 1,000 MG TABLET 1000 MG PO (08:35)
[2025-03-19] MEDS: Topiramate 100 MG TABLET 200 MG PO ×2 (08:35→21:05)
[2025-03-19] MEDS: FLUoxetine HCl 20 MG CAPSULE 60 MG PO (08:35)
[2025-03-19] MEDS: Nicotine 21 MG PATCH.TD24 TRANSDERMA (08:57)
[2025-03-19] MEDS: Nicotine Polacrilex Lozenge 4 MG LOZENGE BUCCAL ×4 (08:57→18:48)
[2025-03-19] MEDS: Mineral Oil/Petrolatum,White 106 GM Tube 1 APPL TOPICAL (10:35)
[2025-03-19 11:24] LABS: Alanine Aminotransferase 13 U/L (0-31); Albumin Level 4.3 g/dL (3.5-5.0); Alkaline Phosphatase 74 U/L (39-117); Aspartate Amino Transferase 17 U/L (5-31); Bilirubin Direct < 0.2 mg/dL (0.0-0.5); Bilirubin Total 0.2 mg/dL (0.0-1.0); Total Protein 7.2 g/dL (6.5-8.0)
[2025-03-19] MEDS: Acetaminophen 325 MG TABLET 650 MG PO (15:41)
[2025-03-19] MEDS: Amphetamine Mixed Salts 10 MG TABLET 30 MG PO (15:41)
[2025-03-19 20:00] VITALS: BP 101/68; PULSE 111; TEMP 36.4; O2SAT 100
[2025-03-19] MEDS: diphenhydrAMINE HCL 25 MG CAPSULE 50 MG PO (21:03)
[2025-03-19] MEDS: clonazePAM 1 MG TABLET PO (21:03)
[2025-03-19] MEDS: risperiDONE 2 MG TABLET 4 MG PO (21:04)
[2025-03-19] MEDS: Ibuprofen 800 MG TABLET PO (21:05)
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
[2025-03-20] MEDS: Dextroamphetamine/Amphetamine XR 10 MG CAP.ER.24H 30 MG PO ×2 (07:00→13:03)
[2025-03-20 08:00] VITALS: BP 110/63; PULSE 68; RESP 18; TEMP 36.4; O2SAT 100
[2025-03-20] MEDS: Topiramate 100 MG TABLET 200 MG PO ×2 (08:30→20:30)
[2025-03-20] MEDS: Cyanocobalamin (Vitamin B-12) 100 MCG TABLET PO (08:30)
[2025-03-20] MEDS: FLUoxetine HCl 20 MG CAPSULE 60 MG PO (08:30)
[2025-03-20] MEDS: Folic Acid 1 MG TABLET PO (08:31)
[2025-03-20] MEDS: valACYclovir HCL 1,000 MG TABLET 1000 MG PO (08:31)
[2025-03-20] MEDS: Naltrexone HCl 50 MG TABLET 25 MG PO (08:31)
[2025-03-20] MEDS: Loratadine 10 MG TABLET PO (08:31)
[2025-03-20] MEDS: Cholecalciferol (Vitamin D3) 10 MCG TABLET 20 MCG PO (08:32)
[2025-03-20] MEDS: Nicotine Polacrilex Lozenge 4 MG LOZENGE BUCCAL ×5 (08:43→20:40)
[2025-03-20] MEDS: Nicotine 21 MG PATCH.TD24 TRANSDERMA (08:43)
[2025-03-20] MEDS: Milk of Magnesia 30 ML ORAL.SUSP PO (08:44)
[2025-03-20] MEDS: Amphetamine Mixed Salts 10 MG TABLET 30 MG PO (15:40)
[2025-03-20] MEDS: clonazePAM 1 MG TABLET PO (19:09)
[2025-03-20] MEDS: Ibuprofen 800 MG TABLET PO (19:17)
[2025-03-20 19:40] VITALS: BP 129/90; PULSE 91; RESP 18; TEMP 36.6; O2SAT 100
[2025-03-20] MEDS: Docusate Sodium 100 MG CAPSULE PO (20:30)
[2025-03-20] MEDS: Acetaminophen 325 MG TABLET 650 MG PO (20:30)
[2025-03-20] MEDS: hydrOXYzine HCL 25 MG TABLET PO (20:31)
[2025-03-20] MEDS: risperiDONE 2 MG TABLET 4 MG PO (20:31)
[2025-03-20] MEDS: diphenhydrAMINE HCL 25 MG CAPSULE 50 MG PO (20:32)
[2025-03-21] MEDS: Dextroamphetamine/Amphetamine XR 10 MG CAP.ER.24H 30 MG PO ×2 (06:11→12:03)
[2025-03-21 08:00] VITALS: BP 110/64; PULSE 79; RESP 20; TEMP 36.4; O2SAT 100
[2025-03-21] MEDS: Topiramate 100 MG TABLET 200 MG PO ×2 (08:28→21:09)
[2025-03-21] MEDS: valACYclovir HCL 1,000 MG TABLET 1000 MG PO (08:28)
[2025-03-21] MEDS: FLUoxetine HCl 20 MG CAPSULE 60 MG PO (08:29)
[2025-03-21] MEDS: Naltrexone HCl 50 MG TABLET 25 MG PO (08:29)
[2025-03-21] MEDS: Cholecalciferol (Vitamin D3) 10 MCG TABLET 20 MCG PO (08:30)
[2025-03-21] MEDS: Loratadine 10 MG TABLET PO (08:31)
[2025-03-21] MEDS: Cyanocobalamin (Vitamin B-12) 100 MCG TABLET PO (08:31)
[2025-03-21] MEDS: Folic Acid 1 MG TABLET PO (08:31)
[2025-03-21] MEDS: Docusate Sodium 100 MG CAPSULE PO ×2 (08:31→21:03)
[2025-03-21] MEDS: Nicotine Polacrilex Lozenge 4 MG LOZENGE BUCCAL ×6 (08:43→21:08)
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
[2025-03-21 10:56] VITALS: BP 105/73; PULSE 100; O2SAT 100
[2025-03-21] MEDS: Mineral Oil/Petrolatum,White 106 GM Tube 1 APPL TOPICAL (14:52)
[2025-03-21] MEDS: Nicotine 21 MG PATCH.TD24 TRANSDERMA (15:03)
--- NOTE | 2025-03-21 15:03 | PC.NURSE ---
new nicotine patch applied on pt after pt losing previous nicotine patch.
[2025-03-21] MEDS: Amphetamine Mixed Salts 10 MG TABLET 30 MG PO (15:57)
[2025-03-21] MEDS: Ibuprofen 800 MG TABLET PO (19:06)
[2025-03-21 19:52] VITALS: BP 126/88; PULSE 81; TEMP 36.8; O2SAT 100
[2025-03-21] MEDS: risperiDONE 2 MG TABLET 4 MG PO (21:04)
[2025-03-21] MEDS: clonazePAM 1 MG TABLET PO (21:06)
[2025-03-22] MEDS: Dextroamphetamine/Amphetamine XR 10 MG CAP.ER.24H 30 MG PO ×2 (06:28→12:06)
[2025-03-22 08:00] VITALS: BP 108/62; PULSE 74; RESP 18; TEMP 36.9; O2SAT 98
[2025-03-22] MEDS: Naltrexone HCl 50 MG TABLET 25 MG PO (09:00)
[2025-03-22] MEDS: Cyanocobalamin (Vitamin B-12) 100 MCG TABLET PO (09:00)
[2025-03-22] MEDS: Docusate Sodium 100 MG CAPSULE PO ×2 (09:00→22:29)
[2025-03-22] MEDS: Cholecalciferol (Vitamin D3) 10 MCG TABLET 20 MCG PO (09:00)
[2025-03-22] MEDS: FLUoxetine HCl 20 MG CAPSULE 60 MG PO (09:01)
[2025-03-22] MEDS: Topiramate 100 MG TABLET 200 MG PO ×2 (09:01→22:29)
[2025-03-22] MEDS: valACYclovir HCL 1,000 MG TABLET 1000 MG PO (09:01)
[2025-03-22] MEDS: Loratadine 10 MG TABLET PO (09:02)
[2025-03-22] MEDS: Folic Acid 1 MG TABLET PO (09:02)
[2025-03-22] MEDS: Nicotine 21 MG PATCH.TD24 TRANSDERMA (09:03)
[2025-03-22] MEDS: Nicotine Polacrilex Lozenge 4 MG LOZENGE BUCCAL ×5 (09:03→22:32)
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
[2025-03-22] MEDS: Ibuprofen 800 MG TABLET PO ×2 (12:07→19:49)
[2025-03-22] MEDS: Amphetamine Mixed Salts 10 MG TABLET 30 MG PO (15:07)
[2025-03-22] MEDS: clonazePAM 1 MG TABLET PO (18:52)
[2025-03-22] MEDS: hydrOXYzine HCL 25 MG TABLET PO (19:49)
[2025-03-22] MEDS: Mineral Oil/Petrolatum,White 106 GM Tube 1 APPL TOPICAL (19:50)
[2025-03-22 20:00] VITALS: BP 127/87; PULSE 80; TEMP 36.6; O2SAT 100
[2025-03-22] MEDS: risperiDONE 2 MG TABLET 4 MG PO (22:28)
[2025-03-22] MEDS: diphenhydrAMINE HCL 25 MG CAPSULE 50 MG PO (22:28)
[2025-03-23] MEDS: Dextroamphetamine/Amphetamine XR 10 MG CAP.ER.24H 30 MG PO ×2 (06:22→12:51)
[2025-03-23] MEDS: Ibuprofen 800 MG TABLET PO ×2 (09:16→20:58)
[2025-03-23] MEDS: Loratadine 10 MG TABLET PO (09:16)
[2025-03-23] MEDS: Docusate Sodium 100 MG CAPSULE PO ×2 (09:17→20:53)
[2025-03-23] MEDS: FLUoxetine HCl 20 MG CAPSULE 60 MG PO (09:17)
[2025-03-23] MEDS: valACYclovir HCL 1,000 MG TABLET 1000 MG PO (09:17)
[2025-03-23] MEDS: Cholecalciferol (Vitamin D3) 10 MCG TABLET 20 MCG PO (09:17)
[2025-03-23] MEDS: Topiramate 100 MG TABLET 200 MG PO ×2 (09:17→20:53)
[2025-03-23] MEDS: Cyanocobalamin (Vitamin B-12) 100 MCG TABLET PO (09:17)
[2025-03-23] MEDS: Folic Acid 1 MG TABLET PO (09:17)
[2025-03-23] MEDS: Naltrexone HCl 50 MG TABLET 25 MG PO (09:18)
[2025-03-23] MEDS: Nicotine Polacrilex Lozenge 4 MG LOZENGE BUCCAL ×4 (09:18→18:21)
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
[2025-03-23] MEDS: clonazePAM 0.5 MG TABLET PO (12:50)
[2025-03-23] MEDS: Nicotine 21 MG PATCH.TD24 TRANSDERMA (14:33)
[2025-03-23] MEDS: NeoMY/Polymyx/Bacit/Ointment 14 GM Tube TOPICAL ×2 (14:33→22:22)
[2025-03-23] MEDS: Fluticasone Propionate Nasal 16 GM SPRAY 1 SPRAY NOSTRIL-B (14:33)
[2025-03-23] MEDS: Acetaminophen 325 MG TABLET 650 MG PO (15:08)
[2025-03-23] MEDS: Amphetamine Mixed Salts 10 MG TABLET 30 MG PO (15:10)
[2025-03-23 20:00] VITALS: BP 105/68; PULSE 84; TEMP 36.9; O2SAT 100
[2025-03-23] MEDS: diphenhydrAMINE HCL 25 MG CAPSULE 50 MG PO (20:19)
[2025-03-23] MEDS: clonazePAM 1 MG TABLET PO (20:53)
[2025-03-23] MEDS: risperiDONE 2 MG TABLET 4 MG PO (20:54)
[2025-03-24] MEDS: Dextroamphetamine/Amphetamine XR 10 MG CAP.ER.24H 30 MG PO ×2 (06:11→12:37)
[2025-03-24 08:00] VITALS: BP 103/60; PULSE 92; TEMP 36.7; O2SAT 100
[2025-03-24] MEDS: Fluticasone Propionate Nasal 16 GM SPRAY 1 SPRAY NOSTRIL-B (08:28)
[2025-03-24] MEDS: Naltrexone HCl 50 MG TABLET 25 MG PO (08:29)
[2025-03-24] MEDS: Folic Acid 1 MG TABLET PO (08:29)
[2025-03-24] MEDS: Cyanocobalamin (Vitamin B-12) 100 MCG TABLET PO (08:29)
[2025-03-24] MEDS: clonazePAM 0.5 MG TABLET PO ×2 (08:29→13:06)
[2025-03-24] MEDS: Loratadine 10 MG TABLET PO (08:29)
[2025-03-24] MEDS: valACYclovir HCL 1,000 MG TABLET 1000 MG PO (08:29)
[2025-03-24] MEDS: FLUoxetine HCl 20 MG CAPSULE 60 MG PO (08:29)
[2025-03-24] MEDS: Docusate Sodium 100 MG CAPSULE PO ×2 (08:29→20:10)
[2025-03-24] MEDS: Topiramate 100 MG TABLET 200 MG PO ×2 (08:29→20:10)
[2025-03-24] MEDS: Cholecalciferol (Vitamin D3) 10 MCG TABLET 20 MCG PO (08:30)
[2025-03-24] MEDS: Nicotine Polacrilex Lozenge 4 MG LOZENGE BUCCAL ×6 (09:03→20:45)
[2025-03-24 10:23] VITALS: BMI 27.9
[2025-03-24] MEDS: Amphetamine Mixed Salts 10 MG TABLET 30 MG PO (15:06)
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
[2025-03-24 20:00] VITALS: BP 116/72; PULSE 92; TEMP 36.8; O2SAT 100
[2025-03-24] MEDS: clonazePAM 1 MG TABLET PO (20:09)
[2025-03-24] MEDS: diphenhydrAMINE HCL 25 MG CAPSULE 50 MG PO (20:09)
[2025-03-24] MEDS: risperiDONE 2 MG TABLET 4 MG PO (20:10)
[2025-03-24] MEDS: NeoMY/Polymyx/Bacit/Ointment 14 GM Tube TOPICAL (20:12)
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
[2025-03-25] MEDS: Dextroamphetamine/Amphetamine XR 10 MG CAP.ER.24H 30 MG PO ×2 (06:35→12:01)
--- NOTE | 2025-03-25 06:48 | PC.NURSE ---
When woken for medications at approximately 0630, this patient reported to this RN that she had an episode of bowel incontinence in her sleep.
[2025-03-25] MEDS: Nicotine 21 MG PATCH.TD24 TRANSDERMA (08:34)
[2025-03-25] MEDS: valACYclovir HCL 1,000 MG TABLET 1000 MG PO (08:35)
[2025-03-25] MEDS: FLUoxetine HCl 20 MG CAPSULE 60 MG PO (08:35)
[2025-03-25] MEDS: clonazePAM 0.5 MG TABLET PO (08:35)
[2025-03-25] MEDS: Topiramate 100 MG TABLET 200 MG PO ×2 (08:35→20:41)
[2025-03-25] MEDS: Cholecalciferol (Vitamin D3) 10 MCG TABLET 20 MCG PO (08:36)
[2025-03-25] MEDS: Nicotine Polacrilex Lozenge 4 MG LOZENGE BUCCAL ×5 (08:36→20:41)
[2025-03-25] MEDS: Cyanocobalamin (Vitamin B-12) 100 MCG TABLET PO (08:36)
[2025-03-25] MEDS: Loratadine 10 MG TABLET PO (08:37)
[2025-03-25] MEDS: Naltrexone HCl 50 MG TABLET 25 MG PO (08:37)
[2025-03-25] MEDS: Fluticasone Propionate Nasal 16 GM SPRAY 1 SPRAY NOSTRIL-B (08:39)
[2025-03-25] MEDS: NeoMY/Polymyx/Bacit/Ointment 14 GM Tube TOPICAL ×2 (08:40→20:39)
[2025-03-25] MEDS: Mineral Oil/Petrolatum,White 106 GM Tube 1 APPL TOPICAL (08:44)
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
[2025-03-25] MEDS: Amphetamine Mixed Salts 10 MG TABLET 30 MG PO (15:27)
[2025-03-25] MEDS: clonazePAM 1 MG TABLET PO ×2 (19:03→20:41)
[2025-03-25 20:21] VITALS: BP 119/73; PULSE 80; TEMP 36.6; O2SAT 100
--- NOTE | 2025-03-25 20:38 | PC.NURSE ---
late entry [id number] reported that she is incontinent of stool and urine pretty regularly now. I think its all the laxatives I have been taking , but she has been refusing them. Dr Freeman notified.
[2025-03-25] MEDS: hydrOXYzine HCL 25 MG TABLET PO (20:41)
[2025-03-25] MEDS: diphenhydrAMINE HCL 25 MG CAPSULE 50 MG PO (20:41)
[2025-03-25] MEDS: risperiDONE 2 MG TABLET 4 MG PO (20:41)
[2025-03-25] MEDS: Ibuprofen 800 MG TABLET PO (20:42)
[2025-03-25] MEDS: chlorproMAZINE HCl 25 MG TABLET 50 MG PO (23:06)
[2025-03-26] MEDS: Dextroamphetamine/Amphetamine XR 10 MG CAP.ER.24H 30 MG PO ×2 (06:27→12:10)
[2025-03-26 08:00] VITALS: BP 111/62; PULSE 70; RESP 16; TEMP 36.7; O2SAT 98
[2025-03-26] MEDS: Loratadine 10 MG TABLET PO (09:09)
[2025-03-26] MEDS: Fluticasone Propionate Nasal 16 GM SPRAY 1 SPRAY NOSTRIL-B (09:09)
[2025-03-26] MEDS: Naltrexone HCl 50 MG TABLET 25 MG PO (09:09)
[2025-03-26] MEDS: Topiramate 100 MG TABLET 200 MG PO ×2 (09:09→19:56)
[2025-03-26] MEDS: FLUoxetine HCl 20 MG CAPSULE 60 MG PO (09:09)
[2025-03-26] MEDS: valACYclovir HCL 1,000 MG TABLET 1000 MG PO (09:09)
[2025-03-26] MEDS: Folic Acid 1 MG TABLET PO (09:10)
[2025-03-26] MEDS: Cholecalciferol (Vitamin D3) 10 MCG TABLET 20 MCG PO (09:10)
[2025-03-26] MEDS: Cyanocobalamin (Vitamin B-12) 100 MCG TABLET PO (09:10)
[2025-03-26] MEDS: clonazePAM 0.5 MG TABLET PO ×2 (09:10→17:24)
[2025-03-26] MEDS: NeoMY/Polymyx/Bacit/Ointment 14 GM Tube TOPICAL (09:13)
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
[2025-03-26] MEDS: Nicotine 21 MG PATCH.TD24 TRANSDERMA (10:56)
[2025-03-26] MEDS: Nicotine Polacrilex Lozenge 4 MG LOZENGE BUCCAL ×5 (10:57→21:56)
[2025-03-26] MEDS: Amphetamine Mixed Salts 10 MG TABLET 30 MG PO (15:36)
[2025-03-26] MEDS: hydrOXYzine HCL 25 MG TABLET PO (19:20)
[2025-03-26 19:49] VITALS: BP 140/83; PULSE 105; TEMP 36.9; O2SAT 100
[2025-03-26] MEDS: clonazePAM 1 MG TABLET PO (19:56)
[2025-03-26] MEDS: Docusate Sodium 100 MG CAPSULE PO (19:56)
[2025-03-26] MEDS: risperiDONE 2 MG TABLET 4 MG PO (19:57)
[2025-03-26] MEDS: chlorproMAZINE HCl 25 MG TABLET 50 MG PO (20:31)
[2025-03-26] MEDS: Ibuprofen 800 MG TABLET PO (21:56)
[2025-03-27] MEDS: Dextroamphetamine/Amphetamine XR 10 MG CAP.ER.24H 30 MG PO ×2 (06:26→12:07)
[2025-03-27 08:00] VITALS: BP 111/59; PULSE 93; TEMP 36.6; O2SAT 98
[2025-03-27] MEDS: Nicotine 21 MG PATCH.TD24 TRANSDERMA (08:58)
[2025-03-27] MEDS: Fluticasone Propionate Nasal 16 GM SPRAY 1 SPRAY NOSTRIL-B (08:58)
[2025-03-27] MEDS: Topiramate 100 MG TABLET 200 MG PO ×2 (08:59→20:00)
[2025-03-27] MEDS: valACYclovir HCL 1,000 MG TABLET 1000 MG PO (08:59)
[2025-03-27] MEDS: FLUoxetine HCl 20 MG CAPSULE 60 MG PO (09:00)
[2025-03-27] MEDS: Cholecalciferol (Vitamin D3) 10 MCG TABLET 20 MCG PO (09:00)
[2025-03-27] MEDS: Docusate Sodium 100 MG CAPSULE PO ×2 (09:00→20:00)
[2025-03-27] MEDS: Cyanocobalamin (Vitamin B-12) 100 MCG TABLET PO (09:00)
[2025-03-27] MEDS: Nicotine Polacrilex Lozenge 4 MG LOZENGE BUCCAL ×5 (09:00→19:20)
[2025-03-27] MEDS: Folic Acid 1 MG TABLET PO (09:00)
[2025-03-27] MEDS: clonazePAM 0.5 MG TABLET PO ×2 (09:00→16:53)
[2025-03-27] MEDS: Loratadine 10 MG TABLET PO (09:00)
[2025-03-27] MEDS: Naltrexone HCl 50 MG TABLET 25 MG PO (09:00)
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
[2025-03-27] MEDS: Ibuprofen 800 MG TABLET PO ×2 (11:23→19:10)
[2025-03-27] MEDS: Mineral Oil/Petrolatum,White 106 GM Tube 1 APPL TOPICAL (11:23)
[2025-03-27] MEDS: Amphetamine Mixed Salts 10 MG TABLET 30 MG PO (15:19)
[2025-03-27] MEDS: chlorproMAZINE HCl 25 MG TABLET 50 MG PO (16:53)
[2025-03-27] MEDS: Acetaminophen 325 MG TABLET 650 MG PO (17:38)
[2025-03-27 19:50] VITALS: BP 118/67; PULSE 91; TEMP 36.5; O2SAT 99
[2025-03-27] MEDS: clonazePAM 1 MG TABLET PO (20:00)
[2025-03-27] MEDS: risperiDONE 2 MG TABLET 4 MG PO (20:00)
[2025-03-27] MEDS: diphenhydrAMINE HCL 25 MG CAPSULE 50 MG PO (20:01)
[2025-03-27] MEDS: hydrOXYzine HCL 25 MG TABLET PO (20:01)
[2025-03-27 22:45] LABS: Glucose, Whole Blood 104 mg/dL (60-115)
[2025-03-28] MEDS: Dextroamphetamine/Amphetamine XR 10 MG CAP.ER.24H 30 MG PO ×2 (06:33→11:59)
[2025-03-28] MEDS: Nicotine Polacrilex Lozenge 4 MG LOZENGE BUCCAL ×6 (06:43→20:39)
[2025-03-28 07:50] VITALS: BP 100/66; PULSE 88; RESP 18; TEMP 37; O2SAT 97
[2025-03-28] MEDS: Topiramate 100 MG TABLET 200 MG PO ×2 (08:36→20:32)
[2025-03-28] MEDS: Folic Acid 1 MG TABLET PO (08:37)
[2025-03-28] MEDS: Naltrexone HCl 50 MG TABLET 25 MG PO (08:37)
[2025-03-28] MEDS: Cholecalciferol (Vitamin D3) 10 MCG TABLET 20 MCG PO (08:37)
[2025-03-28] MEDS: FLUoxetine HCl 20 MG CAPSULE 60 MG PO (08:37)
[2025-03-28] MEDS: Cyanocobalamin (Vitamin B-12) 100 MCG TABLET PO (08:37)
[2025-03-28] MEDS: Docusate Sodium 100 MG CAPSULE PO ×2 (08:39→20:32)
[2025-03-28] MEDS: Loratadine 10 MG TABLET PO (08:39)
[2025-03-28] MEDS: clonazePAM 0.5 MG TABLET PO (08:39)
[2025-03-28] MEDS: valACYclovir HCL 1,000 MG TABLET 1000 MG PO (08:46)
[2025-03-28] MEDS: Nicotine 21 MG PATCH.TD24 TRANSDERMA (08:46)
[2025-03-28] MEDS: Ibuprofen 800 MG TABLET PO (08:46)
[2025-03-28] MEDS: Fluticasone Propionate Nasal 16 GM SPRAY 1 SPRAY NOSTRIL-B (08:47)
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
[2025-03-28] MEDS: Naloxone HCl Nasal TAKE HOME 4 MG SPRAY 8 MG NOSTRILALT (11:59)
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
[2025-03-28] MEDS: Amphetamine Mixed Salts 10 MG TABLET 30 MG PO (15:32)
[2025-03-28] MEDS: chlorproMAZINE HCl 25 MG TABLET 50 MG PO (16:57)
[2025-03-28] MEDS: clonazePAM 1 MG TABLET PO ×2 (17:02→20:32)
[2025-03-28 19:48] VITALS: BP 114/65; PULSE 84; RESP 16; TEMP 36.6; O2SAT 100
[2025-03-28] MEDS: risperiDONE 2 MG TABLET 4 MG PO (20:31)
[2025-03-28] MEDS: hydrOXYzine HCL 25 MG TABLET PO (20:32)
[2025-03-28] MEDS: diphenhydrAMINE HCL 25 MG CAPSULE 50 MG PO (20:32)
[2025-03-29] MEDS: Dextroamphetamine/Amphetamine XR 10 MG CAP.ER.24H 30 MG PO (06:58)
[2025-03-29] MEDS: Cholecalciferol (Vitamin D3) 10 MCG TABLET 20 MCG PO (08:47)
[2025-03-29] MEDS: Naltrexone HCl 50 MG TABLET 25 MG PO (08:47)
[2025-03-29] MEDS: FLUoxetine HCl 20 MG CAPSULE 60 MG PO (08:47)
[2025-03-29] MEDS: Loratadine 10 MG TABLET PO (08:47)
[2025-03-29] MEDS: valACYclovir HCL 1,000 MG TABLET 1000 MG PO (08:47)
[2025-03-29] MEDS: Folic Acid 1 MG TABLET PO (08:47)
[2025-03-29] MEDS: Docusate Sodium 100 MG CAPSULE PO (08:47)
[2025-03-29] MEDS: Cyanocobalamin (Vitamin B-12) 100 MCG TABLET PO (08:47)
[2025-03-29] MEDS: Topiramate 100 MG TABLET 200 MG PO (08:47)
[2025-03-29] MEDS: Nicotine Polacrilex Lozenge 4 MG LOZENGE BUCCAL (08:50)
[2025-03-29] MEDS: Fluticasone Propionate Nasal 16 GM SPRAY 1 SPRAY NOSTRIL-B (08:52)
[2025-03-29 09:34] VITALS: BP 92/55; PULSE 75; RESP 18; TEMP 36.2; O2SAT 99
== END 2025-03-29 11:00 | disposition home or self-care (01) | DRG 753 ==
LOC: HO.ED 03-12 10:24 → HO.PM5 03-14 13:38
PROVIDERS: Nurse Practitioner Family; Admitting Provider Clinical Nurse Specialist Psychiatric/Mental Health, Adult; Emergency Provider Emergency Medicine; PCP Nurse Practitioner Gerontology; Visit Provider Psychiatry & Neurology Psychiatry
DX: F31.9 Bipolar disorder, unspecified (principal); G40.909 Epilepsy, unspecified, not intractable, without status epilepticus; F17.210 Nicotine dependence, cigarettes, uncomplicated; F43.10 Post-traumatic stress disorder, unspecified; F42.4 Excoriation (skin-picking) disorder; F90.9 Attention-deficit hyperactivity disorder, unspecified type; Z71.6 Tobacco abuse counseling; Z59.02 Unsheltered homelessness; Z87.820 Personal history of traumatic brain injury; Z79.899 Other long term (current) drug therapy
CPT/HCPCS: 36415; 80053; 80061; 80076; 80143; 80179; 80307; 81001; 81025; 82607; 82746; 82947; 83036; 83735; 84439; 84443; 85025; 87086; 93005; 99285; S9485

== ENCOUNTER → 2025-03-14 08:31 | Outpatient (BNV) | payer MEDICAID, SELFPAY | PROVIDERS: Admitting Provider Clinical Nurse Specialist Psychiatric/Mental Health, Adult; Emergency Provider Emergency Medicine; PCP Nurse Practitioner Gerontology; Visit Provider Internal Medicine | DX: R94.31 Abnormal electrocardiogram [ECG] [EKG] (principal); Z13.6 Encounter for screening for cardiovascular disorders | CPT/HCPCS: 93010 ==

== ENCOUNTER → 2025-03-14 13:32 | Outpatient (BNV) | payer OTHER, SELFPAY | PROVIDERS: Admitting Provider Clinical Nurse Specialist Psychiatric/Mental Health, Adult; Emergency Provider Emergency Medicine; PCP Nurse Practitioner Gerontology; Visit Provider Psychiatry & Neurology Psychiatry | DX: F43.11 Post-traumatic stress disorder, acute (principal); F90.9 Attention-deficit hyperactivity disorder, unspecified type; Z87.820 Personal history of traumatic brain injury; G40.909 Epilepsy, unspecified, not intractable, without status epilepticus; F31.9 Bipolar disorder, unspecified; Z59.00 Homelessness unspecified; F42.4 Excoriation (skin-picking) disorder | CPT/HCPCS: 99231; 99232 ==

== ENCOUNTER 2025-05-24 23:04 | Inpatient (IN) | payer MEDICAID, SELFPAY ==
--- NOTE | ~2025-05-24 | CT_ITS ---
CLINICAL HISTORY: N V D; Generalized Abd Pain CT abdomen and pelvis with contrast Comparison: None provided Findings: There is mild dependent atelectasis. There is trace left pleural effusion. There are a few small hepatic cysts. The gallbladder is contracted. The pancreas, spleen, and adrenal glands are unremarkable. There are several small bilateral nonobstructing renal stones measuring up to 4 mm in the right kidney. There are a couple small renal cysts. Appendix is normal. There is diffuse mild colonic wall thickening consistent with colitis. There is fluid throughout the colon consistent with diarrhea. Stomach and small bowel are unremarkable. There is minimal free fluid in the cul-de-sac. There is no free air. The aorta and IVC are normal. There are no enlarged lymph nodes. Uterus and adnexa are unremarkable. Bladder is unremarkable. There is no fracture or suspicious lytic or sclerotic lesion. IMPRESSION: 1. Diffuse mild colonic wall thickening consistent with colitis. 2. Small bilateral nonobstructing renal stones. 3. Trace left pleural effusion. This document has been electronically signed by: Wilton Martell MD on 05/25/2025 00:54:39
[2025-05-24 23:08] VITALS: BP 142/88; PULSE 87; O2SAT 98
[2025-05-24 23:10] VITALS: BP 90/55; PULSE 85; RESP 16; TEMP 36.7; O2SAT 98; BMI 27.9
[2025-05-24 23:30] LABS: MANUAL DIFF FLAG NO
[2025-05-24 23:31] LABS: Hematocrit 31.1 % (37.0-47.0); Hemoglobin 11.2 g/dl (12.0-16.0); Imm Gran Abs Auto 0.03 X10*3/uL (0.00-0.03); Imm Gran Pct Auto 0.5 % (0.0-0.4); Lymphocytes Absolute Auto 2.4 X10*3/uL (1.2-4.9); Mean Corpuscular HGB Conc 36.0 g/dl (31.0-35.0); Mean Corpuscular Hemoglobin 29.7 pg (27.0-33.0); Mean Corpuscular Volume 82.5 fL (80.0-98.0); NRBC Abs Auto 0.000 X10*3/uL (0.0-0.012); NRBC Pct Auto 0.0 /100WBC (0.0-0.2); Platelet Count 247 X10*3/uL (160-400); Red Blood Count 3.77 X10*6/uL (4.20-5.50); White Blood Count 6.5 X10*3/uL (4.8-10.8)
--- NOTE | 2025-05-24 23:38 | ED_ITS ---
HPI - General Adult General Chief complaint: Nausea/Vomiting/Diarrhea Stated complaint: abd pain, uncontrollable bowels Time Seen by Provider: 05/24/25 23:29 Source: patient Mode of arrival: EMS Limitations: altered mental status History of Present Illness ED Provider: Travis LEMUS HPI narrative: The patient is a 45-year-old female presenting to the ED for evaluation of nausea, vomiting, diarrhea, and generalized abdominal pain which has been worsening since Friday. The patient reports pain radiates into her lower back, also reports cough and headache. The patient denies associated dysuria, hematuria, hematochezia, melena, hematemesis, hemoptysis, chest pain, recent sick contacts, recent trauma, or surgical abdominal history. The patient arrives to the ED somnolent, with low blood pressure, difficult to keep awake without frequent redirection but answers questions appropriately when redirected or verbally stimulated, pupils appear constricted. Patient reports she was given her nighttime meds prior to coming to the ED and this is the cause of her somnolence, denies any alcohol or substance abuse. Patient arrives to the ED afebrile. Related Data Home Medications ?Medication ?Instructions ?Recorded ?Confirmed [id number] 250 2 tab PO DAILY PRN Migraine 05/25/25 05/25/25 mg-250 mg-65 mg tablet (Excedrin Headache Migraine) cholecalciferol (vitamin D3) 25 25 mcg PO DAILY 05/25/25 mcg (1,000 unit) tablet clonazepam 1 mg tablet 0.5 - 1 mg PO DAILY PRN Anxi ety 05/25/25 05/25/25 clonazepam 1 mg tablet 1 mg PO BID 05/25/25 5 dextroamphetamine-amphetamine 30 30 mg PO DAILY@1600 0 05/25/25 05/25/25 mg tablet dextroamphetamine-amphetamine ER 30 mg PO BID@0630,130 0 05/25/25 05/25/25 30 mg 24hr capsule,extend release hydroxyzine HCl 25 mg tablet 25 mg PO Q6H PRN Anxiety 05/25/25 05/25/25 naltrexone 50 mg tablet 50 mg PO DAILY 05/25/2505/10 omeprazole 20 mg capsule,delayed 20 mg PO DAILY@0630 P RN Acid Reflux 05/25/25 05/25/25 release trazodone 50 mg tablet 50 - 100 mg PO BEDTIME PRN S leep 05/25/25 05/25/25 Previous Rx's ?Medication ?Instructions ?Recorded chlorpromazine 50 mg tablet 50 mg PO BID PRN agitation 30 days 03/28/25 #30 tabs cyanocobalamin (vitamin B-12) 100 100 mcg PO DAILY 30 days #30 tabs 03/28/25 mcg tablet (Vitamin B-12) diphenhydramine HCl 50 mg capsule 50 mg PO BEDTIME PRN sleep 30 days 03/28/25 #30 caps docusate sodium 100 mg capsule 100 mg PO BID 30 days # 60 caps 03/28/25 fluoxetine 20 mg capsule 60 mg (3 x 20 mg) PO DAILY 3 0 days 03/28/25 #90 caps fluticasone propionate 50 1 spray intranasal DAILY 30 days 03/28/25 mcg/actuation nasal #16 grams spray,suspension folic acid 1 mg tablet 1 mg PO DAILY 30 days #30 ta bs 03/28/25 loratadine 10 mg tablet 10 mg PO DAILY 30 days #30 t abs 03/28/25 nicotine (polacrilex) 4 mg buccal 4 mg buccal Q2H PRN Nicotine 03/28/25 lozenge Cravings 30 days #108 ea nicotine 21 mg/24 hr daily 21 mg transdermal DAILY PRN 03/28/25 transdermal patch smoking cessation 28 days #2 8 ea risperidone 4 mg tablet 4 mg PO BEDTIME 30 days #30 tabs 03/28/25 topiramate 200 mg tablet 200 mg PO BID 30 days #60 ta bs 03/28/25 valacyclovir 1 gram tablet 1,000 mg PO DAILY 30 days # 30 tabs 03/28/25 Allergies Allergy/AdvReac Type Severity Reaction Status Date / Time kj (KJ) Allergy Severe SWELLING Verified 05/24/25 23:16 codeine Allergy Itching Verified 05/24/25 23:16 Latex, Natural Rubber Allergy Rash Verified 05/24/25 23:16 Review of Systems 2 Review of Systems: Yes all other systems are reviewed and are negative PMFSH Past Medical History Medical History (Updated 05/25/25 @ 07:58 by Esme Kelsey DO) Skin-picking disorder Homeless Polysubstance use disorder TBI (traumatic brain injury) Polysubstance use disorder Bipolar disorder Alcohol abuse Alcohol abuse Seizure disorder ADHD PTSD (post-traumatic stress disorder) Migraine IBS (irritable bowel syndrome) Suicidal overdose Clonidine overdose Overdose Alcohol intoxication Depression Surgical History H/O tubal ligation Social History Social History Household Members: None Household Members Other:: Homeless Housing: Homeless Do you presently have visiting nurse or other home services: No Alcohol intake: former Comment: sleeping Patient Tobacco Use Status: Current everyday Tobacco user Tobacco use type: Cigarette Cigarette Packs Per Day: 1 Cigarettes Per Day: 20.0 Years Smoked: 5-10 years Smoked in Last 30 Days: Yes e-Cigarette/Vaping Use: Currently Using Second Hand Smoke Exposure: No Use of substances other than those prescribed or required for medical reasons: No Substance Use Type: Prescription Drugs Advance Directives: No Advance Directives Information Provided: No Do you have a plan to hurt others: No Plan service: No Current occupational status: unemployed Sexual orientation: Straight/Heterosexual Physical Exam ED Vital Signs: Vital Signs - 24 hr 05/24/25 23:10 05/24/25 23:49 05/25/25 00:22 Temperature 98.1 F Pulse Rate 85 81 Respiratory Rate 16 16 Blood Pressure 90/55 L 94/54 L 97/66 Pulse Oximetry 98 95 Oxygen Delivery Method Room Air Room Air 05/25/25 00:40 05/25/25 00:45 05/25/25 00:58 Temperature Pulse Rate 91 Respiratory Rate 16 Blood Pressure 88/50 L 97/71 97/58 L Pulse Oximetry 99 Oxygen Delivery Method Room Air 05/25/25 01:44 05/25/25 02:13 05/25/25 02:49 Temperature Pulse Rate 83 Respiratory Rate 16 Blood Pressure 91/54 L 95/55 L 124/77 Pulse Oximetry 99 Oxygen Delivery Method Room Air 05/25/25 03:15 05/25/25 04:32 05/25/25 04:53 Temperature 97.4 F Pulse Rate 87 Respiratory Rate 16 Blood Pressure 124/77 88/54 L 65/49 L Pulse Oximetry 98 Oxygen Delivery Method Room Air 05/25/25 05:07 05/25/25 05:17 05/25/25 07:01 Temperature Pulse Rate 82 73 Respiratory Rate 18 13 Blood Pressure 98/68 89/54 L 88/55 L Pulse Oximetry 95 97 Oxygen Delivery Method Room Air Room Air 05/25/25 07:21 05/25/25 07:41 Temperature Pulse Rate 73 72 Respiratory Rate 13 12 Blood Pressure 89/54 L 88/54 L Pulse Oximetry 96 96 Oxygen Delivery Method Room Air Room Air BMI result Body Mass Index 27.9 CONSTITUTIONAL: The patient appears somnolent, requiring frequent verbal stimulus, afebrile, otherwise well nourished and in no acute distress. Vital signs as documented. HEAD: Atraumatic, normocephalic. EYES: EOMs grossly intact, pupils constricted, conjunctiva clear, no exudate. ENT: Nares patent, no discharge. Airway patent, no audible stridor, visible mucosa is pink and moist without noted lesions. NECK: Trachea is midline, no obvious masses or gross abnormalities. CHEST: Symmetric movement, normal appearance. LUNGS: LS present and CTAB, no w/r/r. Non-labored work of breathing. CARDIAC: Regular Rhythm, S1/S2 appreciated, no murmurs, rubs or gallops. ABDOMEN: Abdomen soft x4 quadrants, positive tenderness to palpation diffusely, negative rebound, negative guarding, no palpable masses or organomegaly. : Deferred. EXTREMITIES: Moves all extremities spontaneously without reported pain. No obvious acute injury or deformity noted. NEURO: Alert to verbal stimuli, patient unable or unwilling to cooperate with the remainder of neurologic exam. PSYCH: Somnolent affect, poor eye contact, but otherwise with appropriate response to questioning. No reported suicidality or homicidality. SKIN: Warm, dry, color appropriate, normal turgor. No rashes noted. Medications Administered Generic Name Dose Route Start Last Admin Trade Name Freq PRN Reason Stop Dose Admin Amphetamine/Dextroamphetamine 30 mg 05/25/25 13:00 05/25/25 13:17 Dextroamphetamine/Amphetamine Xr 10 Mg Cap.Er.24h PO 30 mg BID@0630,1300 [facility] Administration Amphetamine/Dextroamphetamine 30 mg 05/25/25 16:00 05/25/25 16:05 Amphetamine Mixed Salts 10 Mg Tablet PO 30 mg DAILY@1600 [facility] Administration Enoxaparin Sodium 40 mg 05/25/25 08:30 05/25/25 09:01 Enoxaparin Sodium 40 Mg/0.4 Ml Syringe SUBCUT 40 mg Q24H SAÚL Administration Lactated Ringer's 1,000 mls @ 100 mls/hr 05/25/25 08:45 05/25/25 09:02 Lr IVCONT 05/26/25 04:44 100 mls/hr .Q10H SAÚL Administration Metronidazole 500 mg in 100 mls @ 100 mls/hr 05/25/25 11:00 05/25/25 11:42 Flagyl IV Infused Q8H SAÚL Infusion Albumin Human 100 mls @ 100 mls/hr 05/25/25 14:00 05/25/25 15:08 Kedbumin 25 % IV 05/26/25 08:59 Infused Q6H SAÚL Infusion Sodium Chloride 3 ml 05/25/25 16:00 05/25/25 15:04 0.9 % Sodium Chloride Flush 3 Ml Syringe IVFLUSH Not Given QSHIFT SAÚL Vancomycin HCl 125 mg 05/25/25 10:00 05/25/25 16:05 Vancomycin Hcl 125 Mg Capsule PO 125 mg Q6H SAÚL Administration Discontinued Medications Generic Name Dose Route Start Last Admin Trade Name Freq PRN Reason Stop Dose Admin Sodium Chloride 1,000 mls @ 999 mls/hr 05/24/25 23:30 05/25/25 00:42 Ns IV 05/25/25 00:30 Infused .Q1H1M SAÚL Infusion Potassium Chloride 10 meq in 100 mls @ 100 mls/hr 05/24/25 23:45 05/25/25 04:59 Potassium Chloride/H20 IV 05/25/25 03:44 Infused Q1H SAÚL Infusion Sodium Chloride 1,000 mls @ 999 mls/hr 05/25/25 00:45 05/25/25 02:00 Ns IV 05/25/25 01:45 Infused .Q1H1M SAÚL Infusion Sodium Chloride 500 mls @ 500 mls/hr 05/25/25 02:30 05/25/25 03:59 Ns IV 05/25/25 03:29 Infused .Q1H SAÚL Infusion Sodium Chloride 1,000 mls @ 999 mls/hr 05/25/25 04:30 05/25/25 05:15 Ns IV 05/25/25 05:30 Infused .Q1H1M SAÚL Infusion Lactated Ringer's 1,000 mls @ 2,000 mls/hr 05/25/25 06:10 05/25/25 07:22 Lr IV 05/25/25 06:39 Infused .Q30M ONE Infusion Albumin Human 100 mls @ 133.333 mls/hr 05/25/25 08:50 05/25/25 09:47 Kedbumin 25 % IV 05/25/25 09:34 Infused Q1H STA Infusion Iohexol 85 ml 05/25/25 00:14 05/25/25 00:14 Iohexol 350 Mg/Ml 100 Ml Infus..Btl IV 05/25/25 00:15 85 ml ONCE ONE Administration Ketorolac Tromethamine 15 mg 05/25/25 03:00 05/25/25 03:42 Ketorolac Tromethamine 15 Mg/Ml Vial IVPUSH 05/25/25 03:01 15 mg ONCE ONE Administration Ondansetron HCl 4 mg 05/24/25 23:29 05/24/25 23:41 Ondansetron Hcl 4 Mg/2 Ml Vial IVPUSH 05/24/25 23:30 4 mg ONCE ONE Administration Potassium Chloride 40 meq 05/25/25 00:40 05/25/25 00:55 Potassium Chloride Er 20 Meq Tab.Er.Prt PO 05/25/25 00:41 40 meq ONCE ONE Administration Vancomycin HCl 125 mg 05/25/25 04:19 05/25/25 05:15 Vancomycin Hcl 125 Mg Capsule PO 05/25/25 04:20 125 mg ONCE ONE Administration Medical Decision Making Medical Decision Making [facility] Narrative: n11:46 PM 05/24/2025 (Kash LEMUS): The patient is a 45-year-old female presenting to the ED via EMS from her respite home for evaluation of generalized abdominal pain with associated nausea, vomiting, and diarrhea since Friday. The patient also reports lower back pain, cough, and headache. The patient denies any recent trauma or sick contacts. The patient presents to the ED somnolent, requiring frequent verbal stimulus to maintain conversation, exam reveals constricted pupils. Patient denies alcohol or substance use, reports she is somnolent due to receiving her nighttime medications at respite prior to transport to the ED. Outpatient medication review reveals no evidence of opiates, in light of no prescribed opiates, hypotension, and constricted pupils with somnolence we will obtain a urine toxicity. Patient's abdominal exam shows diffuse tenderness, we will obtain CT abdomen and pelvis to evaluate for acute intra-abdominal pathology. Patient is hypotensive, we will provide IV fluid hydration, we will also provide antiemetics. At this time patient has no fever, and is not tachycardic, no evidence of bacterial infectious source, do not suspect sepsis at this time. Hypotension and somnolence more likely secondary to polypharmacy versus substance abuse. However we will follow up laboratory evaluation, if evidence of leukocytosis or end-organ dysfunction we will initiate septic protocol. 12:14 AM 05/25/2025 (Kash LEMUS): The patient's potassium came back at 2.7, we will initiate IV supplementation, we will also initiate p.o. supplementation when nausea is fully controlled. 1:17 AM 05/25/2025 (Kash LEMUS): The patient's CT has resulted and shows findings consistent with diffuse colitis, no acute surgical or obvious bacterial infectious process. The patient's laboratory evaluation has continued to result and shows negative viral swab, normal magnesium, there is no evidence of leukocytosis, patient remains afebrile, no evidence for sepsis. The patient's lipase however is elevated at 364, ethanol is negative, CT shows no evidence of pancreatitis, elevated lipase may be secondary to recurrent vomiting. Patient is receiving a total of 2 L of IV fluids. The patient's urinalysis and urine toxicity is pending. We will continue to monitor blood pressure and mental status and follow up Urinalysis 4:21 AM 05/25/2025 (Kash LEMUS): The patient's blood pressure and mentation has continued to improve, most recent 124/77. Patient has not yet given a urinalysis, however the patient's stool sample was sent for analysis and tested positive for C difficile. Given the lack of leukocytosis, tachycardia or fever, initial hypotension likely due to hypovolemia from n/v/d and not due to sepsis. However, seeing as the patient now has an infectious source in the setting of initial hypotension, we will initiate sepsis protocol. The patient has already received more than a 30 cc/kg fluid bolus between 2 L of normal saline and potassium repletion. We will add on lactic acid and obtain blood cultures. Additionally the patient will be treated with PO Vancomycin. Will sign out the patient to Dr. Kelsey pending lactic acid results. 6:51 AM 05/25/2025 (Dr. Esme Kelsey, D.O.) assumed care from previous provider pending fluid administration and lactic acid levels. Lactic acid level was normal, patient is resting comfortably without complaints. When he here bedside ultrasound does show some collapsibility of the IVC with hyperdynamic ventricles, consistent with continued hypovolemia. Give her another L of IV fluid. She has yet to make urine but is saying now that she might be able to urinate. I feel that she is stable for admission to medicine. Admitted in guarded condition. 0852: I re-evaluated the patient my understanding is she is going to be admitted to the medical unit, her map is 68 she still had systolic blood pressure less than 90, bedside ultrasound without pericardial effusion, without RV strain, she has good cardiac squeeze, IVC is no longer collapsed, I understand that she is admitted and hospitalist team ordered fluids but I believe she will benefit from albumin infusion Differential Diagnosis Differential Diagnoses: The differential diagnosis associated with the presentation includes (As above) Admission/Observation Consideration of admission/observation: Escalation of care including admission/observation considered Lab Data MDM Lab Attestation statement: I reviewed the patient's lab results. 05/24/25 23:24 05/25/25 10:03 Labs: Lab Results 05/24/25 05/25/25 05/25/25 Range/Units 23:24 02:41 04:50 WBC 6.5 (4.8-10.8) X10*3/uL RBC 3.77 L (4.20-5.50) X10*6/uL Hgb 11.2 L (12.0-16.0) g/dl Hct 31.1 L (37.0-47.0) % MCV 82.5 (80.0-98.0) fL MCH 29.7 (27.0-33.0) pg MCHC 36.0 H (31.0-35.0) g/dl RDW 14.7 (11.0-16.0) % Plt Count 247 D (160-400) X10*3/uL MPV 9.1 L (9.4-12.3) fL Immature Gran % (Auto) 0.5 H (0.0-0.4) % Neut % (Auto) 49.3 (45-73) % Lymph % (Auto) 36.7 (20-40) % [place] % (Auto) 12.4 H (2-11) % Eos % (Auto) 0.8 (0-4) % Baso % (Auto) 0.3 (0-2) % Lymph # (Auto) 2.4 (1.2-4.9) X10*3/uL [place] # (Auto) 0.8 (0.1-1.2) X10*3/uL Eos # (Auto) 0.1 (0.0-0.4) X10*3/uL Baso # (Auto) 0.0 (0.0-0.2) X10*3/uL Abs Immat Gran (auto) 0.03 (0.00-0.03) X10*3/uL Absolute Neuts (auto) 3.2 (2.0-8.3) x10*3/uL Absolute Nucleated RBC 0.000 (0.0-0.012) X10*3/uL Nucleated RBC % (auto) 0.0 (0.0-0.2) /100WBC Sodium 141 (135-145) mmol/L Potassium 2.7 L* D (3.3-5.1) mmol/L Chloride 108 (96-108) mmol/L Carbon Dioxide 25 (22-29) mmol/L Anion Gap 11 L (12-20) BUN 11 (9-16) mg/dL Creatinine 0.95 (0.5-1.4) mg/dL Estim Creat Clear Calc 66.1 Estimated GFR > 60 Random Glucose 110 (60-115) mg/dL Lactic Acid 0.7 (0.5-2.0) mmol/L Calcium 8.5 (8.4-10.2) mg/dL Magnesium 2.0 (1.6-2.6) mg/dL Total Bilirubin 0.2 (0.0-1.0) mg/dL AST 15 (5-31) U/L ALT 12 (0-31) U/L Alkaline Phosphatase 58 (39-117) U/L Total Protein 6.2 L (6.5-8.0) g/dL Albumin 3.6 (3.5-5.0) g/dL Lipase 364 H (8-78) U/L Beta HCG, Quant < 2 mIU/mL Urine Color Urine Appearance Urine pH (5.0-9.0) Ur Specific [place] (1.005-1.025) Urine Protein (Neg-Trace) mg/dL Urine Glucose (UA) (Negative) mg/dL Urine Ketones (Negative) mg/dL Urine Blood (Negative) Urine Nitrite (Negative) Ur Leukocyte Esterase (Negative) Urine RBC (0-2) /HPF Urine WBC (0-5) /HPF Ur Squamous Epith Cells (0-2) /HPF Urine Bacteria (None Seen) Hyaline Casts (0-2) /LPF Urine Opiates Screen (Not Detect) Ur Buprenorphine Scrn (Not Detect) ng/mL Ur Oxycodone Screen (Not Detect) ng/mL Urine Methadone Screen (Not Detect) ng/mL Urine Fentanyl Screen (Not Detect) Ur Barbiturates Screen (Not Detect) Ur Phencyclidine Scrn (Not Detect) Ur Amphetamines Screen (Not Detect) U Benzodiazepines Scrn (Not Detect) Urine Cocaine Screen (Not Detect) U Marijuana (THC) Screen (Not Detect) Ethyl Alcohol < 10 mg/dL C. difficile Tox B Gene POSITIVE A* (Negative) C. difficile Toxin A&B Negative (Negative) C. difficile Interpret SEE NOTE Influenza Type A (PCR) NEGATIVE (Negative) Influenza Type B (PCR) NEGATIVE (Negative) RSV RNA Qual (PCR) NEGATIVE (Negative) SARS-CoV-2 RNA (RT-PCR) NEGATIVE (Negative) 05/25/25 Range/Units 08:17 WBC (4.8-10.8) X10*3/uL RBC (4.20-5.50) X10*6/uL Hgb (12.0-16.0) g/dl Hct (37.0-47.0) % MCV (80.0-98.0) fL MCH (27.0-33.0) pg MCHC (31.0-35.0) g/dl RDW (11.0-16.0) % Plt Count (160-400) X10*3/uL MPV (9.4-12.3) fL Immature Gran % (Auto) (0.0-0.4) % Neut % (Auto) (45-73) % Lymph % (Auto) (20-40) % [place] % (Auto) (2-11) % Eos % (Auto) (0-4) % Baso % (Auto) (0-2) % Lymph # (Auto) (1.2-4.9) X10*3/uL [place] # (Auto) (0.1-1.2) X10*3/uL Eos # (Auto) (0.0-0.4) X10*3/uL Baso # (Auto) (0.0-0.2) X10*3/uL Abs Immat Gran (auto) (0.00-0.03) X10*3/uL Absolute Neuts (auto) (2.0-8.3) x10*3/uL Absolute Nucleated RBC (0.0-0.012) X10*3/uL Nucleated RBC % (auto) (0.0-0.2) /100WBC Sodium (135-145) mmol/L Potassium (3.3-5.1) mmol/L Chloride (96-108) mmol/L Carbon Dioxide (22-29) mmol/L Anion Gap (12-20) BUN (9-16) mg/dL Creatinine (0.5-1.4) mg/dL Estim Creat Clear Calc Estimated GFR Random Glucose (60-115) mg/dL Lactic Acid (0.5-2.0) mmol/L Calcium (8.4-10.2) mg/dL Magnesium (1.6-2.6) mg/dL Total Bilirubin (0.0-1.0) mg/dL AST (5-31) U/L ALT (0-31) U/L Alkaline Phosphatase (39-117) U/L Total Protein (6.5-8.0) g/dL Albumin (3.5-5.0) g/dL Lipase (8-78) U/L Beta HCG, Quant mIU/mL Urine Color Yellow Urine Appearance Clear Urine pH 7.0 (5.0-9.0) Ur Specific [place] 1.015 (1.005-1.025) Urine Protein Negative (Neg-Trace) mg/dL Urine Glucose (UA) Negative (Negative) mg/dL Urine Ketones Negative (Negative) mg/dL Urine Blood Negative (Negative) Urine Nitrite Negative (Negative) Ur Leukocyte Esterase Negative (Negative) Urine RBC 0-2 (0-2) /HPF Urine WBC 0-5 (0-5) /HPF Ur Squamous Epith Cells 0-2 (0-2) /HPF Urine Bacteria None Seen (None Seen) Hyaline Casts 0-2 (0-2) /LPF Urine Opiates Screen Not Detected (Not Detect) Ur Buprenorphine Scrn Not Detected (Not Detect) ng/mL Ur Oxycodone Screen Not Detected (Not Detect) ng/mL Urine Methadone Screen Not Detected (Not Detect) ng/mL Urine Fentanyl Screen Not Detected (Not Detect) Ur Barbiturates Screen Not Detected (Not Detect) Ur Phencyclidine Scrn Not Detected (Not Detect) Ur Amphetamines Screen POSITIVE H (Not Detect) U Benzodiazepines Scrn Not Detected (Not Detect) Urine Cocaine Screen Not Detected (Not Detect) U Marijuana (THC) Screen Not Detected (Not Detect) Ethyl Alcohol mg/dL C. difficile Tox B Gene (Negative) C. difficile Toxin A&B (Negative) C. difficile Interpret Influenza Type A (PCR) (Negative) Influenza Type B (PCR) (Negative) RSV RNA Qual (PCR) (Negative) SARS-CoV-2 RNA (RT-PCR) (Negative) Radiology Impression Discussion of test interpretation with radiology: I have reviewed the radiologist's reading. Radiologist Impression: CLINICAL HISTORY: N V D; Generalized Abd Pain CT abdomen and pelvis with contrast Comparison: None provided Findings: There is mild dependent atelectasis. There is trace left pleural effusion. There are a few small hepatic cysts. The gallbladder is contracted. The pancreas, spleen, and adrenal glands are unremarkable. There are several small bilateral nonobstructing renal stones measuring up to 4 mm in the right kidney. There are a couple small renal cysts. Appendix is normal. There is diffuse mild colonic wall thickening consistent with colitis. There is fluid throughout the colon consistent with diarrhea. Stomach and small bowel are unremarkable. There is minimal free fluid in the cul-de-sac. There is no free air. The aorta and IVC are normal. There are no enlarged lymph nodes. Uterus and adnexa are unremarkable. Bladder is unremarkable. There is no fracture or suspicious lytic or sclerotic lesion. IMPRESSION: 1. Diffuse mild colonic wall thickening consistent with colitis. 2. Small bilateral nonobstructing renal stones. 3. Trace left pleural effusion. This document has been electronically signed by: Wilton Martell MD on 05/25/2025 00:54:39 Chronic Conditions Patient?s care impacted by: Other (Housing and security, seizure disorder, alcohol abuse) Social Determinants Patient?s care significantly limited by Social Determinants of Health including: Inadequate housing and Alcoholism and drug addiction in family Critical Care Time Critical Care Time Critical Care Time: Yes Total Critical Care Time: 44 Attestation: 7:53 AM 05/25/2025 (Dr. Esme Kelsey, D.O.) Timee is exclusive of separately billable procedures. Time includes: direct patient care, patient reassessment, coordination of patient care, interpretation of data (laboratory data, pulse oximetry, arterial blood gases and chest xrays), review of patient's medical records, medical consultation and documentation of patient care. Procedures excluded from critical care time: central intravenous line placement and electrocardiography. Discharge Plan Discharge Clinical Impression: C. difficile colitis, Acute hypokalemia, Hypovolemia Patient Disposition: Admitted As Inpatient
--- NOTE | 2025-05-24 23:46 | PC.NURSE ---
Travis LEMUS made aware of pts complaints/bp. pt is arousable to name and answers questions appropriately but quickly falling asleep. sats wnl. pupils slightly pinpoint denies drug use. denies si/hi. pt changed into hospital attire. belongings at bedside. ivf started and medicated per mar. call slater within reach. respite states can call upon d/c for ride back to facility.
[2025-05-24 23:49] VITALS: BP 94/54; PULSE 81; RESP 16; O2SAT 95
[2025-05-24 23:58] LABS: Alanine Aminotransferase 12 U/L (0-31); Albumin Level 3.6 g/dL (3.5-5.0); Alkaline Phosphatase 58 U/L (39-117); Anion Gap 11 (12-20); Aspartate Amino Transferase 15 U/L (5-31); Blood Urea Nitrogen 11 mg/dL (9-16); Calcium 8.5 mg/dL (8.4-10.2); Carbon Dioxide 25 mmol/L (22-29); Chloride 108 mmol/L (96-108); Creatinine Clr Calc Pharmacy 66.1; Estimated Glomerular Filt Rate > 60; Magnesium 2.0 mg/dL (1.6-2.6); Potassium 2.7 mmol/L (3.3-5.1); Sodium 141 mmol/L (135-145); Total Protein 6.2 g/dL (6.5-8.0)
[2025-05-25] VITALS (24 sets, daily range): BP systolic 65–124; BP diastolic 49–77; PULSE 71–91; RESP 12–18; TEMP 36.2–37.1; O2SAT 95–100; BMI 28.7
[2025-05-25 00:02] LABS: Lipase 364 U/L (8-78)
[2025-05-25 00:07] LABS: Resp Syncy Virus RNA Qual PCR NEGATIVE (Negative); SARS COV2 PCR INHOUSE NEGATIVE (Negative)
[2025-05-25] MEDS: iohexoL 350 MG/ML 100 ML INFUS..BTL 85 ML IV (00:14)
[2025-05-25] MEDS: Potassium Chloride/H20 10 MEQ/100 ML PIGGYBACK 100 MEQ IV ×4 (00:22→03:59)
[2025-05-25] MEDS: Potassium Chloride ER 20 MEQ TAB.ER.PRT 40 MEQ PO (00:55)
--- NOTE | 2025-05-25 01:00 | PC.NURSE ---
PA aware of BP after infused 1L IVF. 2nd IVF Bolus ordered and started per mar. also infusing iv potassium at this time. pt is on cardiac monitoring. took po meds.
--- NOTE | 2025-05-25 02:27 | PC.NURSE ---
another 500mL IVF hung per Travis LEMUS Verbal as pt complaining of iv discomfort with potassium. pt also had bowel incontinence and refused to assist with cleaning up d/t rectal pain. betty care given and bed linen changed barrier cream applied. sample obtained for cdiff.
[2025-05-25 03:34] LABS: CDiff Gene PCR POSITIVE (Negative)
--- NOTE | 2025-05-25 03:47 | PC.NURSE ---
pt requested 1mg IVP Dilaudid for body aches. Travis LEMUS made aware. ordered ivp Toradol and given per mar. will reassess pain level. pt states this iv is getting ripped out if my pain doesn't improve. pt complaining of iv discomfort with potassium when ivf infused. PA aware.
[2025-05-25 04:13] LABS: CDiff Toxin Negative (Negative)
[2025-05-25 04:14] LABS: CDIFF Internal ctrl Dots and bkg OK (V)
[2025-05-25] MEDS: Lactated Ringers 1,000 ML 2000 ML IV (06:23)
--- NOTE | 2025-05-25 08:24 | PM.IMHP ---
History of Present Illness Date of Service: 05/25/25 Chief Complaint: diarrhea 45 yo F with PMH of ADHD, GERD, cervical fx with residual R hemiparesis, PTSD, MDD/Bipolar disorder, polysubstance abuse who presents to the ED with complaints of profuse diarrhea for the last 4-5 days. The patient reports 10+ BMs with associated lower abdominal crampy pain. She reports loss of appetite but denies vomiting. She denies fevers or chills. Denies other sick contacts. Does endorse PO antibiotic use last month. ED work up CT abd/pelvis - diffuse colitis, small non-obstucting renal stones, trace L pleural effusion CBC - wbc wnl; mild anemia h/h 11.2/31.1 CMP - lactate wnl, K 2.7, lipase 364 Stool - C. diff tox neg; +PCR ED Treatment 4.5L total IVF, PO vancomcyin, IV KCl 40meq + PO 40 meq, iv zofran, iv toradol Pt initially with significant hypotension. BP 105/72 at the time of my interview. Pt seen and examined around 820 AM. She is awake and alert, slightly drowsy. Denies current abd pain, reports diarrhea since arrival. Denies substance use. Reports she currently lives at respite. Review of Systems Review of Systems: Negative except HPI/interval history. [facility] Medical History (Updated 05/25/25 @ 07:58 by Esme Kelsey DO) Skin-picking disorder Homeless Polysubstance use disorder TBI (traumatic brain injury) Polysubstance use disorder Bipolar disorder Alcohol abuse Alcohol abuse Seizure disorder ADHD PTSD (post-traumatic stress disorder) Migraine IBS (irritable bowel syndrome) Suicidal overdose Clonidine overdose Overdose Alcohol intoxication Depression Surgical History H/O tubal ligation Social History Household Members: None Household Members Other:: Homeless Housing: Homeless Do you presently have visiting nurse or other home services: No Alcohol intake: former Comment: sleeping Patient Tobacco Use Status: Current everyday Tobacco user Tobacco use type: Cigarette Cigarette Packs Per Day: 1 Cigarettes Per Day: 20.0 Years Smoked: 5-10 years Smoked in Last 30 Days: Yes e-Cigarette/Vaping Use: Currently Using Second Hand Smoke Exposure: No Use of substances other than those prescribed or required for medical reasons: No Substance Use Type: Prescription Drugs Advance Directives: No Advance Directives Information Provided: No Do you have a plan to hurt others: No Plan service: No Current occupational status: unemployed Sexual orientation: Straight/Heterosexual Meds Allergies Allergy/AdvReac Type Severity Reaction Status Date / Time kj (KJ) Allergy Severe SWELLING Verified 05/24/25 23:16 codeine Allergy Itching Verified 05/24/25 23:16 Latex, Natural Rubber Allergy Rash Verified 05/24/25 23:16 Home Medications ?Medication ?Instructions ?Recorded ?Confirmed ?Last Taken ?Type oyzoevu-[id number] 250 2 tab PO DAILY PRN Migraine 05/25/25 05/25/25 Unknown History mg-250 mg-65 mg tablet (Excedrin Headache Migraine) cholecalciferol (vitamin D3) 25 25 mcg PO DAILY 05/25/25 05/25/25 Unknown History mcg (1,000 unit) tablet clonazepam 1 mg tablet 0.5 - 1 mg PO DAILY PRN Anxiety 05/25/25 05/25/25 Unknown History clonazepam 1 mg tablet 1 mg PO BID 05/25/25 05/25/25 Unknown History dextroamphetamine-amphetamine 30 30 mg PO BID@0630,1300 05/25/25 05/25/25 Unknown History mg tablet dextroamphetamine-amphetamine 30 30 mg PO DAILY@1600 05/25/25 05/25/25 Unknown History mg tablet hydroxyzine HCl 25 mg tablet 25 mg PO Q6H PRN Anxiety 05/25/25 05/25/25 Unknown History naltrexone 50 mg tablet 50 mg PO DAILY 05/25/25 05/25/25 Unknown History omeprazole 20 mg capsule,delayed 20 mg PO DAILY@0630 PRN Acid Reflux 05/25/25 05/25/25 Unknown History release trazodone 50 mg tablet 50 - 100 mg PO BEDTIME PRN Sleep 05/25/25 05/25/25 Unknown History Physical Exam Vital Signs and Narrative: Vital Signs: Last Vital Signs Temp 97.4 F 05/25/25 03:15 Pulse 73 05/25/25 07:21 Resp 13 05/25/25 07:21 BP 89/54 L 05/25/25 07:21 Pulse Ox 96 05/25/25 07:21 O2 Del Method Room Air 05/25/25 07:21 BMI result Body Mass Index 27.9 Const: Other: Constitutional - Awake and Alert, sleepy but able to participate in interview Eyes - PERRLA, EOMI Cardiovascular - S1S2, RRR, No edema Respiratory - Normal lung expansion, Normal respiratory effort, No respiratory distress, CTA bilaterally Gastrointestinal - mild distension without tenderness/rebound - No CVA tenderness Extremities - no calf tenderness bilaterally, no swelling Musculoskeletal - Normal inspection, normal ROM Skin - Warm/Dry Neurological - awake and alert; moving all 4 limbs; speech comprehensible Psychological - Appropriate affect Results Labs 05/24/25 23:24 05/24/25 23:24 Labs: Laboratory Results - last 24 hr 05/24/25 05/25/25 05/25/25 23:24 02:41 04:50 MCV 82.5 MCH 29.7 MCHC 36.0 H RDW 14.7 Plt Count 247 D MPV 9.1 L Immature Gran % (Auto) 0.5 H Neut % (Auto) 49.3 Lymph % (Auto) 36.7 [place] % (Auto) 12.4 H Eos % (Auto) 0.8 Baso % (Auto) 0.3 Lymph # (Auto) 2.4 [place] # (Auto) 0.8 Eos # (Auto) 0.1 Baso # (Auto) 0.0 Abs Immat Gran (auto) 0.03 Absolute Neuts (auto) 3.2 Absolute Nucleated RBC 0.000 Nucleated RBC % (auto) 0.0 Anion Gap 11 L Estim Creat Clear Calc 66.1 Estimated GFR > 60 Random Glucose 110 Lactic Acid 0.7 Calcium 8.5 Magnesium 2.0 Total Bilirubin 0.2 AST 15 ALT 12 Alkaline Phosphatase 58 Total Protein 6.2 L Albumin 3.6 Lipase 364 H Beta HCG, Quant < 2 Ethyl Alcohol < 10 C. difficile Tox B Gene POSITIVE A* C. difficile Toxin A&B Negative C. difficile Interpret SEE NOTE Influenza Type A (PCR) NEGATIVE Influenza Type B (PCR) NEGATIVE RSV RNA Qual (PCR) NEGATIVE SARS-CoV-2 RNA (RT-PCR) NEGATIVE Assessment and Plan (1) C. difficile colitis: Status: Acute Plan 45 yo F with PMH of ADHD, GERD, cervical fx with residual R hemiparesis, PTSD, MDD/Bipolar disorder, polysubstance abuse who presents with 4-5 days of diarrhea. Found to have colitis on imaging; C. diff neg toxin; +PCR, hypoK and hypotension 1. Colitis C. diff testing equivocal but given low BP and electrolyte abnormalities -- will opt to treat with PO vancomycin IVF 2. Hypotension due to above responding to IVF, but still low normal; will continue LR 3. HypoK given total 80meq in checm BMP now 4. Mood continue baseline meds Full Code DVT pptx - lovenox Pt with hypotension and profuse diarrhea requiring aggressive IVF and treament of underlying colitis, therefore expected to requiring at least 2 midnights in the hospital for mgmt. Hence, will be admitted as inpt. Quality Stroke Does the patient have a stroke diagnosis?: No VTE Prior VTE?: No VTE Risk Level:: Medical - moderate - high VTE Device Contraindication: N/A - Device Ordered VTE Drug Contraindication: N/A - Med Ordered
[2025-05-25 08:30] LABS: Appearance Urine Clear; Glucose Urine UA Negative (Negative); PH 7.0 (5.0-9.0); Specific Gravity - Urine 1.015 (1.005-1.025)
[2025-05-25 08:43] LABS: Cannabinoid Screen Urine Not Detected (Not Detect)
[2025-05-25] MEDS: Albumin Human 25 % 100 ML 133.33 ML IV (09:01)
[2025-05-25] MEDS: Lactated Ringers 1,000 ML 100 ML IVCONT ×2 (09:02→19:03)
--- NOTE | 2025-05-25 09:24 | PHA.MEDREC ---
Addendum entered by Shayla Beavers [facility] 05/25/25 10:17: MED REC REVIEWED BY [facility] Original Note: Pharmacy Consult ? Medication Reconciliation Pharmacy has completed the medication reconciliation. Spoke with pt and she was a poor historian with her medications but pt nurse confirmed she came from the [facility] and had a typed list from them updated on 05/22 I utilized to confirm the med rec. Clindamycin 300mg tab on the list TID as needed but not indicated why as needed.
[2025-05-25 10:25] LABS: Anion Gap 6 (12-20); Blood Urea Nitrogen 10 mg/dL (9-16); Calcium 7.8 mg/dL (8.4-10.2); Carbon Dioxide 21 mmol/L (22-29); Chloride 120 mmol/L (96-108); Creatinine Clr Calc Pharmacy 96.6; Estimated Glomerular Filt Rate > 60; Potassium 3.9 mmol/L (3.3-5.1); Sodium 143 mmol/L (135-145)
[2025-05-25] MEDS: metroNIDAZOLE/NS 500 MG/100 ML PIGGYBACK 100 MG IV ×2 (10:42→21:44)
[2025-05-25] MEDS: Dextroamphetamine/Amphetamine XR 10 MG CAP.ER.24H 30 MG PO (13:17)
[2025-05-25] MEDS: Albumin Human 25 % 100 ML IV ×2 (14:08→21:47)
[2025-05-25] MEDS: Amphetamine Mixed Salts 10 MG TABLET 30 MG PO (16:05)
[2025-05-26] MEDS: metroNIDAZOLE/NS 500 MG/100 ML PIGGYBACK 100 MG IV ×3 (03:23→18:14)
[2025-05-26] MEDS: Albumin Human 25 % 100 ML IV ×2 (03:50→08:10)
[2025-05-26 04:00] VITALS: BP 105/49; PULSE 52; RESP 16; TEMP 36.8; O2SAT 100
[2025-05-26] MEDS: Dextroamphetamine/Amphetamine XR 10 MG CAP.ER.24H 30 MG PO ×2 (06:36→12:50)
[2025-05-26 07:10] VITALS: BP 106/69; PULSE 82; RESP 20; TEMP 36.1; O2SAT 99
[2025-05-26 07:29] LABS: Hematocrit 27.8 % (37.0-47.0); Hemoglobin 9.5 g/dl (12.0-16.0); Mean Corpuscular HGB Conc 34.2 g/dl (31.0-35.0); Mean Corpuscular Hemoglobin 29.7 pg (27.0-33.0); Mean Corpuscular Volume 86.9 fL (80.0-98.0); NRBC Abs Auto 0.000 X10*3/uL (0.0-0.012); NRBC Pct Auto 0.0 /100WBC (0.0-0.2); Platelet Count 214 X10*3/uL (160-400); Red Blood Count 3.20 X10*6/uL (4.20-5.50); White Blood Count 5.0 X10*3/uL (4.8-10.8)
[2025-05-26 07:42] LABS: Alanine Aminotransferase 18 U/L (0-31); Albumin Level 4.3 g/dL (3.5-5.0); Alkaline Phosphatase 38 U/L (39-117); Anion Gap 9 (12-20); Aspartate Amino Transferase 20 U/L (5-31); Blood Urea Nitrogen 5 mg/dL (9-16); Calcium 8.5 mg/dL (8.4-10.2); Carbon Dioxide 22 mmol/L (22-29); Chloride 116 mmol/L (96-108); Creatinine Clr Calc Pharmacy 92.2; Estimated Glomerular Filt Rate > 60; Potassium 3.7 mmol/L (3.3-5.1); Sodium 143 mmol/L (135-145); Total Protein 6.0 g/dL (6.5-8.0)
[2025-05-26] MEDS: 0.9 % Sodium Chloride Flush 3 ML SYRINGE IVFLUSH ×2 (08:11→15:35)
--- NOTE | 2025-05-26 09:40 | MHC.CM.PN ---
Pt. lives in a respite program in [place], where she will stay until she can get an apt. in Jul. She has a outsole caser at [facility], and will have services to assist with medication. Her PCP is Dana Mcdonald NP in [place]. She does not use DME, and may need assistance with transportation home at [place]. DCP: return to respite.
[2025-05-26] MEDS: Butalb/Acetamin/Caff 50/325/40 TABLET 1 TAB PO ×2 (11:02→20:09)
[2025-05-26 11:12] VITALS: BP 115/78; PULSE 93; RESP 19; TEMP 36.2; O2SAT 98
[2025-05-26 15:14] VITALS: BP 131/71; PULSE 85; RESP 16; TEMP 36.4; O2SAT 97
[2025-05-26] MEDS: Amphetamine Mixed Salts 10 MG TABLET 30 MG PO (15:34)
[2025-05-26] MEDS: Nicotine 21 MG PATCH.TD24 TRANSDERMA (15:35)
--- NOTE | 2025-05-26 16:10 | HO.PM.IMPN ---
Subjective Subjective Date of Service: 05/26/25 Interval History: Abdominal pain and diarrhea Still experiencing some 6 episodes of diarrhea over the past 24 hours Abdominal pain, bloating, cramping Has been experiencing a migraine Reports possible blood in stool Review of Systems Review of Systems: Yes all other systems are reviewed and are negative Physical Exam Vital Signs: Vital Signs: Last Vital Signs Temp 97.6 F 05/26/25 15:14 Pulse 85 05/26/25 15:14 Resp 16 05/26/25 15:14 BP 131/71 05/26/25 15:14 Pulse Ox 97 05/26/25 15:14 O2 Del Method Room Air 05/26/25 15:14 BMI result Body Mass Index 28.7 General: AOx3, no acute distress Resp: CTA bilaterally CVS: S1, S2, RRR GI: +BS, no distention, diffuse mild tenderness, worse on left sidee Skin: Warm, dry Neuro: Cranial nerves II-XII grossly intact bilaterally. Motor grossly intact bilaterally Extremities: No edema Psych: Appropriate affect Objective Data Active Medications Acetaminophen (Acetaminophen 325 Mg Tablet) 650 mg PO Q6H PRN PRN Reason: Pain, Mild 1-3,fever,headache Last Admin: 05/26/25 08:11 Dose: 650 mg Documented By: EPIFANIO Acetaminophen/Butalbital/Caffeine (Butalb/Acetamin/Caff 50/325/40 Tablet) 1 tab PO Q4H PRN PRN Reason: Headache/Pain, Scale 1-10 Last Admin: 05/26/25 11:02 Dose: 1 tab Documented By: EPIFANIO Amphetamine/Dextroamphetamine (Dextroamphetamine/Amphetamine Xr 10 Mg Cap.Er.24h) 30 mg PO BID@0630,1300 [facility] Last Admin: 05/26/25 12:50 Dose: 30 mg Documented By: EPIFANIO Amphetamine/Dextroamphetamine (Amphetamine Mixed Salts 10 Mg Tablet) 30 mg PO DAILY@1600 [facility] Last Admin: 05/26/25 15:34 Dose: 30 mg Documented By: EPIFANIO Calcium Carbonate (Calcium Carbonate 750 Mg Tab.Chew) 750 mg PO Q4H PRN PRN Reason: Heartburn Clonazepam (Clonazepam 0.5 Mg Tablet) 0.5 mg PO DAILY PRN PRN Reason: Anxiety Clonazepam (Clonazepam 1 Mg Tablet) 1 mg PO BID [facility] Last Admin: 05/26/25 08:08 Dose: 1 mg Documented By: EPIFANIO Cyanocobalamin (Cyanocobalamin (Vitamin B-12) 100 Mcg Tablet) 100 mcg PO DAILY [facility] Last Admin: 05/26/25 08:09 Dose: 100 mcg Documented By: MIKEING Enoxaparin Sodium (Enoxaparin Sodium 40 Mg/0.4 Ml Syringe) 40 mg SUBCUT Q24H [facility] Last Admin: 05/26/25 08:10 Dose: 40 mg Documented By: MIKEING Fluoxetine HCl (Fluoxetine Hcl 20 Mg Capsule) 60 mg PO DAILY [facility] Last Admin: 05/26/25 08:09 Dose: 60 mg Documented By: MIKEING Folic Acid (Folic Acid 1 Mg Tablet) 1 mg PO DAILY [facility] Last Admin: 05/26/25 08:09 Dose: 1 mg Documented By: MIKEING Hydroxyzine HCl (Hydroxyzine Hcl 25 Mg Tablet) 25 mg PO Q6H PRN PRN Reason: Anxiety Metronidazole (Flagyl) 500 mg in 100 mls @ 100 mls/hr IV Q8H [facility] Last Infusion: 05/26/25 11:32 Dose: Infused Documented By: EPIFANIO Loratadine (Loratadine 10 Mg Tablet) 10 mg PO DAILY [facility] Last Admin: 05/26/25 08:09 Dose: 10 mg Documented By: MIKEING Magnesium Hydroxide (Milk Of Magnesia 30 Ml Oral.Susp) 30 ml PO DAILY PRN PRN Reason: Constipation Melatonin (Melatonin 3 Mg Tablet) 6 mg PO BEDTIME PRN PRN Reason: Insomnia Naltrexone HCl (Naltrexone Hcl 50 Mg Tablet) 50 mg PO DAILY [facility] Last Admin: 05/26/25 08:09 Dose: 50 mg Documented By: MIKEING Nicotine (Nicotine 21 Mg Patch.Td24) 21 mg TRANSDERMA DAILY PRN PRN Reason: smoking cessation Last Admin: 05/26/25 15:35 Dose: 21 mg Documented By: MIKEING Nicotine Polacrilex (Nicotine Polacrilex Lozenge 2 Mg Lozenge) 2 mg BUCCAL Q2H PRN PRN Reason: Nicotine Cravings Omeprazole (Omeprazole 20 Mg Capsule.) 20 mg PO DAILY@0630 PRN PRN Reason: Acid Reflux Risperidone (Risperidone 2 Mg Tablet) 4 mg PO BEDTIME [facility] Last Admin: 05/25/25 21:39 Dose: 4 mg Documented By: RIGOBERTO Sodium Chloride (0.9 % Sodium Chloride Flush 3 Ml Syringe) 3 ml IVFLUSH QSHIFT [facility] Last Admin: 05/26/25 15:35 Dose: 3 ml Documented By: EPIFANIO Topiramate (Topiramate 100 Mg Tablet) 200 mg PO BID [facility] Last Admin: 05/26/25 08:09 Dose: 200 mg Documented By: EPIFANIO Valacyclovir HCl (Valacyclovir Hcl 1,000 Mg Tablet) 1,000 mg PO DAILY [facility] Last Admin: 05/26/25 08:09 Dose: 1,000 mg Documented By: EPIFANIO Vancomycin HCl (Vancomycin Hcl 125 Mg Capsule) 125 mg PO Q6H [facility] Last Admin: 05/26/25 15:35 Dose: 125 mg Documented By: EPIFANIO Vitamin D (Cholecalciferol (Vitamin D3) 25 Mcg Tablet) 25 mcg PO DAILY [facility] Last Admin: 05/26/25 08:09 Dose: 25 mcg Documented By: EPIFANIO Labs 05/26/25 07:16 05/26/25 07:16 Labs: Laboratory Results - last 24 hr 05/26/25 07:16 MCV 86.9 MCH 29.7 MCHC 34.2 RDW 15.9 Plt Count 214 MPV 8.6 L Absolute Nucleated RBC 0.000 Nucleated RBC % (auto) 0.0 Anion Gap 9 L Estim Creat Clear Calc 92.2 Estimated GFR > 60 Random Glucose 83 Calcium 8.5 D Total Bilirubin 0.2 AST 20 ALT 18 Alkaline Phosphatase 38 L Total Protein 6.0 L Albumin 4.3 Microbiology Microbiology Results: Microbiology 05/25/25 04:50 Blood Culture - Preliminary Blood - Venous No growth after 24 hours. 05/25/25 04:41 Blood Culture - Preliminary Blood - Venous No growth after 24 hours. Assessment and Plan (1) C. difficile colitis: Status: Acute Plan 45 yo F with PMH of ADHD, GERD, cervical fx with residual R hemiparesis, PTSD, MDD/Bipolar disorder, polysubstance abuse who presents with 4-5 days of diarrhea. Found to have colitis on imaging; C. diff neg toxin; +PCR, hypoK and hypotension Acute c. diff Colitis C. diff testing equivocal but given N/V/D and electrolyte abnormalities -- will opt to treat with PO vancomycin Hypotension, resolved Due to above Pt given IVF HypoK Given total 80meq Secondary to above Follow BMP Acute anemia H&H dropped from 11.2/31.1 --> 9.5/27.8 Reports possible bloody diarrhea Hold Lovenox, follow H&H Mood disorder Continue baseline meds Full Code DVT pptx - lovenox Pt requires continued hospitalization for continued treatment of acute C diff colitis and close monitoring of electrolytes. Quality Stroke Does the patient have a stroke diagnosis?: No VTE Prior VTE?: No VTE Risk Level:: Medical - moderate - high VTE Device Contraindication: N/A - Device Ordered VTE Drug Contraindication: N/A - Med Ordered
[2025-05-26] MEDS: Nicotine Polacrilex Lozenge 2 MG LOZENGE BUCCAL ×2 (16:26→20:20)
[2025-05-26 19:21] VITALS: BP 140/85; PULSE 70; RESP 18; TEMP 36.9; O2SAT 99
[2025-05-27] VITALS: BP 96/52; PULSE 81; RESP 16; TEMP 36.8; O2SAT 100
[2025-05-27] MEDS: 0.9 % Sodium Chloride Flush 3 ML SYRINGE IVFLUSH ×3 (00:23→15:48)
[2025-05-27] MEDS: metroNIDAZOLE/NS 500 MG/100 ML PIGGYBACK 100 MG IV (03:48)
[2025-05-27] MEDS: Butalb/Acetamin/Caff 50/325/40 TABLET 1 TAB PO (03:55)
[2025-05-27 04:00] VITALS: BP 105/63; PULSE 83; RESP 17; TEMP 36.9; O2SAT 100
[2025-05-27 04:21] LABS: Hematocrit 30.5 % (37.0-47.0); Hemoglobin 10.5 g/dl (12.0-16.0); Mean Corpuscular HGB Conc 34.4 g/dl (31.0-35.0); Mean Corpuscular Hemoglobin 30.0 pg (27.0-33.0); Mean Corpuscular Volume 87.1 fL (80.0-98.0); NRBC Abs Auto 0.000 X10*3/uL (0.0-0.012); NRBC Pct Auto 0.0 /100WBC (0.0-0.2); Platelet Count 308 X10*3/uL (160-400); Red Blood Count 3.50 X10*6/uL (4.20-5.50); White Blood Count 5.1 X10*3/uL (4.8-10.8)
[2025-05-27 04:38] LABS: Alanine Aminotransferase 26 U/L (0-31); Albumin Level 4.1 g/dL (3.5-5.0); Alkaline Phosphatase 50 U/L (39-117); Anion Gap 11 (12-20); Aspartate Amino Transferase 23 U/L (5-31); Blood Urea Nitrogen 6 mg/dL (9-16); Calcium 8.4 mg/dL (8.4-10.2); Carbon Dioxide 19 mmol/L (22-29); Chloride 116 mmol/L (96-108); Creatinine Clr Calc Pharmacy 86.0; Estimated Glomerular Filt Rate > 60; Potassium 3.2 mmol/L (3.3-5.1); Sodium 143 mmol/L (135-145); Total Protein 6.1 g/dL (6.5-8.0)
[2025-05-27] MEDS: Dextroamphetamine/Amphetamine XR 10 MG CAP.ER.24H 30 MG PO ×2 (05:45→14:00)
[2025-05-27 07:27] VITALS: BP 122/68; PULSE 78; RESP 20; TEMP 36.6; O2SAT 99
--- NOTE | 2025-05-27 07:30 | HE.PHANOTE ---
METRONIDAZOLE IV TO PO 500MG Q8H IV SWITCH PER PROTOCOL TO PO. NEXT DOSE 05/27 1100
[2025-05-27] MEDS: Potassium Chloride Packet 20 MEQ PACKET 40 MEQ PO (09:00)
[2025-05-27] MEDS: Nicotine 21 MG PATCH.TD24 TRANSDERMA (09:01)
[2025-05-27] MEDS: Nicotine Polacrilex Lozenge 2 MG LOZENGE BUCCAL (09:02)
--- NOTE | 2025-05-27 10:23 | MHC.CM.PN ---
Per rounds, pt. is ready to DC today, CM contacted the [facility] respite where she lives: [phone], LM req. return call.
[2025-05-27 11:21] VITALS: BP 105/65; PULSE 95; RESP 18; TEMP 36.9; O2SAT 97
--- NOTE | 2025-05-27 13:13 | P.DS_ITS ---
DS: Providers Provider Date of Service: 05/27/25 Date of admission: 05/25/25 08:21 Date of discharge: 05/27/25 Primary care physician: Dana Mcdonald NP DS: Diagnosis Discharge Diagnosis (1) C. difficile colitis: Status: Acute DS: Summary Hospital Course Hospital Course: From admission HPI: Date of Service: 05/25/25 Chief Complaint: diarrhea 45 yo F with PMH of ADHD, GERD, cervical fx with residual R hemiparesis, PTSD, MDD/Bipolar disorder, polysubstance abuse who presents to the ED with complaints of profuse diarrhea for the last 4-5 days. The patient reports 10+ BMs with associated lower abdominal crampy pain. She reports loss of appetite but denies vomiting. She denies fevers or chills. Denies other sick contacts. Does endorse PO antibiotic use last month. ED work up CT abd/pelvis - diffuse colitis, small non-obstucting renal stones, trace L pleural effusion CBC - wbc wnl; mild anemia h/h 11.2/31.1 CMP - lactate wnl, K 2.7, lipase 364 Stool - C. diff tox neg; +PCR ED Treatment 4.5L total IVF, PO vancomcyin, IV KCl 40meq + PO 40 meq, iv zofran, iv toradol Pt initially with significant hypotension. BP 105/72 at the time of my interview. Pt seen and examined around 820 AM. She is awake and alert, slightly drowsy. Denies current abd pain, reports diarrhea since arrival. Denies substance use. Reports she currently lives at respite. Hospital course: The pt was admitted to the hospital for intractable abdominal pain and diarrhea suspicious for acute C diff colitis. Even though patient tested negative for C diff toxin, clinical picture and hypokalemia warranted treated with oral vancomycin. Patient's hospital course was uncomplicated, and pt improved over the course of 2 days. Has been 24 hours since last episode of diarrhea. Pt reports had bowel movement this morning that was mostly formed but soft. Abdominal pain well-controlled. Has been able to tolerate a solid diet. No nausea or vomiting. This is patient's 1st episode of C diff, and no need to follow up with Infectious Disease at this time. Pt will be prescribed oral vancomycin 125 mg q.i.d. x5 days for a total 7 day treatment course. Pt also will be prescribed a daily multivitamin. Should follow up with PCP in 1 week time for routine post hospitalization follow up. Pt is agreeable to this plan, and wishes to be discharged from the hospital. She knows to return to the ED if symptoms returned. Pt should resume all of her other home medications. Time Attestation Discharge Coordination Time (in mins): 35 Quality: Safe Use of Opioids Does Pt have an Active Cancer Diagnosis on the Problem List?: No Quality: Stroke Does the patient have a stroke diagnosis?: No Physical Exam Exam: Exam: General: AOx3, no acute distress Resp: CTA bilaterally CVS: S1, S2, RRR GI: +BS, NT, no distention Skin: Warm, dry Neuro: Cranial nerves II-XII grossly intact bilaterally. Motor grossly intact bilaterally Extremities: No edema Psych: Slightly anxious, but cooperative Vital Signs: Vital Signs: Last Vital Signs Temp 98.5 F 05/27/25 11:21 Pulse 95 05/27/25 11:21 Resp 18 05/27/25 11:21 BP 105/65 05/27/25 11:21 Pulse Ox 97 05/27/25 11:21 O2 Del Method Room Air 05/27/25 11:21 BMI result Body Mass Index 28.7 DS: Data Data Completed and Pending Labs on day of discharge: Laboratory Results - last 24 hr 05/27/25 03:54 WBC 5.1 RBC 3.50 L Hgb 10.5 L Hct 30.5 L MCV 87.1 MCH 30.0 MCHC 34.4 RDW 15.9 Plt Count 308 D MPV 8.9 L Absolute Nucleated RBC 0.000 Nucleated RBC % (auto) 0.0 Sodium 143 Potassium 3.2 L Chloride 116 H Carbon Dioxide 19 L Anion Gap 11 L BUN 6 L Creatinine 0.74 Estim Creat Clear Calc 86.0 Estimated GFR > 60 Random Glucose 111 Calcium 8.4 Total Bilirubin 0.2 AST 23 ALT 26 Alkaline Phosphatase 50 Total Protein 6.1 L Albumin 4.1 Preliminary micro results at discharge 05/25/25 04:50 Blood Culture - Preliminary Blood - Venous No growth after 48 hours. 05/25/25 04:41 Blood Culture - Preliminary Blood - Venous No growth after 48 hours. Discharge Plan Discharge Anticipated Discharge Date/Time: 05/27/25 12:18 Patient Disposition: Home, Self-Care Discharge Diagnosis: Acute c-diff colitis Referrals: Dana Mcdonald NP [Primary Care Provider, Medical] - 1 Week Discharge Medications: New vancomycin 125 mg capsule 125 mg PO QID Qty: 10 0RF Rx Instructions: Take one capsule four times a day for the next 5 days multivitamin Tablet 1 tab PO DAILY Qty: 90 0RF Rx Instructions: Take one tablet daily Continued nicotine 21 mg/24 hr Patch 24 Hour 21 mg transdermal DAILY PRN (Reason: smoking cessation) 28 Days Qty: 28 0RF Rx Instructions: remove at bedtime nicotine (polacrilex) 4 mg Lozenge 4 mg buccal Q2H PRN (Reason: Nicotine Cravings) 30 Days Qty: 108 0RF chlorpromazine 50 mg tablet 50 mg PO BID PRN (Reason: agitation) 30 Days Qty: 30 0RF fluticasone propionate 50 mcg/actuation [place],Suspension 1 spray intranasal DAILY 30 Days Qty: 16 0RF docusate sodium 100 mg Capsule 100 mg PO BID 30 Days Qty: 60 0RF cyanocobalamin (vitamin B-12) [Vitamin B-12] 100 mcg Tablet 100 mcg PO DAILY 30 Days Qty: 30 0RF folic acid 1 mg Tablet 1 mg PO DAILY 30 Days Qty: 30 0RF diphenhydramine HCl 50 mg capsule 50 mg PO BEDTIME PRN (Reason: sleep) 30 Days Qty: 30 0RF valacyclovir 1 gram Tablet 1,000 mg PO DAILY 30 Days Qty: 30 0RF risperidone 4 mg tablet 4 mg PO BEDTIME 30 Days Qty: 30 0RF topiramate 200 mg tablet 200 mg PO BID 30 Days Qty: 60 0RF fluoxetine 20 mg capsule 60 mg PO DAILY 30 Days Qty: 90 0RF loratadine 10 mg Tablet 10 mg PO DAILY 30 Days Qty: 30 0RF trazodone 50 mg tablet 50 - 100 mg PO BEDTIME PRN (Reason: Sleep) dextroamphetamine-amphetamine 30 mg tablet 30 mg PO DAILY@1600 cholecalciferol (vitamin D3) 25 mcg (1,000 unit) tablet 25 mcg PO DAILY clonazepam 1 mg Tablet 0.5 - 1 mg PO DAILY PRN (Reason: Anxiety) omeprazole 20 mg Capsule,Delayed Release(Dr/Ec) 20 mg PO DAILY@0630 PRN (Reason: Acid Reflux) Excedrin Migraine 250-250-65 mg Tablet 2 tab PO DAILY MDD 2 tabs PRN (Reason: Migraine Headache) naltrexone 50 mg tablet 50 mg PO DAILY clonazepam 1 mg tablet 1 mg PO BID hydroxyzine HCl 25 mg tablet 25 mg PO Q6H PRN (Reason: Anxiety) dextroamphetamine-amphetamine 30 mg capsule,extended release 24hr 30 mg PO BID@0630,1300 Discharge Orders: Discharge Order (Routine); Ordered 05/27/25 Ordered By: Salud Najera Activity on Discharge: As tolerated Stand Alone Forms: Patient Portal Discharge page Print Language: Peruvian Care Plan Goals: Resolution of abdominal pain and diarrhea See below Health Concerns: C-Diff colitis Hypokalemia Intractable abdominal pain and diarrhea Plan of Treatment: You were admitted to the hospital for abdominal pain and intractable diarrhea likely secondary to acute C diff colitis. You were treated with oral vancomycin and supportive care. Take vancomycin 125 mg p.o. 4 times a day for the next 5 days You are also being prescribed a multivitamin to be taken daily Given that diarrhea has subsided, you no longer need any contact precautions You can resume all of your other home medications Assessment: See discharge summary Discharge Date/Time: 05/27/25 17:26
--- NOTE | 2025-05-27 15:28 | MHC.CM.PN ---
Pt has been medically cleared to DC, she will return to her respite program today via [place].
[2025-05-27 15:45] VITALS: BP 115/71; PULSE 95; RESP 18; TEMP 36.9; O2SAT 97
--- NOTE | 2025-05-29 11:09 | P.CDIM_ITS ---
PROVIDER RESPONSE TEXT: To clarify, the appropriate diagnosis supported by the clinical indicators: Acute blood loss anemia QUERY TEXT: PHYSICIAN'S DOCUMENTATION REQUEST Date of Query: 05/27/2025 10:44 AM EDT Patient Name: Sugey Treviño Admit Date: 05/25/2025 Dear Salud LEMUS, A review of the medical record indicates additional documentation may be needed. Please review below and update the documentation accordingly. Clinical Indicators: Acute anemia H&H dropped from 11.2/31.1 --> 9.5/27.8 possible bloody diarrhea hold Lovenox Based on the above, could you clarify which of the following is the most likely type of anemia you are evaluating, treating, and/or monitoring? Acute blood loss anemia Anemia due to anti-coagulant (specify type) Other (explain) Clinically unable to determine (explain) Thank you, Lilliana Delgado RN Use of terms such as suspected, likely, concern for, or probable (associated with a specific diagnosis that is being evaluated, monitored, or treated as if it exists) are acceptable and can be coded in the inpatient setting, when documented at the time of discharge. Please use your independent medical judgment in providing your response. THIS QUERY IS PART OF THE PERMANENT MEDICAL RECORD
== END 2025-05-27 17:26 | disposition home or self-care (01) | DRG 248 ==
LOC: HO.ED 05-25 07:58 → HO.EDOVER 05-25 09:32 → HO.IMC 05-25 19:28
PROVIDERS: Internal Medicine Pulmonary Disease; Physician Assistant; Admitting Provider Family Medicine; Emergency Provider Emergency Medicine; PCP Nurse Practitioner Gerontology; Visit Provider Student in an Organized Health Care Education/Training Program
DX: A04.72 Enterocolitis due to Clostridium difficile, not specified as recurrent (principal); I95.9 Hypotension, unspecified; D62 Acute posthemorrhagic anemia; F19.10 Other psychoactive substance abuse, uncomplicated; E87.6 Hypokalemia; F39 Unspecified mood [affective] disorder; Z79.899 Other long term (current) drug therapy
CPT/HCPCS: 36415; 74177; 80048; 80053; 80307; 81001; 83605; 83690; 83735; 84100; 84702; 85025; 85027; 87040; 87324; 87493; 87637; 99285; J1650; J1836; J1885; J2405; J3480; J7120; P9047; Q9967

== ENCOUNTER → 2025-05-25 08:21 | Outpatient (BNV) | payer MEDICAID, SELFPAY | PROVIDERS: Admitting Provider Family Medicine; Emergency Provider Emergency Medicine; Visit Provider Family Medicine | DX: A04.72 Enterocolitis due to Clostridium difficile, not specified as recurrent (principal) | CPT/HCPCS: 99223; 99233; 99239 ==

== ENCOUNTER → 2025-05-25 23:07 | Outpatient (BNV) | payer MEDICAID, SELFPAY | PROVIDERS: Emergency Provider Emergency Medicine; Visit Provider Radiology Diagnostic Radiology | DX: K52.9 Noninfective gastroenteritis and colitis, unspecified (principal) | CPT/HCPCS: 74177 ==